=== PATIENT | male | born 1935 | race Hispanic/Latino ===

== ENCOUNTER 2017-04-24 08:55 | Inpatient (IN) | payer MEDICARE, BC ==
[2017-04-24 09:19] VITALS: BMI 19.8
[2017-04-24] MEDS ORDERED: Sodium Chloride 0.9% 500 ML IV ONE (10:11)
--- NOTE | 2017-04-24 10:39 | RAD ---
PROCEDURE: CHEST RADIOGRAPH, 1 VIEW HISTORY: cough COMPARISON: None available. FINDINGS: LUNGS: The interstitial marking appear diffusely and mildly increased chronic interstitial lung disease is a consideration. At least 2 nodular opacities project over the lateral inferior left merrick thorax - their etiology is uncertain. The chronicity is unknown conceivably the more inferior nodule could represent a prominent nipple shadow although this is not certain. Left pulmonary nodules are the diagnosis of exclusion. PLEURA: No pneumothorax or pleural fluid seen. CARDIOVASCULAR: Cardiomegaly. The central pulmonary vasculature appears top-normal OSSEOUS STRUCTURES: Bilateral shoulder arthrosis VISUALIZED UPPER ABDOMEN: Normal. OTHER FINDINGS: None. IMPRESSION: Indeterminate nodular opacities project over inferolateral left merrick thorax. Left pulmonary nodules for the diagnosis of exclusion. No comparison chest x-rays available for chronicity assessment If indicated consider noncontrast elective CT chest imaging to further evaluate
[2017-04-24 10:43] LABS: BASO % 0.3 % (0.0-2.0); EOS # 0.2 K/uL (0.0-0.7); EOS % 1.5 % (0.0-4.0); HEMATOCRIT 33.8 % (35.0-51.0); LYMPH # 0.6 K/uL (1.0-4.3); LYMPH % 4.3 % (20.0-40.0); MEAN CELL VOLUME 92.2 fL (80.0-94.0); MEAN CORPUSCULAR HEMOGLOBIN 30.9 pg (27.0-31.0); MEAN CORPUSCULAR HGB CONC 33.6 g/dL (33.0-37.0); MONO # 1.9 K/uL (0.0-0.8); MONO % 14.3 % (0.0-10.0); NRBC % 0.1 % (0.0-2.0); PLATELET COUNT 123 K/uL (130-400); RED CELL DISTRIBUTION WIDTH 14.3 % (11.5-14.5); WHITE BLOOD COUNT 13.1 K/uL (4.8-10.8)
--- NOTE | 2017-04-24 10:46 | C.PDOC ---
History Of Present Illness 81 year old male presents to ED for evaluation of productive cough, runny nose, body aches, generalized weakness, and an episode of diarrhea 2 days ago. Pt was seen by PMD, Dr. Alida Glover, had outpatient chest x-ray done but is unsure of results. Patient was given Rx for doxycycline (presumably for pnuemonia), which he has been compliant with. Patient denies chest pain, abdominal pain, vomiting, dysuria/hematuria, or fever. Time Seen by Provider: 04/24/17 09:44 Chief Complaint (Nursing): Cough, Cold, Congestion History Per: Patient History/Exam Limitations: no limitations Onset/Duration Of Symptoms: Days Current Symptoms Are (Timing): Still Present Location Of Pain: Diffuse Myalgias Sick Contacts (Context): None Associated Symptoms: Cough, Diarrhea Ear Symptoms: Bilateral: None Severity: Moderate Past Medical History Reviewed: Historical Data, Nursing Documentation, Vital Signs Vital Signs: Last Vital Signs Temp 97.9 F 04/24/17 15:42 Pulse 70 04/24/17 15:42 Resp 18 04/24/17 15:42 BP 127/66 04/24/17 15:42 Pulse Ox 95 04/24/17 15:42 - Medical History PMH: Hypercholesterolemia (Pt denies), Osteoporosis - [facility] Procedures ENDOSC POLYPECTOMY OF LG INTEST (04/05/14) Family History: States: No Known Family Hx - Social History Hx Alcohol Use: No Hx Substance Use: No - Immunization History Hx Tetanus Toxoid Vaccination: (unk) Hx Influenza Vaccination: Yes (2016) Hx Pneumococcal Vaccination: No Review Of Systems Except As Marked, All Systems Reviewed And Found Negative. Constitutional: Positive for: Weakness, Other (body aches). Negative for: Fever , Chills ENT: Positive for: Nose Congestion. Negative for: Ear Pain, Throat Pain Cardiovascular: Negative for: Chest Pain, Palpitations Respiratory: Positive for: Cough. Negative for: Shortness of Breath Gastrointestinal: Positive for: Diarrhea. Negative for: Nausea, Vomiting, Abdominal Pain Genitourinary: Negative for: Dysuria, Hematuria Skin: Negative for: Rash Neurological: Negative for: Headache, Dizziness Physical Exam - Physical Exam Appears: Well, Non-toxic, No Acute Distress Skin: Normal Color, Warm, Dry, No Rash Head: Normacephalic Eye(s): bilateral: Normal Inspection Oral Mucosa: Moist Chest: Symmetrical Cardiovascular: Rhythm Regular, No Murmur Respiratory: Normal Breath Sounds, No Rales, No Rhonchi, No Wheezing, Other ( speaking in full sentences, couing interittently ) Gastrointestinal/Abdominal: Normal Exam, Bowel Sounds, Soft, No Tenderness Extremity: Normal ROM, No Pedal Edema, No Calf Tenderness, No Deformity Pulses: Left Dorsalis Pedis: Normal, Right Dorsalis Pedis: Normal Neurological/Psych: Oriented x3, Normal Speech, Normal Cognition ED Course And Treatment - Laboratory Results Result Diagrams: 04/24/17 10:34 04/24/17 10:34 ECG: Interpreted By Me, Viewed By Me ECG Rhythm: Sinus Bradycardia ECG Interpretation: No Acute Changes Interpretation Of ECG: Left axis deviation. No acute ST/T wave changes. Rate From EC (bpm) O2 Sat by Pulse Oximetry: 96 (RA) Pulse Ox Interpretation: Normal - CT Scan/US Chest CT Other Rad Studies (CT/US): Read By Radiologist, Radiology Report Reviewed CT/US Interpretation: Accession No. : [id number]. Patient Name / ID : SHRUTI RODRIGEZ / [id number]. Exam Date : 04/24/2017 12:04:28 ( Approved ). Study Comment : Sex / Age : M / 81Y. Creator : Charisse Garrido MD. Dictator : Charisse Garrido MD. Automation Software Engineer : Fountain Pen Turner : Charisse Garrido MD. Approver2 : Report Date : 04/24/2017 13:07:46. My Comment : . CT chest without IV contrast. Indication: Left-sided infiltrate versus masses. Technique: Contiguous axial images were obtained through the chest without intravenous contrast enhancement. Sagittal and coronal reconstructions were generated and reviewed. This CT exam was performed using 1 or more of the falling dose reduction techniques: Automated exposure control, adjustment of the MAA and/or kV according to patient size, and/or use of iterative reconstruction technique. . Radiation dose (DLP): 208.36 MGy-cm. Comparison : Chest x-ray performed 04/24/17. Findings: Visualized portions of the inferior thyroid gland appear unremarkable. The unenhanced mediastinal and hilar vascular structures appear grossly unremarkable. Cardiomegaly. Dense atherosclerotic calcifications of the aorta. Esophageal wall thickening. Innumerable nodular densities bilaterally predominantly at the lung bases. Additional irregular pleural based densities noted within the upper lobes for example: 11 mm left upper lobe (series 3, image 17); 18 mm right middle lobe ( image 59); 16 mm right lower lobe (image 60). Additional areas of consolidation/ confluent pulmonary densities noted within the lingula as well as within the superior segment of the left lower lobe. Pleural based mass or consolidation evident within the right middle lobe (image 80) and right lower lobe (image 93) . Subpleural fibrosis. Small bilateral pleural effusions. No pneumothorax. Limited visualization of the noncontrast upper abdomen demonstrates partially imaged 6.4 x 5.6 cm right hepatic lobe hypodense mass. . T8 sclerosis, indeterminate. Tiny additional scattered sclerotic foci noted throughout the spine. Impression: Innumerable nodular densities predominantly noted at the lung bases. Additional irregular pleural based densities as well as consolidation/confluent pulmonary densities as described above. Pleural based mass or consolidation noted within the right middle and right lower lobes. Etiology is uncertain. Malignant neoplasm must be excluded. Infectious or inflammatory conditions may also be considered. Correlate clinically and close interval follow-up/workup as indicated. Subpleural fibrosis. Small bilateral pleural effusions. Partially imaged hypodense 6.4 x 5.6 cm right hepatic lobe mass worrisome for malignant neoplasm. Correlate clinically. T8 sclerosis, indeterminate. Tiny additional scattered sclerotic foci noted throughout the spine. Osseous metastatic disease is not excluded. Recommend correlation with nuclear medicine bone scan. Additional incidental findings as above. Findings discussed with Dr. Gilman on 04/24/17 at 1:29 p.m. Progress Note: Blood work, UA, EKG, CXR, chest CT ordered and reviewed. Patient was given IV NS bolus. IV rocephin and IV azithromycin given for pneumonia coverage. CT chest concerning for metastatic CA with elevated PSA - possible metastatic prostate CA? - Physician Consult Information Physician Contacted: Sachin Olson Outcome Of Conversation: Discussed patient with Dr. Olson, agrees with admission for pneumonia vs metastatic CA, leukocytosis, cough, elevated PSA. Medical Decision Making Medical Decision Making: differential diagnoses considered: pneumonia, metastatic cancer (likely prostate ), influenza, CHF, COPD/asthma Disposition - Disposition Disposition: HOSPITALIZED Disposition Time: 15:22 Condition: STABLE - Clinical Impression Clinical Impression: Pneumonia, Leukocytosis, Elevated PSA, Metastatic cancer, Failure of outpatient treatment - Scribe Statement The provider has reviewed the documentation as recorded by the Scribe Kalen Solorio All medical record entries made by the Scribe were at my direction and personally dictated by me. I have reviewed the chart and agree that the record accurately reflects my personal performance of the history, physical exam, medical decision making, and the department course for this patient. I have also personally directed, reviewed, and agree with the discharge instructions and disposition. Decision To Admit - Pt Status Changed To: Hospital Disposition Of: Inpatient - Admit Certification Admit to Inpatient:: After my assessment, the patient will require hospitalization for at least two midnights. This is because of the severity of symptoms shown, intensity of services needed, and/or the medical risk in this patient being treated as an outpatient. - InPatient: Physician Admission Certification: I certify that this patient requires 2 or more midnights of care for the following reason:: see notes - . Bed Request Type: Regular Admitting Physician: Sachin Olson Patient Diagnosis: Pneumonia, Elevated PSA, Metastatic cancer, Leukocytosis
[2017-04-24 10:51] LABS: ALKALINE PHOSPHATASE 174 U/L (38-126); ALT/SGPT 24 U/L (21-72); AST/SGOT 35 U/L (17-59); BILIRUBIN,TOTAL 0.9 mg/dL (0.2-1.3); BLOOD UREA NITROGEN 18 mg/dL (9-20); CARBON DIOXIDE 25 mmol/L (22-30); CHLORIDE 102 mmol/L (98-107); GFR AFRICAN-AMERICAN > 60; GLUCOSE,RANDOM 92 mg/dL (75-110); POTASSIUM 4.7 mmol/L (3.6-5.2); SODIUM 132 mmol/L (132-148); TOTAL PROTEIN 5.8 g/dL (6.3-8.3)
[2017-04-24 10:55] LABS: RBC URINE 4 /hpf (0-3); URINE BACTERIA RARE (<OCC); URINE BILIRUBIN NEGATIVE (NEGATIVE); URINE BLOOD 1+ (NEGATIVE); URINE COLOR Yellow (YELLOW); URINE GLUCOSE (UA) 1+ mg/dL (Normal); URINE KETONE NEGATIVE (NEGATIVE); URINE LEUKOCYTE ESTERASE 1+ Leu/uL (Negative); URINE PROTEIN NEGATIVE (NEGATIVE); URINE UROBILINOGEN NORMAL mg/dL (0.2-1.0); WBC URINE 9 /hpf (0-5)
[2017-04-24 10:57] LABS: ALB/GLOB RATIO 1.3 (1.0-2.1)
[2017-04-24 11:06] LABS: EOSINOPHIL 3 % (0-4); NEUTROPHIL 82 % (50-75); TOTAL CELLS COUNTED 100
[2017-04-24] MEDS ORDERED: Sodium Chloride 0.9% 1,000 ML ONE (11:07)
--- NOTE | 2017-04-24 13:31 | CT ---
CT chest without IV contrast Indication: Left-sided infiltrate versus masses Technique: Contiguous axial images were obtained through the chest without intravenous contrast enhancement. Sagittal and coronal reconstructions were generated and reviewed. This CT exam was performed using 1 or more of the falling dose reduction techniques: Automated exposure control, adjustment of the MAA and/or kV according to patient size, and/or use of iterative reconstruction technique. Radiation dose (DLP): 208.36 MGy-cm. Comparison: Chest x-ray performed 04/24/17 Findings: Visualized portions of the inferior thyroid gland appear unremarkable. The unenhanced mediastinal and hilar vascular structures appear grossly unremarkable. Cardiomegaly. Dense atherosclerotic calcifications of the aorta. Esophageal wall thickening. Innumerable nodular densities bilaterally predominantly at the lung bases. Additional irregular pleural based densities noted within the upper lobes for example: 11 mm left upper lobe (series 3, image 17); 18 mm right middle lobe (image 59); 16 mm right lower lobe (image 60). Additional areas of consolidation/confluent pulmonary densities noted within the lingula as well as within the superior segment of the left lower lobe. Pleural based mass or consolidation evident within the right middle lobe (image 80) and right lower lobe (image 93). Subpleural fibrosis. Small bilateral pleural effusions. No pneumothorax. Limited visualization of the noncontrast upper abdomen demonstrates partially imaged 6.4 x 5.6 cm right hepatic lobe hypodense mass. T8 sclerosis, indeterminate. Tiny additional scattered sclerotic foci noted throughout the spine. Impression: Innumerable nodular densities predominantly noted at the lung bases. Additional irregular pleural based densities as well as consolidation/confluent pulmonary densities as described above. Pleural based mass or consolidation noted within the right middle and right lower lobes. Etiology is uncertain. Malignant neoplasm must be excluded. Infectious or inflammatory conditions may also be considered. Correlate clinically and close interval follow-up/workup as indicated. Subpleural fibrosis. Small bilateral pleural effusions. Partially imaged hypodense 6.4 x 5.6 cm right hepatic lobe mass worrisome for malignant neoplasm. Correlate clinically. T8 sclerosis, indeterminate. Tiny additional scattered sclerotic foci noted throughout the spine. Osseous metastatic disease is not excluded. Recommend correlation with nuclear medicine bone scan. Additional incidental findings as above. Findings discussed with Dr. Gilman on 04/24/17 at 1:29 p.m.
[2017-04-24] MEDS ORDERED: cefTRIAXone 1 gm in Water For Injection 2.1 ML IVPB STA (13:55)
[2017-04-24] MEDS ORDERED: Azithromycin 500 MG in Sodium Chloride 0.9% 250 ML IVPB STA (13:57)
[2017-04-24] MEDS ORDERED: cefTRIAXone IV 1 gm in Dextros 50 ML IV STA (14:14)
[2017-04-24] MEDS: Albuterol-Ipratrop 3 mg / 0.5 (3 ml) UD INH PRN (20:40)
--- NOTE | 2017-04-24 21:00 | CP.PCM.CON ---
History of Present Illness - History of Present Illness History of Present Illness: INFECTIOUS DISEASE CONSULTATION; HPI. 81 year old male presents to ED for evaluation of productive cough, runny nose, body aches, generalized weakness, and an episode of diarrhea 2 days ago. Pt was seen by PMD, Dr. Alida Glover, had outpatient chest x-ray done but is unsure of results. Patient was given Rx for doxycycline (presumably for pnuemonia), which he has been compliant with. Patient denies chest pain, abdominal pain, vomiting, dysuria/hematuria, or fever. CT CHEST DONE IN ER SHOWED MULTIPLE NODULES IN LUNG WITH SOME PLEURAL-BASED DENSITIES AND CONSOLIDATIONS. A 6 BY 5 CM MASS IN LIVER SUGGESTING NEOPLASM. PT HAS NO RISK FACTORS HAS COPD AND ENLARGED PROSTATE AND HAS SEEN PREVIOUSLY NUMEROUS UROLOGISTS . PATIENT DENIES ANY FEVER OR CHILLS BUT STATES HE HAS PERSISTENT COUGH AND IN SPITE OF TAKING ANTIBIOTICS IT HAS NOT HELPED HIM. PATIENT DENIES LOSS OF WEIGHT OR POOR APPETITE. PATIENT DID TAKE HIS INFLUENZA VACCINATION IN 2017. PATIENT IS AN EX-SMOKER AND QUIT SEVERAL YEARS AGO. PRESENTLY RETIRED AND USED TO WORK IN [employer]. PATIENT ALSO DENIES ANY RECENT TRAVEL OR SICK CONTACTS. PATIENT RECEIVED A DOSE OF rOCEPHIN AND iv zITHROMAX POST CULTURES. INFECTIOUS DISEASE CONSULTATION REQUESTED BY PMD FOR FURTHER EVALUATION AND ANTIBIOTICS. PMH: Hypercholesterolemia (Pt denies), Osteoporosis, COPD, ENLARGED PROSTATE. - [facility] Procedures ENDOSC POLYPECTOMY OF LG INTEST (04/05/14) Family History: States: No Known Family Hx - Social History Hx Alcohol Use: No Hx Substance Use: No - Immunization History Hx Tetanus Toxoid Vaccination: (unk) Hx Influenza Vaccination: Yes (2016) Hx Pneumococcal Vaccination: No ALLERGY; NKA Review of Systems - Constitutional Constitutional: absent: Chills, Fever, Night Sweats, Weight Loss - EENT Eyes: absent: Change in Vision, Floaters Ears: Decreased Hearing. absent: Dizziness Nose/Mouth/Throat: absent: Post Nasal Drip, Hoarsness, Mouth Lesions, Sore Throat - Cardiovascular Cardiovascular: Dyspnea on Exertion. absent: Chest Pain, Pedal Edema - Respiratory Respiratory: Cough, Change in Mucous Color. absent: Hemoptysis - Gastrointestinal Gastrointestinal: Diarrhea. absent: Abdominal Pain, Nausea, Vomiting - Genitourinary Genitourinary: Other (HISTORY OF ENLARGED PROSTATE.). absent: Difficulty Urinating, Flank Pain, Urinary Hesitance - Musculoskeletal Musculoskeletal: Arthralgias, Back Pain - Neurological Neurological: absent: Headaches - Hematologic/Lymphatic Hematologic: As Per HPI. absent: Easy Bruising, Lymphadenopathy Past Patient History - Past Medical History & Family History Past Medical History?: Yes - Past Social History Smoking Status: Former Smoker - CARDIAC Hx Hypercholesterolemia: Yes (Pt denies) - PULMONARY Hx Respiratory Disorders: No - NEUROLOGICAL Hx Neurological Disorder: No - HEENT Hx HEENT Problems: Yes (WEARS GLASSES FOR READING) - RENAL Hx Chronic Kidney Disease: No - ENDOCRINE/METABOLIC Hx Endocrine Disorders: No - HEMATOLOGICAL/ONCOLOGICAL Hx Blood Disorders: No - INTEGUMENTARY Hx Dermatological Problems: No - MUSCULOSKELETAL/RHEUMATOLOGICAL Hx Falls: No - GASTROINTESTINAL Hx Gastrointestinal Disorders: No - GENITOURINARY/GYNECOLOGICAL Hx Prostate Problems: Yes (BPH) - PSYCHIATRIC Hx Substance Use: No - SURGICAL HISTORY Hx Surgeries: Yes (PROSTATE SURGERY) - ANESTHESIA Hx Anesthesia: Yes Hx Anesthesia Reactions: No Hx Malignant Hyperthermia: No Meds Allergies/Adverse Reactions: Allergies Allergy/AdvReac Type Severity Reaction Status Date / Time No Known Allergies Allergy Verified 04/24/17 09:16 - Medications Medications: Current Medications Albuterol/Ipratropium (Duoneb 3 Mg/0.5 Mg (3 Ml) Ud) 3 ml INH RQ4 PRN PRN Reason: Shortness of Breath Last Admin: 04/24/17 20:40 Dose: 3 ml Aspirin (Aspirin Chewable) 81 mg PO DAILY [facility] Enoxaparin Sodium (Lovenox) 30 mg SC Q12 [facility] Methylprednisolone (Solu-Medrol) 60 mg IVP Q6H [facility] Pantoprazole Sodium (Protonix Ec Tab) 40 mg PO DAILY [facility] Physical Exam - Constitutional Appears: No Acute Distress, Cachectic - Head Exam Head Exam: NORMAL INSPECTION - Eye Exam Eye Exam: EOMI, PERRL - ENT Exam ENT Exam: Normal Oropharynx - Neck Exam Neck exam: Positive for: Normal Inspection. Negative for: Lymphadenopathy, Thyromegaly - Respiratory Exam Respiratory Exam: Rales (BILATERALLY.), Rhonchi - Cardiovascular Exam Cardiovascular Exam: REGULAR RHYTHM, +S1, +S2, Systolic Murmur (AORTIC AREA.) - GI/Abdominal Exam GI & Abdominal Exam: Normal Bowel Sounds, Soft. absent: Organomegaly - Extremities Exam Extremities exam: Positive for: pedal pulses present. Negative for: calf tenderness, pedal edema - Neurological Exam Neurological exam: Alert, CN II-XII Intact, Oriented x3, Reflexes Normal - Skin Skin Exam: Normal Color, Warm Results - Vital Signs Recent Vital Signs: Last Vital Signs Temp 98.4 F 04/24/17 17:26 Pulse 69 04/24/17 20:43 Resp 20 04/24/17 17:26 BP 134/64 04/24/17 17:26 Pulse Ox 96 04/24/17 17:32 - Labs Result Diagrams: 04/24/17 10:34 04/24/17 10:34 Labs: Laboratory Results - last 24 hr 04/24/17 04/24/17 04/24/17 10:34 10:34 10:34 WBC 13.1 H RBC 3.67 L Hgb 11.3 L Hct 33.8 L MCV 92.2 MCH 30.9 MCHC 33.6 RDW 14.3 Plt Count 123 L MPV 9.0 Neut % (Auto) 79.6 H Lymph % (Auto) 4.3 L [place] % (Auto) 14.3 H Eos % (Auto) 1.5 Baso % (Auto) 0.3 Neut # 10.4 H Lymph # 0.6 L [place] # 1.9 H Eos # 0.2 Baso # 0.0 Neutrophils % (Manual) 82 H Lymphocytes % (Manual) 4 L Monocytes % (Manual) 11 H Eosinophils % (Manual) 3 Platelet Estimate Slightly decreased L Polychromasia Slight Hypochromasia (manual) Slight Ovalocytes Slight Sodium 132 Potassium 4.7 Chloride 102 Carbon Dioxide 25 Anion Gap 10 BUN 18 Creatinine 0.8 Est GFR ( Amer) > 60 Est GFR (Non-Af Amer) > 60 POC Glucose (mg/dL) 92 Random Glucose 92 Calcium 8.0 L Total Bilirubin 0.9 AST 35 ALT 24 Alkaline Phosphatase 174 H Troponin I < 0.0120 NT-Pro-B Natriuret Pep 611 Total Protein 5.8 L Albumin 3.3 L Globulin 2.5 Albumin/Globulin Ratio 1.3 Prostate Specific Ag Urine Color Urine Clarity Urine pH Ur Specific [place] Urine Protein Urine Glucose (UA) Urine Ketones Urine Blood Urine Nitrate Urine Bilirubin Urine Urobilinogen Ur Leukocyte Esterase Urine WBC (Auto) Urine RBC (Auto) Urine Bacteria 04/24/17 04/24/17 10:43 13:43 WBC RBC Hgb Hct MCV MCH MCHC RDW Plt Count MPV Neut % (Auto) Lymph % (Auto) [place] % (Auto) Eos % (Auto) Baso % (Auto) Neut # Lymph # [place] # Eos # Baso # Neutrophils % (Manual) Lymphocytes % (Manual) Monocytes % (Manual) Eosinophils % (Manual) Platelet Estimate Polychromasia Hypochromasia (manual) Ovalocytes Sodium Potassium Chloride Carbon Dioxide Anion Gap BUN Creatinine Est GFR ( Amer) Est GFR (Non-Af Amer) POC Glucose (mg/dL) Random Glucose Calcium Total Bilirubin AST ALT Alkaline Phosphatase Troponin I NT-Pro-B Natriuret Pep Total Protein Albumin Globulin Albumin/Globulin Ratio Prostate Specific Ag 9.35 H Urine Color Yellow Urine Clarity Clear Urine pH 5.0 Ur Specific [place] 1.011 Urine Protein Negative Urine Glucose (UA) 1+ H Urine Ketones Negative Urine Blood 1+ H Urine Nitrate Negative Urine Bilirubin Negative Urine Urobilinogen Normal Ur Leukocyte Esterase 1+ H Urine WBC (Auto) 9 H Urine RBC (Auto) 4 H Urine Bacteria Rare - Imaging and Cardiology CT scan - chestwithout contrast Status: Report reviewed by me Assessment & Plan (1) Pneumonia Assessment and Plan: panculture ESR,CRP. ATYPICAL TITERS SPUTUM gRAM STAIN AND CULTURE. MRSA SCREEN CONTINUE iv ROCEPHIN 1 G ONCE A DAY DAILY. 04/24/17. CONTINUE iv zITHROMAX 500 MG ONCE A DAY DAILY IV.04/24/17. FOLLOW-UP CULTURES TO ADJUST ANTIBIOTICS. PULMONARY TOILET IV STEROIDS PER ATTENDING. ANTITUSSIVES. Status: Acute (2) COPD exacerbation Assessment and Plan: PER ABOVE Status: Acute (3) Elevated PSA Assessment and Plan: FOLLOW-UP UA AND URINE CULTURES. UROLOGY EVALUATION. Status: Acute (4) Metastatic cancer Assessment and Plan: PATIENT MAY NEED PULMONARY EVALUATION AND FIBEROPTIC BRONCHOSCOPY FOR DIAGNOSTIC PURPOSES. Status: Acute (5) Osteoporosis Assessment and Plan: VITAMIN D LEVEL. Status: Acute
[2017-04-24] MEDS: Enoxaparin 30 mg Syringe SC SCH (22:43)
--- NOTE | 2017-04-24 23:02 | CP.PCM.HP ---
<Sachin Olson N - Last Filed: 04/24/17 22:59> History of Present Illness - History of Present Illness History of Present Illness: 81 year old male presents to ED for evaluation of productive cough, runny nose, body aches, generalized weakness, and an episode of diarrhea 2 days ago. Pt was seen by PMD, Dr. Alida Glover, had outpatient chest x-ray done but is unsure of results. Patient was given Rx for doxycycline (presumably for pnuemonia), which he has been compliant with. Patient denies chest pain, abdominal pain, vomiting, dysuria/hematuria, or fever. CT CHEST DONE IN ER SHOWED MULTIPLE NODULES IN LUNG WITH EFFUSION AND 6 BY 5 CM MASS IN LIVER SUGGESTING NEOPLASM PT HAS NO RISK FSCTORS HAS COPD AND ENLARGED PROSTATE AND HAS SEEN PREVIOUSLY NUMEROUS UROLOGISTS Present on Admission - Present on Admission Any Indicators Present on Admission: No Review of Systems - Constitutional Constitutional: absent: As Per HPI, Anorexia, Chills, Daytime Sleepiness, Excessive Sweating, Fatigue, Fever, Frequent Falls, Headache, Increased Appetite , Lethargy, Malaise, Night Sweats, Snoring, Sleep Apnea, Weight Gain, Weight Loss, Weakness, Other - EENT Eyes: absent: As Per HPI, Blind Spots, Blurred Vision, Change in Vision, Decreased Night Vision, Diplopia, Discharge, Dry Eye, Exophthalmos, Floaters, Irritation, Itchy Eyes, Loss of Peripheral Vision, Pain, Photophobia, Requires Corrective Lenses, Sees Flashes, Spots in Vision, Tunnel Vision, Other Visual Disturbances, Loss of Vision, Other Ears: absent: As Per HPI, Decreased Hearing, Ear Discharge, Ear Pain, Tinnitus, Abnormal Hearing, Disequilibrium, Dizziness, Other Nose/Mouth/Throat: Nasal Congestion. absent: As Per HPI, Epistaxis, Nasal Discharge, Nasal Obstruction, Nasal Trauma, Nose Pain, Post Nasal Drip, Sinus Pain, Sinus Pressure, Bleeding Gums, Change in Voice, Dental Pain, Dry Mouth, Dysphagia, Halitosis, Hoarsness, Lip Swelling, Mouth Lesions, Mouth Pain, Odynophagia, Sore Throat, Throat Swelling, Tongue Swelling, Facial Pain, Neck Pain, Neck Mass, Other - Cardiovascular Cardiovascular: absent: As Per HPI, Acrocyanosis, Chest Pain, Chest Pain at Rest , Chest Pain with Activity, Claudication, Diaphoresis, Dyspnea, Dyspnea on Exertion, Edema, Irregular Heart Rhythm, Pain Radiating to Arm/Neck/Jaw, Leg Edema, Leg Ulcers, Lightheadedness, Orthopnea, Palpitations, Paroxysmal Nocturnal Dyspnea, Pedal Edema, Radiating Pain, Rapid Heart Rate, Slow Heart Rate, Syncope, Other - Respiratory Respiratory: Cough, Dyspnea, Dyspnea on Exertion, Wheezing. absent: Hemoptysis , Snoring, Pain on Inspiration - Gastrointestinal Gastrointestinal: absent: As Per HPI, Abdominal Pain, Belching, Bloating, Change in Bowel Habits, Change in Stool Character, Coffee Ground Emesis, Constipation, Cramping, Diarrhea, Dyspepsia, Dysphagia, Early Satiety, Excessive Flatus, Fecal Incontinence, Heartburn, Hematemesis, Hematochezia, Loose Stools, Melena, Nausea, Odynophagia, Temesmus, Vomiting, Other - Genitourinary Genitourinary: absent: As Per HPI, Change in Urinary Stream, Difficulty Urinating, Dysuria, Flank Pain, Hematuria, Pyuria, Nocturia, Urinary Incontinence, Urinary Frequency, Urinary Hesitance, Urinary Urgency, Voiding Freq/Small Amts, Freq UTI, Hx Renal/Bladder Calculi, Hx /Renal Surgery, Bladder Distension, Other - Musculoskeletal Musculoskeletal: absent: As Per HPI, Abnormal Gait, Arthralgias, Atrophy, Back Pain, Deformity, Joint Swelling, Limited Range of Motion, Loss of Height, Muscle Cramps, Muscle Weakness, Myalgias, Neck Pain, Numbness, Radiating Pain into Limb, Stiffness, Tingling, Other - Neurological Neurological: absent: As Per HPI, Abnormal Gait, Abnormal Hearing, Abnormal Movements, Abnormal Speech, Behavioral Changes, Burning Sensations, Confusion, Convulsions, Disequilibrium, Dizziness, Numbness, Focal Weakness, Frequent Falls , Headaches, Lack of Coordination, Loss of Vision, Memory Loss, Paresthesias, Radicular Pain, Restless Legs, Sensory Deficit, Syncope, Tingling, Tremor, Vertigo, Weakness, Other Visual Disturbances, Other - Endocrine Endocrine: absent: As Per HPI, Change in Body Appearance, Change in Libido, Cold Intolorance, Deepening of Voice, Excessive Sweating, Fatigue, Flushing, Heat Intolorance, Increase in Ring/Shoe/Hat Size, Palpitations, Polydipsia, Polyphagia, Polyuria, Other Past Patient History - Past Medical History & Family History Past Medical History?: Yes - Past Social History Smoking Status: Former Smoker - CARDIAC Hx Hypercholesterolemia: Yes (Pt denies) - PULMONARY Hx Respiratory Disorders: No - NEUROLOGICAL Hx Neurological Disorder: No - HEENT Hx HEENT Problems: Yes (WEARS GLASSES FOR READING) - RENAL Hx Chronic Kidney Disease: No - ENDOCRINE/METABOLIC Hx Endocrine Disorders: No - HEMATOLOGICAL/ONCOLOGICAL Hx Blood Disorders: No - INTEGUMENTARY Hx Dermatological Problems: No - MUSCULOSKELETAL/RHEUMATOLOGICAL Hx Falls: No - GASTROINTESTINAL Hx Gastrointestinal Disorders: No - GENITOURINARY/GYNECOLOGICAL Hx Prostate Problems: Yes (BPH) - PSYCHIATRIC Hx Substance Use: No - SURGICAL HISTORY Hx Surgeries: Yes (PROSTATE SURGERY) - ANESTHESIA Hx Anesthesia: Yes Hx Anesthesia Reactions: No Hx Malignant Hyperthermia: No Meds Allergies/Adverse Reactions: Allergies Allergy/AdvReac Type Severity Reaction Status Date / Time No Known Allergies Allergy Verified 04/24/17 09:16 Physical Exam - Head Exam Head Exam: ATRAUMATIC - Eye Exam Eye Exam: EOMI, Normal appearance, PERRL Pupil Exam: NORMAL ACCOMODATION, PERRL - ENT Exam ENT Exam: Mucous Membranes Moist, Normal Exam - Neck Exam Neck exam: Positive for: Normal Inspection - Respiratory Exam Respiratory Exam: Prolonged Expiratory Phase, Rhonchi, Wheezes - Cardiovascular Exam Cardiovascular Exam: REGULAR RHYTHM, +S1, +S2, Systolic Murmur - GI/Abdominal Exam GI & Abdominal Exam: Normal Bowel Sounds, Soft. absent: Tenderness - Extremities Exam Extremities exam: Positive for: pedal pulses present. Negative for: calf tenderness, pedal edema - Back Exam Back exam: NORMAL INSPECTION. absent: CVA tenderness (L), CVA tenderness (R) Results - Vital Signs Recent Vital Signs: Last Vital Signs Temp 98.4 F 04/24/17 17:26 Pulse 69 04/24/17 20:43 Resp 20 04/24/17 17:26 BP 134/64 04/24/17 17:26 Pulse Ox 96 04/24/17 17:32 - Labs Result Diagrams: 04/24/17 10:34 04/24/17 10:34 Labs: Laboratory Results - last 24 hr 04/24/17 04/24/17 04/24/17 10:34 10:34 10:34 WBC 13.1 H RBC 3.67 L Hgb 11.3 L Hct 33.8 L MCV 92.2 MCH 30.9 MCHC 33.6 RDW 14.3 Plt Count 123 L MPV 9.0 Neut % (Auto) 79.6 H Lymph % (Auto) 4.3 L [place] % (Auto) 14.3 H Eos % (Auto) 1.5 Baso % (Auto) 0.3 Neut # 10.4 H Lymph # 0.6 L [place] # 1.9 H Eos # 0.2 Baso # 0.0 Neutrophils % (Manual) 82 H Lymphocytes % (Manual) 4 L Monocytes % (Manual) 11 H Eosinophils % (Manual) 3 Platelet Estimate Slightly decreased L Polychromasia Slight Hypochromasia (manual) Slight Ovalocytes Slight Sodium 132 Potassium 4.7 Chloride 102 Carbon Dioxide 25 Anion Gap 10 BUN 18 Creatinine 0.8 Est GFR ( Amer) > 60 Est GFR (Non-Af Amer) > 60 POC Glucose (mg/dL) 92 Random Glucose 92 Calcium 8.0 L Total Bilirubin 0.9 AST 35 ALT 24 Alkaline Phosphatase 174 H Troponin I < 0.0120 NT-Pro-B Natriuret Pep 611 Total Protein 5.8 L Albumin 3.3 L Globulin 2.5 Albumin/Globulin Ratio 1.3 Prostate Specific Ag Urine Color Urine Clarity Urine pH Ur Specific [place] Urine Protein Urine Glucose (UA) Urine Ketones Urine Blood Urine Nitrate Urine Bilirubin Urine Urobilinogen Ur Leukocyte Esterase Urine WBC (Auto) Urine RBC (Auto) Urine Bacteria 04/24/17 04/24/17 10:43 13:43 WBC RBC Hgb Hct MCV MCH MCHC RDW Plt Count MPV Neut % (Auto) Lymph % (Auto) [place] % (Auto) Eos % (Auto) Baso % (Auto) Neut # Lymph # [place] # Eos # Baso # Neutrophils % (Manual) Lymphocytes % (Manual) Monocytes % (Manual) Eosinophils % (Manual) Platelet Estimate Polychromasia Hypochromasia (manual) Ovalocytes Sodium Potassium Chloride Carbon Dioxide Anion Gap BUN Creatinine Est GFR ( Amer) Est GFR (Non-Af Amer) POC Glucose (mg/dL) Random Glucose Calcium Total Bilirubin AST ALT Alkaline Phosphatase Troponin I NT-Pro-B Natriuret Pep Total Protein Albumin Globulin Albumin/Globulin Ratio Prostate Specific Ag 9.35 H Urine Color Yellow Urine Clarity Clear Urine pH 5.0 Ur Specific [place] 1.011 Urine Protein Negative Urine Glucose (UA) 1+ H Urine Ketones Negative Urine Blood 1+ H Urine Nitrate Negative Urine Bilirubin Negative Urine Urobilinogen Normal Ur Leukocyte Esterase 1+ H Urine WBC (Auto) 9 H Urine RBC (Auto) 4 H Urine Bacteria Rare Assessment & Plan (1) Lung cancer Status: Acute Comment: FURTHER LUNG CANCER W/U (2) COPD exacerbation Status: Acute (3) Metastatic cancer Status: Acute <WeirDee Zavala - Last Filed: 04/24/17 23:42> Results - Vital Signs Recent Vital Signs: Last Vital Signs Temp 98.4 F 04/24/17 17:26 Pulse 69 04/24/17 20:43 Resp 20 04/24/17 17:26 BP 134/64 04/24/17 17:26 Pulse Ox 96 04/24/17 17:32 - Labs Result Diagrams: 04/24/17 10:34 04/24/17 10:34 Labs: Laboratory Results - last 24 hr 04/24/17 04/24/17 04/24/17 10:34 10:34 10:34 WBC 13.1 H RBC 3.67 L Hgb 11.3 L Hct 33.8 L MCV 92.2 MCH 30.9 MCHC 33.6 RDW 14.3 Plt Count 123 L MPV 9.0 Neut % (Auto) 79.6 H Lymph % (Auto) 4.3 L [place] % (Auto) 14.3 H Eos % (Auto) 1.5 Baso % (Auto) 0.3 Neut # 10.4 H Lymph # 0.6 L [place] # 1.9 H Eos # 0.2 Baso # 0.0 Neutrophils % (Manual) 82 H Lymphocytes % (Manual) 4 L Monocytes % (Manual) 11 H Eosinophils % (Manual) 3 Platelet Estimate Slightly decreased L Polychromasia Slight Hypochromasia (manual) Slight Ovalocytes Slight Sodium 132 Potassium 4.7 Chloride 102 Carbon Dioxide 25 Anion Gap 10 BUN 18 Creatinine 0.8 Est GFR ( Amer) > 60 Est GFR (Non-Af Amer) > 60 POC Glucose (mg/dL) 92 Random Glucose 92 Calcium 8.0 L Total Bilirubin 0.9 AST 35 ALT 24 Alkaline Phosphatase 174 H Troponin I < 0.0120 NT-Pro-B Natriuret Pep 611 Total Protein 5.8 L Albumin 3.3 L Globulin 2.5 Albumin/Globulin Ratio 1.3 Prostate Specific Ag Urine Color Urine Clarity Urine pH Ur Specific [place] Urine Protein Urine Glucose (UA) Urine Ketones Urine Blood Urine Nitrate Urine Bilirubin Urine Urobilinogen Ur Leukocyte Esterase Urine WBC (Auto) Urine RBC (Auto) Urine Bacteria 04/24/17 04/24/17 10:43 13:43 WBC RBC Hgb Hct MCV MCH MCHC RDW Plt Count MPV Neut % (Auto) Lymph % (Auto) [place] % (Auto) Eos % (Auto) Baso % (Auto) Neut # Lymph # [place] # Eos # Baso # Neutrophils % (Manual) Lymphocytes % (Manual) Monocytes % (Manual) Eosinophils % (Manual) Platelet Estimate Polychromasia Hypochromasia (manual) Ovalocytes Sodium Potassium Chloride Carbon Dioxide Anion Gap BUN Creatinine Est GFR ( Amer) Est GFR (Non-Af Amer) POC Glucose (mg/dL) Random Glucose Calcium Total Bilirubin AST ALT Alkaline Phosphatase Troponin I NT-Pro-B Natriuret Pep Total Protein Albumin Globulin Albumin/Globulin Ratio Prostate Specific Ag 9.35 H Urine Color Yellow Urine Clarity Clear Urine pH 5.0 Ur Specific [place] 1.011 Urine Protein Negative Urine Glucose (UA) 1+ H Urine Ketones Negative Urine Blood 1+ H Urine Nitrate Negative Urine Bilirubin Negative Urine Urobilinogen Normal Ur Leukocyte Esterase 1+ H Urine WBC (Auto) 9 H Urine RBC (Auto) 4 H Urine Bacteria Rare Assessment & Plan (1) Pneumonia Status: Acute (2) COPD exacerbation Status: Acute (3) Elevated PSA Status: Acute (4) Metastatic cancer Status: Acute (5) Osteoporosis Status: Acute
[2017-04-25] MEDS ORDERED: Vancomycin 1 gm/NS 200 ml 1 GM/200 ML BAG IVPB SCH
[2017-04-25 07:25] LABS: BASO % 0.1 % (0.0-2.0); HEMATOCRIT 34.3 % (35.0-51.0); LYMPH # 0.3 K/uL (1.0-4.3); LYMPH % 4.7 % (20.0-40.0); MEAN CELL VOLUME 92.1 fL (80.0-94.0); MEAN CORPUSCULAR HEMOGLOBIN 31.4 pg (27.0-31.0); MEAN CORPUSCULAR HGB CONC 34.1 g/dL (33.0-37.0); MEAN PLATELET VOLUME 9.8 fL (7.2-11.7); MONO # 0.1 K/uL (0.0-0.8); MONO % 1.7 % (0.0-10.0); PLATELET COUNT 128 K/uL (130-400); RED CELL DISTRIBUTION WIDTH 14.8 % (11.5-14.5)
[2017-04-25 07:33] LABS: WHITE BLOOD COUNT 6.5 K/uL (4.8-10.8)
[2017-04-25 08:42] LABS: ALKALINE PHOSPHATASE 184 U/L (38-126); ALT/SGPT 20 U/L (21-72); AST/SGOT 41 U/L (17-59); BILIRUBIN,TOTAL 0.7 mg/dL (0.2-1.3); BLOOD UREA NITROGEN 18 mg/dL (9-20); CALCIUM 8.2 mg/dl (8.6-10.4); CARBON DIOXIDE 25 mmol/L (22-30); CHLORIDE 103 mmol/L (98-107); GFR AFRICAN-AMERICAN > 60; GLUCOSE,RANDOM 165 mg/dL (75-110); POTASSIUM 5.1 mmol/L (3.6-5.2); SODIUM 135 mmol/L (132-148); TOTAL PROTEIN 5.7 g/dL (6.3-8.3)
[2017-04-25 08:50] LABS: ERYTHROCYTE SEDIMENTATION RATE 15 mm/hr (0-15)
[2017-04-25 08:55] LABS: ALB/GLOB RATIO 1.2 (1.0-2.1); BILIRUBIN,DIRECT 0.3 mg/dL (0.0-0.4)
[2017-04-25 09:11] LABS: NEUTROPHIL 96 % (50-75); TOTAL CELLS COUNTED 100
[2017-04-25 09:13] LABS: GIANT PLATELETS PRESENT; LARGE PLATELETS PRESENT
[2017-04-25] MEDS: Azithromycin 500 MG in Sodium Chloride 0.9% 250 ML IVPB SCH (09:46)
[2017-04-25] MEDS: Pantoprazole 40 mg EC Tab PO SCH (09:46)
[2017-04-25] MEDS: Enoxaparin 30 mg Syringe SC SCH ×2 (09:46→21:30)
[2017-04-25] MEDS ORDERED: Enoxaparin 30 mg Syringe SC SCH ×2 (10:00→22:00)
[2017-04-25] MEDS ORDERED: cefTRIAXone IV 1 gm in Dextros 50 ML IVPB SCH (10:00)
--- NOTE | 2017-04-25 11:15 | NM ---
COMPARISON: April 23, 2017. CT thorax TECHNIQUE: 8.3 mCi technetium 99-m Xe-133 Gas. 4.0 mCI technetium 99-m MAA administered intravenously. FINDINGS: VENTILATION COMPONENT: Heterogeneous ventilation. PERFUSION COMPONENT: Multiple peripheral subsegmental perfusion defects the preponderance of which correspond to abnormalities in the periphery of the lungs on CT scan. IMPRESSION: Intermediateprobability ventilation perfusion scan for pulmonary embolism. Based on multiple perfusion abnormalities corresponding to findings on CT scan. If pulmonary embolism is suspected, based on these findings, pulmonary angiogram a strongly recommended.
--- NOTE | 2017-04-25 13:54 | CP.PCM.PN ---
Subjective - Date & Time of Evaluation Date of Evaluation: 04/25/17 Time of Evaluation: 13:52 - Subjective Subjective: CHIEF COMPLAINTS TODAY : DRY COUGH , WHEEZING ROS. HEENT : N. Resp : No hemoptysis Cardio : No anginal CP, PND, orthopnea, palpitation GI : No abd.pain, n/v ,diarrhea or GI bleeding . CONTRACT ACCOUNTANT : No headache, vertigo, focal deficit. Musculoskel : No joint swelling , Derm : No rash Psych : Normal affect. Ext : No swelling ,calf pain PE. Pt. is alert awake in no distress. V.S As noted in the chart Head ,ear nose,throat and eyes : Normal. Neck : Supple with normal carotids. Lungs: RONCHI AND RALES Heart : S1 & S2 normal with S4. No murmur. Abd : Soft non tender with normal bowel sounds. Neuro : Moves all ext. with no localized deficit. Ext : No edema with intact pulses.Non tender calves Derm : No rashes or decubitus ulcer. LABS/RADIOLOGY: ASSESSMENT/PLAN : IVAB /STEROIDS W/U CANCER Objective - Vital Signs/Intake and Output Vital Signs (last 24 hours): Temp Pulse Resp BP Pulse Ox 97.4 F L 60 20 125/70 96 04/25/17 08:19 04/25/17 08:19 04/25/17 08:19 04/25/17 08:19 04/25/17 08:19 Intake and Output: 04/25/17 04/25/17 11:59 23:59 Intake Total 720 Balance 720 - Medications Medications: Current Medications Albuterol/Ipratropium (Duoneb 3 Mg/0.5 Mg (3 Ml) Ud) 3 ml INH RQ4 PRN PRN Reason: Shortness of Breath Last Admin: 04/24/17 20:40 Dose: 3 ml Aspirin (Aspirin Chewable) 81 mg PO DAILY [facility] Last Admin: 04/25/17 09:45 Dose: 81 mg Enoxaparin Sodium (Lovenox) 30 mg SC Q12 [facility] Last Admin: 04/25/17 09:46 Dose: 30 mg Ceftriaxone Sodium (Rocephin Iv 1 Gm Duplex) 50 mls @ 100 mls/hr IVPB DAILY [facility] Last Admin: 04/25/17 09:47 Dose: 100 mls/hr Azithromycin 500 mg/ Sodium (Chloride) 250 mls @ 250 mls/hr IVPB DAILY [facility] Last Admin: 04/25/17 09:46 Dose: 250 mls/hr Vancomycin/Sodium Chloride (Vancomycin 1 Gm/Ns 200 Ml) 1 gm in 200 mls @ 133 mls/hr IVPB Q24H [facility] Stop: 04/30/17 00:01 Last Admin: 04/25/17 00:59 Dose: 133 mls/hr Methylprednisolone (Solu-Medrol) 60 mg IVP Q6H [facility] Last Admin: 04/25/17 13:13 Dose: 60 mg Pantoprazole Sodium (Protonix Ec Tab) 40 mg PO DAILY [facility] Last Admin: 04/25/17 09:46 Dose: 40 mg Promethazine HCl/Codeine (Phenergan/Codeine Oral Syrup) 5 ml PO TID PRN PRN Reason: Cough and congestion - Labs Labs: 04/25/17 07:05 04/25/17 07:05 Assessment and Plan (1) Lung cancer Status: Acute (2) COPD exacerbation Status: Acute (3) Metastatic cancer Status: Acute
--- NOTE | 2017-04-25 16:43 | CP.PCM.PN ---
Subjective - Date & Time of Evaluation Date of Evaluation: 04/25/17 Time of Evaluation: 16:43 - Subjective Subjective: CHIEF COMPLAINTS TODAY : afebrile,vss c/o dry cough. c/o back pain ROS. HEENT : N. Resp : No hemoptysis Cardio : No anginal CP, PND, orthopnea, palpitation GI : No abd.pain, n/v ,diarrhea or GI bleeding . NURSE PRACTITIONER PER DIEM : No headache, vertigo, focal deficit. Musculoskel : No joint swelling , Derm : No rash Psych : Normal affect. Ext : No swelling ,calf pain PE. Pt. is alert awake in no distress. V.S As noted in the chart Head ,ear nose,throat and eyes : Normal. Neck : Supple with normal carotids. Lungs: RONCHI AND RALES Heart : S1 & S2 normal with S4. No murmur. Abd : Soft non tender with normal bowel sounds. Neuro : Moves all ext. with no localized deficit. Ext : No edema with intact pulses.Non tender calves Derm : No rashes or decubitus ulcer. LABS/RADIOLOGY: reviewed. CRP> 15.0 PSA 9.35 elevated . WBC 6.5Better lft normal transaminases, alkaline phosphatase 184 elevated. ASSESSMENT Bilateral pneumonia/pulmonary nodules/exacerbation of COPD r/o metastatic disease. Hepatic mass r/o primary versus metastatic. benign prostatic hypertrophy. Elevated PSA r/o prostatic CA. BACK PAIN/ OSTEOPOROSIS. ./PLAN : continue IV Rocephin 1 g once a day daily 04/24/17 .Continue IV Zithromax 500 mg once a day daily.04/24/17 .SPUTUM GRAM STAIN AND CULTURE Pulmonary consult Dr. Begum GI consult for evaluation of hepatic mass. IV steroids W/U CANCER IN PROGRESS Objective - Vital Signs/Intake and Output Vital Signs (last 24 hours): Temp Pulse Resp BP Pulse Ox 97.7 F 60 20 123/63 96 04/25/17 15:00 04/25/17 15:00 04/25/17 15:00 04/25/17 15:00 04/25/17 15:00 Intake and Output: 04/25/17 04/25/17 06:59 18:59 Intake Total 1420 Balance 1420 - Medications Medications: Current Medications Albuterol/Ipratropium (Duoneb 3 Mg/0.5 Mg (3 Ml) Ud) 3 ml INH RQ4 PRN PRN Reason: Shortness of Breath Last Admin: 04/24/17 20:40 Dose: 3 ml Aspirin (Aspirin Chewable) 81 mg PO DAILY [facility] Last Admin: 04/25/17 09:45 Dose: 81 mg Enoxaparin Sodium (Lovenox) 30 mg SC Q12 [facility] Last Admin: 04/25/17 09:46 Dose: 30 mg Ceftriaxone Sodium (Rocephin Iv 1 Gm Duplex) 50 mls @ 100 mls/hr IVPB DAILY [facility] Last Admin: 04/25/17 09:47 Dose: 100 mls/hr Azithromycin 500 mg/ Sodium (Chloride) 250 mls @ 250 mls/hr IVPB DAILY [facility] Last Admin: 04/25/17 09:46 Dose: 250 mls/hr Vancomycin HCl 1 gm/ Sodium (Chloride) 250 mls @ 166.667 mls/hr IVPB Q24H [place] Methylprednisolone (Solu-Medrol) 60 mg IVP Q6H [facility] Last Admin: 04/25/17 13:13 Dose: 60 mg Pantoprazole Sodium (Protonix Ec Tab) 40 mg PO DAILY [facility] Last Admin: 04/25/17 09:46 Dose: 40 mg Promethazine HCl/Codeine (Phenergan/Codeine Oral Syrup) 5 ml PO TID PRN PRN Reason: Cough and congestion - Labs Labs: 04/25/17 07:05 04/25/17 07:05 Assessment and Plan (1) Pneumonia Status: Acute (2) COPD exacerbation Status: Acute (3) Elevated PSA Status: Acute (4) Metastatic cancer Status: Acute (5) Osteoporosis Status: Acute
[2017-04-25] MEDS: Albuterol-Ipratrop 3 mg / 0.5 (3 ml) UD INH PRN (18:38)
--- NOTE | 2017-04-25 18:40 | CARD ---
APPROVED REPORT EKG Measurement Heart [id number] <Conclusion> Sinus bradycardia Left axis deviation Abnormal ECG
[2017-04-26] MEDS: Pantoprazole 40 mg EC Tab PO SCH (10:15)
[2017-04-26] MEDS: Azithromycin 500 MG in Sodium Chloride 0.9% 250 ML IVPB SCH (10:15)
[2017-04-26] MEDS: Enoxaparin 30 mg Syringe SC SCH (10:17)
--- NOTE | 2017-04-26 12:25 | CP.PCM.CON ---
History of Present Illness - History of Present Illness History of Present Illness: GI Fellow PGY4 Consult Note This is a 81yM with pmhx of GERD, BPH presenting with complaints of productive cough for many weeks. Pt says that he has been treated as an outpt many times for a cold an failed treatmnet and was sent to ER by PCP. Pt had a CT Chest done which showed PNA/Consolidation/Pulmonary Nodules and also a liver mass 6.4cm by 5.6 cm in right hepatic lobe. Pt denies any prior hx of liver disease, denies any heavy alcohol use, only social drinker, no prior hx of hepatitis or drug use. Pt also denies any famly hx of liver disease. Pt reports he is upto date on colonoscopy but no prior EGD. Past Patient History - Past Medical History & Family History Past Medical History?: Yes - Past Social History Smoking Status: Former Smoker - CARDIAC Hx Hypercholesterolemia: Yes (Pt denies) - PULMONARY Hx Respiratory Disorders: No - NEUROLOGICAL Hx Neurological Disorder: No - HEENT Hx HEENT Problems: Yes (WEARS GLASSES FOR READING) - RENAL Hx Chronic Kidney Disease: No - ENDOCRINE/METABOLIC Hx Endocrine Disorders: No - HEMATOLOGICAL/ONCOLOGICAL Hx Blood Disorders: No - INTEGUMENTARY Hx Dermatological Problems: No - MUSCULOSKELETAL/RHEUMATOLOGICAL Hx Falls: No - GASTROINTESTINAL Hx Gastrointestinal Disorders: No - GENITOURINARY/GYNECOLOGICAL Hx Prostate Problems: Yes (BPH) - PSYCHIATRIC Hx Substance Use: No - SURGICAL HISTORY Hx Surgeries: Yes (PROSTATE SURGERY) - ANESTHESIA Hx Anesthesia: Yes Hx Anesthesia Reactions: No Hx Malignant Hyperthermia: No Meds Allergies/Adverse Reactions: Allergies Allergy/AdvReac Type Severity Reaction Status Date / Time No Known Allergies Allergy Verified 04/24/17 09:16 - Medications Medications: Current Medications Albuterol/Ipratropium (Duoneb 3 Mg/0.5 Mg (3 Ml) Ud) 3 ml INH RQ4 PRN PRN Reason: Shortness of Breath Last Admin: 04/25/17 18:38 Dose: 3 ml Aspirin (Aspirin Chewable) 81 mg PO DAILY [facility] Last Admin: 04/26/17 10:15 Dose: 81 mg Enoxaparin Sodium (Lovenox) 30 mg SC Q12 [facility] Last Admin: 04/26/17 10:17 Dose: 30 mg Azithromycin 500 mg/ Sodium (Chloride) 250 mls @ 250 mls/hr IVPB DAILY [facility] Last Admin: 04/26/17 10:15 Dose: 250 mls/hr Vancomycin HCl 1 gm/ Sodium (Chloride) 250 mls @ 166.667 mls/hr IVPB Q24H [facility] Last Admin: 04/26/17 00:09 Dose: 166.667 mls/hr Ceftriaxone Sodium 1 gm/ (Sodium Chloride) 100 mls @ 100 mls/hr IVPB DAILY [facility] Last Admin: 04/26/17 10:13 Dose: 100 mls/hr Methylprednisolone (Solu-Medrol) 60 mg IVP Q6H [facility] Last Admin: 04/26/17 08:02 Dose: Not Given Pantoprazole Sodium (Protonix Ec Tab) 40 mg PO DAILY [facility] Last Admin: 04/26/17 10:15 Dose: 40 mg Promethazine HCl/Codeine (Phenergan/Codeine Oral Syrup) 5 ml PO TID PRN PRN Reason: Cough and congestion Results - Vital Signs Recent Vital Signs: Last Vital Signs Temp 98.1 F 04/26/17 07:50 Pulse 51 L 04/26/17 07:50 Resp 20 04/26/17 07:50 BP 111/51 L 04/26/17 07:50 Pulse Ox 95 04/26/17 07:50 - Labs Result Diagrams: 04/25/17 07:05 04/25/17 07:05
--- NOTE | 2017-04-26 14:32 | CP.PCM.PN ---
Subjective - Date & Time of Evaluation Date of Evaluation: 04/26/17 Time of Evaluation: 14:31 - Subjective Subjective: CHIEF COMPLAINTS TODAY : DRY COUGH , WHEEZING ROS. HEENT : N. Resp : No hemoptysis Cardio : No anginal CP, PND, orthopnea, palpitation GI : No abd.pain, n/v ,diarrhea or GI bleeding . DESIGN ASSISTANT : No headache, vertigo, focal deficit. Musculoskel : No joint swelling , Derm : No rash Psych : Normal affect. Ext : No swelling ,calf pain PE. Pt. is alert awake in no distress. V.S As noted in the chart Head ,ear nose,throat and eyes : Normal. Neck : Supple with normal carotids. Lungs: RONCHI AND RALES Heart : S1 & S2 normal with S4. No murmur. Abd : Soft non tender with normal bowel sounds. Neuro : Moves all ext. with no localized deficit. Ext : No edema with intact pulses.Non tender calves Derm : No rashes or decubitus ulcer. LABS/RADIOLOGY: ASSESSMENT/PLAN : IVAB /STEROIDS W/U CANCER IN PROGRESS D/W DAUGHTER Objective - Vital Signs/Intake and Output Vital Signs (last 24 hours): Temp Pulse Resp BP Pulse Ox 98.1 F 51 L 20 111/51 L 95 04/26/17 07:50 04/26/17 07:50 04/26/17 07:50 04/26/17 07:50 04/26/17 07:50 Intake and Output: 04/26/17 04/26/17 11:59 23:59 Intake Total 200 Balance 200 - Medications Medications: Current Medications Albuterol/Ipratropium (Duoneb 3 Mg/0.5 Mg (3 Ml) Ud) 3 ml INH RQ4 PRN PRN Reason: Shortness of Breath Last Admin: 04/25/17 18:38 Dose: 3 ml Aspirin (Aspirin Chewable) 81 mg PO DAILY [facility] Last Admin: 04/26/17 10:15 Dose: 81 mg Enoxaparin Sodium (Lovenox) 30 mg SC Q12 [facility] Last Admin: 04/26/17 10:17 Dose: 30 mg Azithromycin 500 mg/ Sodium (Chloride) 250 mls @ 250 mls/hr IVPB DAILY [facility] Last Admin: 04/26/17 10:15 Dose: 250 mls/hr Vancomycin HCl 1 gm/ Sodium (Chloride) 250 mls @ 166.667 mls/hr IVPB Q24H [facility] Last Admin: 04/26/17 00:09 Dose: 166.667 mls/hr Ceftriaxone Sodium 1 gm/ (Sodium Chloride) 100 mls @ 100 mls/hr IVPB DAILY [facility] Last Admin: 04/26/17 10:13 Dose: 100 mls/hr Methylprednisolone (Solu-Medrol) 60 mg IVP Q6H [facility] Last Admin: 04/26/17 14:11 Dose: 60 mg Pantoprazole Sodium (Protonix Ec Tab) 40 mg PO DAILY [facility] Last Admin: 04/26/17 10:15 Dose: 40 mg Promethazine HCl/Codeine (Phenergan/Codeine Oral Syrup) 5 ml PO TID PRN PRN Reason: Cough and congestion - Labs Labs: 04/25/17 07:05 04/25/17 07:05 Assessment and Plan (1) Lung cancer Status: Acute (2) COPD exacerbation Status: Acute (3) Metastatic cancer Status: Acute
--- NOTE | 2017-04-26 14:53 | CP.PCM.PN ---
Subjective - Date & Time of Evaluation Date of Evaluation: 04/26/17 Time of Evaluation: 14:53 - Subjective Subjective: CHIEF COMPLAINTS TODAY : afebrile,vss c/o dry cough. ROS. HEENT : N. Resp : No hemoptysis +veDRY COUGH Cardio : No anginal CP, PND, orthopnea, palpitation GI : No abd.pain, n/v ,diarrhea or GI bleeding . 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 Musculoskel : No joint swelling , Derm : No rash Psych : Normal affect. Ext : No swelling ,calf pain PE. Pt. is alert awake in no distress. V.S As noted in the chart Head ,ear nose,throat and eyes : Normal. Neck : Supple with normal carotids. Lungs: RONCHI AND RALES Heart : S1 & S2 normal with S4. No murmur. Abd : Soft non tender with normal bowel sounds. Neuro : Moves all ext. with no localized deficit. Ext : No edema with intact pulses.Non tender calves Derm : No rashes or decubitus ulcer. LABS/RADIOLOGY: BLOOD CULTURES -VE X3DAYS MRSA SCREEN -VE URINE CULTURES -VE lung perfusion ventilation scan-intermediate probability seen for PE. reviewed. CRP> 15.0 PSA 9.35 elevated . WBC 6.5Better lft normal transaminases, alkaline phosphatase 184 elevated. ASSESSMENT Bilateral pneumonia/pulmonary nodules/exacerbation of COPD r/o metastatic disease. Hepatic mass r/o primary versus metastatic. benign prostatic hypertrophy. Elevated PSA r/o prostatic CA. BACK PAIN/ OSTEOPOROSIS. ./PLAN : continue IV Rocephin 1 g once a day daily 04/24/17 .Continue IV Zithromax 500 mg once a day daily.04/24/17 continue IV vancomycin 1 g once a day daily. 04/25/17. .SPUTUM GRAM STAIN AND CULTURE Pulmonary consult Dr. Begum -IN PROGRESS anticoagulation as per pulmonary. GI consult for evaluation of hepatic mass. IV steroids W/U CANCER IN PROGRESS -patient for three-phase bone scan. Objective - Vital Signs/Intake and Output Vital Signs (last 24 hours): Temp Pulse Resp BP Pulse Ox 98.1 F 51 L 20 111/51 L 95 04/26/17 07:50 04/26/17 07:50 04/26/17 07:50 04/26/17 07:50 04/26/17 07:50 Intake and Output: 04/26/17 04/26/17 06:59 18:59 Intake Total 350 Balance 350 - Medications Medications: Current Medications Albuterol/Ipratropium (Duoneb 3 Mg/0.5 Mg (3 Ml) Ud) 3 ml INH RQ4 PRN PRN Reason: Shortness of Breath Last Admin: 04/25/17 18:38 Dose: 3 ml Aspirin (Aspirin Chewable) 81 mg PO DAILY [facility] Last Admin: 04/26/17 10:15 Dose: 81 mg Enoxaparin Sodium (Lovenox) 30 mg SC Q12 [facility] Last Admin: 04/26/17 10:17 Dose: 30 mg Azithromycin 500 mg/ Sodium (Chloride) 250 mls @ 250 mls/hr IVPB DAILY [facility] Last Admin: 04/26/17 10:15 Dose: 250 mls/hr Vancomycin HCl 1 gm/ Sodium (Chloride) 250 mls @ 166.667 mls/hr IVPB Q24H [facility] Last Admin: 04/26/17 00:09 Dose: 166.667 mls/hr Ceftriaxone Sodium 1 gm/ (Sodium Chloride) 100 mls @ 100 mls/hr IVPB DAILY [facility] Last Admin: 04/26/17 10:13 Dose: 100 mls/hr Methylprednisolone (Solu-Medrol) 60 mg IVP Q6H [facility] Last Admin: 04/26/17 14:11 Dose: 60 mg Pantoprazole Sodium (Protonix Ec Tab) 40 mg PO DAILY [facility] Last Admin: 04/26/17 10:15 Dose: 40 mg Promethazine HCl/Codeine (Phenergan/Codeine Oral Syrup) 5 ml PO TID PRN PRN Reason: Cough and congestion - Labs Labs: 04/25/17 07:05 04/25/17 07:05 Assessment and Plan (1) Pneumonia Status: Acute (2) COPD exacerbation Status: Acute (3) Elevated PSA Status: Acute (4) Metastatic cancer Status: Acute (5) Osteoporosis Status: Acute
[2017-04-26 15:02] LABS: CARCINOEMBRYONIC ANTIGEN 6.4 ng/mL (0-3.0); PROSTATE SPECIFIC ANTIGEN 11.9 ng/mL (0.00-4.0)
--- NOTE | 2017-04-26 15:25 | CP.PCM.CON ---
History of Present Illness - History of Present Illness History of Present Illness: Pulmonary evaluation for abnormal CAT scan History: 81-year-old male admitted to the hospital with the with the cough. The patient was in his usual state of health. In the past and patient was seen by oncologist for possible thrombocytopenia. Patient was being seen by PMD, currently he is on chronic medication for hypertension. He has no history of asthma in the past. No history of exposure to any fumes or gases. Patient was hospitalized with a productive cough, running nose and body pain and flulike symptoms. Patient was placed on antibiotic, and evaluation for cough is done with the CAT scan. CT scan of the chest showing no abnormalities. According to the patient he was only sick for recently. He has no night sweats, he does not have any weight loss, upper gait is good. He denies any headache. Occasional nausea noted, one episode of vomiting. No abdominal pain. Denies any leg swelling. He is doing his functional activities normal. He did not have any major medical issues in the past. Past medical history: Hypertension High cholesterol. Osteoporosis Allergies: No known drug allergies Surgical history: None Family history: Noncontributory, no history of cancer in the family Patient has some prostate problems prior. Past medical history: Patient is a nonsmoker. He has no history of any exposure. 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 No animal exposure Review of systems: Currently having no headache. He is feeling better. Occasional cough mostly, clear mucus noted, denies any chest pain, no shortness of breath. No leg swelling Vital signs reviewed No neck vein distention noted Bilateral wheezing and rales noted CVS regular heart sound, no murmur noted Abdomen soft, nontender. 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 Predominantly in the lower lung marsh. Confluent, also fibrotic changes, with bullous changes noted Mediastinal minimal impress noted. CAT scan also showing liver mass like lesion, cancer cannot be ruled out Evaluation is currently pending Tumor markers are pending Nuclear scan is pending VQ scan showing intermediate probability. Assessment and recommendation: 81-year-old male with a history of high cholesterol, suspected prostate problem in the past admitted with a cough. Lung findings suggestive of interstitial lung changes, pleural-based, multilobar pneumonia cannot be ruled out. Lung fibrosis is possible. Given the large liver mass underlying liver disease with the metastatic lesion cannot be ruled out. The VQ scan intermediate probability, will continue the anticoagulation. We will do the repeat CT angiogram, and abdomen and pelvis. Tumor markers pending. Bronchial biopsy may be useful for ruling out of infectious pathology, but definite biopsy will need a the transbronchial, or open lung biopsy. We will follow the patient Past Patient History - Past Medical History & Family History Past Medical History?: Yes - Past Social History Smoking Status: Former Smoker - CARDIAC Hx Hypercholesterolemia: Yes (Pt denies) - PULMONARY Hx Respiratory Disorders: No - NEUROLOGICAL Hx Neurological Disorder: No - HEENT Hx HEENT Problems: Yes (WEARS GLASSES FOR READING) - RENAL Hx Chronic Kidney Disease: No - ENDOCRINE/METABOLIC Hx Endocrine Disorders: No - HEMATOLOGICAL/ONCOLOGICAL Hx Blood Disorders: No - INTEGUMENTARY Hx Dermatological Problems: No - MUSCULOSKELETAL/RHEUMATOLOGICAL Hx Falls: No - GASTROINTESTINAL Hx Gastrointestinal Disorders: No - GENITOURINARY/GYNECOLOGICAL Hx Prostate Problems: Yes (BPH) - PSYCHIATRIC Hx Substance Use: No - SURGICAL HISTORY Hx Surgeries: Yes (PROSTATE SURGERY) - ANESTHESIA Hx Anesthesia: Yes Hx Anesthesia Reactions: No Hx Malignant Hyperthermia: No Meds Allergies/Adverse Reactions: Allergies Allergy/AdvReac Type Severity Reaction Status Date / Time No Known Allergies Allergy Verified 04/24/17 09:16 - Medications Medications: Current Medications Albuterol/Ipratropium (Duoneb 3 Mg/0.5 Mg (3 Ml) Ud) 3 ml INH RQ4 PRN PRN Reason: Shortness of Breath Last Admin: 04/25/17 18:38 Dose: 3 ml Aspirin (Aspirin Chewable) 81 mg PO DAILY [facility] Last Admin: 04/26/17 10:15 Dose: 81 mg Enoxaparin Sodium (Lovenox) 30 mg SC Q12 [facility] Last Admin: 04/26/17 10:17 Dose: 30 mg Azithromycin 500 mg/ Sodium (Chloride) 250 mls @ 250 mls/hr IVPB DAILY [facility] Last Admin: 04/26/17 10:15 Dose: 250 mls/hr Vancomycin HCl 1 gm/ Sodium (Chloride) 250 mls @ 166.667 mls/hr IVPB Q24H [facility] Last Admin: 04/26/17 00:09 Dose: 166.667 mls/hr Ceftriaxone Sodium 1 gm/ (Sodium Chloride) 100 mls @ 100 mls/hr IVPB DAILY [facility] Last Admin: 04/26/17 10:13 Dose: 100 mls/hr Methylprednisolone (Solu-Medrol) 60 mg IVP Q6H [facility] Last Admin: 04/26/17 14:11 Dose: 60 mg Pantoprazole Sodium (Protonix Ec Tab) 40 mg PO DAILY [facility] Last Admin: 04/26/17 10:15 Dose: 40 mg Promethazine HCl/Codeine (Phenergan/Codeine Oral Syrup) 5 ml PO TID PRN PRN Reason: Cough and congestion Results - Vital Signs Recent Vital Signs: Last Vital Signs Temp 98.1 F 04/26/17 07:50 Pulse 51 L 04/26/17 07:50 Resp 20 04/26/17 07:50 BP 111/51 L 04/26/17 07:50 Pulse Ox 95 04/26/17 07:50 - Labs Result Diagrams: 04/25/17 07:05 04/25/17 07:05 Labs: Laboratory Results - last 24 hr 04/26/17 04/26/17 04/26/17 14:10 14:10 14:10 ESR Alpha Fetoprotein 6.8 Carcinoembryonic Ag 6.4 H Prostate Specific Ag 11.9 H IgG 900.3 04/26/17 14:10 ESR 8 Alpha Fetoprotein Carcinoembryonic Ag Prostate Specific Ag IgG
[2017-04-26] MEDS ORDERED: Iodixanol 320 MG/ML 100 ML BOTTLE IV ONE (15:28)
[2017-04-26 16:28] LABS: CA 19-9 > 5000 U/mL (0-37)
--- NOTE | 2017-04-26 17:05 | CT ---
EXAM: CT Abdomen Without Intravenous Contrast EXAM DATE/TIME: Exam ordered 04/26/2017 12:14 PM CLINICAL HISTORY: 81 years old, male; Signs and symptoms; Mass, lump, or swelling; Other: Liver; Additional info: Liver mass TECHNIQUE: Axial computed tomography images of the abdomen without intravenous contrast. All CT scans at this facility use one or more dose reduction techniques, viz.: automated exposure control; ma/kV adjustment per patient size (including targeted exams where dose is matched to indication; i.e. head); or iterative reconstruction technique. Coronal and sagittal reformatted images were created and reviewed. COMPARISON: No relevant prior studies available. FINDINGS: Lower thorax: The pulmonary vessels are enlarged the lung bases. Patchy subpleural parenchymal opacities are noted in the dependent portion of both lung bases. Multiple small pulmonary nodules are noted as well. Scattered Subpleural nodules are noted at both lung bases. Liver: There is a low density liver lesion in the right lobe of the liver measuring 6.2 x 4.2 x 5.9 cm Gallbladder and bile ducts: There is pneumobilia. Air is noted within the gallbladder. No calcified stones. No ductal dilation. Pancreas: Unremarkable. No ductal dilation. Spleen: Unremarkable. No splenomegaly. Adrenals: Unremarkable. No mass. Kidneys and ureters: Unremarkable. No obstructing stones. No hydronephrosis. Stomach and bowel: Facet arthropathy is noted in the lower lumbar spine. Degenerative disc disease is noted in the lumbar spine.There is a large amount of stool seen in the colon No mucosal thickening. Appendix: No findings to suggest acute appendicitis. Intraperitoneal space: Unremarkable. No free air. No significant fluid collection. Bones/joints: A vague area of sclerosis is noted within the left ilium adjacent to the sacroiliac joint. A ring shaped area of sclerosis with central lucency is noted in the left iliac wing.rounded areas of sclerosis are noted within the sacrum , lumbar and thoracic vertebral bodies. there is small bilateral pleural effusions. Abnormal sclerosis is noted of the left pedicle and transverse process of T9 Soft tissues: Unremarkable. Vasculature: Unremarkable. No abdominal aortic aneurysm. Lymph nodes: Enlarged lymph nodes are noted in the retroperitoneum surrounding the aorta and within the pelvis in the external iliac chain. Other findings: The prostate measures 4.7 x 6 in AP and transverse dimension. The prostate is not fully imaged in the sagittal plane. . IMPRESSION: 1. Liver mass suspicious for metastatic disease or primary hepatocellular carcinoma. 2. Pneumobilia. 3. Multiple pulmonary nodules at the lung bases. No significant change. 4. Multiple sclerotic lesions within the axial and appendicular skeleton not significantly changed and suggestive of diffuse osteoblastic metastatic disease. 5. The prostate is enlarged. Correlate with serum PSA is suggested. 6. Very large amount of stool seen within the colon. 7. Periaortic adenopathy within the retroperitoneum.
[2017-04-26] MEDS: Enoxaparin 60 mg Syringe SC SCH (21:41)
[2017-04-26] MEDS: Promethazine/Cod 6.25mg-10mg/5ml Syr UD PO PRN (21:50)
[2017-04-27 08:22] LABS: HEMATOCRIT 35.3 % (35.0-51.0); LYMPH # 0.6 K/uL (1.0-4.3); LYMPH % 3.6 % (20.0-40.0); MEAN CELL VOLUME 92.1 fL (80.0-94.0); MEAN CORPUSCULAR HEMOGLOBIN 30.9 pg (27.0-31.0); MEAN CORPUSCULAR HGB CONC 33.6 g/dL (33.0-37.0); MEAN PLATELET VOLUME 9.7 fL (7.2-11.7); MONO # 0.6 K/uL (0.0-0.8); PLATELET COUNT 201 K/uL (130-400); RED CELL DISTRIBUTION WIDTH 14.7 % (11.5-14.5)
[2017-04-27 08:38] LABS: ALKALINE PHOSPHATASE 172 U/L (38-126); ALT/SGPT 26 U/L (21-72); AST/SGOT 32 U/L (17-59); BILIRUBIN,TOTAL 0.4 mg/dL (0.2-1.3); BLOOD UREA NITROGEN 26 mg/dL (9-20); CARBON DIOXIDE 27 mmol/L (22-30); CHLORIDE 103 mmol/L (98-107); GFR AFRICAN-AMERICAN > 60; GLUCOSE,RANDOM 129 mg/dL (75-110); POTASSIUM 4.7 mmol/L (3.6-5.2); SODIUM 135 mmol/L (132-148); TOTAL PROTEIN 6.1 g/dL (6.3-8.3)
[2017-04-27 09:22] LABS: NEUTROPHIL 93 % (50-75); TOTAL CELLS COUNTED 100
[2017-04-27 09:23] LABS: LARGE PLATELETS PRESENT
[2017-04-27] MEDS: Enoxaparin 60 mg Syringe SC SCH ×2 (09:40→21:26)
[2017-04-27] MEDS: Pantoprazole 40 mg EC Tab PO SCH (09:40)
[2017-04-27] MEDS: Azithromycin 500 MG in Sodium Chloride 0.9% 250 ML IVPB SCH (10:30)
[2017-04-27 11:11] LABS: INR 1.3
[2017-04-27 12:19] LABS: FOLATE > 20.0 ng/mL
--- NOTE | 2017-04-27 15:26 | CP.PCM.PN ---
Subjective - Date & Time of Evaluation Date of Evaluation: 04/27/17 Time of Evaluation: 15:26 - Subjective Subjective: CHIEF COMPLAINTS TODAY : DRY COUGH , WHEEZING ROS. HEENT : N. Resp : No hemoptysis Cardio : No anginal CP, PND, orthopnea, palpitation GI : No abd.pain, n/v ,diarrhea or GI bleeding . 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 Musculoskel : No joint swelling , Derm : No rash Psych : Normal affect. Ext : No swelling ,calf pain PE. Pt. is alert awake in no distress. V.S As noted in the chart Head ,ear nose,throat and eyes : Normal. Neck : Supple with normal carotids. Lungs: RONCHI AND RALES Heart : S1 & S2 normal with S4. No murmur. Abd : Soft non tender with normal bowel sounds. Neuro : Moves all ext. with no localized deficit. Ext : No edema with intact pulses.Non tender calves Derm : No rashes or decubitus ulcer. LABS/RADIOLOGY: ASSESSMENT/PLAN : IVAB /STEROIDS W/U CANCER IN PROGRESS D/W DAUGHTER Objective - Vital Signs/Intake and Output Vital Signs (last 24 hours): Temp Pulse Resp BP Pulse Ox 97.7 F 56 L 20 116/64 98 04/27/17 08:00 04/27/17 08:00 04/27/17 08:00 04/27/17 08:00 04/27/17 08:00 Intake and Output: 04/27/17 04/27/17 11:59 23:59 Intake Total 670 Balance 670 - Medications Medications: Current Medications Albuterol/Ipratropium (Duoneb 3 Mg/0.5 Mg (3 Ml) Ud) 3 ml INH RQ4 PRN PRN Reason: Shortness of Breath Last Admin: 04/25/17 18:38 Dose: 3 ml Aspirin (Aspirin Chewable) 81 mg PO DAILY [facility] Last Admin: 04/27/17 09:40 Dose: 81 mg Bisacodyl (Dulcolax) 10 mg PO ONCE ONE Stop: 04/28/17 17:01 Enoxaparin Sodium (Lovenox) 60 mg SC Q12 [facility] Last Admin: 04/27/17 09:40 Dose: 60 mg Azithromycin 500 mg/ Sodium (Chloride) 250 mls @ 250 mls/hr IVPB DAILY [facility] Last Admin: 04/27/17 10:30 Dose: 250 mls/hr Vancomycin HCl 1 gm/ Sodium (Chloride) 250 mls @ 166.667 mls/hr IVPB Q24H [facility] Last Admin: 04/27/17 00:09 Dose: 166.667 mls/hr Ceftriaxone Sodium 1 gm/ (Sodium Chloride) 100 mls @ 100 mls/hr IVPB DAILY [facility] Last Admin: 04/27/17 10:35 Dose: 100 mls/hr Methylprednisolone (Solu-Medrol) 60 mg IVP Q6H [facility] Last Admin: 04/27/17 13:12 Dose: 60 mg Metoclopramide HCl (Reglan) 5 mg IVP Q8 [facility] Last Admin: 04/27/17 13:10 Dose: Not Given Pantoprazole Sodium (Protonix Ec Tab) 40 mg PO DAILY [facility] Last Admin: 04/27/17 09:40 Dose: 40 mg Polyethylene Glycol/Electrolytes (Golytely) 4,000 ml PO ONCE ONE Stop: 04/28/17 10:01 Promethazine HCl/Codeine (Phenergan/Codeine Oral Syrup) 5 ml PO TID PRN PRN Reason: Cough and congestion Last Admin: 04/26/17 21:50 Dose: 5 ml - Labs Labs: 04/27/17 07:54 04/27/17 07:54 PT 14.5 SECONDS (9.7-12.2) H 04/27/17 10:56 INR 1.3 04/27/17 10:56 APTT 35 SECONDS (21-34) H 04/27/17 10:56 Assessment and Plan (1) Lung cancer Status: Acute (2) COPD exacerbation Status: Acute (3) Metastatic cancer Status: Acute
--- NOTE | 2017-04-27 15:48 | NM ---
PROCEDURE: Whole Body Bone Scan HISTORY: Elevated PSA, bony metastasis suspected COMPARISON: 04/24/2017 CT thorax. Summary of findings on the comparison examination: T8 sclerosis, indeterminate. Tiny additional sclerotic foci noted throughout the spine TECHNIQUE: Following administration of 23.6 miCu of Tc MDP multiplanar whole body images were obtained. FINDINGS: Evidence for bony metastatic disease: Multiple abnormal foci of increased uptake scattered throughout axial spine including ribs, thoracolumbar vertebral bodies, left hemipelvis and ribs. Sternal abnormality also identified. Sparing of the calvarium and cervical spine. Faint focus of increased uptake proximal right femur and left lesser trochanter. Degenerative uptake: Bilateral knees Physiologic uptake: Normal physiologic activity in the kidneys. Other findings: None. IMPRESSION: Osseous metastatic disease primarily affecting thoracolumbar vertebral bodies, ribs, pelvis. Additional suspicious findings in both proximal femurs.
[2017-04-28] MEDS ORDERED: Phytonadione 10 mg/ml Inj (Adult) SC ONE (08:00)
[2017-04-28] MEDS: Pantoprazole 40 mg EC Tab PO SCH (09:00)
[2017-04-28] MEDS: Azithromycin 500 MG in Sodium Chloride 0.9% 250 ML IVPB SCH (09:14)
--- NOTE | 2017-04-28 09:39 | CON ---
DATE: 04/26/[address] Bliss to Dr. Olson. HISTORY OF PRESENT ILLNESS: I was called for GI consultation by the admitting medical team. The patient is seen and fully examined for GI consultation on 04/26/2017. Case discussed with staff at length. The entire chart is reviewed including but not limited to the most recent lab and radiology study results, current and the previous medication list, current and the previous medical events, allergies to medication list as well as all the available current and previous medical records. This is a 81-year-old male, very well known case for me from previous office visit, and previous colonoscopy with polypectomy in 2013 as reported, who was admitted to the hospital with generalized weakness and malaise, body ache, especially his joints and his bone with runny nose, productive cough, body weight loss with intermittent periods of diarrhea with dyspepsia on and off. No reported chest pain or significant shortness of breath or palpitation, but poor appetite with poor oral intake. PAST MEDICAL HISTORY: Including, but not limited to: 1. Peptic ulcer disease. 2. Hyperlipidemia. 3. Osteoporosis with osteoarthritis. 4. Colon polyps removed around 3 years ago or so. FAMILY HISTORY: Unknown. SOCIAL HISTORY: Denies any recent history of cigarette smoking or alcohol intake. CURRENT MEDICATIONS: Medication list were reviewed. ALLERGIES TO MEDICATIONS: UNCLEAR. LABORATORY DATA: After being admitted to the hospital, initial blood workup showed low hemoglobin of 11.3 with hematocrit 33.6 with thrombocytopenia of 123 and leukocyte of 13.1 with subsequent drop of hemoglobin and hematocrit. Initial SMA-7 was reported to be within normal limit. CAT scan of the abdomen and pelvis showed evidence of right hepatic lobe mass with possible metastatic disease or primary hepatic CA with possible involvement of the lung. Please see official CAT scan report. PHYSICAL EXAMINATION: GENERAL: A 81-year-old male, appears to be awake, alert,and oriented. VITAL SIGNS: Afebrile with pulse of 74, respiratory rate 20 to 22, blood pressure 120/64. HEENT: Showed pale and dry oral mucous membrane. Nonicteric sclerae. LYMPH NODE: No lymphadenitis. LUNGS: Few scattered crepitation with decreased air entry at bases. HEART: Positive S1 and S2. ABDOMEN: Soft with slight generalized tenderness and slight distention. No mass or organomegaly. No rebound tenderness or guarding. RECTAL: Positive tone. Vault was empty. EXTREMITIES: With evidence of muscle wasting syndrome and mild edematous changes. No clubbing or cyanosis. NEUROLOGIC: No reported new neurological deficits, sensory or motor. IMPRESSION: 1. Anemia. 2. Abnormal CAT scan of the abdomen and pelvis. 3. Hepatic mass lesion, to rule out primary gastric versus colon cancer versus prostatic cancer with metastases to the bone. 4. Known history of colon polyp with peptic ulcer disease. 5. Known history of osteoporosis with hyperlipidemia. SUGGESTIONS: 1. Agree with your plan. 2. Cancer markers. 3. Bone scan. 4. Endoscopic evaluation of the gastrointestinal tract, upper and lower endoscopy after adequate preparation. 5. The patient may need CAT scan guided needle biopsy of the hepatic mass. 6. Proton pump inhibitors IV. Thank you for letting me participate in your patient's case management. Further recommendation to follow and Oncology/Hematology consult to be considered. Michelle Bliss MD
[2017-04-28] MEDS: Enoxaparin 60 mg Syringe SC SCH (09:52)
[2017-04-28] MEDS ORDERED: Peg-Electrolyte Oral Soln 4L (Golytely) PO ONE (10:00)
--- NOTE | 2017-04-28 11:54 | PN ---
DATE: LOCATION: [address] [place] [address] B. SUBJECTIVE: This 81-year-old male seen and examined in rounds without significant clinical changes. No reported active bleeding, but with less appetite and less oral intake as per his statement, appears to be mildly restless and slightly agitated this morning. It has been mentioned that his case was discussed with his daughter at length and she agreed for upper and lower endoscopy and signed the consent. The studies based on the bone scan showed evidence of osseous metastatic disease. Please see official report. PHYSICAL EXAMINATION: GENERAL: A 81-year-old male appears to be awake and alert. VITAL SIGNS: Afebrile with pulse of 70, respiratory rate 20 to 22, blood pressure of 124/62. HEENT: Showed pale, dry oral mucous membrane; nonicteric sclerae. LUNGS: Few scattered crepitation. Decreased air entry at bases. HEART: Positive S1 and S2. ABDOMEN: Soft. Bowel sounds are present with slight generalized tenderness. No mass or organomegaly. No rebound tenderness or guarding. EXTREMITIES: Without significant clubbing, cyanosis, or edema. NEUROLOGIC: No reported new neurological deficits, sensory or motor. It has to be mentioned that the most recent lab results showed leukocytosis of 16.0 with low hemoglobin of 11.8 with normal platelet count, but mildly increased PT to 14.5 with PTT of 35, elevated with increased BUN of 26, blood glucose level reported to be elevated with low calcium with increased alkaline phosphatase with low albumin. B12 was over 1000 and folate over 20. IMPRESSION: 1. Anemia. 2. Abnormal radiology study results. 3. To rule out primary upper versus lower gastrointestinal carcinoma. 4. Known history of colon polyp. 5. Known history of osteoporosis and also hyperlipidemia. 6. Coagulopathy, mild. SUGGESTIONS: 1. Continue current management. 2. The patient for upper and lower endoscopy in the a.m. to rule out possible primary GI tract cancer lesion. Michelle Bliss MD
--- NOTE | 2017-04-28 14:01 | CP.PCM.PN ---
Subjective - Date & Time of Evaluation Date of Evaluation: 04/28/17 Time of Evaluation: 14:00 - Subjective Subjective: CHIEF COMPLAINTS TODAY : DRY COUGH , WHEEZING ROS. HEENT : N. Resp : No hemoptysis Cardio : No anginal CP, PND, orthopnea, palpitation GI : No abd.pain, n/v ,diarrhea or GI bleeding . 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 Musculoskel : No joint swelling , Derm : No rash Psych : Normal affect. Ext : No swelling ,calf pain PE. Pt. is alert awake in no distress. V.S As noted in the chart Head ,ear nose,throat and eyes : Normal. Neck : Supple with normal carotids. Lungs: RONCHI AND RALES Heart : S1 & S2 normal with S4. No murmur. Abd : Soft non tender with normal bowel sounds. Neuro : Moves all ext. with no localized deficit. Ext : No edema with intact pulses.Non tender calves Derm : No rashes or decubitus ulcer. LABS/RADIOLOGY: BONE SCAN ; METASTATIC CANCER , CT LIVER , CANCER ASSESSMENT/PLAN : IVAB /STEROIDS W/U CANCER IN PROGRESS AWAITING INPUT FROM ONCOLOGY Objective - Vital Signs/Intake and Output Vital Signs (last 24 hours): Temp Pulse Resp BP Pulse Ox 97.4 F L 74 20 131/65 95 04/28/17 07:40 04/28/17 07:40 04/28/17 07:40 04/28/17 07:40 04/28/17 07:40 Intake and Output: 04/28/17 04/28/17 11:59 23:59 Intake Total 490 Balance 490 - Medications Medications: Current Medications Albuterol/Ipratropium (Duoneb 3 Mg/0.5 Mg (3 Ml) Ud) 3 ml INH RQ4 PRN PRN Reason: Shortness of Breath Last Admin: 04/25/17 18:38 Dose: 3 ml Aspirin (Aspirin Chewable) 81 mg PO DAILY [facility] Last Admin: 04/28/17 09:44 Dose: Not Given Bisacodyl (Dulcolax) 10 mg PO ONCE ONE Stop: 04/28/17 17:01 Enoxaparin Sodium (Lovenox) 60 mg SC Q12 [facility] Last Admin: 04/28/17 09:52 Dose: Not Given Azithromycin 500 mg/ Sodium (Chloride) 250 mls @ 250 mls/hr IVPB DAILY [facility] Last Admin: 04/28/17 09:14 Dose: 250 mls/hr Vancomycin HCl 1 gm/ Sodium (Chloride) 250 mls @ 166.667 mls/hr IVPB Q24H [facility] Last Admin: 04/27/17 23:54 Dose: 166.667 mls/hr Ceftriaxone Sodium 1 gm/ (Sodium Chloride) 100 mls @ 100 mls/hr IVPB DAILY [facility] Last Admin: 04/28/17 09:21 Dose: 100 mls/hr Methylprednisolone (Solu-Medrol) 60 mg IVP Q6H [facility] Last Admin: 04/28/17 07:44 Dose: 60 mg Metoclopramide HCl (Reglan) 5 mg IVP Q8 [facility] Last Admin: 04/28/17 13:59 Dose: Not Given Pantoprazole Sodium (Protonix Ec Tab) 40 mg PO DAILY [facility] Last Admin: 04/28/17 09:00 Dose: 40 mg Promethazine HCl/Codeine (Phenergan/Codeine Oral Syrup) 5 ml PO TID PRN PRN Reason: Cough and congestion Last Admin: 04/26/17 21:50 Dose: 5 ml - Labs Labs: 04/27/17 07:54 04/27/17 07:54 PT 14.5 SECONDS (9.7-12.2) H 04/27/17 10:56 INR 1.3 04/27/17 10:56 APTT 35 SECONDS (21-34) H 04/27/17 10:56 Assessment and Plan (1) Lung cancer Status: Acute (2) COPD exacerbation Status: Acute (3) Metastatic cancer Status: Acute
[2017-04-28] MEDS ORDERED: Bisacodyl 5mg EC Tab PO ONE (17:00)
--- NOTE | 2017-04-28 17:28 | CP.PCM.PN ---
Subjective - Date & Time of Evaluation Date of Evaluation: 04/28/17 Time of Evaluation: 17:28 - Subjective Subjective: CHIEF COMPLAINTS TODAY : afebrile,vss c/o dry cough. STATES HE IS GOING FOR A PROCEDURE IN AM ON [facility] ? COLONOSCOPY IN AM ROS. HEENT : N. Resp : No hemoptysis +veDRY COUGH Cardio : No anginal CP, PND, orthopnea, palpitation GI : No abd.pain, n/v ,diarrhea or GI bleeding . 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 Musculoskel : No joint swelling , Derm : No rash Psych : Normal affect. Ext : No swelling ,calf pain PE. Pt. is alert awake in no distress. V.S As noted in the chart Head ,ear nose,throat and eyes : Normal. Neck : Supple with normal carotids. Lungs: RONCHI AND RALES Heart : S1 & S2 normal with S4. No murmur. Abd : Soft non tender with normal bowel sounds. Neuro : Moves all ext. with no localized deficit. Ext : No edema with intact pulses.Non tender calves Derm : No rashes or decubitus ulcer. LABS/RADIOLOGY: CT ABD W LIVER PROTOCOL -NOTED -ABNORMAL -LIVER MASS/ ? METASTASIS TUMOR MARKERS HIGH BLOOD CULTURES -VE X3DAYS MRSA SCREEN -VE URINE CULTURES -VE lung perfusion ventilation scan-intermediate probability seen for PE. reviewed. CRP> 15.0 PSA 9.35 elevated . WBC 6.5Better lft normal transaminases, alkaline phosphatase 184 elevated. ASSESSMENT Bilateral pneumonia/pulmonary nodules/exacerbation of COPD r/o metastatic disease. Hepatic mass r/o primary versus metastatic. benign prostatic hypertrophy. Elevated PSA r/o prostatic CA. BACK PAIN/ OSTEOPOROSIS. ./PLAN : GI W/U IN PROGRESS LOOKING FOR PRIMARY. continue IV Rocephin 1 g once a day daily 04/24/17 .Continue IV Zithromax 500 mg once a day daily.04/24/17 continue IV vancomycin 1 g once a day daily. 04/25/17. .SPUTUM GRAM STAIN AND CULTURE W/U CANCER IN PROGRESS Objective - Vital Signs/Intake and Output Vital Signs (last 24 hours): Temp Pulse Resp BP Pulse Ox 98.1 F 55 L 20 141/72 95 04/28/17 15:00 04/28/17 15:00 04/28/17 15:00 04/28/17 15:00 04/28/17 15:00 Intake and Output: 04/28/17 04/28/17 06:59 18:59 Intake Total 640 650 Balance 640 650 - Medications Medications: Current Medications Albuterol/Ipratropium (Duoneb 3 Mg/0.5 Mg (3 Ml) Ud) 3 ml INH RQ4 PRN PRN Reason: Shortness of Breath Last Admin: 04/25/17 18:38 Dose: 3 ml Aspirin (Aspirin Chewable) 81 mg PO DAILY [facility] Last Admin: 04/28/17 09:44 Dose: Not Given Enoxaparin Sodium (Lovenox) 60 mg SC Q12 [facility] Last Admin: 04/28/17 09:52 Dose: Not Given Azithromycin 500 mg/ Sodium (Chloride) 250 mls @ 250 mls/hr IVPB DAILY [facility] Last Admin: 04/28/17 09:14 Dose: 250 mls/hr Vancomycin HCl 1 gm/ Sodium (Chloride) 250 mls @ 166.667 mls/hr IVPB Q24H [facility] Last Admin: 04/27/17 23:54 Dose: 166.667 mls/hr Ceftriaxone Sodium 1 gm/ (Sodium Chloride) 100 mls @ 100 mls/hr IVPB DAILY [facility] Last Admin: 04/28/17 09:21 Dose: 100 mls/hr Methylprednisolone (Solu-Medrol) 60 mg IVP Q6H [facility] Last Admin: 04/28/17 14:16 Dose: 60 mg Metoclopramide HCl (Reglan) 5 mg IVP Q8 [facility] Last Admin: 04/28/17 13:59 Dose: Not Given Pantoprazole Sodium (Protonix Ec Tab) 40 mg PO DAILY [facility] Last Admin: 04/28/17 09:00 Dose: 40 mg Promethazine HCl/Codeine (Phenergan/Codeine Oral Syrup) 5 ml PO TID PRN PRN Reason: Cough and congestion Last Admin: 04/26/17 21:50 Dose: 5 ml - Labs Labs: 04/27/17 07:54 04/27/17 07:54 PT 14.5 SECONDS (9.7-12.2) H 04/27/17 10:56 INR 1.3 04/27/17 10:56 APTT 35 SECONDS (21-34) H 04/27/17 10:56 Assessment and Plan (1) Pneumonia Status: Acute (2) COPD exacerbation Status: Acute (3) Elevated PSA Status: Acute (4) Metastatic cancer Status: Acute (5) Liver mass Status: Acute (6) Osteoporosis Status: Acute
--- NOTE | 2017-04-28 17:47 | CP.PCM.PN ---
Subjective - Date & Time of Evaluation Date of Evaluation: 04/27/17 Objective - Vital Signs/Intake and Output Vital Signs (last 24 hours): Temp Pulse Resp BP Pulse Ox 98.1 F 55 L 20 141/72 95 04/28/17 15:00 04/28/17 15:00 04/28/17 15:00 04/28/17 15:00 04/28/17 15:00 Intake and Output: 04/28/17 04/28/17 06:59 18:59 Intake Total 640 650 Balance 640 650 - Medications Medications: Current Medications Albuterol/Ipratropium (Duoneb 3 Mg/0.5 Mg (3 Ml) Ud) 3 ml INH RQ4 PRN PRN Reason: Shortness of Breath Last Admin: 04/25/17 18:38 Dose: 3 ml Aspirin (Aspirin Chewable) 81 mg PO DAILY [facility] Last Admin: 04/28/17 09:44 Dose: Not Given Enoxaparin Sodium (Lovenox) 60 mg SC Q12 [facility] Last Admin: 04/28/17 09:52 Dose: Not Given Azithromycin 500 mg/ Sodium (Chloride) 250 mls @ 250 mls/hr IVPB DAILY [facility] Last Admin: 04/28/17 09:14 Dose: 250 mls/hr Vancomycin HCl 1 gm/ Sodium (Chloride) 250 mls @ 166.667 mls/hr IVPB Q24H [facility] Last Admin: 04/27/17 23:54 Dose: 166.667 mls/hr Ceftriaxone Sodium 1 gm/ (Sodium Chloride) 100 mls @ 100 mls/hr IVPB DAILY [facility] Last Admin: 04/28/17 09:21 Dose: 100 mls/hr Methylprednisolone (Solu-Medrol) 60 mg IVP Q6H [facility] Last Admin: 04/28/17 14:16 Dose: 60 mg Metoclopramide HCl (Reglan) 5 mg IVP Q8 [facility] Last Admin: 04/28/17 13:59 Dose: Not Given Pantoprazole Sodium (Protonix Ec Tab) 40 mg PO DAILY [facility] Last Admin: 04/28/17 09:00 Dose: 40 mg Promethazine HCl/Codeine (Phenergan/Codeine Oral Syrup) 5 ml PO TID PRN PRN Reason: Cough and congestion Last Admin: 04/26/17 21:50 Dose: 5 ml - Labs Labs: 04/27/17 07:54 04/27/17 07:54 PT 14.5 SECONDS (9.7-12.2) H 04/27/17 10:56 INR 1.3 04/27/17 10:56 APTT 35 SECONDS (21-34) H 04/27/17 10:56
--- NOTE | 2017-04-28 17:49 | CP.PCM.PN ---
Subjective - Date & Time of Evaluation Date of Evaluation: 04/28/17 Time of Evaluation: 17:47 - Subjective Subjective: pt is comfortable cough noted no fever no mucus drinking glytly now for possible colonoscopy labs noted elevated turmor markers abnormal CT now for looking for primary will f/u and awaiting for GI workup Objective - Vital Signs/Intake and Output Vital Signs (last 24 hours): Temp Pulse Resp BP Pulse Ox 98.1 F 55 L 20 141/72 95 04/28/17 15:00 04/28/17 15:00 04/28/17 15:00 04/28/17 15:00 04/28/17 15:00 Intake and Output: 04/28/17 04/28/17 06:59 18:59 Intake Total 640 650 Balance 640 650 - Medications Medications: Current Medications Albuterol/Ipratropium (Duoneb 3 Mg/0.5 Mg (3 Ml) Ud) 3 ml INH RQ4 PRN PRN Reason: Shortness of Breath Last Admin: 04/25/17 18:38 Dose: 3 ml Aspirin (Aspirin Chewable) 81 mg PO DAILY [facility] Last Admin: 04/28/17 09:44 Dose: Not Given Enoxaparin Sodium (Lovenox) 60 mg SC Q12 [facility] Last Admin: 04/28/17 09:52 Dose: Not Given Azithromycin 500 mg/ Sodium (Chloride) 250 mls @ 250 mls/hr IVPB DAILY [facility] Last Admin: 04/28/17 09:14 Dose: 250 mls/hr Vancomycin HCl 1 gm/ Sodium (Chloride) 250 mls @ 166.667 mls/hr IVPB Q24H [facility] Last Admin: 04/27/17 23:54 Dose: 166.667 mls/hr Ceftriaxone Sodium 1 gm/ (Sodium Chloride) 100 mls @ 100 mls/hr IVPB DAILY [facility] Last Admin: 04/28/17 09:21 Dose: 100 mls/hr Methylprednisolone (Solu-Medrol) 60 mg IVP Q6H [facility] Last Admin: 04/28/17 14:16 Dose: 60 mg Metoclopramide HCl (Reglan) 5 mg IVP Q8 [facility] Last Admin: 04/28/17 13:59 Dose: Not Given Pantoprazole Sodium (Protonix Ec Tab) 40 mg PO DAILY [facility] Last Admin: 04/28/17 09:00 Dose: 40 mg Promethazine HCl/Codeine (Phenergan/Codeine Oral Syrup) 5 ml PO TID PRN PRN Reason: Cough and congestion Last Admin: 04/26/17 21:50 Dose: 5 ml - Labs Labs: 04/27/17 07:54 04/27/17 07:54 PT 14.5 SECONDS (9.7-12.2) H 04/27/17 10:56 INR 1.3 04/27/17 10:56 APTT 35 SECONDS (21-34) H 04/27/17 10:56
--- NOTE | 2017-04-29 07:22 | PN ---
LOCATION: 359, bed B. SUBJECTIVE: This is a 81-year-old male, seen and examined for GI consultation initially on 04/26/2017, as requested by the admitting MD and GI fellow. The patient is re-examined again today. The entire chart is reviewed including but not limited to the most recent lab and radiology study results, current and previous medication list, current and previous medical events with reported short period of semi-mild confusion. Today's lab showed low hemoglobin of 11.7, hematocrit 34.3 with thrombocytopenia of 128. Calcium reported to be 8.2; low with increased blood glucose level 165 and alkaline phosphatase 184, elevated, with low albumin 3.1, low total protein 5.7, with increased PSA to 9.3, increased CEA to 6.4, with excessive increase of CA19-9 to over 5000, but normal alpha fetoprotein. Repeat PSA showed elevation of 11.9. Hepatic CAT scan showed liver mass with possible metastatic disease and hemobilia with multiple pulmonary nodules at the lung base, with possible diffuse osteoblastic metastatic disease. Prostate is enlarged with very large amount of retained fecal material. PHYSICAL EXAMINATION: GENERAL: A 81-year-old male. VITAL SIGNS: Afebrile with pulse of 64, respiratory rate of 20-22, blood pressure 120/66. HEENT: Show pale, dry oral mucous membrane. Nonicteric sclerae. LUNGS: Few scattered crepitation. Decreased air entry at bases. HEART: Positive S1 and S2. ABDOMEN: Soft. Bowel sounds are present. No mass or organomegaly. No rebound tenderness or guarding. RECTAL: The patient refused. EXTREMITIES: Without significant clubbing, cyanosis or edema. NEUROLOGIC: No reported new neurological deficits, sensory or motor. IMPRESSION: 1. Hepatic mass lesion of unclear etiology, that could be secondary to metastatic disease with possible pancreatic cancer due to the excessive increase of the CA19-9, to rule out primary gastric versus colon cancer. 2. To rule out primary prostatic cancer. 3. Known history of osteoporosis with hyperlipidemia. 4. Known history of colon polyp, last colonoscopy done 04/05/2014, the patient never followed up post colonoscopy. 5. Anemia, most likely secondary to above. 6. Period of diarrhea of unclear etiology that could be infectious versus partial obstruction of the colon. SUGGESTIONS: 1. Agree with your plan. 2. Correct any underlying electrolyte imbalance. 3. Endoscopic evaluation of the upper and lower endoscopy when the patient is more stable clinically and after adequate preparation. 4. Hematology/Oncology consult. 5. The patient may need CAT scan-guided needle biopsy of the hepatic mass. Further recommendation to follow. Michelle Bliss MD
[2017-04-29] MEDS: Azithromycin 500 MG in Sodium Chloride 0.9% 250 ML IVPB SCH ×3 (10:14→11:15)
[2017-04-29] MEDS: Magnesium Citrate Oral SOL (300 ml) PO ONE ×2 (10:17→10:24)
[2017-04-29] MEDS: Pantoprazole 40 mg EC Tab PO SCH ×2 (10:18→10:24)
--- NOTE | 2017-04-29 13:44 | CP.PCM.PN ---
Subjective - Date & Time of Evaluation Date of Evaluation: 04/29/17 Time of Evaluation: 13:44 - Subjective Subjective: CHIEF COMPLAINTS TODAY : DRY COUGH , WHEEZING ROS. HEENT : N. Resp : No hemoptysis Cardio : No anginal CP, PND, orthopnea, palpitation GI : No abd.pain, n/v ,diarrhea or GI bleeding . 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 Musculoskel : No joint swelling , Derm : No rash Psych : Normal affect. Ext : No swelling ,calf pain PE. Pt. is alert awake in no distress. V.S As noted in the chart Head ,ear nose,throat and eyes : Normal. Neck : Supple with normal carotids. Lungs: RONCHI AND RALES Heart : S1 & S2 normal with S4. No murmur. Abd : Soft non tender with normal bowel sounds. Neuro : Moves all ext. with no localized deficit. Ext : No edema with intact pulses.Non tender calves Derm : No rashes or decubitus ulcer. LABS/RADIOLOGY: BONE SCAN ; METASTATIC CANCER , CT LIVER , CANCER ASSESSMENT/PLAN : IVAB /STEROIDS W/U CANCER IN PROGRESS AWAITING INPUT FROM ONCOLOGY PT FOR EGD/COLONOSCOPY Objective - Vital Signs/Intake and Output Vital Signs (last 24 hours): Temp Pulse Resp BP Pulse Ox 97.2 F L 66 16 128/70 97 04/29/17 08:57 04/29/17 09:27 04/29/17 09:27 04/29/17 09:27 04/29/17 09:27 Intake and Output: 04/29/17 04/29/17 11:59 23:59 Intake Total 750 Balance 750 - Medications Medications: Current Medications Albuterol/Ipratropium (Duoneb 3 Mg/0.5 Mg (3 Ml) Ud) 3 ml INH RQ4 PRN PRN Reason: Shortness of Breath Last Admin: 04/25/17 18:38 Dose: 3 ml Aspirin (Aspirin Chewable) 81 mg PO DAILY [facility] Last Admin: 04/28/17 09:44 Dose: Not Given Bisacodyl (Dulcolax) 10 mg PO ONCE ONE Stop: 04/29/17 14:01 Last Admin: 04/29/17 13:14 Dose: 10 mg Enoxaparin Sodium (Lovenox) 60 mg SC Q12 [facility] Last Admin: 04/28/17 09:52 Dose: Not Given Azithromycin 500 mg/ Sodium (Chloride) 250 mls @ 250 mls/hr IVPB DAILY [facility] Last Admin: 04/29/17 11:15 Dose: 250 mls/hr Ceftriaxone Sodium 1 gm/ (Sodium Chloride) 100 mls @ 100 mls/hr IVPB DAILY [facility] Last Admin: 04/29/17 11:08 Dose: 100 mls/hr Vancomycin HCl 1 gm/ Sodium (Chloride) 200 mls @ 166.667 mls/hr IVPB Q24H [facility] Methylprednisolone (Solu-Medrol) 60 mg IVP Q6H [facility] Last Admin: 04/29/17 13:14 Dose: 60 mg Metoclopramide HCl (Reglan) 5 mg IVP Q8 [facility] Last Admin: 04/29/17 13:14 Dose: 5 mg Pantoprazole Sodium (Protonix Ec Tab) 40 mg PO DAILY [facility] Last Admin: 04/29/17 10:24 Dose: Not Given Promethazine HCl/Codeine (Phenergan/Codeine Oral Syrup) 5 ml PO TID PRN PRN Reason: Cough and congestion Last Admin: 04/26/17 21:50 Dose: 5 ml - Labs Labs: 04/27/17 07:54 04/27/17 07:54 PT 14.5 SECONDS (9.7-12.2) H 04/27/17 10:56 INR 1.3 04/27/17 10:56 APTT 35 SECONDS (21-34) H 04/27/17 10:56 Assessment and Plan (1) Lung cancer Status: Acute (2) COPD exacerbation Status: Acute (3) Metastatic cancer Status: Acute
[2017-04-29] MEDS ORDERED: Bisacodyl 5mg EC Tab PO ONE (14:00)
[2017-04-29] MEDS: MethylPREDNISolone 40 mg Vial IVP SCH ×2 (14:44→22:17)
[2017-04-29] MEDS ORDERED: Iodixanol 320 MG/ML 100 ML BOTTLE IV ONE (15:15)
--- NOTE | 2017-04-29 17:17 | CT ---
PROCEDURE: CT Abdomen and Pelvis with contrast HISTORY: suspected liver mass COMPARISON: Triple phase abdomen CT 04/26/2017. TECHNIQUE: Contrast dose: Visipaque 320, 100 cc Radiation dose: Total exam DLP = 305.84 mGy-cm. This CT exam was performed using one or more of the following dose reduction techniques: Automated exposure control, adjustment of the mA and/or kV according to patient size, and/or use of iterative reconstruction technique. FINDINGS: LOWER THORAX: Mild bilateral pleural effusions are encountered. No pericardial effusion noted. Diminishing bilateral ground-glass opacity is noted at the bilateral lung bases with limited compression atelectasis again evident. Scattered small patchy infiltrates persist with underlying nodules again seen status scattered bilaterally as well. A small bulla is again seen at the left lower lobe base anteriorly. LIVER: A right lobe hepatic mass is again seen in the lateral periphery measuring 6.7 x 3.9 x 6.0 cm (transverse by anteroposterior by superoinferior dimensions). It has peripheral margins are partially well defined once again. It is stable in size and remain suspicious for primary or secondary hepatic neoplasm as previously mentioned. This examination is less defining of the lesions and the three-phase CT exam performed previously as this is standard protocol alone. No definitive interval hepatic masses appreciated throughout the remainder of the liver. GALLBLADDER AND BILE DUCTS: Gallbladder appears contracted. PANCREAS: Unremarkable. No gross lesion or ductal dilatation. SPLEEN: Unremarkable. ADRENALS: Right adrenal gland appears unremarkable. 1.2 cm nodule difficult to exclude at the left adrenal gland. Consider follow-up MRI for additional characterization. KIDNEYS AND URETERS: Unremarkable. No hydronephrosis. No solid mass. VASCULATURE: Unremarkable. No aortic aneurysm. BOWEL: No definite bowel obstruction is appreciated there is relatively prominent fecal loading throughout the majority colon with gas also seen in the lumen. No small or large bowel obstruction is evident. Lack of oral contrast limits the evaluation. APPENDIX: Not identified. PERITONEUM: Mild pelvic ascites appreciate with limited right lower quadrant fluid identified in the interval. LYMPH NODES: Unremarkable. No enlarged lymph nodes. BLADDER: Urinary bladder is distended but stable in appearance. REPRODUCTIVE: Grossly enlarged prostate gland is again evident. BONES: Sclerotic foci at T8, T9, T10 and L1 are identified within the vertebral bodies suspicious for potential metastases. OTHER FINDINGS: None. IMPRESSION: 1. No interval changes identified in a E right lobe hepatic mass 6.7 cm greatest dimension as compared to prior abdomen CT exam 04/26/2017. Differential diagnosis unchanged primary to the secondary hepatic neoplasm. 2. 1.2 cm nodule is difficult exclude the left adrenal gland. Follow-up MRI is advised for further characterization. 3. Sclerotic foci are infrequently scattered at the inferior thoracolumbar spine potentially reflecting metastatic disease. Consider follow-up nuclear bone scan. 4. Mild ascites is developing in the inferior abdomen pelvis. 5. Grossly enlarged prostate gland again evident. 6. Diminishing ground-glass opacity at the bilateral lung bases with persistent multifocal patchy densities at the lower lobes and occasional small nodules.
[2017-04-29 19:18] LABS: Interpretation Negative (Negative)
--- NOTE | 2017-04-29 21:35 | CP.PCM.PN ---
Subjective - Date & Time of Evaluation Date of Evaluation: 04/29/17 Time of Evaluation: 21:34 - Subjective Subjective: pt is getting enema had colonoscopy but incomplete will do in am no chest pain cough noted eating ok chest clear vitals stable awaiting colonoscopy and possible liver bx Objective - Vital Signs/Intake and Output Vital Signs (last 24 hours): Temp Pulse Resp BP Pulse Ox 97.7 F 53 L 20 131/71 91 L 04/29/17 16:22 04/29/17 16:22 04/29/17 16:22 04/29/17 16:22 04/29/17 16:22 Intake and Output: 04/29/17 04/30/17 18:59 06:59 Intake Total 1250 Balance 1250 - Medications Medications: Current Medications Albuterol/Ipratropium (Duoneb 3 Mg/0.5 Mg (3 Ml) Ud) 3 ml INH RQ4 PRN PRN Reason: Shortness of Breath Last Admin: 04/25/17 18:38 Dose: 3 ml Aspirin (Aspirin Chewable) 81 mg PO DAILY [facility] Last Admin: 04/28/17 09:44 Dose: Not Given Enoxaparin Sodium (Lovenox) 60 mg SC Q12 [facility] Last Admin: 04/28/17 09:52 Dose: Not Given Fluconazole (Diflucan) 100 mg PO DAILY [facility] Last Admin: 04/29/17 17:32 Dose: 100 mg Azithromycin 500 mg/ Sodium (Chloride) 250 mls @ 250 mls/hr IVPB DAILY [facility] Last Admin: 04/29/17 11:15 Dose: 250 mls/hr Ceftriaxone Sodium 1 gm/ (Sodium Chloride) 100 mls @ 100 mls/hr IVPB DAILY [facility] Last Admin: 04/29/17 11:08 Dose: 100 mls/hr Vancomycin HCl 1 gm/ Sodium (Chloride) 200 mls @ 166.667 mls/hr IVPB Q24H [facility] Methylprednisolone (Solu-Medrol) 40 mg IVP Q6H [facility] Last Admin: 04/29/17 14:44 Dose: Not Given Metoclopramide HCl (Reglan) 5 mg IVP Q8 [facility] Last Admin: 04/29/17 13:14 Dose: 5 mg Pantoprazole Sodium (Protonix Ec Tab) 40 mg PO DAILY [facility] Last Admin: 04/29/17 10:24 Dose: Not Given Promethazine HCl/Codeine (Phenergan/Codeine Oral Syrup) 5 ml PO TID PRN PRN Reason: Cough and congestion Last Admin: 04/26/17 21:50 Dose: 5 ml - Labs Labs: 04/27/17 07:54 04/27/17 07:54 PT 14.5 SECONDS (9.7-12.2) H 04/27/17 10:56 INR 1.3 04/27/17 10:56 APTT 35 SECONDS (21-34) H 04/27/17 10:56
--- NOTE | 2017-04-29 22:50 | CP.PCM.PN ---
Subjective - Date & Time of Evaluation Date of Evaluation: 04/29/17 Time of Evaluation: 22:49 - Subjective Subjective: CHIEF COMPLAINTS TODAY : afebrile,vss + VE dry cough. S/P COLONOSCOPY AND EGD TODAY. EGD -FINDINGS NOTED -MUCOSAL KARINA-ESOPHAGITIS. COLONOSCOPY INCOMPLETE- NOT PREPPED PROPERLY FOR COLONOSCOPY IN AM. ROS. HEENT : N. Resp : No hemoptysis +veDRY COUGH Cardio : No anginal CP, PND, orthopnea, palpitation GI : No abd.pain, n/v ,diarrhea or GI bleeding . 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 Musculoskel : No joint swelling , Derm : No rash Psych : Normal affect. Ext : No swelling ,calf pain PE. Pt. is alert awake in no distress. V.S As noted in the chart Head ,ear nose,throat and eyes : Normal. Neck : Supple with normal carotids. Lungs: RONCHI AND RALES Heart : S1 & S2 normal with S4. No murmur. Abd : Soft non tender with normal bowel sounds. Neuro : Moves all ext. with no localized deficit. Ext : No edema with intact pulses.Non tender calves Derm : No rashes or decubitus ulcer. LABS/RADIOLOGY: CT ABD W LIVER PROTOCOL -NOTED -ABNORMAL -LIVER MASS/ ? METASTASIS TUMOR MARKERS HIGH BLOOD CULTURES -VE X3DAYS MRSA SCREEN -VE URINE CULTURES -VE lung perfusion ventilation scan-intermediate probability seen for PE. reviewed. CRP> 15.0 PSA 9.35 elevated lft normal transaminases, alkaline phosphatase 184 elevated. ASSESSMENT Bilateral pneumonia/pulmonary nodules/exacerbation of COPD r/o metastatic disease. Hepatic mass r/o primary versus metastatic. KARINA-ESOPHAGITIS S/P EGD 04/29/17 (BX PENDING ) benign prostatic hypertrophy. Elevated PSA r/o prostatic CA. BACK PAIN/ OSTEOPOROSIS. ./PLAN : PT STARTED ON PO DIFLUCAN 100MG OD X 14DAYS PER GI.04/29/17 GI W/U IN PROGRESS LOOKING FOR PRIMARY.FOR REPEAT COLONOSCOPY IN AM. continue IV Rocephin 1 g once a day daily 04/24/17 .Continue IV Zithromax 500 mg once a day daily.04/24/17 continue IV vancomycin 1 g once a day daily. 04/25/17. .SPUTUM GRAM STAIN AND CULTURE W/U OF CANCER PRIMARY IN PROGRESS . F/U LFTS. PER CONSULTANTS Objective - Vital Signs/Intake and Output Vital Signs (last 24 hours): Temp Pulse Resp BP Pulse Ox 97.7 F 53 L 20 131/71 91 L 04/29/17 16:22 04/29/17 16:22 04/29/17 16:22 04/29/17 16:22 04/29/17 16:22 Intake and Output: 04/29/17 04/30/17 18:59 06:59 Intake Total 1250 Balance 1250 - Medications Medications: Current Medications Albuterol/Ipratropium (Duoneb 3 Mg/0.5 Mg (3 Ml) Ud) 3 ml INH RQ4 PRN PRN Reason: Shortness of Breath Last Admin: 04/25/17 18:38 Dose: 3 ml Aspirin (Aspirin Chewable) 81 mg PO DAILY [facility] Last Admin: 04/28/17 09:44 Dose: Not Given Enoxaparin Sodium (Lovenox) 60 mg SC Q12 [facility] Last Admin: 04/28/17 09:52 Dose: Not Given Fluconazole (Diflucan) 100 mg PO DAILY [facility] Last Admin: 04/29/17 17:32 Dose: 100 mg Azithromycin 500 mg/ Sodium (Chloride) 250 mls @ 250 mls/hr IVPB DAILY [facility] Last Admin: 04/29/17 11:15 Dose: 250 mls/hr Ceftriaxone Sodium 1 gm/ (Sodium Chloride) 100 mls @ 100 mls/hr IVPB DAILY [facility] Last Admin: 04/29/17 11:08 Dose: 100 mls/hr Vancomycin HCl 1 gm/ Sodium (Chloride) 200 mls @ 166.667 mls/hr IVPB Q24H [facility] Methylprednisolone (Solu-Medrol) 40 mg IVP Q6H [facility] Last Admin: 04/29/17 22:17 Dose: 40 mg Metoclopramide HCl (Reglan) 5 mg IVP Q8 [facility] Last Admin: 04/29/17 22:13 Dose: 5 mg Pantoprazole Sodium (Protonix Ec Tab) 40 mg PO DAILY [facility] Last Admin: 04/29/17 10:24 Dose: Not Given Promethazine HCl/Codeine (Phenergan/Codeine Oral Syrup) 5 ml PO TID PRN PRN Reason: Cough and congestion Last Admin: 04/26/17 21:50 Dose: 5 ml - Labs Labs: 04/27/17 07:54 04/27/17 07:54 PT 14.5 SECONDS (9.7-12.2) H 04/27/17 10:56 INR 1.3 04/27/17 10:56 APTT 35 SECONDS (21-34) H 04/27/17 10:56 Assessment and Plan (1) Pneumonia Status: Acute (2) COPD exacerbation Status: Acute (3) Elevated PSA Status: Acute (4) Metastatic cancer Status: Acute (5) Liver mass Status: Acute (6) Osteoporosis Status: Acute
[2017-04-30] MEDS: Vancomycin 1 GM in Sodium Chloride 0.9% 200 ML IVPB SCH (00:35)
[2017-04-30] MEDS: MethylPREDNISolone 40 mg Vial IVP SCH ×4 (01:34→20:11)
[2017-04-30 07:16] LABS: BASO % 0.1 % (0.0-2.0); HEMATOCRIT 33.5 % (35.0-51.0); LYMPH # 0.4 K/uL (1.0-4.3); LYMPH % 2.6 % (20.0-40.0); MEAN CELL VOLUME 91.9 fL (80.0-94.0); MEAN CORPUSCULAR HEMOGLOBIN 30.8 pg (27.0-31.0); MEAN CORPUSCULAR HGB CONC 33.6 g/dL (33.0-37.0); MEAN PLATELET VOLUME 9.3 fL (7.2-11.7); MONO # 0.5 K/uL (0.0-0.8); MONO % 3.6 % (0.0-10.0); PLATELET COUNT 158 K/uL (130-400); RED CELL DISTRIBUTION WIDTH 14.7 % (11.5-14.5); WHITE BLOOD COUNT 13.9 K/uL (4.8-10.8)
[2017-04-30 08:28] LABS: BLOOD UREA NITROGEN 24 mg/dL (9-20); CARBON DIOXIDE 27 mmol/L (22-30); CHLORIDE 102 mmol/L (98-107); GFR AFRICAN-AMERICAN > 60; GLUCOSE,RANDOM 127 mg/dL (75-110); POTASSIUM 4.7 mmol/L (3.6-5.2); SODIUM 132 mmol/L (132-148)
[2017-04-30 08:36] LABS: NEUTROPHIL 94 % (50-75); REACTIVE LYMPHOCYTES 1 % (0-0); TOTAL CELLS COUNTED 100
[2017-04-30 08:38] LABS: GIANT PLATELETS PRESENT; LARGE PLATELETS PRESENT
[2017-04-30] MEDS: Pantoprazole 40 mg EC Tab PO SCH (10:00)
[2017-04-30] MEDS: Azithromycin 500 MG in Sodium Chloride 0.9% 250 ML IVPB SCH (10:48)
[2017-04-30] MEDS ORDERED: Etomidate 20 mg/10ml Inj IV ONE (11:51)
--- NOTE | 2017-04-30 13:58 | CP.PCM.PN ---
Subjective - Date & Time of Evaluation Date of Evaluation: 04/30/17 Time of Evaluation: 13:58 - Subjective Subjective: CHIEF COMPLAINTS TODAY : DRY COUGH , WHEEZING ROS. HEENT : N. Resp : No hemoptysis Cardio : No anginal CP, PND, orthopnea, palpitation GI : No abd.pain, n/v ,diarrhea or GI bleeding . 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 Musculoskel : No joint swelling , Derm : No rash Psych : Normal affect. Ext : No swelling ,calf pain PE. Pt. is alert awake in no distress. V.S As noted in the chart Head ,ear nose,throat and eyes : Normal. Neck : Supple with normal carotids. Lungs: RONCHI AND RALES Heart : S1 & S2 normal with S4. No murmur. Abd : Soft non tender with normal bowel sounds. Neuro : Moves all ext. with no localized deficit. Ext : No edema with intact pulses.Non tender calves Derm : No rashes or decubitus ulcer. LABS/RADIOLOGY: BONE SCAN ; METASTATIC CANCER , CT LIVER , CANCER ASSESSMENT/PLAN : IVAB /STEROIDS W/U CANCER IN PROGRESS AWAITING INPUT FROM ONCOLOGY Objective - Vital Signs/Intake and Output Vital Signs (last 24 hours): Temp Pulse Resp BP Pulse Ox 98.1 F 73 19 121/67 97 04/30/17 12:10 04/30/17 12:40 04/30/17 12:40 04/30/17 12:40 04/30/17 12:40 Intake and Output: 04/30/17 04/30/17 11:59 23:59 Intake Total 250 150 Balance 250 150 - Medications Medications: Current Medications Albuterol/Ipratropium (Duoneb 3 Mg/0.5 Mg (3 Ml) Ud) 3 ml INH RQ4 PRN PRN Reason: Shortness of Breath Last Admin: 04/25/17 18:38 Dose: 3 ml Aspirin (Aspirin Chewable) 81 mg PO DAILY [facility] Last Admin: 04/28/17 09:44 Dose: Not Given Enoxaparin Sodium (Lovenox) 60 mg SC Q12 [facility] Last Admin: 04/28/17 09:52 Dose: Not Given Fluconazole (Diflucan) 100 mg PO DAILY [facility] Last Admin: 04/30/17 10:02 Dose: Not Given Azithromycin 500 mg/ Sodium (Chloride) 250 mls @ 250 mls/hr IVPB DAILY [facility] Last Admin: 04/30/17 10:48 Dose: 250 mls/hr Ceftriaxone Sodium 1 gm/ (Sodium Chloride) 100 mls @ 100 mls/hr IVPB DAILY [facility] Last Admin: 04/30/17 09:59 Dose: 100 mls/hr Vancomycin HCl 1 gm/ Sodium (Chloride) 200 mls @ 166.667 mls/hr IVPB Q24H [facility] Last Admin: 04/30/17 00:35 Dose: 166.667 mls/hr Methylprednisolone (Solu-Medrol) 40 mg IVP Q6H [facility] Last Admin: 04/30/17 10:04 Dose: 40 mg Metoclopramide HCl (Reglan) 5 mg IVP Q8 [facility] Last Admin: 04/30/17 06:24 Dose: 5 mg Pantoprazole Sodium (Protonix Ec Tab) 40 mg PO DAILY [facility] Last Admin: 04/30/17 10:00 Dose: Not Given Promethazine HCl/Codeine (Phenergan/Codeine Oral Syrup) 5 ml PO TID PRN PRN Reason: Cough and congestion Last Admin: 04/26/17 21:50 Dose: 5 ml - Labs Labs: 04/30/17 07:09 04/30/17 07:09 PT 14.5 SECONDS (9.7-12.2) H 04/27/17 10:56 INR 1.3 04/27/17 10:56 APTT 35 SECONDS (21-34) H 04/27/17 10:56 Assessment and Plan (1) Lung cancer Status: Acute (2) COPD exacerbation Status: Acute (3) Metastatic cancer Status: Acute
[2017-04-30 16:16] VITALS: RESP 20
--- NOTE | 2017-04-30 18:05 | CP.PCM.PN ---
Subjective - Date & Time of Evaluation Date of Evaluation: 04/30/17 Time of Evaluation: 18:05 - Subjective Subjective: CHIEF COMPLAINTS TODAY : afebrile,vss + VE dry cough. S/P REPEAT COLONOSCOPY 04/30/17 EGD -FINDINGS 04/29/17 -NOTED - MUCOSAL KARINA-ESOPHAGITIS. patient for liver biopsy in AM PER RN-REPORT ROS. HEENT : N. Resp : No hemoptysis +veDRY COUGH Cardio : No anginal CP, PND, orthopnea, palpitation GI : No abd.pain, n/v ,diarrhea or GI bleeding . 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 Musculoskel : No joint swelling , Derm : No rash Psych : Normal affect. Ext : No swelling ,calf pain PE. Pt. is alert awake in no distress. V.S As noted in the chart Head ,ear nose,throat and eyes : Normal. Neck : Supple with normal carotids. Lungs: RONCHI AND RALES Heart : S1 & S2 normal with S4. No murmur. Abd : Soft non tender with normal bowel sounds. Neuro : Moves all ext. with no localized deficit. Ext : No edema with intact pulses.Non tender calves Derm : No rashes or decubitus ulcer. LABS/RADIOLOGY: CT ABD W LIVER PROTOCOL -NOTED -ABNORMAL -LIVER MASS/ ? METASTASIS TUMOR MARKERS HIGH [id number].CEA HIGH. PSA 11.4 ELEVATED BLOOD CULTURES -VE X3DAYS MRSA SCREEN -VE URINE CULTURES -VE lung perfusion ventilation scan-intermediate probability seen for PE. reviewed. CRP> 15.0 PSA 9.35 elevated lft normal transaminases, alkaline phosphatase 184 elevated. ASSESSMENT Bilateral pneumonia/pulmonary nodules/exacerbation of COPD r/o metastatic disease. Hepatic mass r/o primary versus metastatic. KARINA-ESOPHAGITIS S/P EGD 04/29/17 (BX PENDING ) benign prostatic hypertrophy. Elevated PSA r/o prostatic CA. BACK PAIN/ OSTEOPOROSIS. ./PLAN : PT STARTED ON PO DIFLUCAN 100MG OD X 14DAYS PER GI.04/29/17 GI W/U IN PROGRESS . LIVER BIOPSY IN A.M. continue IV Rocephin 1 g once a day daily 04/24/17 .Continue IV Zithromax 500 mg once a day daily.04/24/17 continue IV vancomycin 1 g once a day daily. 04/25/17. .SPUTUM GRAM STAIN AND CULTURE W/U OF CANCER PRIMARY IN PROGRESS . CASE DISCUSSED WITH THE STAFF/PMD. Objective - Vital Signs/Intake and Output Vital Signs (last 24 hours): Temp Pulse Resp BP Pulse Ox 97.7 F 81 20 119/68 92 L 04/30/17 15:00 04/30/17 15:00 04/30/17 15:00 04/30/17 15:00 04/30/17 15:00 Intake and Output: 04/30/17 04/30/17 06:59 18:59 Intake Total 650 850 Output Total 350 Balance 650 500 - Medications Medications: Current Medications Albuterol/Ipratropium (Duoneb 3 Mg/0.5 Mg (3 Ml) Ud) 3 ml INH RQ4 PRN PRN Reason: Shortness of Breath Last Admin: 04/25/17 18:38 Dose: 3 ml Aspirin (Aspirin Chewable) 81 mg PO DAILY [facility] Last Admin: 04/28/17 09:44 Dose: Not Given Enoxaparin Sodium (Lovenox) 60 mg SC Q12 [facility] Last Admin: 04/28/17 09:52 Dose: Not Given Fluconazole (Diflucan) 100 mg PO DAILY [facility] Last Admin: 04/30/17 10:02 Dose: Not Given Azithromycin 500 mg/ Sodium (Chloride) 250 mls @ 250 mls/hr IVPB DAILY [facility] Last Admin: 04/30/17 10:48 Dose: 250 mls/hr Ceftriaxone Sodium 1 gm/ (Sodium Chloride) 100 mls @ 100 mls/hr IVPB DAILY [facility] Last Admin: 04/30/17 09:59 Dose: 100 mls/hr Vancomycin HCl 1 gm/ Sodium (Chloride) 200 mls @ 166.667 mls/hr IVPB Q24H [facility] Last Admin: 04/30/17 00:35 Dose: 166.667 mls/hr Methylprednisolone (Solu-Medrol) 40 mg IVP Q6H [facility] Last Admin: 04/30/17 14:01 Dose: 40 mg Metoclopramide HCl (Reglan) 5 mg IVP Q8 [facility] Last Admin: 04/30/17 14:01 Dose: 5 mg Pantoprazole Sodium (Protonix Ec Tab) 40 mg PO DAILY [facility] Last Admin: 04/30/17 10:00 Dose: Not Given Promethazine HCl/Codeine (Phenergan/Codeine Oral Syrup) 5 ml PO TID PRN PRN Reason: Cough and congestion Last Admin: 04/26/17 21:50 Dose: 5 ml - Labs Labs: 04/30/17 07:09 04/30/17 07:09 PT 14.5 SECONDS (9.7-12.2) H 04/27/17 10:56 INR 1.3 04/27/17 10:56 APTT 35 SECONDS (21-34) H 04/27/17 10:56 Assessment and Plan (1) Pneumonia Status: Acute (2) COPD exacerbation Status: Acute (3) Elevated PSA Status: Acute (4) Metastatic cancer Status: Acute (5) Liver mass Status: Acute (6) Osteoporosis Status: Acute
[2017-04-30 20:08] LABS: HEMATOCRIT 38.1 % (35.0-51.0); MEAN CELL VOLUME 92.2 fL (80.0-94.0); MEAN CORPUSCULAR HEMOGLOBIN 29.7 pg (27.0-31.0); MEAN CORPUSCULAR HGB CONC 32.3 g/dL (33.0-37.0); RED CELL DISTRIBUTION WIDTH 14.9 % (11.5-14.5); WHITE BLOOD COUNT 19.4 K/uL (4.8-10.8)
[2017-04-30 20:27] LABS: INR 1.4
[2017-04-30] MEDS: metroNIDAZOLE IV 500 mg/100 ml 500 MG/100 ML BAG IVPB SCH (22:22)
[2017-05-01] MEDS: Vancomycin 1 GM in Sodium Chloride 0.9% 200 ML IVPB SCH (00:15)
[2017-05-01] MEDS: MethylPREDNISolone 40 mg Vial IVP SCH ×4 (02:15→19:40)
[2017-05-01] MEDS: metroNIDAZOLE IV 500 mg/100 ml 500 MG/100 ML BAG IVPB SCH ×3 (05:02→21:15)
--- NOTE | 2017-05-01 06:01 | CP.PCM.PN ---
Subjective - Date & Time of Evaluation Date of Evaluation: 05/01/17 Time of Evaluation: 06:01 - Subjective Subjective: patient seen . will dictate Objective - Vital Signs/Intake and Output Vital Signs (last 24 hours): Temp Pulse Resp BP Pulse Ox 97.7 F 81 20 119/68 92 L 04/30/17 15:00 04/30/17 15:00 04/30/17 15:00 04/30/17 15:00 04/30/17 15:00 Intake and Output: 04/30/17 05/01/17 18:59 06:59 Intake Total 850 500 Output Total 350 Balance 500 500 - Medications Medications: Current Medications Albuterol/Ipratropium (Duoneb 3 Mg/0.5 Mg (3 Ml) Ud) 3 ml INH RQ4 PRN PRN Reason: Shortness of Breath Last Admin: 04/25/17 18:38 Dose: 3 ml Aspirin (Aspirin Chewable) 81 mg PO DAILY [facility] Last Admin: 04/28/17 09:44 Dose: Not Given Enoxaparin Sodium (Lovenox) 60 mg SC Q12 [facility] Last Admin: 04/28/17 09:52 Dose: Not Given Fluconazole (Diflucan) 100 mg PO DAILY [facility] Last Admin: 04/30/17 10:02 Dose: Not Given Azithromycin 500 mg/ Sodium (Chloride) 250 mls @ 250 mls/hr IVPB DAILY [facility] Last Admin: 04/30/17 10:48 Dose: 250 mls/hr Ceftriaxone Sodium 1 gm/ (Sodium Chloride) 100 mls @ 100 mls/hr IVPB DAILY [facility] Last Admin: 04/30/17 09:59 Dose: 100 mls/hr Vancomycin HCl 1 gm/ Sodium (Chloride) 200 mls @ 166.667 mls/hr IVPB Q24H [facility] Last Admin: 05/01/17 00:15 Dose: 166.667 mls/hr Metronidazole (Flagyl) 500 mg in 100 mls @ 100 mls/hr IVPB Q8 [facility] Last Admin: 05/01/17 05:02 Dose: 100 mls/hr Methylprednisolone (Solu-Medrol) 40 mg IVP Q6H [facility] Last Admin: 05/01/17 02:15 Dose: 40 mg Metoclopramide HCl (Reglan) 5 mg IVP Q8 [facility] Last Admin: 05/01/17 05:03 Dose: 5 mg Pantoprazole Sodium (Protonix Ec Tab) 40 mg PO DAILY [facility] Last Admin: 04/30/17 10:00 Dose: Not Given Promethazine HCl/Codeine (Phenergan/Codeine Oral Syrup) 5 ml PO TID PRN PRN Reason: Cough and congestion Last Admin: 04/26/17 21:50 Dose: 5 ml - Labs Labs: 04/30/17 20:01 04/30/17 07:09 PT 15.5 SECONDS (9.7-12.2) H 04/30/17 20:01 INR 1.4 04/30/17 20:01 APTT 25 SECONDS (21-34) 04/30/17 20:01
[2017-05-01] MEDS ORDERED: Phytonadione 10 mg/ml Inj (Adult) SC STA (08:04)
--- NOTE | 2017-05-01 08:15 | PN ---
DATE: 04/26/2017 SUBJECTIVE: Mr. Love is a 81-year-old gentleman who was seen on 04/26/2017. Subsequently, several recommendations were made on the day when the patient was seen and was fully discussed with the doctor including CEA, CA19-9, PSA and other tumor marker. The patient was seen today. Imaging, lab work and other events noted and discussed with the patient. Mr. Love is a 81-year-old gentleman who was admitted with upper respiratory tract infections and evaluation for the same. The patient underwent chest CT and found to have some abnormalities on chest CT; however, they also found that the patient has a liver mass and that is why the patient was seen at that time. Various tumor makers, CA19-9, CEA, PSA, alpha-fetoprotein and CT scan of the abdomen with contrast was recommended to further evaluate the abnormalities in the liver. It was also found that the patient had a high PSA of 9.5 and also had a sclerotic thoracic lesion that was consistent with the bone metastasis. The patient also complained of pain in that area. The CT scan of the abdomen and pelvis that was done with the contrast showed that the patient has large 6.7 cm liver mass and the differential diagnosis included primary or secondary liver neoplasm. The patient also found to have 1.2 cm left adrenal gland nodule. The patient was also found to have sclerotic osteoblastic metastasis in thoracolumbar spine as well as the rib and the pelvic area. There is also suspicious finding in the bilateral proximal tumors. These findings are all consistent with bone metastasis. The patient is slowly getting better, but still has complaint of some bone pain. The patient denies any headache or neurological symptoms. The patient denies any shortness of breath, chest pain or palpitation. The patient denies any abdominal pain, fever, diarrhea, nausea or vomiting. The patient denies any tingling or numbness of the feet. REVIEW OF SYSTEMS: As above. PHYSICAL EXAMINATION: GENERAL: The patient is alert, awake, oriented, afebrile. VITAL SIGNS: Pulse is 92, respirations 16. HEENT: Unremarkable. Anicteric. NECK: Supple neck. No adenopathy. No JVD. CHEST: Bilateral air. No rales or rhonchi. ABDOMEN: Soft, nontender. Bowel sounds present. Liver is just palpable. No splenomegaly. EXTREMITIES: No pedal edema. No clubbing. No cyanosis. NEUROLOGICAL: Alert, awake, oriented. Nonfocal. BACK: Examination of the back did not reveal any deformity or tenderness. ASSESSMENT AND PLAN: Mr. Love is a 81-year-old man with sclerotic osteoblastic extensive bone metastasis and 6.7 cm liver lesion, primary hepatocellular carcinoma or secondary metastasis has to be ruled out. This was discussed with all involved. The patient will need a tissue diagnosis, particularly liver biopsy. The patient has a very high tumor marker, CA19-9, CEA. The patient also needed to be evaluated by Urology for prostatic gland and high PSA, so either prostatic biopsy or a bone biopsy will be done to rule out neoplasm and to ascertain the primary site of the tumor. This was discussed in great detail with the primary care doctors, Dr. Nate Glover as well as Dr. Olson. This was also discussed with the patient. We will follow up on this patient. Didi Beyer MD
[2017-05-01] MEDS ORDERED: Midazolam 2 MG/2 ML VIAL ONE (09:09)
[2017-05-01] MEDS ORDERED: Absorbable Gelatin Sponge Size 12-7 ONE (09:21)
--- NOTE | 2017-05-01 09:56 | PCM.SURG1 ---
Surgeon's Initial Post Op Note - Surgeon's Notes Surgeon: Raoul Loera MD Security Controls Assessor: NONE Type of Anesthesia: IV Sedation Pre-Operative Diagnosis: Liver mass Operative Findings: Large mass right liver Post-Operative Diagnosis: Liver mass Operation Performed: CT guided core biopsy of right liver mass Specimen/Specimens Removed: 18 g core x 3 Estimated Blood Loss: EBL {In ML}: 2 Blood Products Given: N/A Drains Used: No Drains Post-Op Condition: Fair Date of Surgery/Procedure: 05/01/17 Time of Surgery/Procedure: 09:50
--- NOTE | 2017-05-01 10:06 | CT ---
PROCEDURE: Date of procedure: 05/01/2017 Procedure: 1. CT-guided percutaneous core biopsy of liver mass, CPT [address] guidance for biopsy, CPT 15621 Medications: The patient was sedated by the anesthesiologist with IV sedation and monitoring, 5 cc 1% lidocaine. HISTORY: liver mass TECHNIQUE: Following informed consent, the Pt's Abdomen was marked. The Pt was placed supine on the CT table and procedure time out was performed. A noncontrast CT scan confirmed the presence of the 6.5 cm x 5 cm x 11 cm hypodense lesion within the right hepatic lobe. A skin localizer was placed on the patient's abdomen and a repeat CT scan performed. The skin was prepped and draped in the usual sterile fashion. After the patient was sedated by anesthesiologist and the skin anesthetized with 1% lidocaine, an 18 gauge core needle was advanced percutaneously under direct CT guidance into the mass. Upon confirmation of needle position, three core specimens were obtained and sent for routine pathology. The biopsy track was then embolized with Gelfoam. A post biopsy CT scan performed showed no hematoma. A dressing was applied. IMPRESSION: CT-guided core biopsy of right liver mass.
[2017-05-01] MEDS: Promethazine/Cod 6.25mg-10mg/5ml Syr UD PO PRN (10:48)
[2017-05-01] MEDS: Azithromycin 500 MG in Sodium Chloride 0.9% 250 ML IVPB SCH (10:50)
[2017-05-01] MEDS: Pantoprazole 40 mg EC Tab PO SCH (10:50)
[2017-05-01 11:50] LABS: BASO % 0.2 % (0.0-2.0); LYMPH # 0.4 K/uL (1.0-4.3); LYMPH % 1.7 % (20.0-40.0); MEAN CORPUSCULAR HEMOGLOBIN 30.8 pg (27.0-31.0); MEAN CORPUSCULAR HGB CONC 33.1 g/dL (33.0-37.0); MEAN PLATELET VOLUME 9.1 fL (7.2-11.7); MONO % 4.5 % (0.0-10.0); PLATELET COUNT 155 K/uL (130-400); RED CELL DISTRIBUTION WIDTH 14.9 % (11.5-14.5); WHITE BLOOD COUNT 21.9 K/uL (4.8-10.8)
[2017-05-01 12:32] LABS: ALB/GLOB RATIO 1.1 (1.0-2.1); ALKALINE PHOSPHATASE 162 U/L (38-126); ALT/SGPT 52 U/L (21-72); AST/SGOT 49 U/L (17-59); BILIRUBIN,TOTAL 0.6 mg/dL (0.2-1.3); BLOOD UREA NITROGEN 35 mg/dL (9-20); CALCIUM 7.2 mg/dl (8.6-10.4); CARBON DIOXIDE 27 mmol/L (22-30); CHLORIDE 100 mmol/L (98-107); GFR AFRICAN-AMERICAN > 60; GLUCOSE,RANDOM 163 mg/dL (75-110); POTASSIUM 4.5 mmol/L (3.6-5.2); SODIUM 133 mmol/L (132-148); TOTAL PROTEIN 5.4 g/dL (6.3-8.3)
[2017-05-01 12:35] LABS: BASOPHIL 1 % (0-2); NEUTROPHIL 93 % (50-75); TOTAL CELLS COUNTED 100
--- NOTE | 2017-05-01 12:45 | PN ---
DATE: LOCATION: [address] [place] [address] B. SUBJECTIVE: This is a 81-year-old male post upper and lower endoscopy with report of some traces of blood, tarry stool, and rectal bleeding, mild, yesterday, none today, with leukocytosis. Started on IV Flagyl by myself. The entire chart is reviewed including but not limited to the most recent lab and radiology study results, current and the previous medication list, current and the previous medical events. Today's lab results are still pending. Yesterday, lab showed hemoglobin of 12.3 with hematocrit of 38.1, normal with leukocytosis of 19.4 with mildly elevated PT to 15.5 with low albumin and low total protein. His hepatitis profile was reported to be negative, but with excessive increase of CA19-9, increased prostatic specific AG with increased CEA level. The official report of recently done CAT scan of the abdomen and pelvis was reviewed again. PHYSICAL EXAMINATION: GENERAL: A 81-year-old male. Awake, alert, oriented. VITAL SIGNS: Afebrile with pulse of 66, respiratory rate 18 to 20, blood pressure 130/76. HEENT: Showed pale dry oral mucous membrane. Nonicteric sclerae. LUNGS: Few scattered crepitation. Decreased air entry at bases. HEART: Positive S1 and S2. ABDOMEN: Soft with slight tenderness. No mass or organomegaly. No rebound tenderness or guarding. RECTAL: Positive tone, vault was empty. EXTREMITIES: Slight edematous changes. No clubbing or cyanosis. NEUROLOGIC: No reported new neurological deficits, sensory or motor. IMPRESSION: 1. Recent anemia. 2. Abnormal radiology study results. 3. Colon polyp. Pathology report is still pending. Peptic ulcer disease. Elevated PSA and CA19-9, indicative of possible prostatic cancer and/or pancreatic cancer with metastasis. 4. Coagulopathy. 5. Known history of hyperlipidemia with osteoporosis. SUGGESTION: 1. Agree with your plan. 2. Vitamin K IM. 3. Close observation. Michelle Bliss MD
--- NOTE | 2017-05-01 13:50 | CP.PCM.PN ---
Subjective - Date & Time of Evaluation Date of Evaluation: 05/01/17 Time of Evaluation: 13:49 - Subjective Subjective: S/P LIVER BIOPSY GI WANTS PROSTATE BIOPSY INPUT FROM HEM/ONCOLOGY NOT AVAILABLE , VERBALLY HAS STATED PT ONLY NEEDS ONE BIOPSY D/W DAUGHTER SHE WANTS PT IN [place] NEAR HER HOME Objective - Vital Signs/Intake and Output Vital Signs (last 24 hours): Temp Pulse Resp BP Pulse Ox 97.7 F 64 20 133/73 95 05/01/17 07:00 05/01/17 07:00 05/01/17 07:00 05/01/17 07:00 05/01/17 07:00 Intake and Output: 05/01/17 05/01/17 11:59 23:59 Intake Total 350 Balance 350 - Medications Medications: Current Medications Albuterol/Ipratropium (Duoneb 3 Mg/0.5 Mg (3 Ml) Ud) 3 ml INH RQ4 PRN PRN Reason: Shortness of Breath Last Admin: 04/25/17 18:38 Dose: 3 ml Aspirin (Aspirin Chewable) 81 mg PO DAILY [facility] Last Admin: 04/28/17 09:44 Dose: Not Given Enoxaparin Sodium (Lovenox) 60 mg SC Q12 [facility] Last Admin: 04/28/17 09:52 Dose: Not Given Fluconazole (Diflucan) 100 mg PO DAILY [facility] Last Admin: 05/01/17 10:50 Dose: 100 mg Azithromycin 500 mg/ Sodium (Chloride) 250 mls @ 250 mls/hr IVPB DAILY [facility] Last Admin: 05/01/17 10:50 Dose: 250 mls/hr Ceftriaxone Sodium 1 gm/ (Sodium Chloride) 100 mls @ 100 mls/hr IVPB DAILY [facility] Last Admin: 05/01/17 10:47 Dose: 100 mls/hr Vancomycin HCl 1 gm/ Sodium (Chloride) 200 mls @ 166.667 mls/hr IVPB Q24H [facility] Last Admin: 05/01/17 00:15 Dose: 166.667 mls/hr Metronidazole (Flagyl) 500 mg in 100 mls @ 100 mls/hr IVPB Q8 [facility] Last Admin: 05/01/17 05:02 Dose: 100 mls/hr Methylprednisolone (Solu-Medrol) 40 mg IVP Q6H [facility] Last Admin: 05/01/17 08:28 Dose: 40 mg Metoclopramide HCl (Reglan) 5 mg IVP Q8 [facility] Last Admin: 05/01/17 05:03 Dose: 5 mg Pantoprazole Sodium (Protonix Ec Tab) 40 mg PO DAILY [facility] Last Admin: 05/01/17 10:50 Dose: 40 mg Promethazine HCl/Codeine (Phenergan/Codeine Oral Syrup) 5 ml PO TID PRN PRN Reason: Cough and congestion Last Admin: 05/01/17 10:48 Dose: 5 ml - Labs Labs: 05/01/17 11:36 05/01/17 11:36 PT 15.5 SECONDS (9.7-12.2) H 04/30/17 20:01 INR 1.4 04/30/17 20:01 APTT 25 SECONDS (21-34) 04/30/17 20:01 Assessment and Plan (1) Lung cancer Status: Acute (2) COPD exacerbation Status: Acute (3) Metastatic cancer Status: Acute
[2017-05-01 18:58] LABS: LKM-1 Ab (IgG) <=20.0 U (<=20.0)
--- NOTE | 2017-05-01 22:06 | CP.PCM.PN ---
Subjective - Date & Time of Evaluation Date of Evaluation: 05/01/17 Time of Evaluation: 22:04 - Subjective Subjective: pt with lung nodules cough noted s/p liver biopsy likley malignant awating biposy report Objective - Vital Signs/Intake and Output Vital Signs (last 24 hours): Temp Pulse Resp BP Pulse Ox 98.0 F 52 L 20 123/72 98 05/01/17 15:19 05/01/17 15:19 05/01/17 15:19 05/01/17 15:19 05/01/17 15:19 Intake and Output: 05/01/17 05/02/17 18:59 06:59 Intake Total 300 Balance 300 - Medications Medications: Current Medications Albuterol/Ipratropium (Duoneb 3 Mg/0.5 Mg (3 Ml) Ud) 3 ml INH RQ4 PRN PRN Reason: Shortness of Breath Last Admin: 04/25/17 18:38 Dose: 3 ml Aspirin (Aspirin Chewable) 81 mg PO DAILY [facility] Last Admin: 04/28/17 09:44 Dose: Not Given Enoxaparin Sodium (Lovenox) 60 mg SC Q12 [facility] Last Admin: 04/28/17 09:52 Dose: Not Given Fluconazole (Diflucan) 100 mg PO DAILY [facility] Last Admin: 05/01/17 10:50 Dose: 100 mg Azithromycin 500 mg/ Sodium (Chloride) 250 mls @ 250 mls/hr IVPB DAILY [facility] Last Admin: 05/01/17 10:50 Dose: 250 mls/hr Ceftriaxone Sodium 1 gm/ (Sodium Chloride) 100 mls @ 100 mls/hr IVPB DAILY [facility] Last Admin: 05/01/17 10:47 Dose: 100 mls/hr Vancomycin HCl 1 gm/ Sodium (Chloride) 200 mls @ 166.667 mls/hr IVPB Q24H [facility] Last Admin: 05/01/17 00:15 Dose: 166.667 mls/hr Metronidazole (Flagyl) 500 mg in 100 mls @ 100 mls/hr IVPB Q8 [facility] Last Admin: 05/01/17 21:15 Dose: 100 mls/hr Methylprednisolone (Solu-Medrol) 40 mg IVP Q6H [facility] Last Admin: 05/01/17 19:40 Dose: 40 mg Metoclopramide HCl (Reglan) 5 mg IVP Q8 [facility] Last Admin: 05/01/17 21:14 Dose: 5 mg Pantoprazole Sodium (Protonix Ec Tab) 40 mg PO DAILY [facility] Last Admin: 05/01/17 10:50 Dose: 40 mg Promethazine HCl/Codeine (Phenergan/Codeine Oral Syrup) 5 ml PO TID PRN PRN Reason: Cough and congestion Last Admin: 05/01/17 10:48 Dose: 5 ml - Labs Labs: 05/01/17 11:36 05/01/17 11:36 PT 15.5 SECONDS (9.7-12.2) H 04/30/17 20:01 INR 1.4 04/30/17 20:01 APTT 25 SECONDS (21-34) 04/30/17 20:01
--- NOTE | 2017-05-01 22:25 | CP.PCM.PN ---
Subjective - Date & Time of Evaluation Date of Evaluation: 05/01/17 Time of Evaluation: 22:25 - Subjective Subjective: CHIEF COMPLAINTS TODAY : afebrile,vss + VE dry cough. S/P REPEAT COLONOSCOPY 04/30/17 EGD -FINDINGS 04/29/17 -NOTED - MUCOSAL KARINA-ESOPHAGITIS. S/P LIVER BX TODAY BY IR. 05/01/17 ROS. HEENT : N. Resp : No hemoptysis +veDRY COUGH Cardio : No anginal CP, PND, orthopnea, palpitation GI : No abd.pain, n/v ,diarrhea or GI bleeding . TWISTING FRAME CHANGER : No headache, vertigo, focal deficit. Musculoskel : No joint swelling , Derm : No rash Psych : Normal affect. Ext : No swelling ,calf pain PE. Pt. is alert awake in no distress. V.S As noted in the chart Head ,ear nose,throat and eyes : Normal. Neck : Supple with normal carotids. Lungs: RONCHI AND RALES Heart : S1 & S2 normal with S4. No murmur. Abd : Soft non tender with normal bowel sounds. Neuro : Moves all ext. with no localized deficit. Ext : No edema with intact pulses.Non tender calves Derm : No rashes or decubitus ulcer. LABS/RADIOLOGY: WBC 21.9 ? STERO[address] CT ABD W LIVER PROTOCOL -NOTED -ABNORMAL -LIVER MASS/ ? METASTASIS TUMOR MARKERS HIGH [id number].CEA HIGH. PSA 11.4 ELEVATED BLOOD CULTURES -VE X3DAYS MRSA SCREEN -VE URINE CULTURES -VE lung perfusion ventilation scan-intermediate probability seen for PE. reviewed. CRP> 15.0 PSA 9.35 elevated lft normal transaminases, alkaline phosphatase 184 elevated. ASSESSMENT Bilateral pneumonia/pulmonary nodules/exacerbation of COPD r/o metastatic disease. Hepatic mass r/o primary versus metastatic. KARINA-ESOPHAGITIS S/P EGD 04/29/17 (BX PENDING ) benign prostatic hypertrophy. Elevated PSA r/o prostatic CA. BACK PAIN/ OSTEOPOROSIS. ./PLAN : PT STARTED ON PO DIFLUCAN 100MG OD X 14DAYS PER GI.04/29/17 GI W/U IN PROGRESS . LIVER BIOPSY IN A.M. continue IV Rocephin 1 g once a day daily 04/24/17 .Continue IV Zithromax 500 mg once a day daily.04/24/17 continue IV vancomycin 1 g once a day daily. 04/25/17. .SPUTUM GRAM STAIN AND CULTURE DECREASE STEROIDS IF FEASIBLE. W/U IN PROGRESS W/U OF CANCER PRIMARY IN PROGRESS . Objective - Vital Signs/Intake and Output Vital Signs (last 24 hours): Temp Pulse Resp BP Pulse Ox 98.0 F 52 L 20 123/72 98 05/01/17 15:19 05/01/17 15:19 05/01/17 15:19 05/01/17 15:19 05/01/17 15:19 Intake and Output: 05/01/17 05/02/17 18:59 06:59 Intake Total 300 400 Output Total 400 Balance 300 0 - Medications Medications: Current Medications Albuterol/Ipratropium (Duoneb 3 Mg/0.5 Mg (3 Ml) Ud) 3 ml INH RQ4 PRN PRN Reason: Shortness of Breath Last Admin: 04/25/17 18:38 Dose: 3 ml Aspirin (Aspirin Chewable) 81 mg PO DAILY [facility] Last Admin: 04/28/17 09:44 Dose: Not Given Enoxaparin Sodium (Lovenox) 60 mg SC Q12 [facility] Last Admin: 04/28/17 09:52 Dose: Not Given Fluconazole (Diflucan) 100 mg PO DAILY [facility] Last Admin: 05/01/17 10:50 Dose: 100 mg Azithromycin 500 mg/ Sodium (Chloride) 250 mls @ 250 mls/hr IVPB DAILY [facility] Last Admin: 05/01/17 10:50 Dose: 250 mls/hr Ceftriaxone Sodium 1 gm/ (Sodium Chloride) 100 mls @ 100 mls/hr IVPB DAILY [facility] Last Admin: 05/01/17 10:47 Dose: 100 mls/hr Vancomycin HCl 1 gm/ Sodium (Chloride) 200 mls @ 166.667 mls/hr IVPB Q24H [facility] Last Admin: 05/01/17 00:15 Dose: 166.667 mls/hr Metronidazole (Flagyl) 500 mg in 100 mls @ 100 mls/hr IVPB Q8 [facility] Last Admin: 05/01/17 21:15 Dose: 100 mls/hr Methylprednisolone (Solu-Medrol) 40 mg IVP Q6H [facility] Last Admin: 05/01/17 19:40 Dose: 40 mg Metoclopramide HCl (Reglan) 5 mg IVP Q8 [facility] Last Admin: 05/01/17 21:14 Dose: 5 mg Pantoprazole Sodium (Protonix Ec Tab) 40 mg PO DAILY [facility] Last Admin: 05/01/17 10:50 Dose: 40 mg Promethazine HCl/Codeine (Phenergan/Codeine Oral Syrup) 5 ml PO TID PRN PRN Reason: Cough and congestion Last Admin: 05/01/17 10:48 Dose: 5 ml - Labs Labs: 05/01/17 11:36 05/01/17 11:36 PT 15.5 SECONDS (9.7-12.2) H 04/30/17 20:01 INR 1.4 04/30/17 20:01 APTT 25 SECONDS (21-34) 04/30/17 20:01 Assessment and Plan (1) Pneumonia Status: Acute (2) COPD exacerbation Status: Acute (3) Elevated PSA Status: Acute (4) Metastatic cancer Status: Acute (5) Liver mass Status: Acute (6) Osteoporosis Status: Acute
[2017-05-02] MEDS: Vancomycin 1 GM in Sodium Chloride 0.9% 200 ML IVPB SCH (00:30)
[2017-05-02] MEDS: MethylPREDNISolone 40 mg Vial IVP SCH ×3 (01:10→13:59)
[2017-05-02] MEDS: metroNIDAZOLE IV 500 mg/100 ml 500 MG/100 ML BAG IVPB SCH ×2 (05:49→13:59)
[2017-05-02] MEDS: Pantoprazole 40 mg EC Tab PO SCH (09:18)
[2017-05-02] MEDS: Azithromycin 500 MG in Sodium Chloride 0.9% 250 ML IVPB SCH (09:20)
--- NOTE | 2017-05-02 09:31 | PCM.URO ---
Urology Progress Note - Objective Lab Studies: Reviewed (elevated psa / plans to be discussed) Lab Results Last 24 Hours: Laboratory Results - last 24 hr 04/26/17 04/26/17 05/01/17 14:10 14:10 11:36 WBC RBC Hgb Hct MCV MCH MCHC RDW Plt Count MPV Neut % (Auto) Lymph % (Auto) [place] % (Auto) Eos % (Auto) Baso % (Auto) Neut # Lymph # [place] # Eos # Baso # Neutrophils % (Manual) Band Neutrophils % Lymphocytes % (Manual) Monocytes % (Manual) Basophils % (Manual) Platelet Estimate Hypochromasia (manual) Poikilocytosis (manual Anisocytosis (manual) Sodium 133 Potassium 4.5 Chloride 100 Carbon Dioxide 27 Anion Gap 10 BUN 35 H Creatinine 0.8 Est GFR ( Amer) > 60 Est GFR (Non-Af Amer) > 60 Random Glucose 163 H Calcium 7.2 L Total Bilirubin 0.6 AST 49 ALT 52 Alkaline Phosphatase 162 H Total Protein 5.4 L Albumin 2.9 L Globulin 2.5 Albumin/Globulin Ratio 1.1 Rheumatoid Factor IgG <5 Rheumatoid Factor IgA 25 H Rheumatoid Factor IgM 85 H Liver/Kid Microsomes Ab <=20.0 05/01/17 11:36 WBC 21.9 H RBC 3.87 L Hgb 11.9 L Hct 36.0 MCV 93.0 MCH 30.8 MCHC 33.1 RDW 14.9 H Plt Count 155 MPV 9.1 Neut % (Auto) 93.6 H Lymph % (Auto) 1.7 L [place] % (Auto) 4.5 Eos % (Auto) 0.0 Baso % (Auto) 0.2 Neut # 20.5 H Lymph # 0.4 L [place] # 1.0 H Eos # 0.0 Baso # 0.0 Neutrophils % (Manual) 93 H Band Neutrophils % 1 Lymphocytes % (Manual) 2 L Monocytes % (Manual) 3 Basophils % (Manual) 1 Platelet Estimate Normal Hypochromasia (manual) Slight Poikilocytosis (manual Slight Anisocytosis (manual) Slight Sodium Potassium Chloride Carbon Dioxide Anion Gap BUN Creatinine Est GFR ( Amer) Est GFR (Non-Af Amer) Random Glucose Calcium Total Bilirubin AST ALT Alkaline Phosphatase Total Protein Albumin Globulin Albumin/Globulin Ratio Rheumatoid Factor IgG Rheumatoid Factor IgA Rheumatoid Factor IgM Liver/Kid Microsomes Ab Intake & Output: Intake & Output 05/01/17 05/02/17 05/02/17 18:59 06:59 18:59 Intake Total 300 990 Output Total 400 Balance 300 590 Intake: Intake, IV Amount 500 Left Antecubital 500 Oral 300 490 Output: Urine 400 Urine, Voided 400 Other: # Voids Urine, Voided 3 2 # Bowel Movements 0 Vital Signs: Vital Signs - 24 hr 05/01/17 05/02/17 05/02/17 15:19 00:00 08:23 Temperature 98.0 F 98.1 F 97.5 F L Pulse Rate 52 L 63 86 Respiratory 20 20 20 Rate Blood Pressure 123/72 121/74 126/72 O2 Sat by Pulse 98 98 100 Oximetry
--- NOTE | 2017-05-02 13:46 | CP.PCM.PN ---
Subjective - Date & Time of Evaluation Date of Evaluation: 05/02/17 Time of Evaluation: 13:46 - Subjective Subjective: CHIEF COMPLAINTS TODAY : DRY COUGH , WHEEZING ROS. HEENT : N. Resp : No hemoptysis Cardio : No anginal CP, PND, orthopnea, palpitation GI : No abd.pain, n/v ,diarrhea or GI bleeding . DECK OFFICER : No headache, vertigo, focal deficit. Musculoskel : No joint swelling , Derm : No rash Psych : Normal affect. Ext : No swelling ,calf pain PE. Pt. is alert awake in no distress. V.S As noted in the chart Head ,ear nose,throat and eyes : Normal. Neck : Supple with normal carotids. Lungs: RONCHI AND RALES Heart : S1 & S2 normal with S4. No murmur. Abd : Soft non tender with normal bowel sounds. Neuro : Moves all ext. with no localized deficit. Ext : No edema with intact pulses.Non tender calves Derm : No rashes or decubitus ulcer. LABS/RADIOLOGY: BONE SCAN ; METASTATIC CANCER , CT LIVER , CANCER ASSESSMENT/PLAN : AWAITING LIVER BIOPSY RESULTS PT WANTS [facility] Objective - Vital Signs/Intake and Output Vital Signs (last 24 hours): Temp Pulse Resp BP Pulse Ox 97.5 F L 86 20 126/72 100 05/02/17 08:23 05/02/17 08:23 05/02/17 08:23 05/02/17 08:23 05/02/17 08:23 Intake and Output: 05/02/17 05/02/17 11:59 23:59 Intake Total 590 Balance 590 - Medications Medications: Current Medications Albuterol/Ipratropium (Duoneb 3 Mg/0.5 Mg (3 Ml) Ud) 3 ml INH RQ4 PRN PRN Reason: Shortness of Breath Last Admin: 04/25/17 18:38 Dose: 3 ml Aspirin (Aspirin Chewable) 81 mg PO DAILY [facility] Last Admin: 04/28/17 09:44 Dose: Not Given Enoxaparin Sodium (Lovenox) 60 mg SC Q12 [facility] Last Admin: 04/28/17 09:52 Dose: Not Given Fluconazole (Diflucan) 100 mg PO DAILY [facility] Last Admin: 05/02/17 09:20 Dose: 100 mg Azithromycin 500 mg/ Sodium (Chloride) 250 mls @ 250 mls/hr IVPB DAILY [facility] Last Admin: 05/02/17 09:20 Dose: 250 mls/hr Ceftriaxone Sodium 1 gm/ (Sodium Chloride) 100 mls @ 100 mls/hr IVPB DAILY [facility] Last Admin: 05/02/17 09:18 Dose: 100 mls/hr Vancomycin HCl 1 gm/ Sodium (Chloride) 200 mls @ 166.667 mls/hr IVPB Q24H [facility] Last Admin: 05/02/17 00:30 Dose: 166.667 mls/hr Metronidazole (Flagyl) 500 mg in 100 mls @ 100 mls/hr IVPB Q8 [facility] Last Admin: 05/02/17 05:49 Dose: 100 mls/hr Methylprednisolone (Solu-Medrol) 40 mg IVP Q6H [facility] Last Admin: 05/02/17 09:18 Dose: 40 mg Metoclopramide HCl (Reglan) 5 mg IVP Q8 [facility] Last Admin: 05/02/17 05:50 Dose: 5 mg Pantoprazole Sodium (Protonix Ec Tab) 40 mg PO DAILY [facility] Last Admin: 05/02/17 09:18 Dose: 40 mg Promethazine HCl/Codeine (Phenergan/Codeine Oral Syrup) 5 ml PO TID PRN PRN Reason: Cough and congestion Last Admin: 05/01/17 10:48 Dose: 5 ml - Labs Labs: 05/01/17 11:36 05/01/17 11:36 PT 15.5 SECONDS (9.7-12.2) H 04/30/17 20:01 INR 1.4 04/30/17 20:01 APTT 25 SECONDS (21-34) 04/30/17 20:01 Assessment and Plan (1) Lung cancer Status: Acute (2) COPD exacerbation Status: Acute (3) Metastatic cancer Status: Acute
[2017-05-02 15:29] VITALS: BP 119/73; PULSE 63; TEMP 98.4; O2SAT 95
--- NOTE | 2017-05-02 15:38 | CP.PCM.PN ---
Subjective - Date & Time of Evaluation Date of Evaluation: 05/02/17 Time of Evaluation: 15:35 - Subjective Subjective: OK TO D/C PT TODAY A TO [facility] PER DR. COOK. PT HAD LIVER BIOPSY YESTERDAY AND TOLERATED WELL. NAD. SEEN BY UROLOGY TODAY; NO RECOMMENDATIONS OR ORDERS LEFT. DISCUSSED WITH DR. GONZALEZ AND PER HER D/C ALL IV ABX AND CONTINUE DIFLUCAN 100 MG PO DAILY X12 MORE DAYS (05/03/17-05/14/17). CM AWARE OF D/C. SW TO ARRANGED TRANSPORTATION. PT TO BE UNDER SERVICE OF DR. COOK AT [facility]. BIOPSY RESULTS PENDING AT THIS TIME; ATTENDING TO F/U WITH RESULTS. OP F/U WITH CONSULTS NOTED ON D/C PAPERWORK WELL. NO FURTHER ORDERS. Objective - Vital Signs/Intake and Output Vital Signs (last 24 hours): Temp Pulse Resp BP Pulse Ox 98.4 F 63 20 119/73 95 05/02/17 15:28 05/02/17 15:28 05/02/17 15:28 05/02/17 15:28 05/02/17 15:28 Intake and Output: 05/02/17 05/02/17 06:59 18:59 Intake Total 990 950 Output Total 400 Balance 590 950 - Medications Medications: Current Medications Albuterol/Ipratropium (Duoneb 3 Mg/0.5 Mg (3 Ml) Ud) 3 ml INH RQ4 PRN PRN Reason: Shortness of Breath Last Admin: 04/25/17 18:38 Dose: 3 ml Aspirin (Aspirin Chewable) 81 mg PO DAILY [facility] Last Admin: 04/28/17 09:44 Dose: Not Given Enoxaparin Sodium (Lovenox) 60 mg SC Q12 [facility] Last Admin: 04/28/17 09:52 Dose: Not Given Fluconazole (Diflucan) 100 mg PO DAILY [facility] Last Admin: 05/02/17 09:20 Dose: 100 mg Azithromycin 500 mg/ Sodium (Chloride) 250 mls @ 250 mls/hr IVPB DAILY [facility] Last Admin: 05/02/17 09:20 Dose: 250 mls/hr Ceftriaxone Sodium 1 gm/ (Sodium Chloride) 100 mls @ 100 mls/hr IVPB DAILY [facility] Last Admin: 05/02/17 09:18 Dose: 100 mls/hr Vancomycin HCl 1 gm/ Sodium (Chloride) 200 mls @ 166.667 mls/hr IVPB Q24H [facility] Last Admin: 05/02/17 00:30 Dose: 166.667 mls/hr Metronidazole (Flagyl) 500 mg in 100 mls @ 100 mls/hr IVPB Q8 [facility] Last Admin: 05/02/17 13:59 Dose: 100 mls/hr Methylprednisolone (Solu-Medrol) 40 mg IVP Q6H [facility] Last Admin: 05/02/17 13:59 Dose: 40 mg Metoclopramide HCl (Reglan) 5 mg IVP Q8 [facility] Last Admin: 05/02/17 14:42 Dose: 5 mg Pantoprazole Sodium (Protonix Ec Tab) 40 mg PO DAILY [facility] Last Admin: 05/02/17 09:18 Dose: 40 mg Promethazine HCl/Codeine (Phenergan/Codeine Oral Syrup) 5 ml PO TID PRN PRN Reason: Cough and congestion Last Admin: 05/01/17 10:48 Dose: 5 ml - Labs Labs: 05/01/17 11:36 05/01/17 11:36 PT 15.5 SECONDS (9.7-12.2) H 04/30/17 20:01 INR 1.4 04/30/17 20:01 APTT 25 SECONDS (21-34) 04/30/17 20:01
--- NOTE | 2017-05-02 16:16 | PN ---
DATE: LOCATION: [address] [place] [address] B. SUBJECTIVE: This 81-year-old male seen and examined in rounds today without significant clinical changes or reported active bleeding. The entire chart is reviewed including but not limited to the most recent lab and radiology study results, current and the previous medication list, current and the previous medical events. Case discussed with staff. Patient had yesterday CAT scan-guided biopsy for the liver mass. Pathology report is still pending. Today's lab is still pending; however, the patient had leukocytosis with low hemoglobin as well as normal platelet count with increased BUN to 35 and blood glucose level 163 with low albumin and low total protein. PHYSICAL EXAMINATION: GENERAL: A 81-year-old male without evidence of active bleeding at the time of the procedure. VITAL SIGNS: Afebrile with heart rate of 80, respiratory rate 20 to 22, blood pressure 120/70. HEENT: Shows pale, dry oral mucous membrane. Nonicteric sclerae. LUNGS: Few scattered crepitations. Decreased air entry at bases. HEART: Positive S1 and S2. ABDOMEN: Soft. Bowel sounds are present. No mass or organomegaly. No rebound tenderness or guarding. EXTREMITIES: Lower extremities with mild edematous changes and evidence of muscle wasting syndrome. No clubbing or cyanosis. NEUROLOGIC: No reported new neurological deficits, sensory or motor. Patient denied any episodes of rectal bleeding today. IMPRESSION: 1. Recent anemia. 2. Abnormal CAT scan of the abdomen and pelvis with mass lesion in the liver, awaiting pathology report. 3. Colon polyp. 4. Known history of peptic ulcer disease. 5. Known history of osteoporosis with hyperlipidemia. 6. Coagulopathy. 7. Possibility of prostatic cancer with metastasis was raised. SUGGESTION: 1. Agree with your plan. 2. Follow up in pathology report. 3. No need for aggressive further GI workup in the meantime. Michelle Bliss MD
--- NOTE | 2017-05-02 20:34 | CP.PCM.PN ---
Subjective - Date & Time of Evaluation Date of Evaluation: 05/02/17 Time of Evaluation: 20:22 - Subjective Subjective: CHIEF COMPLAINTS TODAY : afebrile,vss + VE dry cough. PT FOR [facility] TODAY 05/02/17 S/P REPEAT COLONOSCOPY 04/30/17 EGD -FINDINGS 04/29/17 -NOTED - MUCOSAL KARINA-ESOPHAGITIS. S/P LIVER BX BY IR. 05/01/17 ROS. HEENT : N. Resp : No hemoptysis +veDRY COUGH Cardio : No anginal CP, PND, orthopnea, palpitation GI : No abd.pain, n/v ,diarrhea or GI bleeding . SENIOR GRADUATE ADVISOR : No headache, vertigo, focal deficit. Musculoskel : No joint swelling , Derm : No rash Psych : Normal affect. Ext : No swelling ,calf pain PE. Pt. is alert awake in no distress. V.S As noted in the chart Head ,ear nose,throat and eyes : Normal. Neck : Supple with normal carotids. Lungs: RONCHI AND RALES Heart : S1 & S2 normal with S4. No murmur. Abd : Soft non tender with normal bowel sounds. Neuro : Moves all ext. with no localized deficit. Ext : No edema with intact pulses.Non tender calves Derm : No rashes or decubitus ulcer. LABS/RADIOLOGY: WBC 21.9 ? STERO[address] CT ABD W LIVER PROTOCOL -NOTED -ABNORMAL -LIVER MASS/ ? METASTASIS TUMOR MARKERS HIGH es-[id number].CEA HIGH. PSA 11.4 ELEVATED BLOOD CULTURES -VE X3DAYS MRSA SCREEN -VE URINE CULTURES -VE lung perfusion ventilation scan-intermediate probability seen for PE. reviewed. CRP> 15.0 PSA 9.35 elevated lft normal transaminases, alkaline phosphatase 184 elevated. ASSESSMENT Pulmonary nodules/exacerbation of COPD r/o metastatic disease. Hepatic mass r/o primary versus metastatic. KARINA-ESOPHAGITIS S/P EGD 04/29/17 (BX PENDING ) benign prostatic hypertrophy. Elevated PSA r/o prostatic CA. BACK PAIN/ OSTEOPOROSIS. ./PLAN : CONTINUE PO DIFLUCAN 100MG OD X 14DAYS PER GI.04/29/17 . LIVER BIOPSY RESULT -P DC IV Rocephin 1 g once a day daily 04/24/17 DC IV Zithromax 500 mg once a day daily.04/24/17 DC IV vancomycin 1 g once a day daily. 04/25/17. . DECREASE STEROIDS IF FEASIBLE. DENIS W/U IN PROGRESS.PT SEEN BY DR ROBERT W/U OF CANCER PRIMARY IN PROGRESS CASE DISCUSSED WITH BALANCE WHEEL MOTION INSPECTOR MS AGUILAR/DR COOK.-PMD. Objective - Vital Signs/Intake and Output Vital Signs (last 24 hours): Temp Pulse Resp BP Pulse Ox 98.4 F 63 20 119/73 95 05/02/17 15:28 05/02/17 15:28 05/02/17 15:28 05/02/17 15:28 05/02/17 15:28 Intake and Output: 05/02/17 05/03/17 18:59 06:59 Intake Total 950 Balance 950 - Medications Medications: Current Medications Albuterol/Ipratropium (Duoneb 3 Mg/0.5 Mg (3 Ml) Ud) 3 ml INH RQ4 PRN PRN Reason: Shortness of Breath Last Admin: 04/25/17 18:38 Dose: 3 ml Aspirin (Aspirin Chewable) 81 mg PO DAILY [facility] Last Admin: 04/28/17 09:44 Dose: Not Given Enoxaparin Sodium (Lovenox) 60 mg SC Q12 [facility] Last Admin: 04/28/17 09:52 Dose: Not Given Fluconazole (Diflucan) 100 mg PO DAILY [facility] Last Admin: 05/02/17 09:20 Dose: 100 mg Azithromycin 500 mg/ Sodium (Chloride) 250 mls @ 250 mls/hr IVPB DAILY [facility] Last Admin: 05/02/17 09:20 Dose: 250 mls/hr Ceftriaxone Sodium 1 gm/ (Sodium Chloride) 100 mls @ 100 mls/hr IVPB DAILY [facility] Last Admin: 05/02/17 09:18 Dose: 100 mls/hr Vancomycin HCl 1 gm/ Sodium (Chloride) 200 mls @ 166.667 mls/hr IVPB Q24H [facility] Last Admin: 05/02/17 00:30 Dose: 166.667 mls/hr Metronidazole (Flagyl) 500 mg in 100 mls @ 100 mls/hr IVPB Q8 [facility] Last Admin: 05/02/17 13:59 Dose: 100 mls/hr Methylprednisolone (Solu-Medrol) 40 mg IVP Q6H [facility] Last Admin: 05/02/17 13:59 Dose: 40 mg Metoclopramide HCl (Reglan) 5 mg IVP Q8 [facility] Last Admin: 05/02/17 14:42 Dose: 5 mg Pantoprazole Sodium (Protonix Ec Tab) 40 mg PO DAILY [facility] Last Admin: 05/02/17 09:18 Dose: 40 mg Promethazine HCl/Codeine (Phenergan/Codeine Oral Syrup) 5 ml PO TID PRN PRN Reason: Cough and congestion Last Admin: 05/01/17 10:48 Dose: 5 ml - Labs Labs: 05/01/17 11:36 05/01/17 11:36 PT 15.5 SECONDS (9.7-12.2) H 04/30/17 20:01 INR 1.4 04/30/17 20:01 APTT 25 SECONDS (21-34) 04/30/17 20:01 Assessment and Plan (1) Pneumonia Status: Acute (2) COPD exacerbation Status: Acute (3) Elevated PSA Status: Acute (4) Metastatic cancer Status: Acute (5) Liver mass Status: Acute (6) Osteoporosis Status: Acute
--- NOTE | 2017-05-03 14:20 | CP.PCM.DIS ---
Provider - Provider Date of Admission: 04/24/17 15:22 Attending physician: Sachin Olson MD Time Spent in preparation of Discharge (in minutes): 35 Diagnosis - Discharge Diagnosis (1) Lung cancer Status: Acute (2) COPD exacerbation Status: Acute (3) Metastatic cancer Status: Acute Hospital Course - Lab Results Lab Results: Micro Results 04/30/17 21:48 Blood-Venous Blood Culture - Preliminary NO GROWTH AFTER 48 HOURS 04/30/17 21:15 Blood-Venous Blood Culture - Preliminary NO GROWTH AFTER 48 HOURS 04/28/17 05:47 Sputum Gram Stain - Final 04/28/17 05:47 Sputum Sputum Culture - Final NORMAL ORAL PRAVEEN 04/24/17 10:50 Blood Blood Culture - Final NO GROWTH AFTER 5 DAYS 04/24/17 10:50 Blood Gram Stain - Final TEST NOT PERFORMED 04/24/17 10:20 Blood Blood Culture - Final NO GROWTH AFTER 5 DAYS 04/24/17 10:20 Blood Gram Stain - Final TEST NOT PERFORMED 04/25/17 01:14 Naris MRSA Culture (Admit) - Final MRSA NOT DETECTED 04/24/17 10:11 Urine Urine Culture - Final No Growth (<1,000 CFU/ML) Most Recent Lab Values WBC 21.9 K/uL (4.8-10.8) H 05/01/17 11:36 RBC 3.87 Mil/uL (4.40-5.90) L 05/01/17 11:36 Hgb 11.9 g/dL (12.0-18.0) L 05/01/17 11:36 Hct 36.0 % (35.0-51.0) 05/01/17 11:36 MCV 93.0 fL (80.0-94.0) 05/01/17 11:36 MCH 30.8 pg (27.0-31.0) 05/01/17 11:36 MCHC 33.1 g/dL (33.0-37.0) 05/01/17 11:36 RDW 14.9 % (11.5-14.5) H 05/01/17 11:36 Plt Count 155 K/uL (130-400) 05/01/17 11:36 MPV 9.1 fL (7.2-11.7) 05/01/17 11:36 Neut % (Auto) 93.6 % (50.0-75.0) H 05/01/17 11:36 Lymph % (Auto) 1.7 % (20.0-40.0) L 05/01/17 11:36 [place] % (Auto) 4.5 % (0.0-10.0) 05/01/17 11:36 Eos % (Auto) 0.0 % (0.0-4.0) 05/01/17 11:36 Baso % (Auto) 0.2 % (0.0-2.0) 05/01/17 11:36 Neut # 20.5 K/uL (1.8-7.0) H 05/01/17 11:36 Lymph # 0.4 K/uL (1.0-4.3) L 05/01/17 11:36 [place] # 1.0 K/uL (0.0-0.8) H 05/01/17 11:36 Eos # 0.0 K/uL (0.0-0.7) 05/01/17 11:36 Baso # 0.0 K/uL (0.0-0.2) 05/01/17 11:36 Neutrophils % (Manual) 93 % (50-75) H 05/01/17 11:36 Band Neutrophils % 1 % (0-2) 05/01/17 11:36 Lymphocytes % (Manual) 2 % (20-40) L 05/01/17 11:36 Reactive Lymphs % 1 % (0-0) H 04/30/17 07:09 Monocytes % (Manual) 3 % (0-10) 05/01/17 11:36 Eosinophils % (Manual) 3 % (0-4) 04/24/17 10:34 Basophils % (Manual) 1 % (0-2) 05/01/17 11:36 Platelet Estimate Normal (NORMAL) 05/01/17 11:36 Large Platelets Present 04/30/17 07:09 Giant Platelets Present 04/30/17 07:09 Polychromasia Slight 04/25/17 07:05 Hypochromasia (manual) Slight 05/01/17 11:36 Poikilocytosis (manual Slight 05/01/17 11:36 Anisocytosis (manual) Slight 05/01/17 11:36 Target Cells Slight 04/30/17 07:09 Tear Drop Cells Slight 04/25/17 07:05 Ovalocytes Slight 04/30/17 07:09 Schistocytes Slight 04/30/17 07:09 ESR 8 mm/hr (0-15) 04/26/17 14:10 Retic Count 0.9 % (0.5-1.5) 04/27/17 10:56 PT 15.5 SECONDS (9.7-12.2) H 04/30/17 20:01 INR 1.4 04/30/17 20:01 APTT 25 SECONDS (21-34) 04/30/17 20:01 Sodium 133 mmol/L (132-148) 05/01/17 11:36 Potassium 4.5 mmol/L (3.6-5.2) 05/01/17 11:36 Chloride 100 mmol/L (98-107) 05/01/17 11:36 Carbon Dioxide 27 mmol/L (22-30) 05/01/17 11:36 Anion Gap 10 (10-20) 05/01/17 11:36 BUN 35 mg/dL (9-20) H 05/01/17 11:36 Creatinine 0.8 mg/dL (0.8-1.5) 05/01/17 11:36 Est GFR ( Amer) > 60 05/01/17 11:36 Est GFR (Non-Af Amer) > 60 05/01/17 11:36 POC Glucose (mg/dL) 92 mg/dL (65-110) 04/24/17 10:34 Random Glucose 163 mg/dL (75-110) H 05/01/17 11:36 Calcium 7.2 mg/dl (8.6-10.4) L 05/01/17 11:36 Total Bilirubin 0.6 mg/dL (0.2-1.3) 05/01/17 11:36 Direct Bilirubin 0.3 mg/dL (0.0-0.4) 04/25/17 07:05 AST 49 U/L (17-59) 05/01/17 11:36 ALT 52 U/L (21-72) 05/01/17 11:36 Alkaline Phosphatase 162 U/L (38-126) H 05/01/17 11:36 Troponin I < 0.0120 ng/mL (0.00-0.120) 04/24/17 10:34 C-React Prot High Sens > 15.00 mg/L (1.00-3.00) H 04/25/17 07:05 NT-Pro-B Natriuret Pep 611 pg/mL (0-900) 04/24/17 10:34 Total Protein 5.4 g/dL (6.3-8.3) L 05/01/17 11:36 Albumin 2.9 g/dL (3.5-5.0) L 05/01/17 11:36 Globulin 2.5 gm/dL (2.2-3.9) 05/01/17 11:36 Albumin/Globulin Ratio 1.1 (1.0-2.1) 05/01/17 11:36 Alpha Fetoprotein 6.8 ng/mL (0.0-7.5) 04/26/17 14:10 Carcinoembryonic Ag 6.4 ng/mL (0-3.0) H 04/26/17 14:10 CA 19-9 Antigen > 5000 U/mL (0-37) H 04/26/17 14:10 Prostate Specific Ag 11.9 ng/mL (0.00-4.0) H 04/26/17 14:10 Vitamin B12 > 1000 pg/mL (239-931) H 04/27/17 10:56 Folate > 20.0 ng/mL 04/27/17 10:56 Urine Color Yellow (YELLOW) 04/24/17 10:43 Urine Clarity Clear (Clear) 04/24/17 10:43 Urine pH 5.0 (5.0-8.0) 04/24/17 10:43 Ur Specific [place] 1.011 (1.003-1.030) 04/24/17 10:43 Urine Protein Negative mg/dL (NEGATIVE) 04/24/17 10:43 Urine Glucose (UA) 1+ mg/dL (Normal) H 04/24/17 10:43 Urine Ketones Negative mg/dL (NEGATIVE) 04/24/17 10:43 Urine Blood 1+ (NEGATIVE) H 04/24/17 10:43 Urine Nitrate Negative (NEGATIVE) 04/24/17 10:43 Urine Bilirubin Negative (NEGATIVE) 04/24/17 10:43 Urine Urobilinogen Normal mg/dL (0.2-1.0) 04/24/17 10:43 Ur Leukocyte Esterase 1+ [place]ien/uL (Negative) H 04/24/17 10:43 Urine WBC (Auto) 9 /hpf (0-5) H 04/24/17 10:43 Urine RBC (Auto) 4 /hpf (0-3) H 04/24/17 10:43 Urine Bacteria Rare (<OCC) 04/24/17 10:43 IgG 900.3 mg/dL (700.0-1600.0) 04/26/17 14:10 Rheumatoid Factor IgG <5 U (<=6) 04/26/17 14:10 Rheumatoid Factor IgA 25 U (<=6) H 04/26/17 14:10 Rheumatoid Factor IgM 85 U (<=6) H 04/26/17 14:10 JOEY 6 Profile Negative (NEGATIVE) 04/26/17 14:10 SS-A Antibody <1.0 AI (<1.0) 04/26/17 14:10 SS-B Ab Interp Negative (Negative) 04/26/17 14:10 SS-B Antibody <1.0 AI (<1.0) 04/26/17 14:10 SS-B Ab Interp Negative (Negative) 04/26/17 14:10 Anti-Mitochondrial Ab Negative (Negative) 04/26/17 14:10 Anti-Smooth Muscle Ab Negative (Negative) 04/26/17 14:10 Liver/Kid Microsomes Ab <=20.0 U (<=20.0) 04/26/17 14:10 Hepatitis A IgM Ab Negative (NEGATIVE) 04/26/17 14:10 Hep Bs Antigen Negative (NEGATIVE) 04/26/17 14:10 Hep B Core IgM Ab Negative (NEGATIVE) 04/26/17 14:10 Hepatitis C Antibody Negative (NEGATIVE) 04/26/17 14:10 Ur L.pneumophila Ag Negative (NEGATIVE) 04/24/17 23:45 Mycoplasma pneumon IgM Negative (NEGATIVE) 04/25/17 07:05 - Hospital Course Hospital Course: 81 year old male presents to ED for evaluation of productive cough, runny nose, body aches, generalized weakness, and an episode of diarrhea 2 days ago. Pt was seen by PMD, Dr. Alida Glover, had outpatient chest x-ray done but is unsure of results. Patient was given Rx for doxycycline (presumably for pnuemonia), which he has been compliant with. Patient denies chest pain, abdominal pain, vomiting, dysuria/hematuria, or fever. CT CHEST DONE IN ER SHOWED MULTIPLE NODULES IN LUNG WITH EFFUSION AND 6 BY 5 CM MASS IN LIVER SUGGESTING NEOPLASM PT HAS NO RISK FSCTORS HAS COPD AND ENLARGED PROSTATE AND HAS SEEN PREVIOUSLY NUMEROUS UROLOGISTS ID/HEM/UROLOGY WAS CONSULTED GI W/U WAS NEG LIVER WAS BIOPSY , PATH PENDING PT RESPONDED TO IV AB PT WAS TRANS. TO [facility] AND WILL F/U L. BIOPSY AND OUT PT HEM /ONC FOR FURTHER TREATMENT FOR METASTATIC CANCER WITH UNKNOWN PRIMARY Discharge Exam - Head Exam Head Exam: NORMAL INSPECTION Discharge Plan - Discharge Medications Prescriptions: predniSONE [predniSONE Tab] 20 mg PO DAILY 9 Days tab - Follow Up Plan Condition: STABLE Disposition: REHAB FACILITY/REHAB UNIT Instructions: Prednisone (By mouth), Leukocytosis (DC), Pneumonia (DC) Additional Instructions: PLACE UNDER THE SERVICE OF DR. OLSON WHILE AT [facility]---CALL DR. OLSON UPON ARRIVAL TO FACILITY WITH BED ASSIGNMENT AND FOR ADMITTING ORDERS. CONTINUE MEDICATIONS PER THE MED REC FORM---CHANGES CAN BE MADE BY DR. OLSON. PER DR. WEIR (ID) RECOMMENDATIONS, PLEASE CONTINUE: DIFLUCAN 100 MG (1 TAB) PO Q DAILY X12 MORE DAYS (START 05/03/17 AND LAST DOSE TO BE GIVEN ON 05/14/17). PREDNISONE TAPER FOLLOWS: PREDNISONE 40 MG (2 TABS) PO DAILY X3 DAYS THEN 20 MG (1 TAB) PO DAILY X3 DAYS THEN 10 MG (1/2 TAB) PO DAILY X3 DAYS. FURTHER TREATMENT AND MANAGEMENT RECOMMENDATIONS ARE PENDING LIVER BIOPSY RESULTS---DR. OLSON TO FOLLOW UP OUTPATIENT. ONCE DISCHARGED FORM REHAB, PLEASE FOLLOW UP WITH LAKESHIA GRANDA, AND JAKOB WELL DR. OLSON. Referrals: Michelle Modi [Staff Provider] - Dee Weir MD [Staff Provider] - Sandra Begum MD [Staff Provider] - Sachin Olson MD [Staff Provider] - Sg Mays MD [Staff Provider] - Didi Beyer MD [Staff Provider] -
== END 2017-05-02 22:05 | DRG 190 ==
LOC: C.ER 08:55 → C.9E 15:22 → C.3T 17:10
PROVIDERS: ADMIT Internal Medicine Cardiovascular Disease; ATTEND Internal Medicine Cardiovascular Disease
PROC: 0DJD8ZZ Inspection of Lower Intestinal Tract, Via Natural or Artificial Opening Endoscopic (ICD-10-PCS; 2017-04-29)
PROC: 0DB68ZX Excision of Stomach, Via Natural or Artificial Opening Endoscopic, Diagnostic (ICD-10-PCS; principal; 2017-04-29 08:51)
PROC: 0DBK8ZX Excision of Ascending Colon, Via Natural or Artificial Opening Endoscopic, Diagnostic (ICD-10-PCS; 2017-04-30)
PROC: 0DBK8ZX Excision of Ascending Colon, Via Natural or Artificial Opening Endoscopic, Diagnostic (ICD-10-PCS; 2017-04-30)
PROC: 0FB13ZX Excision of Right Lobe Liver, Percutaneous Approach, Diagnostic (ICD-10-PCS; 2017-05-01)
DX: J44.1 Chronic obstructive pulmonary disease with (acute) exacerbation (principal); J18.9 Pneumonia, unspecified organism; C79.51 Secondary malignant neoplasm of bone; D69.6 Thrombocytopenia, unspecified; B37.81 Candidal esophagitis; D68.9 Coagulation defect, unspecified; C34.90 Malignant neoplasm of unspecified part of unspecified bronchus or lung; E27.8 Other specified disorders of adrenal gland; J44.0 Chronic obstructive pulmonary disease with (acute) lower respiratory infection; E78.00 Pure hypercholesterolemia, unspecified; I10 Essential (primary) hypertension; K63.5 Polyp of colon; M81.0 Age-related osteoporosis without current pathological fracture; Z86.010 Personal history of colon polyps; Z87.891 Personal history of nicotine dependence; K64.8 Other hemorrhoids; K64.4 Residual hemorrhoidal skin tags; K57.30 Diverticulosis of large intestine without perforation or abscess without bleeding; K44.9 Diaphragmatic hernia without obstruction or gangrene; N40.0 Benign prostatic hyperplasia without lower urinary tract symptoms; D64.9 Anemia, unspecified

== ENCOUNTER 2017-05-12 12:54 | Inpatient (IN) | payer MEDICARE, BC ==
[2017-05-12 13:25] VITALS: BMI 25.1
[2017-05-12] MEDS ORDERED: Albuterol-Ipratrop 3 mg / 0.5 (3 ml) UD INH STA (13:26)
[2017-05-12] MEDS ORDERED: Albuterol 0.083% Inhal Sol (2.5 mg/3 mL) UD ONE (13:33)
[2017-05-12 14:09] LABS: BASO # 0.1 K/uL (0.0-0.2); BASO % 0.5 % (0.0-2.0); EOS # 0.1 K/uL (0.0-0.7); EOS % 0.4 % (0.0-4.0); HEMOGLOBIN 12.4 g/dL (12.0-18.0); LYMPH # 0.9 K/uL (1.0-4.3); MEAN CORPUSCULAR HEMOGLOBIN 30.2 pg (27.0-31.0); MEAN CORPUSCULAR HGB CONC 32.5 g/dL (33.0-37.0); MEAN PLATELET VOLUME 10.1 fL (7.2-11.7); MONO # 1.9 K/uL (0.0-0.8); MONO % 8.4 % (0.0-10.0); NEUT # 19.5 K/uL (1.8-7.0); NEUT % 86.7 % (50.0-75.0); RBC 4.11 Mil/uL (4.40-5.90); RED CELL DISTRIBUTION WIDTH 16.3 % (11.5-14.5); WHITE BLOOD COUNT 22.5 K/uL (4.8-10.8)
[2017-05-12 14:17] LABS: ALBUMIN 2.9 g/dL (3.5-5.0); ALT/SGPT 40 U/L (21-72); AST/SGOT 57 U/L (17-59); BLOOD UREA NITROGEN 18 mg/dL (9-20); CALCIUM 7.4 mg/dl (8.6-10.4); GFR AFRICAN-AMERICAN > 60; GFR NON-AFRICAN AMERICAN > 60
--- NOTE | 2017-05-12 14:20 | C.PDOC ---
History Of Present Illness 81 year old male presents to the ED from home via EMS for evaluation of severe respiratory distress which began earlier today. He was inpatient for 1 week and attended subacute rehab for 1 week. Patient has been home for 3 days after discharge. Patient's VQ scan showed multiple defects from his previous admission in April. Patient denies chest pain, cough. Time Seen by Provider: 05/12/17 13:24 Chief Complaint (Nursing): Shortness Of Breath History Per: Patient, EMS History/Exam Limitations: no limitations Onset/Duration Of Symptoms: Hrs Current Symptoms Are (Timing): Still Present Additional History Per: Patient, EMS Past Medical History Reviewed: Historical Data, Nursing Documentation, Vital Signs Vital Signs: Last Vital Signs Temp 97 F L 05/12/17 13:30 Pulse 78 05/12/17 19:20 Resp 22 05/12/17 19:20 BP 116/69 05/12/17 19:20 Pulse Ox 80 L 05/12/17 21:15 - Medical History PMH: Arthritis (arthritis), Hypercholesterolemia, Osteoporosis Denies: Chronic Kidney Disease Surgical History: No Surg Hx - [facility] Procedures ENDOSC POLYPECTOMY OF LG INTEST (04/05/14) EXCISION OF ASCENDING COLON, ENDO, DIAGN (04/24/17) EXCISION OF RIGHT LOBE LIVER, PERCUTANEOUS APPROACH, DIAGN (04/24/17) EXCISION OF STOMACH, ENDO, DIAGN (04/24/17) INSPECTION OF LOWER INTESTINAL TRACT, ENDO (04/24/17) Family History: States: Unknown Family Hx - Social History Hx Alcohol Use: Yes Hx Substance Use: No - Immunization History Hx Tetanus Toxoid Vaccination: No Hx Influenza Vaccination: Yes (2016) Hx Pneumococcal Vaccination: No Review Of Systems Cardiovascular: Negative for: Chest Pain Respiratory: Positive for: Other (severe respiratory distress ) Physical Exam - Physical Exam Appears: Other (in severe respiratory distress ) Skin: Normal Color, Warm, Dry Head: Atraumatic, Normacephalic Eye(s): bilateral: Normal Inspection Oral Mucosa: Moist Neck: Supple Chest: Symmetrical, No Deformity, No Tenderness Cardiovascular: Rhythm Regular, No Murmur Respiratory: Rales (b/l bases ), No Rhonchi, No Wheezing Gastrointestinal/Abdominal: Soft, No Tenderness, No Guarding, No Rebound Extremity: Capillary Refill (less than 2 seconds ), Other (pitting edema to b/l knees ) Neurological/Psych: Oriented x3, Normal Speech, Normal Cognition Gait: Steady ED Course And Treatment - Laboratory Results Result Diagrams: 05/12/17 14:04 05/12/17 13:55 Lab Interpretation: Abnormal ECG: Interpreted By Me ECG Rhythm: Sinus Tachycardia ECG Interpretation: Abnormal Rate From EC O2 Sat by Pulse Oximetry: 80 Pulse Ox Interpretation: Abnormal - Radiology CXR: Interpreted by Me CXR Interpretation: Yes: Infiltrates, Other (+CHF) - Other Rad CXR X-Ray: Interpreted by Me, Viewed By Me, Read By Radiologist Interpretation: Impression: Mild to moderate diffuse increased interstitial lung markings which may represent underlying edema versus infiltrate. Clinical correlation. Patchy increased markings at both lung bases with some mild nodularity at the left lung base. Clinical correlation. Tortuous ectatic aorta. Mild cardiomegaly. - CT Scan/US CTA chest Other Rad Studies (CT/US): Interpreted By Me, Read By Radiologist, Radiology Report Reviewed CT/US Interpretation: IMPRESSION: Examination is positive for pulmonary embolus involving multiple proximal segmental branches. No. signs of ventricle strain. Metastatic disease to the lungs and the skeleton. Bilateral effusions and bibasal atelectasis. Study is limited secondary to motion. CTA Abd/Pel Other Rad Studies (CT/US): Interpreted By Me, Read By Radiologist, Radiology Report Reviewed CT/US Interpretation: IMPRESSION: Study heavily compromised by motion, metastatic disease to the skeleton, retroperitoneum, and to. the liver. The magnitude of metastatic disease is increased compared to prior examination. Other. incidental findings as above. Possible primary, also prostate cancer given enlarged heterogeneous. prostate with likelihood of a large prostate mass. Please correlate with PSA levels. Other incidental. findings also noted, which are detailed above. Progress Note: Bloodwork, urinalysis, Influenza A/B swab, CT Angio Chest ordered and reviewed. Abluterol INH, Lasix IVP, Lovenox SC, Solu-Medrol IVP, Vancomycin IV administered. CAse disccused with Dr. Olson at 18:40, who advised ICU consult. Case discussed with Side Laster Staple, Dr. Begum, at 18:[address] Akins will evaluate the patient at bedside. Reevaluation Time: 20:25 Reassessment Condition: Improved - Physician Consult Information Outcome Of Conversation: 1845: d/w Dr. Olson- admitted previously, familiar with pt, asks for ICU consult. 1999: d/w Dr. Akins- defers ICU asia white to tele Adm, will d/w Dr. Olson. 2029: confirmed with Dr. Olson- ok to Tele Adm. Will discuss DNR w pt and family Critical Care Time - Critical Care Note Total Time (in mins): 90 Documented critical care: time excludes all time spent performing seperately billable procedures. Medical Decision Making Medical Decision Making: metastatic CA, prob prostate primary widespread to liver and lungs now with PE b /l. Initially severe resp distress, without hypoxia nor CO2 retention improved on BiPap, new multiple PE's now given Lovenox CHF improved with lasix IV- Zosyn/Vanco for presumed hospital acquired PNA/pleural effusions Stable for Tele Floor per ICU consult DNR should be discussed Disposition Doctor Will See Patient In The: Hospital Counseled Patient/Family Regarding: Studies Performed, Diagnosis - Disposition Disposition: HOSPITALIZED Disposition Time: 20:30 Condition: FAIR - Clinical Impression Clinical Impression: Chronic congestive heart failure, Chr obstructive pulmonary disease w/ acute lower respiratory infxn, Pleural effusion, Respiratory distress, Metastatic cancer - Scribe Statement The provider has reviewed the documentation as recorded by the Scribe (Andria Solorio) Provider Attestation: All medical record entries made by the Scribe were at my direction and personally dictated by me. I have reviewed the chart and agree that the record accurately reflects my personal performance of the history, physical exam, medical decision making, and the department course for this patient. I have also personally directed, reviewed, and agree with the discharge instructions and disposition.
[2017-05-12 14:22] LABS: PLATELET COUNT 87 K/uL (130-400)
[2017-05-12 14:24] LABS: B-TYPE NATRIURETIC PEPTIDE 2320 pg/mL (0-900)
[2017-05-12 14:24] LABS: ABG ALLEN TEST YES; ARTERIAL BLOOD GAS HCO3 21.5 mmol/L (21-28); ARTERIAL BLOOD GAS O2 SAT 98.3 % (95-98); ARTERIAL BLOOD GAS PCO2 22 mm/Hg (35-45); ARTERIAL BLOOD GAS PH 7.49 (7.35-7.45); ARTERIAL BLOOD GAS PO2 225 mm/Hg (80-100); ARTERIAL BLOOD GAS TCO2 17.5 mmol/L (22-28)
--- NOTE | 2017-05-12 14:35 | RAD ---
Chest x-ray single frontal view History: Shortness of breath. Comparison: 04/24/2017 Findings: Mild to moderate diffuse increased interstitial lung markings which may represent underlying edema versus infiltrate. Clinical correlation. Patchy increased markings at both lung bases with some mild nodularity at the left lung base. Clinical correlation. Tortuous ectatic aorta. Mild cardiomegaly. Impression: Mild to moderate diffuse increased interstitial lung markings which may represent underlying edema versus infiltrate. Clinical correlation. Patchy increased markings at both lung bases with some mild nodularity at the left lung base. Clinical correlation. Tortuous ectatic aorta. Mild cardiomegaly.
[2017-05-12 14:42] LABS: INR 1.8; PROTHROMBIN TIME 21.1 SECONDS (9.7-12.2)
[2017-05-12 14:43] LABS: D DIMER > 5250 ng/mlDDU (0-243); PARTIAL THROMBOPLASTIN TIME 67 SECONDS (21-34)
[2017-05-12 15:00] LABS: EOSINOPHIL 1 % (0-4); LYMPHOCYTE 5 % (20-40); MONOCYTE 2 % (0-10); NEUTROPHIL 92 % (50-75); TOTAL CELLS COUNTED 100
[2017-05-12 15:01] LABS: ANISOCYTOSIS SLIGHT; BURR CELLS SLIGHT; PLATELET ESTIMATE DECREASED (NORMAL); TEARDROP CELLS SLIGHT
[2017-05-12] MEDS ORDERED: Piperacillin/Tazobact 3.375 gm 100 ML IVPB STA (15:01)
[2017-05-12] MEDS ORDERED: Vancomycin 1 GM 1 GM/250 ML BAG IV STA (15:01)
[2017-05-12 15:02] LABS: SCHISTOCYTES SLIGHT
[2017-05-12 15:03] LABS: TARGET CELLS SLIGHT
[2017-05-12] MEDS ORDERED: Iodixanol 320 MG/ML 100 ML BOTTLE IV ONE (15:39)
[2017-05-12 17:20] LABS: SQUAMOUS EPITHIAL < 1 /hpf (0-5); URINE BACTERIA FEW (<OCC); URINE BILIRUBIN NEGATIVE (NEGATIVE); URINE BLOOD 1+ (NEGATIVE); URINE CLARITY Clear (Clear); URINE COLOR Yellow (YELLOW); URINE GLUCOSE (UA) NORMAL (Normal); URINE LEUKOCYTE ESTERASE 1+ Leu/uL (Negative); URINE NITRATE NEGATIVE (NEGATIVE); URINE PROTEIN NEGATIVE (NEGATIVE); URINE UROBILINOGEN NORMAL mg/dL (0.2-1.0)
[2017-05-12] MEDS ORDERED: Enoxaparin 40 mg Syringe SC STA (18:06)
[2017-05-12] MEDS ORDERED: Enoxaparin 80 mg Syringe ONE (19:26)
--- NOTE | 2017-05-12 20:21 | CP.PCM.CON ---
History of Present Illness - History of Present Illness History of Present Illness: 81 y/o male with h/o chronic thrombocytopenia, metastatic malignancy admitted with difficulty breathing and leg swelling.Found to have pulmonary embolism, received lovenox in ER.Placed on BIPAP with improvement in breathing. CTA chest /abdomen pelvis is positive for pulmonary embolus involving multiple proximal segmental branches. No. signs of ventricle strain. Metastatic disease to the lungs and the skeleton. Bilateral effusions and bibasal atelectasis. Metastatic disease to the skeleton, retroperitoneum, and to the liver. The magnitude of metastatic disease is increased compared to prior examination. Other. incidental findings as abov. Possible primary, also prostate cancer given enlarged heterogeneous. prostate with likelihood of a large prostate mass. 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 patient was recently in hospital ,transferred to rehab,discharged home 3 days ago. history from patient,his daughter, Gary ,ER notes and from review of chart.Patient and daughter are poor historians Review of Systems - Review of Systems Systems not reviewed;Unavailable: Respiratory Distress - Constitutional Constitutional: Fatigue, Weight Loss, Weakness. absent: Fever - EENT Eyes: absent: Change in Vision Ears: Decreased Hearing Nose/Mouth/Throat: absent: Epistaxis, Bleeding Gums - Cardiovascular Cardiovascular: absent: Chest Pain - Respiratory Respiratory: Dyspnea. absent: Cough, Hemoptysis - Gastrointestinal Gastrointestinal: absent: Change in Bowel Habits, Nausea, Vomiting - Genitourinary Genitourinary: absent: Hematuria - Integumentary Integumentary: Bleeding Lesions - Neurological Neurological: Weakness. absent: Focal Weakness Past Patient History - Past Medical History & Family History Past Medical History?: Yes - Past Social History Smoking Status: Former Smoker Home Situation {Lives}: Alone - CARDIAC Hx Hypercholesterolemia: Yes - PULMONARY Hx Respiratory Disorders: No - NEUROLOGICAL Hx Neurological Disorder: No - HEENT Hx HEENT Problems: Yes (WEARS GLASSES FOR READING) - RENAL Hx Chronic Kidney Disease: No - ENDOCRINE/METABOLIC Hx Endocrine Disorders: No - HEMATOLOGICAL/ONCOLOGICAL Hx Blood Disorders: Yes (low platelets) - INTEGUMENTARY Hx Dermatological Problems: No - MUSCULOSKELETAL/RHEUMATOLOGICAL Hx Arthritis: Yes (arthritis) Hx Osteoporosis: Yes - GASTROINTESTINAL Hx Gastrointestinal Disorders: No - GENITOURINARY/GYNECOLOGICAL Hx Genitourinary Disorders: Yes Hx Prostate Problems: Yes (BPH) - PSYCHIATRIC Hx Substance Use: No - SURGICAL HISTORY Hx Surgeries: Yes (PROSTATE SURGERY) Other/Comment: recent liver biopy - ANESTHESIA Hx Anesthesia: Yes Hx Anesthesia Reactions: No Hx Malignant Hyperthermia: No Meds Allergies/Adverse Reactions: Allergies Allergy/AdvReac Type Severity Reaction Status Date / Time No Known Allergies Allergy Verified 05/12/17 13:30 Physical Exam - Constitutional Appears: Cachectic, Chronically Ill Additional comments: comfortable on BIPAP - Head Exam Head Exam: ATRAUMATIC, NORMAL INSPECTION, NORMOCEPHALIC - Eye Exam Eye Exam: EOMI, Normal appearance Pupil Exam: NORMAL ACCOMODATION - ENT Exam ENT Exam: Mucous Membranes Dry Additional comments: decreased hearing - Neck Exam Neck exam: Positive for: Full Rom, Normal Inspection - Respiratory Exam Respiratory Exam: Rales Additional comments: bibasal rales + comfortable with BIPAP - Cardiovascular Exam Cardiovascular Exam: REGULAR RHYTHM. absent: Systolic Murmur - GI/Abdominal Exam GI & Abdominal Exam: Normal Bowel Sounds, Soft. absent: Tenderness - Extremities Exam Extremities exam: Positive for: pedal edema. Negative for: calf tenderness Additional comments: bilateral leg edema - Back Exam Back exam: NORMAL INSPECTION - Neurological Exam Neurological exam: Alert, Oriented x3 - Skin Skin Exam: Normal Color, Warm Additional comments: superficial abrasions legs Results - Vital Signs Recent Vital Signs: Last Vital Signs Temp 97 F L 05/12/17 13:30 Pulse 78 05/12/17 19:20 Resp 22 05/12/17 19:20 BP 116/69 05/12/17 19:20 Pulse Ox 100 05/12/17 19:20 - Labs Result Diagrams: 05/12/17 14:04 05/12/17 13:55 Labs: Laboratory Results - last 24 hr 05/12/17 05/12/17 05/12/17 13:24 13:50 13:55 WBC RBC Hgb Hct MCV MCH MCHC RDW Plt Count MPV Neut % (Auto) Lymph % (Auto) [place] % (Auto) Eos % (Auto) Baso % (Auto) Neut # Lymph # [place] # Eos # Baso # Neutrophils % (Manual) Lymphocytes % (Manual) Monocytes % (Manual) Eosinophils % (Manual) Platelet Estimate Anisocytosis (manual) Target Cells Tear Drop Cells [place]ie Cells Schistocytes PT INR APTT D-Dimer, Quantitative Puncture Site Rra pCO2 22 L pO2 225 H HCO3 21.5 ABG pH 7.49 H ABG Total CO2 17.5 L ABG O2 Saturation 98.3 H ABG Base Excess -4.5 L Arthur Test Yes ABG Potassium 4.1 A-a O2 Difference 104.0 Respiratory Index 0.5 Sodium 141.0 133 Chloride 113.0 H 102 Glucose 96 Lactate 3.8 H Vent Mode Bipap FiO2 50.0 Inspiratory BiPAP 14 Expiratory BiPAP 5 Potassium 4.5 Carbon Dioxide 22 Anion Gap 14 BUN 18 Creatinine 1.0 Est GFR ( Amer) > 60 Est GFR (Non-Af Amer) > 60 Random Glucose 102 Calcium 7.4 L Total Bilirubin 1.3 AST 57 ALT 40 Alkaline Phosphatase 297 H D Troponin I 0.0200 NT-Pro-B Natriuret Pep 2320 H Total Protein 5.8 L Albumin 2.9 L Globulin 2.9 Albumin/Globulin Ratio 1.0 Arterial Blood Potassium 4.1 Urine Color Urine Clarity Urine pH Ur Specific [place] Urine Protein Urine Glucose (UA) Urine Ketones Urine Blood Urine Nitrate Urine Bilirubin Urine Urobilinogen Ur Leukocyte Esterase Urine WBC (Auto) Urine RBC (Auto) Ur Squamous Epith Cells Urine Bacteria Influenza Typ A,B (EIA) Negative for flu a/b 05/12/17 05/12/17 05/12/17 14:04 14:04 17:12 WBC 22.5 H RBC 4.11 L Hgb 12.4 Hct 38.2 MCV 93.0 MCH 30.2 MCHC 32.5 L RDW 16.3 H Plt Count 87 L D MPV 10.1 Neut % (Auto) 86.7 H Lymph % (Auto) 4.0 L [place] % (Auto) 8.4 Eos % (Auto) 0.4 Baso % (Auto) 0.5 Neut # 19.5 H Lymph # 0.9 L [place] # 1.9 H Eos # 0.1 Baso # 0.1 Neutrophils % (Manual) 92 H Lymphocytes % (Manual) 5 L Monocytes % (Manual) 2 Eosinophils % (Manual) 1 Platelet Estimate Decreased L Anisocytosis (manual) Slight Target Cells Slight Tear Drop Cells Slight [place] Cells Slight Schistocytes Slight PT 21.1 H INR 1.8 APTT 67 H D-Dimer, Quantitative > 5250 H Puncture Site pCO2 pO2 HCO3 ABG pH ABG Total CO2 ABG O2 Saturation ABG Base Excess Arthur Test ABG Potassium A-a O2 Difference Respiratory Index Sodium Chloride Glucose Lactate Vent Mode FiO2 Inspiratory BiPAP Expiratory BiPAP Potassium Carbon Dioxide Anion Gap BUN Creatinine Est GFR ( Amer) Est GFR (Non-Af Amer) Random Glucose Calcium Total Bilirubin AST ALT Alkaline Phosphatase Troponin I NT-Pro-B Natriuret Pep Total Protein Albumin Globulin Albumin/Globulin Ratio Arterial Blood Potassium Urine Color Yellow Urine Clarity Clear Urine pH 5.0 Ur Specific [place] 1.009 Urine Protein Negative Urine Glucose (UA) Normal Urine Ketones Negative Urine Blood 1+ H Urine Nitrate Negative Urine Bilirubin Negative Urine Urobilinogen Normal Ur Leukocyte Esterase 1+ H Urine WBC (Auto) 8 H Urine RBC (Auto) 9 H Ur Squamous Epith Cells < 1 Urine Bacteria Few H Influenza Typ A,B (EIA) - EKG Data EKG Interpreted by: Myself - Imaging and Cardiology CT scan - chest Status: Image reviewed by me Chest x-ray Status: Image reviewed by me, Report reviewed by me Assessment & Plan - Assessment and Plan (Free Text) Assessment: 81 y/o male with Chronic Thrombocytopenia, Metastatic malignancy admitted with Pulmonary emboli 1.Respiratory failure/ Pulmonary Embolism Continue BIPAP. Surgical evaluation for IVC filter 2.Metastatic malignancy /Chronic Thrombocytopenia pathology of liver mass favors Pancreatico biliry origin Oncology evaluation 3.Leucocytosis r/o pneumonia/infection.On prednisone at home Blood and urine cultures,antibiotics discussed with PMD
[2017-05-12] MEDS: Piperacill/Tazo 3.375gm in Dex 3.375 GM/50 ML BAG IVPB SCH (21:16)
--- NOTE | 2017-05-12 22:50 | CP.PCM.HP ---
History of Present Illness - History of Present Illness History of Present Illness: COMPREHENSIVE HISTORY & PHYSICAL EXAM HPI ADMITTED WITH ABELINO PULM EMBOLI PRESENTED TO ER WITH SOB FOR 1 DAY PAST HIST. 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 Y Alcohol. N Allergy N Travel_- . FAMILY HIST : ROS : Constitutional: SOB Eyes: Negative for redness, swelling, itching, discharge, vision changes, blurry vision, double vision, glaucoma, cataracts, Ears: Negative for hearing loss, ringing, , tinnitus, vertigo Nose: Negative for rhinorrhea, stuffiness, sniffing, itching, postnasal drip, discoloration, nasal congestion and epistaxis. Throat: Negative for throat clearing, sore throat, hoarseness, difficulty swallowing and difficulty speaking. Respiratory: Negative for cough, , sputum production, hemoptysis, snoring at night, Cardiovascular: POS FOR Edema of legs, leg cramps, NO angina, claudication , , irregular heartbeat, Neurology: Negative for irritability, muscle weakness, numbness and tingling, seizures, tremors, migraines, slurred speech, syncope, memory loss, mood changes , recurrent headaches Gastrointestinal: Negative for difficulty swallowing, diarrhea, constipation, black stools, rectal bleeding, nausea, flatulence, reflux, poor appetite, changes in bowel habits, abdominal pain Genitourinary: Negative for frequent urination, hematuria, discharge, incontinence, urinary retention, frequent UTI, Psychiatric: Negative for depression, anxiety/panic, suicidal tendencies, Musculoskeletal: Negative for swollen joints, back pain, , neck pain, morning stiffness of joints, . Skin: Negative for rash, ulcers, itching, dry skin and pigmented lesions. P/E: Constitutional: Appears stated age and in no apparent distress. Head: Normocephalic. Ears: External ear canals patent without inflammation. Tympanic membranes intact with normal light reflex and landmark. Eyes: Pupils are central, bilaterally equal, symmetrical and reacts to light with normal movements and no icterus or pallor. Nose: External nares are patent. Mucosa is pink Mouth-Throat: Good general appearance and condition. No post-pharyngeal/oropharyngeal erythema and tonsillar hypertrophy. Good dental hygiene. Neck-Lymphatic: Neck is supple with normal ROM, no thyromegaly, lymph nodes or masses. JVD is normal with no carotid bruit. Lungs: Clear to percussion and auscultation with bilateral normal air entry. Cardiovascular: S1 and S2 are normal with no murmurs, gallops and rub. GI Exam: No hepatomegaly. Abdomen is soft and non-tender. No Organomegaly , masses or hernias are evident and bowel sounds are normal and active. Neurology: Higher function and all cranial nerves intact, with no gross motor or sensory deficit. Superficial and deep reflexes are normal with downwards planters. No cerebellar deficit with normal gait. Musculoskeletal: No tender spots with normal curvature of the spine with no swelling or restricted ROM of the small and large joints. Extremities: Homans sign absent. Intact pulses with pitting edema, calf tenderness or skin color changes. Skin: No rash, eruptions or abnormal skin pigmentation LAB/RADIOLOGY: ASSESMENT : ABELINO PULM EMBOLI SEC TO DVT METASTATIC PANCREATIC CANCER ITP PLAN: DUE TO LOW PLT AND RELATIVE CONTRA TO ANTICOAGULATION WILL GET IVC FILTER SUPPORTIVE THERAPY Present on Admission - Present on Admission Any Indicators Present on Admission: No Past Patient History - Past Medical History & Family History Past Medical History?: Yes - Past Social History Smoking Status: Former Smoker Home Situation {Lives}: Alone - CARDIAC Hx Hypercholesterolemia: Yes - PULMONARY Hx Respiratory Disorders: No - NEUROLOGICAL Hx Neurological Disorder: No - HEENT Hx HEENT Problems: Yes (WEARS GLASSES FOR READING) - RENAL Hx Chronic Kidney Disease: No - ENDOCRINE/METABOLIC Hx Endocrine Disorders: No - HEMATOLOGICAL/ONCOLOGICAL Hx Blood Disorders: Yes (low platelets) - INTEGUMENTARY Hx Dermatological Problems: No - MUSCULOSKELETAL/RHEUMATOLOGICAL Hx Arthritis: Yes (arthritis) Hx Osteoporosis: Yes - GASTROINTESTINAL Hx Gastrointestinal Disorders: No - GENITOURINARY/GYNECOLOGICAL Hx Genitourinary Disorders: Yes Hx Prostate Problems: Yes (BPH) - PSYCHIATRIC Hx Substance Use: No - SURGICAL HISTORY Hx Surgeries: Yes (PROSTATE SURGERY) Other/Comment: recent liver biopy - ANESTHESIA Hx Anesthesia: Yes Hx Anesthesia Reactions: No Hx Malignant Hyperthermia: No Meds Allergies/Adverse Reactions: Allergies Allergy/AdvReac Type Severity Reaction Status Date / Time No Known Allergies Allergy Verified 05/12/17 13:30 Results - Vital Signs Recent Vital Signs: Last Vital Signs Temp 97 F L 05/12/17 13:30 Pulse 84 05/12/17 22:29 Resp 27 H 05/12/17 22:29 BP 119/69 05/12/17 22:29 Pulse Ox 100 05/12/17 22:29 - Labs Result Diagrams: 05/13/17 04:43 05/13/17 04:43 Labs: Laboratory Results - last 24 hr 05/12/17 05/12/17 05/12/17 13:24 13:50 13:55 WBC RBC Hgb Hct MCV MCH MCHC RDW Plt Count MPV Neut % (Auto) Lymph % (Auto) [place] % (Auto) Eos % (Auto) Baso % (Auto) Neut # Lymph # [place] # Eos # Baso # Neutrophils % (Manual) Lymphocytes % (Manual) Monocytes % (Manual) Eosinophils % (Manual) Platelet Estimate Anisocytosis (manual) Target Cells Tear Drop Cells [place] Cells Schistocytes PT INR APTT D-Dimer, Quantitative Puncture Site Rra pCO2 22 L pO2 225 H HCO3 21.5 ABG pH 7.49 H ABG Total CO2 17.5 L ABG O2 Saturation 98.3 H ABG Base Excess -4.5 L Arthur Test Yes ABG Potassium 4.1 A-a O2 Difference 104.0 Respiratory Index 0.5 Sodium 141.0 133 Chloride 113.0 H 102 Glucose 96 Lactate 3.8 H Vent Mode Bipap FiO2 50.0 Inspiratory BiPAP 14 Expiratory BiPAP 5 Potassium 4.5 Carbon Dioxide 22 Anion Gap 14 BUN 18 Creatinine 1.0 Est GFR ( Amer) > 60 Est GFR (Non-Af Amer) > 60 Random Glucose 102 Calcium 7.4 L Total Bilirubin 1.3 AST 57 ALT 40 Alkaline Phosphatase 297 H D Troponin I 0.0200 NT-Pro-B Natriuret Pep 2320 H Total Protein 5.8 L Albumin 2.9 L Globulin 2.9 Albumin/Globulin Ratio 1.0 Arterial Blood Potassium 4.1 Urine Color Urine Clarity Urine pH Ur Specific [place] Urine Protein Urine Glucose (UA) Urine Ketones Urine Blood Urine Nitrate Urine Bilirubin Urine Urobilinogen Ur Leukocyte Esterase Urine WBC (Auto) Urine RBC (Auto) Ur Squamous Epith Cells Urine Bacteria Influenza Typ A,B (EIA) Negative for flu a/b 05/12/17 05/12/17 05/12/17 14:04 14:04 17:12 WBC 22.5 H RBC 4.11 L Hgb 12.4 Hct 38.2 MCV 93.0 MCH 30.2 MCHC 32.5 L RDW 16.3 H Plt Count 87 L D MPV 10.1 Neut % (Auto) 86.7 H Lymph % (Auto) 4.0 L [place] % (Auto) 8.4 Eos % (Auto) 0.4 Baso % (Auto) 0.5 Neut # 19.5 H Lymph # 0.9 L [place] # 1.9 H Eos # 0.1 Baso # 0.1 Neutrophils % (Manual) 92 H Lymphocytes % (Manual) 5 L Monocytes % (Manual) 2 Eosinophils % (Manual) 1 Platelet Estimate Decreased L Anisocytosis (manual) Slight Target Cells Slight Tear Drop Cells Slight [place] Cells Slight Schistocytes Slight PT 21.1 H INR 1.8 APTT 67 H D-Dimer, Quantitative > 5250 H Puncture Site pCO2 pO2 HCO3 ABG pH ABG Total CO2 ABG O2 Saturation ABG Base Excess Arthur Test ABG Potassium A-a O2 Difference Respiratory Index Sodium Chloride Glucose Lactate Vent Mode FiO2 Inspiratory BiPAP Expiratory BiPAP Potassium Carbon Dioxide Anion Gap BUN Creatinine Est GFR ( Amer) Est GFR (Non-Af Amer) Random Glucose Calcium Total Bilirubin AST ALT Alkaline Phosphatase Troponin I NT-Pro-B Natriuret Pep Total Protein Albumin Globulin Albumin/Globulin Ratio Arterial Blood Potassium Urine Color Yellow Urine Clarity Clear Urine pH 5.0 Ur Specific [place] 1.009 Urine Protein Negative Urine Glucose (UA) Normal Urine Ketones Negative Urine Blood 1+ H Urine Nitrate Negative Urine Bilirubin Negative Urine Urobilinogen Normal Ur Leukocyte Esterase 1+ H Urine WBC (Auto) 8 H Urine RBC (Auto) 9 H Ur Squamous Epith Cells < 1 Urine Bacteria Few H Influenza Typ A,B (EIA)
[2017-05-13] MEDS: Albuterol-Ipratrop 3 mg / 0.5 (3 ml) UD INH SCH ×3 (02:15→19:31)
[2017-05-13] MEDS ORDERED: Albuterol-Ipratrop 3 mg / 0.5 (3 ml) UD ONE ×3 (02:18→13:18)
[2017-05-13] MEDS: Piperacill/Tazo 3.375gm in Dex 3.375 GM/50 ML BAG IVPB SCH ×4 (03:35→21:47)
[2017-05-13 04:51] LABS: BASO # 0.1 K/uL (0.0-0.2); BASO % 0.6 % (0.0-2.0); LYMPH # 0.1 K/uL (1.0-4.3); LYMPH % 0.9 % (20.0-40.0); MEAN CELL VOLUME 91.3 fL (80.0-94.0); MEAN CORPUSCULAR HEMOGLOBIN 30.3 pg (27.0-31.0); MEAN CORPUSCULAR HGB CONC 33.2 g/dL (33.0-37.0); MEAN PLATELET VOLUME 10.1 fL (7.2-11.7); MONO # 0.4 K/uL (0.0-0.8); MONO % 2.9 % (0.0-10.0); NEUT # 14.4 K/uL (1.8-7.0); NEUT % 95.6 % (50.0-75.0); PLATELET COUNT 57 K/uL (130-400); RBC 3.35 Mil/uL (4.40-5.90); RED CELL DISTRIBUTION WIDTH 16.7 % (11.5-14.5)
[2017-05-13 04:55] LABS: HEMOGLOBIN 10.2 g/dL (12.0-18.0)
[2017-05-13 05:12] LABS: ALBUMIN 2.3 g/dL (3.5-5.0); ALT/SGPT 37 U/L (21-72); AST/SGOT 45 U/L (17-59); BLOOD UREA NITROGEN 22 mg/dL (9-20); CALCIUM 6.7 mg/dl (8.6-10.4); GFR AFRICAN-AMERICAN > 60; GFR NON-AFRICAN AMERICAN > 60; MAGNESIUM 1.8 mg/dL (1.6-2.3)
[2017-05-13 05:19] LABS: BANDS 1 % (0-2); LYMPHOCYTE 1 % (20-40); MONOCYTE 3 % (0-10); NEUTROPHIL 95 % (50-75); TOTAL CELLS COUNTED 100
[2017-05-13 05:20] LABS: ANISOCYTOSIS SLIGHT; PLATELET ESTIMATE DECREASED (NORMAL); POIKILOCYTOSIS SLIGHT
--- NOTE | 2017-05-13 08:51 | CP.PCM.CON ---
History of Present Illness - History of Present Illness History of Present Illness: Vascular surgery 81 y/o male with h/o chronic thrombocytopenia, metastatic malignancy admitted with difficulty breathing and leg swelling. Found to have pulmonary embolism, received lovenox in ER. Placed on BIPAP with improvement in breathing. SOB started about a week ago and gotten worse. Denies F/C/N/V/D/CP. CTA chest /abdomen pelvis is positive for pulmonary embolus involving multiple proximal segmental branches. No signs of ventricle strain. Metastatic disease to the lungs and the skeleton. Bilateral effusions and bibasal atelectasis. Metastatic disease to the skeleton, retroperitoneum, and to the liver. 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 patient was recently in hospital ,transferred to rehab,discharged home 3 days ago. Review of Systems - Review of Systems Review of Systems: see HPI Past Patient History - Past Medical History & Family History Past Medical History?: Yes - Past Social History Smoking Status: Former Smoker Home Situation {Lives}: Alone - CARDIAC Hx Hypercholesterolemia: Yes - PULMONARY Hx Respiratory Disorders: No - NEUROLOGICAL Hx Neurological Disorder: No - HEENT Hx HEENT Problems: Yes (WEARS GLASSES FOR READING) - RENAL Hx Chronic Kidney Disease: No - ENDOCRINE/METABOLIC Hx Endocrine Disorders: No - HEMATOLOGICAL/ONCOLOGICAL Hx Blood Disorders: Yes (low platelets) - INTEGUMENTARY Hx Dermatological Problems: No - MUSCULOSKELETAL/RHEUMATOLOGICAL Hx Arthritis: Yes (arthritis) Hx Osteoporosis: Yes - GASTROINTESTINAL Hx Gastrointestinal Disorders: No - GENITOURINARY/GYNECOLOGICAL Hx Genitourinary Disorders: Yes Hx Prostate Problems: Yes (BPH) - PSYCHIATRIC Hx Substance Use: No - SURGICAL HISTORY Hx Surgeries: Yes (PROSTATE SURGERY) Other/Comment: recent liver biopy - ANESTHESIA Hx Anesthesia: Yes Hx Anesthesia Reactions: No Hx Malignant Hyperthermia: No Meds Allergies/Adverse Reactions: Allergies Allergy/AdvReac Type Severity Reaction Status Date / Time No Known Allergies Allergy Verified 05/12/17 13:30 - Medications Medications: Current Medications Albuterol/Ipratropium (Duoneb 3 Mg/0.5 Mg (3 Ml) Ud) 3 ml INH RQ6 [place] Last Admin: 05/13/17 07:43 Dose: 3 ml Piperacillin Sod/Tazobactam Sod (Zosyn 3.375 Gm Iv Premix) 3.375 gm in 50 mls @ 100 mls/hr IVPB Q6H [facility] Last Admin: 05/13/17 03:35 Dose: 100 mls/hr Pantoprazole Sodium (Protonix Ec Tab) 20 mg PO DAILY [facility] Physical Exam - Constitutional Appears: In Acute Distress - Head Exam Head Exam: ATRAUMATIC, NORMAL INSPECTION, NORMOCEPHALIC - Eye Exam Eye Exam: EOMI, Normal appearance, PERRL Pupil Exam: NORMAL ACCOMODATION, PERRL - ENT Exam ENT Exam: Mucous Membranes Moist, Normal Exam - Neck Exam Neck exam: Positive for: Normal Inspection - Respiratory Exam Respiratory Exam: Respiratory Distress. absent: NORMAL BREATHING PATTERN Additional comments: On BIPAP - Cardiovascular Exam Cardiovascular Exam: REGULAR RHYTHM - GI/Abdominal Exam GI & Abdominal Exam: Normal Bowel Sounds, Soft. absent: Tenderness - Rectal Exam Rectal Exam: NORMAL INSPECTION - Exam Exam: NORMAL INSPECTION - Extremities Exam Extremities exam: Positive for: pedal edema - Back Exam Back exam: NORMAL INSPECTION - Neurological Exam Neurological exam: Alert, CN II-XII Intact, Normal Gait, Oriented x3, Reflexes Normal - Psychiatric Exam Psychiatric exam: Normal Affect, Normal Mood - Skin Skin Exam: Dry, Intact, Normal Color, Warm Results - Vital Signs Recent Vital Signs: Last Vital Signs Temp 97.7 F 05/13/17 06:05 Pulse 64 05/13/17 07:43 Resp 20 05/13/17 06:05 BP 107/57 L 05/13/17 06:05 Pulse Ox 100 05/13/17 06:05 - Labs Result Diagrams: 05/13/17 04:43 05/13/17 04:43 Labs: Laboratory Results - last 24 hr 05/12/17 05/12/17 05/12/17 13:24 13:50 13:55 WBC RBC Hgb Hct MCV MCH MCHC RDW Plt Count MPV Neut % (Auto) Lymph % (Auto) [place] % (Auto) Eos % (Auto) Baso % (Auto) Neut # Lymph # [place] # Eos # Baso # Neutrophils % (Manual) Band Neutrophils % Lymphocytes % (Manual) Monocytes % (Manual) Eosinophils % (Manual) Platelet Estimate Poikilocytosis (manual Anisocytosis (manual) Target Cells Tear Drop Cells [place] Cells Schistocytes PT INR APTT D-Dimer, Quantitative Puncture Site Rra pCO2 22 L pO2 225 H HCO3 21.5 ABG pH 7.49 H ABG Total CO2 17.5 L ABG O2 Saturation 98.3 H ABG Base Excess -4.5 L Arthur Test Yes ABG Potassium 4.1 A-a O2 Difference 104.0 Respiratory Index 0.5 Sodium 141.0 133 Chloride 113.0 H 102 Glucose 96 Lactate 3.8 H Vent Mode Bipap FiO2 50.0 Inspiratory BiPAP 14 Expiratory BiPAP 5 Potassium 4.5 Carbon Dioxide 22 Anion Gap 14 BUN 18 Creatinine 1.0 Est GFR ( Amer) > 60 Est GFR (Non-Af Amer) > 60 Random Glucose 102 Lactic Acid Calcium 7.4 L Phosphorus Magnesium Total Bilirubin 1.3 AST 57 ALT 40 Alkaline Phosphatase 297 H D Troponin I 0.0200 NT-Pro-B Natriuret Pep 2320 H Total Protein 5.8 L Albumin 2.9 L Globulin 2.9 Albumin/Globulin Ratio 1.0 Arterial Blood Potassium 4.1 Urine Color Urine Clarity Urine pH Ur Specific [place] Urine Protein Urine Glucose (UA) Urine Ketones Urine Blood Urine Nitrate Urine Bilirubin Urine Urobilinogen Ur Leukocyte Esterase Urine WBC (Auto) Urine RBC (Auto) Ur Squamous Epith Cells Urine Bacteria Influenza Typ A,B (EIA) Negative for flu a/b 05/12/17 05/12/17 05/12/17 14:04 14:04 17:12 WBC 22.5 H RBC 4.11 L Hgb 12.4 Hct 38.2 MCV 93.0 MCH 30.2 MCHC 32.5 L RDW 16.3 H Plt Count 87 L D MPV 10.1 Neut % (Auto) 86.7 H Lymph % (Auto) 4.0 L [place] % (Auto) 8.4 Eos % (Auto) 0.4 Baso % (Auto) 0.5 Neut # 19.5 H Lymph # 0.9 L [place] # 1.9 H Eos # 0.1 Baso # 0.1 Neutrophils % (Manual) 92 H Band Neutrophils % Lymphocytes % (Manual) 5 L Monocytes % (Manual) 2 Eosinophils % (Manual) 1 Platelet Estimate Decreased L Poikilocytosis (manual Anisocytosis (manual) Slight Target Cells Slight Tear Drop Cells Slight [place] Cells Slight Schistocytes Slight PT 21.1 H INR 1.8 APTT 67 H D-Dimer, Quantitative > 5250 H Puncture Site pCO2 pO2 HCO3 ABG pH ABG Total CO2 ABG O2 Saturation ABG Base Excess Arthur Test ABG Potassium A-a O2 Difference Respiratory Index Sodium Chloride Glucose Lactate Vent Mode FiO2 Inspiratory BiPAP Expiratory BiPAP Potassium Carbon Dioxide Anion Gap BUN Creatinine Est GFR ( Amer) Est GFR (Non-Af Amer) Random Glucose Lactic Acid Calcium Phosphorus Magnesium Total Bilirubin AST ALT Alkaline Phosphatase Troponin I NT-Pro-B Natriuret Pep Total Protein Albumin Globulin Albumin/Globulin Ratio Arterial Blood Potassium Urine Color Yellow Urine Clarity Clear Urine pH 5.0 Ur Specific [place] 1.009 Urine Protein Negative Urine Glucose (UA) Normal Urine Ketones Negative Urine Blood 1+ H Urine Nitrate Negative Urine Bilirubin Negative Urine Urobilinogen Normal Ur Leukocyte Esterase 1+ H Urine WBC (Auto) 8 H Urine RBC (Auto) 9 H Ur Squamous Epith Cells < 1 Urine Bacteria Few H Influenza Typ A,B (EIA) 05/13/17 05/13/17 05/13/17 04:43 04:43 05:16 WBC 15.0 H RBC 3.35 L Hgb 10.2 L D Hct 30.6 L MCV 91.3 MCH 30.3 MCHC 33.2 RDW 16.7 H Plt Count 57 L D MPV 10.1 Neut % (Auto) 95.6 H Lymph % (Auto) 0.9 L [place] % (Auto) 2.9 Eos % (Auto) 0.0 Baso % (Auto) 0.6 Neut # 14.4 H Lymph # 0.1 L [place] # 0.4 Eos # 0.0 Baso # 0.1 Neutrophils % (Manual) 95 H Band Neutrophils % 1 Lymphocytes % (Manual) 1 L Monocytes % (Manual) 3 Eosinophils % (Manual) Platelet Estimate Decreased L Poikilocytosis (manual Slight Anisocytosis (manual) Slight Target Cells Tear Drop Cells [place] Cells Schistocytes PT INR APTT D-Dimer, Quantitative Puncture Site pCO2 pO2 HCO3 ABG pH ABG Total CO2 ABG O2 Saturation ABG Base Excess [place] Test ABG Potassium A-a O2 Difference Respiratory Index Sodium 130 L Chloride 101 Glucose Lactate Vent Mode FiO2 Inspiratory BiPAP Expiratory BiPAP Potassium 4.1 Carbon Dioxide 25 Anion Gap 8 L BUN 22 H Creatinine 1.1 Est GFR ( Amer) > 60 Est GFR (Non-Af Amer) > 60 Random Glucose 162 H Lactic Acid 3.5 H Calcium 6.7 L Phosphorus 3.8 Magnesium 1.8 Total Bilirubin 0.9 AST 45 ALT 37 Alkaline Phosphatase 239 H Troponin I NT-Pro-B Natriuret Pep Total Protein 4.7 L Albumin 2.3 L D Globulin 2.4 Albumin/Globulin Ratio 1.0 Arterial Blood Potassium Urine Color Urine Clarity Urine pH Ur Specific [place] Urine Protein Urine Glucose (UA) Urine Ketones Urine Blood Urine Nitrate Urine Bilirubin Urine Urobilinogen Ur Leukocyte Esterase Urine WBC (Auto) Urine RBC (Auto) Ur Squamous Epith Cells Urine Bacteria Influenza Typ A,B (EIA) Assessment & Plan - Assessment and Plan (Free Text) Assessment: Pulmonary embolism -IVC filter today -COnsent obtained. -NPO -Medical management SMITHA Tate
[2017-05-13] MEDS ORDERED: Pantoprazole 40 mg EC Tab PO ONE (11:04)
[2017-05-13] MEDS: Pantoprazole 20 mg EC Tab PO SCH (11:36)
--- NOTE | 2017-05-13 11:39 | CT ---
CTA chest, abdomen, and pelvis with IV contrast Indication: SOB, h/o lung CA, d-dimer, liver mets Technique: Contiguous axial images of the chest, abdomen, and pelvis. Coronal and Sagittal reformats generated and reviewed. This CT exam was performed using 1 or more of the following dose reduction techniques: Automated exposure control, adjustment of the MAA and/or kV according to patient size, and/or use of iterative reconstruction technique. Oral contrast was not administered. 100 cc Visipaque 320 Radiation dose: Total exam DLP = 380.55 MGy-cm. Comparison: Chest x-ray performed 05/12/17, CT of the abdomen pelvis with IV contrast performed 04/29/17 Findings: Examination markedly limited due to motion artifact as well as paucity of intra-abdominal and intrapelvic fat. Atherosclerotic calcifications of the thoracic aorta. Dense coronary artery calcifications. Cardiomegaly. Multiple filling defects evident within the proximal segmental branches of bilateral pulmonary arteries. Small filling defect within the proximal lingular branch. No central filling defect the main pulmonary artery identified. Numerous pulmonary nodules worrisome for metastases. Bilateral lower lobe consolidations likely atelectasis ; pneumonia cannot be excluded. Moderate bilateral pleural effusions. No visible pneumothorax. Multiple heterogeneous hypodense hepatic masses worrisome for metastatic disease, largest measures approximately 7 cm. Heterogeneous left adrenal gland mass measures approximately 1.7 cm, worrisome for metastases. Mild bilateral renal cortical thinning. Numerous too small to characterize renal hypodensities possibly cysts. Evaluation of the kidneys limited by motion. No hydronephrosis. No obstructing calculus identified. The spleen, pancreas, right adrenal gland, and gallbladder appear unremarkable. There is normal course and contour of the abdominal aorta and common iliac arteries ; moderate atherosclerotic calcifications are noted. The celiac artery, superior mesenteric artery, and inferior mesenteric artery origins appear patent. Bilateral renal arteries both appear patent. The stomach is nondistended. The bowel loops appear within normal limits of caliber without evidence of intestinal obstruction. There is no definite free air. Extensive retained colonic fecal material. Abnormal retroperitoneal periaortic lymph nodes consistent with metastases. Limited delineation of pelvic lymph nodes. Enlarged heterogeneous prostate gland. Partially imaged large hydrocele. The urinary bladder appears unremarkable. Small pelvic free fluid. Moderate subcutaneous edema/anasarca. Numerous sclerotic foci concerning for metastases throughout the skeleton. Degenerative changes. Impression: Examination limited by habitus. Pulmonary emboli identified involving multiple proximal segmental branches as well as proximal lingular branch. Innumerable pulmonary nodules worrisome for metastases. Bibasilar consolidations and effusions. Numerous hepatic lesions consistent with metastases. Left adrenal gland mass worrisome for metastases. Enlarged heterogeneous prostate gland. Correlate with PSA. Extensive sclerotic osseous lesions worrisome for metastases. Abnormal retroperitoneal periaortic lymph nodes consistent with metastases. Limited delineation of pelvic lymph nodes. Additional findings as above. Findings were discussed with Dr. Bennett by Dr. Gonzales on 05/12/17 at 6:06 p.m.. Preliminary impression was provided by virtual radiologic.
--- NOTE | 2017-05-13 11:58 | CP.PCM.CON ---
History of Present Illness - History of Present Illness History of Present Illness: PATIENT SEEN. FULL CONSULT WILL BE DICTATED Past Patient History - Past Medical History & Family History Past Medical History?: Yes - Past Social History Smoking Status: Former Smoker Home Situation {Lives}: Alone - CARDIAC Hx Hypercholesterolemia: Yes - PULMONARY Hx Respiratory Disorders: No - NEUROLOGICAL Hx Neurological Disorder: No - HEENT Hx HEENT Problems: Yes (WEARS GLASSES FOR READING) - RENAL Hx Chronic Kidney Disease: No - ENDOCRINE/METABOLIC Hx Endocrine Disorders: No - HEMATOLOGICAL/ONCOLOGICAL Hx Blood Disorders: Yes (low platelets) - INTEGUMENTARY Hx Dermatological Problems: No - MUSCULOSKELETAL/RHEUMATOLOGICAL Hx Arthritis: Yes (arthritis) Hx Osteoporosis: Yes - GASTROINTESTINAL Hx Gastrointestinal Disorders: No - GENITOURINARY/GYNECOLOGICAL Hx Genitourinary Disorders: Yes Hx Prostate Problems: Yes (BPH) - PSYCHIATRIC Hx Substance Use: No - SURGICAL HISTORY Hx Surgeries: Yes (PROSTATE SURGERY) Other/Comment: recent liver biopy - ANESTHESIA Hx Anesthesia: Yes Hx Anesthesia Reactions: No Hx Malignant Hyperthermia: No Meds Allergies/Adverse Reactions: Allergies Allergy/AdvReac Type Severity Reaction Status Date / Time No Known Allergies Allergy Verified 05/12/17 13:30 - Medications Medications: Current Medications Albuterol/Ipratropium (Duoneb 3 Mg/0.5 Mg (3 Ml) Ud) 3 ml INH RQ6 [facility] Last Admin: 05/13/17 07:43 Dose: 3 ml Piperacillin Sod/Tazobactam Sod (Zosyn 3.375 Gm Iv Premix) 3.375 gm in 50 mls @ 100 mls/hr IVPB Q6H [facility] Last Admin: 05/13/17 10:30 Dose: 100 mls/hr Pantoprazole Sodium (Protonix Ec Tab) 20 mg PO DAILY [facility] Last Admin: 05/13/17 11:36 Dose: 20 mg Results - Vital Signs Recent Vital Signs: Last Vital Signs Temp 98.2 F 05/13/17 08:20 Pulse 54 L 05/13/17 08:20 Resp 16 05/13/17 08:20 BP 111/54 L 05/13/17 08:20 Pulse Ox 100 05/13/17 08:20 - Labs Result Diagrams: 05/13/17 04:43 05/13/17 04:43 Labs: Laboratory Results - last 24 hr 05/12/17 05/12/17 05/12/17 13:24 13:50 13:55 WBC RBC Hgb Hct MCV MCH MCHC RDW Plt Count MPV Neut % (Auto) Lymph % (Auto) [place] % (Auto) Eos % (Auto) Baso % (Auto) Neut # Lymph # [place] # Eos # Baso # Neutrophils % (Manual) Band Neutrophils % Lymphocytes % (Manual) Monocytes % (Manual) Eosinophils % (Manual) Platelet Estimate Poikilocytosis (manual Anisocytosis (manual) Target Cells Tear Drop Cells Scottie Cells Schistocytes PT INR APTT D-Dimer, Quantitative Puncture Site Rra pCO2 22 L pO2 225 H HCO3 21.5 ABG pH 7.49 H ABG Total CO2 17.5 L ABG O2 Saturation 98.3 H ABG Base Excess -4.5 L Arthur Test Yes ABG Potassium 4.1 A-a O2 Difference 104.0 Respiratory Index 0.5 Sodium 141.0 133 Chloride 113.0 H 102 Glucose 96 Lactate 3.8 H Vent Mode Bipap FiO2 50.0 Inspiratory BiPAP 14 Expiratory BiPAP 5 Potassium 4.5 Carbon Dioxide 22 Anion Gap 14 BUN 18 Creatinine 1.0 Est GFR ( Amer) > 60 Est GFR (Non-Af Amer) > 60 Random Glucose 102 Lactic Acid Calcium 7.4 L Phosphorus Magnesium Total Bilirubin 1.3 AST 57 ALT 40 Alkaline Phosphatase 297 H D Troponin I 0.0200 NT-Pro-B Natriuret Pep 2320 H Total Protein 5.8 L Albumin 2.9 L Globulin 2.9 Albumin/Globulin Ratio 1.0 Arterial Blood Potassium 4.1 Urine Color Urine Clarity Urine pH Ur Specific Brewer Urine Protein Urine Glucose (UA) Urine Ketones Urine Blood Urine Nitrate Urine Bilirubin Urine Urobilinogen Ur Leukocyte Esterase Urine WBC (Auto) Urine RBC (Auto) Ur Squamous Epith Cells Urine Bacteria Influenza Typ A,B (EIA) Negative for flu a/b 05/12/17 05/12/17 05/12/17 14:04 14:04 17:12 WBC 22.5 H RBC 4.11 L Hgb 12.4 Hct 38.2 MCV 93.0 MCH 30.2 MCHC 32.5 L RDW 16.3 H Plt Count 87 L D MPV 10.1 Neut % (Auto) 86.7 H Lymph % (Auto) 4.0 L [place] % (Auto) 8.4 Eos % (Auto) 0.4 Baso % (Auto) 0.5 Neut # 19.5 H Lymph # 0.9 L [place] # 1.9 H Eos # 0.1 Baso # 0.1 Neutrophils % (Manual) 92 H Band Neutrophils % Lymphocytes % (Manual) 5 L Monocytes % (Manual) 2 Eosinophils % (Manual) 1 Platelet Estimate Decreased L Poikilocytosis (manual Anisocytosis (manual) Slight Target Cells Slight Tear Drop Cells Slight Sharon Cells Slight Schistocytes Slight PT 21.1 H INR 1.8 APTT 67 H D-Dimer, Quantitative > 5250 H Puncture Site pCO2 pO2 HCO3 ABG pH ABG Total CO2 ABG O2 Saturation ABG Base Excess Arthur Test ABG Potassium A-a O2 Difference Respiratory Index Sodium Chloride Glucose Lactate Vent Mode FiO2 Inspiratory BiPAP Expiratory BiPAP Potassium Carbon Dioxide Anion Gap BUN Creatinine Est GFR ( Amer) Est GFR (Non-Af Amer) Random Glucose Lactic Acid Calcium Phosphorus Magnesium Total Bilirubin AST ALT Alkaline Phosphatase Troponin I NT-Pro-B Natriuret Pep Total Protein Albumin Globulin Albumin/Globulin Ratio Arterial Blood Potassium Urine Color Yellow Urine Clarity Clear Urine pH 5.0 Ur Specific Brewer 1.009 Urine Protein Negative Urine Glucose (UA) Normal Urine Ketones Negative Urine Blood 1+ H Urine Nitrate Negative Urine Bilirubin Negative Urine Urobilinogen Normal Ur Leukocyte Esterase 1+ H Urine WBC (Auto) 8 H Urine RBC (Auto) 9 H Ur Squamous Epith Cells < 1 Urine Bacteria Few H Influenza Typ A,B (EIA) 05/13/17 05/13/17 05/13/17 04:43 04:43 05:16 WBC 15.0 H RBC 3.35 L Hgb 10.2 L D Hct 30.6 L MCV 91.3 MCH 30.3 MCHC 33.2 RDW 16.7 H Plt Count 57 L D MPV 10.1 Neut % (Auto) 95.6 H Lymph % (Auto) 0.9 L [place] % (Auto) 2.9 Eos % (Auto) 0.0 Baso % (Auto) 0.6 Neut # 14.4 H Lymph # 0.1 L [place] # 0.4 Eos # 0.0 Baso # 0.1 Neutrophils % (Manual) 95 H Band Neutrophils % 1 Lymphocytes % (Manual) 1 L Monocytes % (Manual) 3 Eosinophils % (Manual) Platelet Estimate Decreased L Poikilocytosis (manual Slight Anisocytosis (manual) Slight Target Cells Tear Drop Cells Sharon Cells Schistocytes PT INR APTT D-Dimer, Quantitative Puncture Site pCO2 pO2 HCO3 ABG pH ABG Total CO2 ABG O2 Saturation ABG Base Excess Arthur Test ABG Potassium A-a O2 Difference Respiratory Index Sodium 130 L Chloride 101 Glucose Lactate Vent Mode FiO2 Inspiratory BiPAP Expiratory BiPAP Potassium 4.1 Carbon Dioxide 25 Anion Gap 8 L BUN 22 H Creatinine 1.1 Est GFR ( Amer) > 60 Est GFR (Non-Af Amer) > 60 Random Glucose 162 H Lactic Acid 3.5 H Calcium 6.7 L Phosphorus 3.8 Magnesium 1.8 Total Bilirubin 0.9 AST 45 ALT 37 Alkaline Phosphatase 239 H Troponin I NT-Pro-B Natriuret Pep Total Protein 4.7 L Albumin 2.3 L D Globulin 2.4 Albumin/Globulin Ratio 1.0 Arterial Blood Potassium Urine Color Urine Clarity Urine pH Ur Specific Brewer Urine Protein Urine Glucose (UA) Urine Ketones Urine Blood Urine Nitrate Urine Bilirubin Urine Urobilinogen Ur Leukocyte Esterase Urine WBC (Auto) Urine RBC (Auto) Ur Squamous Epith Cells Urine Bacteria Influenza Typ A,B (EIA)
--- NOTE | 2017-05-13 13:51 | CP.PCM.PN ---
Subjective - Date & Time of Evaluation Date of Evaluation: 05/13/17 Time of Evaluation: 13:50 - Subjective Subjective: LESS SOB ANTICOAGULATION PER HEM FOR IVC FILTER TODAY TO D/W DAUGHTER FOR DNR Objective - Vital Signs/Intake and Output Vital Signs (last 24 hours): Temp Pulse Resp BP Pulse Ox 98.5 F 66 18 109/58 L 100 05/13/17 12:00 05/13/17 12:17 05/13/17 12:00 05/13/17 12:00 05/13/17 12:00 - Medications Medications: Current Medications Albuterol/Ipratropium (Duoneb 3 Mg/0.5 Mg (3 Ml) Ud) 3 ml INH RQ6 [facility] Last Admin: 05/13/17 07:43 Dose: 3 ml Piperacillin Sod/Tazobactam Sod (Zosyn 3.375 Gm Iv Premix) 3.375 gm in 50 mls @ 100 mls/hr IVPB Q6H [facility] Last Admin: 05/13/17 10:30 Dose: 100 mls/hr Pantoprazole Sodium (Protonix Ec Tab) 20 mg PO DAILY [facility] Last Admin: 05/13/17 11:36 Dose: 20 mg - Labs Labs: 05/13/17 04:43 05/13/17 04:43 PT 21.1 SECONDS (9.7-12.2) H 05/12/17 14:04 INR 1.8 05/12/17 14:04 APTT 67 SECONDS (21-34) H 05/12/17 14:04
[2017-05-13] MEDS ORDERED: Oxycodone/Acetaminophen 5/325 mg Tab PO PRN (15:35)
--- NOTE | 2017-05-13 15:39 | PCM.SURG1 ---
Surgeon's Initial Post Op Note - Surgeon's Notes Surgeon: Dr. Tate Bean Snipper: Jose PGY1 Type of Anesthesia: Local Anesthesia Administered By: Dr. Flowers Pre-Operative Diagnosis: Metastatic CA, Pulmonary Embolism Operative Findings: see operative report Post-Operative Diagnosis: Metastatic CA, Pulmonary Embolism Operation Performed: IVC filter insertion Specimen/Specimens Removed: N/A Estimated Blood Loss: EBL {In ML}: 10 Blood Products Given: N/A Drains Used: No Drains Post-Op Condition: Good Date of Surgery/Procedure: 05/13/17 Time of Surgery/Procedure: 02:45
--- NOTE | 2017-05-13 19:47 | OP ---
PROCEDURE DATE: 05/12/2017 PREOPERATIVE DIAGNOSES: Pulmonary embolism, thrombocytopenia. PROCEDURE CARRIED OUT: Placement of Bard Sonia removable filter in the right femoral vein with C-arm fluoroscopy, ultrasound-guided puncture and micropuncture technique. SURGEON: Gordy Tate Jr., MD. FINANCIAL EXAMINER: Dr. Peter Cummings, resident. TYPE OF ANESTHESIA: Local with sedation. ANESTHESIA ADMINISTERED BY: Dr. Martinez. INDICATIONS: A 81-year-old man, pancreatic cancer, presents with thrombocytopenia. Pulmonary embolism. OPERATIVE FINDINGS: The filter was deployed above the level of the confluence of the iliac veins below the renal veins. Ultrasound guidance was used for the puncture in the right groin. DESCRIPTION OF PROCEDURE: The patient was given local anesthesia. Using ultrasound guidance and micropuncture technique, the right common femoral vein was punctured. Under fluoroscopic control, guidewire was advanced centrally. This was subsequently exchanged for an Amplatz wire and then a Bard Beaver removable filter was deployed over this and the catheter and sheath were positioned in the appropriate location. After the wire and the catheter dilator were removed, filter was deployed at this level. It was flushed with heparinized saline. There was a good position upright. Blood loss for the procedure was approximately 25 mL. Operation carried out, placement of the Bard Beaver removable filter via the right femoral vein with C-arm fluoroscopy, ultrasound guidance and micropuncture technique. Ultrasound images of the groin showed the vein was approximately 15 mm in diameter with normal compressibility and no evidence of intraluminal thrombosis. Gordy Tate Jr., MD
[2017-05-14] MEDS ORDERED: Vitamins A & D Oint UD Foilpak TOP ONE (01:11)
[2017-05-14] MEDS: Albuterol-Ipratrop 3 mg / 0.5 (3 ml) UD INH SCH ×4 (01:30→20:53)
[2017-05-14] MEDS: Piperacill/Tazo 3.375gm in Dex 3.375 GM/50 ML BAG IVPB SCH ×4 (03:23→21:20)
[2017-05-14 07:10] LABS: BASO % 0.3 % (0.0-2.0); EOS % 0.3 % (0.0-4.0); HEMOGLOBIN 10.7 g/dL (12.0-18.0); LYMPH # 0.5 K/uL (1.0-4.3); LYMPH % 3.5 % (20.0-40.0); MEAN CELL VOLUME 92.3 fL (80.0-94.0); MEAN CORPUSCULAR HEMOGLOBIN 30.6 pg (27.0-31.0); MEAN CORPUSCULAR HGB CONC 33.1 g/dL (33.0-37.0); MEAN PLATELET VOLUME 10.4 fL (7.2-11.7); MONO # 1.1 K/uL (0.0-0.8); MONO % 8.1 % (0.0-10.0); NEUT # 12.3 K/uL (1.8-7.0); NEUT % 87.8 % (50.0-75.0); PLATELET COUNT 60 K/uL (130-400); RBC 3.51 Mil/uL (4.40-5.90); RED CELL DISTRIBUTION WIDTH 16.7 % (11.5-14.5)
[2017-05-14 07:48] LABS: ALBUMIN 2.3 g/dL (3.5-5.0); ALT/SGPT 40 U/L (21-72); AST/SGOT 48 U/L (17-59); BLOOD UREA NITROGEN 27 mg/dL (9-20); CALCIUM 6.7 mg/dl (8.6-10.4); GFR AFRICAN-AMERICAN > 60; GFR NON-AFRICAN AMERICAN 58
[2017-05-14 09:10] LABS: LYMPHOCYTE 4 % (20-40); MONOCYTE 5 % (0-10); NEUTROPHIL 91 % (50-75); TOTAL CELLS COUNTED 100
[2017-05-14 09:11] LABS: ANISOCYTOSIS SLIGHT; PLATELET ESTIMATE DECREASED (NORMAL)
[2017-05-14 09:12] LABS: HYPOCHROMIC SLIGHT; POLYCHROMIC SLIGHT
--- NOTE | 2017-05-14 09:32 | CP.PCM.PN ---
Subjective - Date & Time of Evaluation Date of Evaluation: 05/14/17 Time of Evaluation: 07:00 - Subjective Subjective: Surgical Progress Note: Patient was seen and examined at bedside in the AM. Patient states he has some tenderness in the wound on left groin after the surgical procedure but otherwise is feeling well. He states he would like to eat. He denies fever, nausea, vomiting, diarrhea or constipation. Objective - Vital Signs/Intake and Output Vital Signs (last 24 hours): Temp Pulse Resp BP Pulse Ox 98 F 75 18 100/57 L 93 L 05/14/17 08:46 05/14/17 08:46 05/14/17 08:46 05/14/17 08:46 05/14/17 08:46 Intake and Output: 05/14/17 05/14/17 06:59 18:59 Intake Total 300 50 Balance 300 50 - Medications Medications: Current Medications Albuterol/Ipratropium (Duoneb 3 Mg/0.5 Mg (3 Ml) Ud) 3 ml INH RQ6 [facility] Last Admin: 05/14/17 08:11 Dose: Not Given Piperacillin Sod/Tazobactam Sod (Zosyn 3.375 Gm Iv Premix) 3.375 gm in 50 mls @ 100 mls/hr IVPB Q6H [facility] Last Admin: 05/14/17 03:23 Dose: 100 mls/hr Oxycodone/Acetaminophen (Percocet 5/325 Mg Tab) 1 tab PO Q4H PRN PRN Reason: Pain, moderate (4-7) Stop: 05/16/17 15:36 Pantoprazole Sodium (Protonix Ec Tab) 20 mg PO DAILY [facility] Last Admin: 05/13/17 11:36 Dose: 20 mg - Labs Labs: 05/14/17 07:02 05/14/17 07:02 PT 21.1 SECONDS (9.7-12.2) H 05/12/17 14:04 INR 1.8 05/12/17 14:04 APTT 67 SECONDS (21-34) H 05/12/17 14:04 - Constitutional Appears: No Acute Distress, Cachectic - Head Exam Head Exam: ATRAUMATIC, NORMAL INSPECTION - Eye Exam Eye Exam: Normal appearance - ENT Exam ENT Exam: Mucous Membranes Moist - Respiratory Exam Respiratory Exam: NORMAL BREATHING PATTERN - Cardiovascular Exam Cardiovascular Exam: +S1, +S2 - GI/Abdominal Exam GI & Abdominal Exam: Soft, Normal Bowel Sounds. absent: Tenderness - Extremities Exam Extremities Exam: Normal Inspection - Neurological Exam Neurological Exam: Alert, Awake, Oriented x3 - Psychiatric Exam Psychiatric exam: Normal Affect, Normal Mood - Skin Skin Exam: Dry, Intact, Normal Color, Warm Assessment and Plan - Assessment and Plan (Free Text) Assessment: 81 year old male with past medical history of chronic thrombocytopenia, metastatic cancer and a PE s/p IVC filter insertion post op day 1 - Continue medical management - No other surgical intervention needed at this time Fawn Fuller PGY-1
[2017-05-14] MEDS: Pantoprazole 20 mg EC Tab PO SCH (10:22)
--- NOTE | 2017-05-14 13:37 | CP.PCM.PN ---
Subjective - Date & Time of Evaluation Date of Evaluation: 05/14/17 Time of Evaluation: 13:34 - Subjective Subjective: CHIEF COMPLAINTS TODAY : NO FURTHER DYSPHAGIA GEN WEAKNESS ROS. HEENT : N. Resp : No cough, wheezing ,pleuritic CP ,or hemoptysis Cardio : No anginal CP, PND, orthopnea, palpitation GI : No abd.pain, n/v ,diarrhea or GI bleeding . MANAGER HI : No headache, vertigo, focal deficit. Musculoskel : No joint swelling , Derm : No rash Psych : Normal affect. Ext : No swelling ,calf pain PE. Pt. is alert awake in no distress. V.S As noted in the chart Head ,ear nose,throat and eyes : Normal. Neck : Supple with normal carotids. Lungs: RONCHI Heart : S1 & S2 normal with S4. No murmur. Abd : Soft non tender with normal bowel sounds. Neuro : Moves all ext. with no localized deficit. Ext : No edema with intact pulses.Non tender calves Derm : No rashes or decubitus ulcer. LABS/RADIOLOGY: S/P IVC FILTER ASSESSMENT/PLAN : TO D/W HEM, CONCERNING ANTICOAGULATION AND LOW PLT , CURRENTLY WITH FILTER Objective - Vital Signs/Intake and Output Vital Signs (last 24 hours): Temp Pulse Resp BP Pulse Ox 98 F 75 18 100/57 L 93 L 05/14/17 08:46 05/14/17 08:46 05/14/17 08:46 05/14/17 08:46 05/14/17 08:46 Intake and Output: 05/14/17 05/14/17 11:59 23:59 Intake Total 50 Balance 50 - Medications Medications: Current Medications Albuterol/Ipratropium (Duoneb 3 Mg/0.5 Mg (3 Ml) Ud) 3 ml INH RQ6 [facility] Last Admin: 05/14/17 13:16 Dose: 3 ml Piperacillin Sod/Tazobactam Sod (Zosyn 3.375 Gm Iv Premix) 3.375 gm in 50 mls @ 100 mls/hr IVPB Q6H [facility] Last Admin: 05/14/17 10:22 Dose: 100 mls/hr Oxycodone/Acetaminophen (Percocet 5/325 Mg Tab) 1 tab PO Q4H PRN PRN Reason: Pain, moderate (4-7) Stop: 05/16/17 15:36 Pantoprazole Sodium (Protonix Ec Tab) 20 mg PO DAILY [facility] Last Admin: 05/14/17 10:22 Dose: 20 mg - Labs Labs: 05/14/17 07:02 05/14/17 07:02 PT 21.1 SECONDS (9.7-12.2) H 05/12/17 14:04 INR 1.8 05/12/17 14:04 APTT 67 SECONDS (21-34) H 05/12/17 14:04
[2017-05-14 16:01] VITALS: RESP 20
--- NOTE | 2017-05-14 23:13 | CARD ---
APPROVED REPORT EKG Measurement Heart [id number] <Conclusion> Sinus tachycardia Left anterior fascicular block Abnormal ECG
[2017-05-15] MEDS: Albuterol-Ipratrop 3 mg / 0.5 (3 ml) UD INH SCH ×4 (01:32→20:00)
[2017-05-15] MEDS: Piperacill/Tazo 3.375gm in Dex 3.375 GM/50 ML BAG IVPB SCH ×4 (03:15→22:21)
[2017-05-15] MEDS: Pantoprazole 20 mg EC Tab PO SCH (11:22)
--- NOTE | 2017-05-15 13:15 | CP.PCM.PN ---
Subjective - Date & Time of Evaluation Date of Evaluation: 05/15/17 Time of Evaluation: 13:14 - Subjective Subjective: CHIEF COMPLAINTS TODAY : NO FURTHER DYSPHAGIA GEN WEAKNESS ROS. HEENT : N. Resp : No cough, wheezing ,pleuritic CP ,or hemoptysis Cardio : No anginal CP, PND, orthopnea, palpitation GI : No abd.pain, n/v ,diarrhea or GI bleeding . NUCLEAR MEDICAL TECH : No headache, vertigo, focal deficit. Musculoskel : No joint swelling , Derm : No rash Psych : Normal affect. Ext : No swelling ,calf pain PE. Pt. is alert awake in no distress. V.S As noted in the chart Head ,ear nose,throat and eyes : Normal. Neck : Supple with normal carotids. Lungs: RONCHI Heart : S1 & S2 normal with S4. No murmur. Abd : Soft non tender with normal bowel sounds. Neuro : Moves all ext. with no localized deficit. Ext : No edema with intact pulses.Non tender calves Derm : No rashes or decubitus ulcer. LABS/RADIOLOGY: S/P IVC FILTER ASSESSMENT/PLAN : TO D/W HEM, CONCERNING ANTICOAGULATION AND LOW PLT , CURRENTLY WITH FILTER D/W DAUGHTER 9TORI) REGARDING DNR/HOSPICE CARE /MEHREEN Objective - Vital Signs/Intake and Output Vital Signs (last 24 hours): Temp Pulse Resp BP Pulse Ox 97.4 F L 70 20 134/72 94 L 05/15/17 07:15 05/15/17 07:15 05/15/17 07:15 05/15/17 07:15 05/15/17 07:15 - Medications Medications: Current Medications Albuterol/Ipratropium (Duoneb 3 Mg/0.5 Mg (3 Ml) Ud) 3 ml INH RQ6 [facility] Last Admin: 05/15/17 07:46 Dose: 3 ml Piperacillin Sod/Tazobactam Sod (Zosyn 3.375 Gm Iv Premix) 3.375 gm in 50 mls @ 100 mls/hr IVPB Q6H [facility] Last Admin: 05/15/17 11:22 Dose: 100 mls/hr Oxycodone/Acetaminophen (Percocet 5/325 Mg Tab) 1 tab PO Q4H PRN PRN Reason: Pain, moderate (4-7) Stop: 05/16/17 15:36 Last Admin: 05/14/17 21:20 Dose: 1 tab Pantoprazole Sodium (Protonix Ec Tab) 20 mg PO DAILY [facility] Last Admin: 05/15/17 11:22 Dose: 20 mg - Labs Labs: 05/14/17 07:02 05/14/17 07:02 PT 21.1 SECONDS (9.7-12.2) H 05/12/17 14:04 INR 1.8 05/12/17 14:04 APTT 67 SECONDS (21-34) H 05/12/17 14:04
--- NOTE | 2017-05-15 16:40 | CP.PCM.CON ---
History of Present Illness - History of Present Illness History of Present Illness: Palliative consult requested by Dom Owens NP for goals of care discussion regarding hospice evaluation Patient is a 81 yo male admitted from home with SOB, severe respiratory distress and swelling of LEs what began on the day of admission. Per medical reports, patient was treated here for Pneumonia X 1 week, sent to [facility] for 1 week , than discharged home. 3 days after discharge patient was readmitted with respiratory symptoms. The CT chest/abdomen/ pelvis was significant for liver, renal, bones and lung mets. Liver bx was done. Patient diagnosed with Hepato-Pancreatic adenocarcinoma PMH: SANTO DOMINGO to left ear, osteoporosis,asthma Soc. Hx : , lives alone, one daughter lives in [facility], patient refused to move in with her Fam. Hx: Patient denies known med Hx Review of Systems - Constitutional Constitutional: absent: As Per HPI, Anorexia, Chills, Daytime Sleepiness, Excessive Sweating, Fatigue, Fever, Frequent Falls, Headache, Increased Appetite , Lethargy, Malaise, Night Sweats, Snoring, Sleep Apnea, Weight Gain, Weight Loss, Weakness, Other - EENT Ears: Abnormal Hearing Nose/Mouth/Throat: Sore Throat - Cardiovascular Cardiovascular: Pedal Edema - Gastrointestinal Gastrointestinal: absent: As Per HPI, Abdominal Pain, Belching, Bloating, Change in Bowel Habits, Change in Stool Character, Coffee Ground Emesis, Constipation, Cramping, Diarrhea, Dyspepsia, Dysphagia, Early Satiety, Excessive Flatus, Fecal Incontinence, Heartburn, Hematemesis, Hematochezia, Loose Stools, Melena, Nausea, Odynophagia, Temesmus, Vomiting, Other - Genitourinary Additional comments: swollen scrotum - Reproductive: Male Additional comments: swollen scrotum - Musculoskeletal Musculoskeletal: absent: As Per HPI, Abnormal Gait, Arthralgias, Atrophy, Back Pain, Deformity, Joint Swelling, Limited Range of Motion, Loss of Height, Muscle Cramps, Muscle Weakness, Myalgias, Neck Pain, Numbness, Radiating Pain into Limb, Stiffness, Tingling, Other - Integumentary Integumentary: absent: As Per HPI, Acne, Alopecia, Bleeding Lesions, Change in Hair, Change in Nails, Change in Pigmentation, Changing Lesions, Dry Skin, Erythema, Furuncle, Hirsutism, Lesions, New Lesions, Non-Healing Lesions, Photosensitivity, Pruritus, Rash, Skin Pain, Skin Ulcer, Sores, Striae, Swelling , Unusual Bruising, Wounds, Jaundice, Other - Neurological Neurological: absent: As Per HPI, Abnormal Gait, Abnormal Hearing, Abnormal Movements, Abnormal Speech, Behavioral Changes, Burning Sensations, Confusion, Convulsions, Disequilibrium, Dizziness, Numbness, Focal Weakness, Frequent Falls , Headaches, Lack of Coordination, Loss of Vision, Memory Loss, Paresthesias, Radicular Pain, Restless Legs, Sensory Deficit, Syncope, Tingling, Tremor, Vertigo, Weakness, Other Visual Disturbances, Other - Psychiatric Psychiatric: absent: As Per HPI, Abnormal Sleep Pattern, Anhedonia, Anxiety, Auditory Hallucinations, Behavioral Changes, Change in Appetite, Change in Libido, Confusion, Depression, Difficulty Concentrating, Hallucinations, Homicidal Ideation, Hopelessness, Irritability, Memory Loss, Mood Swings, Panic Attacks, Paranoia, Suicidal Ideation, Visual Hallucinations, Tactile Hallucinations, Other - Endocrine Endocrine: absent: As Per HPI, Change in Body Appearance, Change in Libido, Cold Intolorance, Deepening of Voice, Excessive Sweating, Fatigue, Flushing, Heat Intolorance, Increase in Ring/Shoe/Hat Size, Palpitations, Polydipsia, Polyphagia, Polyuria, Other - Hematologic/Lymphatic Hematologic: absent: As Per HPI, Easy Bleeding, Easy Bruising, Lymphadenopathy, Other Past Patient History - Past Medical History & Family History Past Medical History?: Yes - Past Social History Smoking Status: Former Smoker - CARDIAC Hx Congestive Heart Failure: Yes Hx Hypercholesterolemia: Yes - PULMONARY Hx Chronic Obstructive Pulmonary Disease (COPD): Yes - NEUROLOGICAL Hx Neurological Disorder: No - HEENT Hx HEENT Problems: Yes (WEARS GLASSES FOR READING) - RENAL Hx Chronic Kidney Disease: No - ENDOCRINE/METABOLIC Hx Endocrine Disorders: No - HEMATOLOGICAL/ONCOLOGICAL 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 , bone, and liver) - INTEGUMENTARY Hx Dermatological Problems: No - MUSCULOSKELETAL/RHEUMATOLOGICAL Hx Arthritis: Yes - GASTROINTESTINAL Hx Gastrointestinal Disorders: No - GENITOURINARY/GYNECOLOGICAL Hx Genitourinary Disorders: Yes Hx Prostate Problems: Yes (BPH) - PSYCHIATRIC Hx Psychophysiologic Disorder: No Hx Substance Use: No - SURGICAL HISTORY Hx Surgeries: Yes (PROSTATE SURGERY) Other/Comment: recent liver biopy - ANESTHESIA Hx Anesthesia: Yes Hx Anesthesia Reactions: No Hx Malignant Hyperthermia: No Meds Allergies/Adverse Reactions: Allergies Allergy/AdvReac Type Severity Reaction Status Date / Time No Known Allergies Allergy Verified 05/12/17 13:30 - Medications Medications: Current Medications Albuterol/Ipratropium (Duoneb 3 Mg/0.5 Mg (3 Ml) Ud) 3 ml INH RQ6 [facility] Last Admin: 05/15/17 13:24 Dose: 3 ml Apixaban (Eliquis) 5 mg PO BID [facility] Piperacillin Sod/Tazobactam Sod (Zosyn 3.375 Gm Iv Premix) 3.375 gm in 50 mls @ 100 mls/hr IVPB Q6H [facility] Last Admin: 05/15/17 14:33 Dose: 100 mls/hr Oxycodone/Acetaminophen (Percocet 5/325 Mg Tab) 1 tab PO Q4H PRN PRN Reason: Pain, moderate (4-7) Stop: 05/16/17 15:36 Last Admin: 05/14/17 21:20 Dose: 1 tab Pantoprazole Sodium (Protonix Ec Tab) 20 mg PO DAILY [facility] Last Admin: 05/15/17 11:22 Dose: 20 mg Physical Exam - Constitutional Appears: Chronically Ill - Head Exam Head Exam: ATRAUMATIC, NORMAL INSPECTION, NORMOCEPHALIC - Eye Exam Eye Exam: EOMI, Normal appearance, PERRL Pupil Exam: NORMAL ACCOMODATION, PERRL - ENT Exam ENT Exam: Mucous Membranes Moist, Normal Exam - Neck Exam Neck exam: Positive for: Normal Inspection - Respiratory Exam Respiratory Exam: Decreased Breath Sounds - Cardiovascular Exam Cardiovascular Exam: Tachycardia, REGULAR RHYTHM - GI/Abdominal Exam GI & Abdominal Exam: Normal Bowel Sounds, Soft - Rectal Exam Rectal Exam: Deferred - Exam Exam: Scrotal Swelling - Extremities Exam Extremities exam: Positive for: pedal edema - Back Exam Back exam: NORMAL INSPECTION - Neurological Exam Neurological exam: Alert, Oriented x3 - Psychiatric Exam Psychiatric exam: Normal Affect, Normal Mood - Skin Skin Exam: Mottled, Normal Color Results - Vital Signs Recent Vital Signs: Last Vital Signs Temp 97.8 F 05/15/17 16:23 Pulse 76 05/15/17 16:23 Resp 20 05/15/17 16:23 BP 116/73 05/15/17 16:23 Pulse Ox 96 05/15/17 16:23 - Labs Result Diagrams: 05/14/17 07:02 05/14/17 07:02 Assessment & Plan - Assessment and Plan (Free Text) Assessment: Palliative consult Code status Full Code, there is no Advance Directive on chart , PPS 40% I reviewed medical records, all diagnostic studies, examined and interviewed patient in he bed. Patient is alert, oriented x 3, seen and examined in bed in no acute distress. Breathing is fast, especially while patient talks. Patient often gets SOB while talking. There is moist cough. Patient reports having this cough for about 2 weeks. At the same time, patient denies those symptoms and feels that he does not need O2 supplement. Patient complains of " sharp pain" to his throat while he swallows. The pharynx exam WNL. Abdomen flat and soft, scrotum swollen, patient unable to control urine, keeps towel there to absorb leaked urine. There is a significant edema to LEs. Patient reports edema has been there for some time. Denies pain at present, states pain was there ( lungs) but now is gone. Goals of care discussed with patient. I first elicited patient's knowledge about his condition and asked him if he knew his diagnosis. Patient reported having " pneumonia" and had " piece of his liver" taken for testing. Patient denied having knowledge of Biopsy results. I asked patient if he would want to know his diagnosis. patient answered " yes, I guess, if is bad". Patient asked if he had a cancer. I did not disclose it to a patient as I felt that patient was not ready to hear it from me as I am seeing patient for the fist time and have established a rapport with him. I reassured patient that I would have to talk to his Doctor first and ask his Doctor to talk to him. Patient agreed. Doctor Wesley was called with concern about patient not knowing his diagnosis what further disables the discussion about comfort care. Per policy for admission to Hospice care, patient has to agree with admission to it. Admission to Hospice care involves the Code status discussion and establishing the DNR/ DNI status. Therefore, discussing admission to Hospice care was not possible. Before any further discussion, patient needs to know his diagnosis, than to consider his options of care. 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, kidney, bones and lung * Patient reports NO knowledge about his diagnosis * There is significant shortness of breath upon excertion and pedal edema * Urine incontinence due to scrotal edema * Unable to discuss comfort care due to patient's lack of insight about his diagnosis Suggestion * Primary MD should discuss diagnosis and poor prognosis with the patient * Patient is to make informed decision about his care, once his diagnosis and treatment options reveled to him * Continue respiratory support * Observe for increased pain * Elevate LEs while in bed * Patient may benefit from diuretics in regards of discomfort caused by scrotal swelling and severe edema of LEs This was discussed to Doctor Valenzuela and Doctor Brownlee as well to Steffany CORADO and Dom Flores ARC CUTTER. Palliative care will continue to fallow with patient and offer support, only if instructed by Doctor Olson to do so. Thank you very much for consulting Palliative Care
[2017-05-15 17:24] LABS: BASO % 0.3 % (0.0-2.0); EOS # 0.2 K/uL (0.0-0.7); EOS % 1.6 % (0.0-4.0); HEMOGLOBIN 11.4 g/dL (12.0-18.0); LYMPH # 0.6 K/uL (1.0-4.3); LYMPH % 4.9 % (20.0-40.0); MEAN CELL VOLUME 92.4 fL (80.0-94.0); MEAN CORPUSCULAR HEMOGLOBIN 29.9 pg (27.0-31.0); MEAN CORPUSCULAR HGB CONC 32.4 g/dL (33.0-37.0); MEAN PLATELET VOLUME 9.8 fL (7.2-11.7); MONO # 1.1 K/uL (0.0-0.8); MONO % 9.1 % (0.0-10.0); NEUT # 9.9 K/uL (1.8-7.0); NEUT % 84.1 % (50.0-75.0); PLATELET COUNT 54 K/uL (130-400); RED CELL DISTRIBUTION WIDTH 17.3 % (11.5-14.5); WHITE BLOOD COUNT 11.7 K/uL (4.8-10.8)
[2017-05-15 17:53] LABS: ALB/GLOB RATIO 0.9 (1.0-2.1); ALBUMIN 2.3 g/dL (3.5-5.0); ALT/SGPT 43 U/L (21-72); AST/SGOT 48 U/L (17-59); BLOOD UREA NITROGEN 19 mg/dL (9-20); CALCIUM 7.1 mg/dl (8.6-10.4); GFR AFRICAN-AMERICAN > 60; GFR NON-AFRICAN AMERICAN > 60
[2017-05-15 18:45] LABS: EOSINOPHIL 2 % (0-4); LYMPHOCYTE 4 % (20-40); MONOCYTE 8 % (0-10); NEUTROPHIL 86 % (50-75); PLATELET ESTIMATE DECREASED (NORMAL); TOTAL CELLS COUNTED 100
[2017-05-15 18:46] LABS: ACANTHOCYTES SLIGHT; ANISOCYTOSIS SLIGHT; BURR CELLS SLIGHT; HYPOCHROMIC SLIGHT; OVALOCYTES SLIGHT; POIKILOCYTOSIS SLIGHT; TARGET CELLS SLIGHT; TEARDROP CELLS SLIGHT
[2017-05-15 18:47] LABS: LARGE PLATELETS PRESENT
[2017-05-15 23:08] LABS: ABG ALLEN TEST YES; ARTERIAL BLOOD GAS HCO3 24.9 mmol/L (21-28); ARTERIAL BLOOD GAS HEMOGLOBIN 10.8 g/dL (11.7-17.4); ARTERIAL BLOOD GAS PCO2 33 mm/Hg (35-45); ARTERIAL BLOOD GAS PH 7.46 (7.35-7.45); ARTERIAL BLOOD GAS PO2 61 mm/Hg (80-100); ARTERIAL BLOOD GAS TCO2 24.5 mmol/L (22-28)
[2017-05-16] MEDS: Albuterol-Ipratrop 3 mg / 0.5 (3 ml) UD INH SCH ×4 (01:08→19:36)
[2017-05-16] MEDS: Piperacill/Tazo 3.375gm in Dex 3.375 GM/50 ML BAG IVPB SCH ×4 (02:33→21:28)
--- NOTE | 2017-05-16 08:54 | RAD ---
HISTORY: Hemoptysis COMPARISON: 05/12/2017. FINDINGS: LUNGS: There is airspace disease in both lower lobes and worsening pulmonary venous congestion with interstitial pulmonary edema. PLEURA: Bilateral pleural effusions and fluid in the minor fissure. No pneumothorax apparent. CARDIOVASCULAR: Normal. OSSEOUS STRUCTURES: No significant abnormalities. VISUALIZED UPPER ABDOMEN: Normal. OTHER FINDINGS: None. IMPRESSION: Worsening congestive heart failure. Airspace disease in the lower lobes may represent pulmonary edema or consolidation. Follow-up to resolution is advised.
[2017-05-16] MEDS: Pantoprazole 20 mg EC Tab PO SCH (10:11)
[2017-05-16] MEDS: Nystatin 100,000 Units/ml Oral Susp 5 ml UD PO SCH ×4 (10:11→21:28)
[2017-05-16 11:30] LABS: BASO # 0.1 K/uL (0.0-0.2); BASO % 0.5 % (0.0-2.0); EOS # 0.2 K/uL (0.0-0.7); EOS % 1.7 % (0.0-4.0); HEMOGLOBIN 11.1 g/dL (12.0-18.0); LYMPH # 0.5 K/uL (1.0-4.3); LYMPH % 4.5 % (20.0-40.0); MEAN CELL VOLUME 91.5 fL (80.0-94.0); MEAN CORPUSCULAR HGB CONC 33.9 g/dL (33.0-37.0); MEAN PLATELET VOLUME 10.3 fL (7.2-11.7); MONO # 1.1 K/uL (0.0-0.8); MONO % 8.7 % (0.0-10.0); NEUT # 10.2 K/uL (1.8-7.0); NEUT % 84.6 % (50.0-75.0); NRBC % 0.1 % (0.0-2.0); PLATELET COUNT 59 K/uL (130-400); RBC 3.59 Mil/uL (4.40-5.90); RED CELL DISTRIBUTION WIDTH 16.5 % (11.5-14.5); WHITE BLOOD COUNT 12.1 K/uL (4.8-10.8)
[2017-05-16 11:51] LABS: ALB/GLOB RATIO 0.9 (1.0-2.1); ALBUMIN 2.2 g/dL (3.5-5.0); ALT/SGPT 31 U/L (21-72); AST/SGOT 41 U/L (17-59); BLOOD UREA NITROGEN 16 mg/dL (9-20); CALCIUM 7.2 mg/dl (8.6-10.4); GFR AFRICAN-AMERICAN > 60; GFR NON-AFRICAN AMERICAN > 60; MAGNESIUM 1.9 mg/dL (1.6-2.3)
[2017-05-16 11:59] LABS: BANDS 2 % (0-2); EOSINOPHIL 4 % (0-4); LYMPHOCYTE 5 % (20-40); MONOCYTE 6 % (0-10); NEUTROPHIL 83 % (50-75); PLATELET ESTIMATE DECREASED (NORMAL); TOTAL CELLS COUNTED 100
[2017-05-16 12:00] LABS: ANISOCYTOSIS SLIGHT; POIKILOCYTOSIS SLIGHT
[2017-05-16 12:01] LABS: SCHISTOCYTES SLIGHT
--- NOTE | 2017-05-16 14:20 | CP.PCM.PN ---
Subjective - Date & Time of Evaluation Date of Evaluation: 05/16/17 Time of Evaluation: 14:17 - Subjective Subjective: CHIEF COMPLAINTS TODAY : NO FURTHER DYSPHAGIA GEN WEAKNESS HAD SMALL HEMOPTYSIS ROS. HEENT : N. Resp : No cough, wheezing ,pleuritic CP ,or Cardio : No anginal CP, PND, orthopnea, palpitation GI : No abd.pain, n/v ,diarrhea or GI bleeding . 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 Musculoskel : No joint swelling , Derm : No rash Psych : Normal affect. Ext : No swelling ,calf pain PE. Pt. is alert awake in no distress. V.S As noted in the chart Head ,ear nose,throat and eyes : Normal. Neck : Supple with normal carotids. Lungs: RONCHI Heart : S1 & S2 normal with S4. No murmur. Abd : Soft non tender with normal bowel sounds. Neuro : Moves all ext. with no localized deficit. Ext : POS edema with intact pulses.Non tender calves Derm : No rashes or decubitus ulcer. LABS/RADIOLOGY: S/P IVC FILTER ASSESSMENT/PLAN : ON ELAQUIS ONE DOSE OF LASIX D/W PT AT LENGTH ABOUT HIS CONDITION PT CURRENTLY HAS AGREED ON MEHREEN Objective - Vital Signs/Intake and Output Vital Signs (last 24 hours): Temp Pulse Resp BP Pulse Ox 97.8 F 63 20 144/82 94 L 05/16/17 07:00 05/16/17 07:00 05/16/17 07:00 05/16/17 07:00 05/16/17 07:00 - Medications Medications: Current Medications Albuterol/Ipratropium (Duoneb 3 Mg/0.5 Mg (3 Ml) Ud) 3 ml INH RQ6 [facility] Last Admin: 05/16/17 13:48 Dose: 3 ml Apixaban (Eliquis) 5 mg PO BID [facility] Last Admin: 05/16/17 10:11 Dose: 5 mg Furosemide (Lasix) 20 mg IVP STAT [facility] Stop: 05/16/17 14:08 Piperacillin Sod/Tazobactam Sod (Zosyn 3.375 Gm Iv Premix) 3.375 gm in 50 mls @ 100 mls/hr IVPB Q6H [facility] Last Admin: 05/16/17 10:13 Dose: 100 mls/hr Lactulose (Enulose) 30 gm PO HS [facility] Last Admin: 05/15/17 22:21 Dose: 30 gm Nystatin (Nystatin Oral Susp) 5 ml PO QID [facility] Last Admin: 05/16/17 13:55 Dose: 5 ml Oxycodone/Acetaminophen (Percocet 5/325 Mg Tab) 1 tab PO Q4H PRN PRN Reason: Pain, moderate (4-7) Stop: 05/16/17 15:36 Last Admin: 05/14/17 21:20 Dose: 1 tab Pantoprazole Sodium (Protonix Ec Tab) 20 mg PO DAILY [facility] Last Admin: 05/16/17 10:11 Dose: 20 mg - Labs Labs: 05/16/17 11:19 05/16/17 11:19 PT 21.1 SECONDS (9.7-12.2) H 05/12/17 14:04 INR 1.8 05/12/17 14:04 APTT 67 SECONDS (21-34) H 05/12/17 14:04
[2017-05-17] MEDS: Albuterol-Ipratrop 3 mg / 0.5 (3 ml) UD INH SCH ×4 (01:48→19:45)
[2017-05-17] MEDS: Piperacill/Tazo 3.375gm in Dex 3.375 GM/50 ML BAG IVPB SCH ×4 (02:34→21:51)
[2017-05-17] MEDS: Pantoprazole 20 mg EC Tab PO SCH (09:47)
[2017-05-17] MEDS: Nystatin 100,000 Units/ml Oral Susp 5 ml UD PO SCH ×4 (09:47→21:50)
--- NOTE | 2017-05-17 14:06 | CP.PCM.PN ---
Subjective - Date & Time of Evaluation Date of Evaluation: 05/17/17 Time of Evaluation: 14:06 - Subjective Subjective: CHIEF COMPLAINTS TODAY : NO FURTHER DYSPHAGIA GEN WEAKNESS NO HEMOPTYSIS ROS. HEENT : N. Resp : No cough, wheezing ,pleuritic CP ,or Cardio : No anginal CP, PND, orthopnea, palpitation GI : No abd.pain, n/v ,diarrhea or GI bleeding . 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 Musculoskel : No joint swelling , Derm : No rash Psych : Normal affect. Ext : No swelling ,calf pain PE. Pt. is alert awake in no distress. V.S As noted in the chart Head ,ear nose,throat and eyes : Normal. Neck : Supple with normal carotids. Lungs: RONCHI Heart : S1 & S2 normal with S4. No murmur. Abd : Soft non tender with normal bowel sounds. Neuro : Moves all ext. with no localized deficit. Ext : POS edema with intact pulses.Non tender calves Derm : No rashes or decubitus ulcer. LABS/RADIOLOGY: S/P IVC FILTER ASSESSMENT/PLAN : ON ELAQUIS ONE DOSE OF LASIX D/W PT AT LENGTH ABOUT HIS CONDITION PT CURRENTLY HAS AGREED ON MEHREEN Objective - Vital Signs/Intake and Output Vital Signs (last 24 hours): Temp Pulse Resp BP Pulse Ox 97.5 F L 71 20 120/76 96 05/17/17 07:30 05/17/17 07:30 05/17/17 07:30 05/17/17 07:30 05/17/17 07:30 - Medications Medications: Current Medications Albuterol/Ipratropium (Duoneb 3 Mg/0.5 Mg (3 Ml) Ud) 3 ml INH RQ6 [facility] Last Admin: 05/17/17 08:15 Dose: 3 ml Apixaban (Eliquis) 5 mg PO BID [facility] Last Admin: 05/17/17 09:47 Dose: 5 mg Piperacillin Sod/Tazobactam Sod (Zosyn 3.375 Gm Iv Premix) 3.375 gm in 50 mls @ 100 mls/hr IVPB Q6H [facility] Last Admin: 05/17/17 09:51 Dose: 100 mls/hr Lactulose (Enulose) 30 gm PO HS [facility] Last Admin: 05/16/17 21:28 Dose: 30 gm Nystatin (Nystatin Oral Susp) 5 ml PO QID [facility] Last Admin: 05/17/17 09:50 Dose: Not Given Pantoprazole Sodium (Protonix Ec Tab) 20 mg PO DAILY [facility] Last Admin: 05/17/17 09:47 Dose: 20 mg - Labs Labs: 05/16/17 11:19 05/16/17 11:19 PT 21.1 SECONDS (9.7-12.2) H 05/12/17 14:04 INR 1.8 05/12/17 14:04 APTT 67 SECONDS (21-34) H 05/12/17 14:04
[2017-05-18] MEDS: Piperacill/Tazo 3.375gm in Dex 3.375 GM/50 ML BAG IVPB SCH ×4 (03:20→21:02)
[2017-05-18 08:31] LABS: HEMOGLOBIN 10.6 g/dL (12.0-18.0); MEAN CELL VOLUME 91.9 fL (80.0-94.0); MEAN CORPUSCULAR HEMOGLOBIN 31.4 pg (27.0-31.0); MEAN CORPUSCULAR HGB CONC 34.2 g/dL (33.0-37.0); RBC 3.36 Mil/uL (4.40-5.90); RED CELL DISTRIBUTION WIDTH 16.2 % (11.5-14.5)
[2017-05-18 09:02] LABS: BLOOD UREA NITROGEN 11 mg/dL (9-20); GFR AFRICAN-AMERICAN > 60; GFR NON-AFRICAN AMERICAN > 60
[2017-05-18] MEDS: Nystatin 100,000 Units/ml Oral Susp 5 ml UD PO SCH ×4 (09:23→21:51)
[2017-05-18] MEDS: Pantoprazole 20 mg EC Tab PO SCH (09:24)
--- NOTE | 2017-05-18 15:21 | CP.PCM.PN ---
Subjective - Date & Time of Evaluation Date of Evaluation: 05/18/17 Time of Evaluation: 15:21 - Subjective Subjective: CHIEF COMPLAINTS TODAY : NO FURTHER DYSPHAGIA GEN WEAKNESS NO HEMOPTYSIS ROS. HEENT : N. Resp : No cough, wheezing ,pleuritic CP ,or Cardio : No anginal CP, PND, orthopnea, palpitation GI : No abd.pain, n/v ,diarrhea or GI bleeding . 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 Musculoskel : No joint swelling , Derm : No rash Psych : Normal affect. Ext : No swelling ,calf pain PE. Pt. is alert awake in no distress. V.S As noted in the chart Head ,ear nose,throat and eyes : Normal. Neck : Supple with normal carotids. Lungs: RONCHI Heart : S1 & S2 normal with S4. No murmur. Abd : Soft non tender with normal bowel sounds. Neuro : Moves all ext. with no localized deficit. Ext : POS edema with intact pulses.Non tender calves Derm : No rashes or decubitus ulcer. LABS/RADIOLOGY: S/P IVC FILTER ASSESSMENT/PLAN : ON ELAQUIS ONE DOSE OF LASIX D/W PT AT LENGTH ABOUT HIS CONDITION PT CURRENTLY HAS AGREED ON MEHREEN Objective - Vital Signs/Intake and Output Vital Signs (last 24 hours): Temp Pulse Resp BP Pulse Ox 98.2 F 91 H 20 132/52 L 97 05/18/17 07:45 05/18/17 12:52 05/18/17 07:45 05/18/17 09:23 05/18/17 07:45 Intake and Output: 05/18/17 05/18/17 11:59 23:59 Intake Total 500 Balance 500 - Medications Medications: Current Medications Apixaban (Eliquis) 5 mg PO BID [facility] Last Admin: 05/18/17 09:23 Dose: 5 mg Furosemide (Lasix) 20 mg IVP DAILY [facility] Last Admin: 05/18/17 09:23 Dose: 20 mg Piperacillin Sod/Tazobactam Sod (Zosyn 3.375 Gm Iv Premix) 3.375 gm in 50 mls @ 100 mls/hr IVPB Q6H [facility] Last Admin: 05/18/17 14:31 Dose: 100 mls/hr Lactulose (Enulose) 30 gm PO HS [facility] Last Admin: 05/17/17 21:50 Dose: 30 gm Nystatin (Nystatin Oral Susp) 5 ml PO QID [facility] Last Admin: 05/18/17 14:31 Dose: 5 ml Pantoprazole Sodium (Protonix Ec Tab) 20 mg PO DAILY [facility] Last Admin: 05/18/17 09:24 Dose: 20 mg - Labs Labs: 05/18/17 08:22 05/18/17 08:22 PT 21.1 SECONDS (9.7-12.2) H 05/12/17 14:04 INR 1.8 05/12/17 14:04 APTT 67 SECONDS (21-34) H 05/12/17 14:04
[2017-05-18] MEDS ORDERED: Benzocaine/Menthol (Cepacol) Lozenge MT ONE (22:00)
[2017-05-18] MEDS ORDERED: Tramadol 25 mg PO ONE (22:17)
[2017-05-19] MEDS: Nystatin 100,000 Units/ml Oral Susp 5 ml UD PO SCH ×4 (09:51→22:04)
[2017-05-19] MEDS: Pantoprazole 20 mg EC Tab PO SCH (09:52)
--- NOTE | 2017-05-19 13:11 | CP.PCM.PN ---
Subjective - Date & Time of Evaluation Date of Evaluation: 05/19/17 Time of Evaluation: 13:10 - Subjective Subjective: CHIEF COMPLAINTS TODAY : NO FURTHER DYSPHAGIA GEN WEAKNESS NO HEMOPTYSIS ROS. HEENT : N. Resp : No cough, wheezing ,pleuritic CP ,or Cardio : No anginal CP, PND, orthopnea, palpitation GI : No abd.pain, n/v ,diarrhea or GI bleeding . 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 Musculoskel : No joint swelling , Derm : No rash Psych : Normal affect. Ext : No swelling ,calf pain PE. Pt. is alert awake in no distress. V.S As noted in the chart Head ,ear nose,throat and eyes : Normal. Neck : Supple with normal carotids. Lungs: RONCHI Heart : S1 & S2 normal with S4. No murmur. Abd : Soft non tender with normal bowel sounds. Neuro : Moves all ext. with no localized deficit. Ext : POS edema with intact pulses.Non tender calves Derm : No rashes or decubitus ulcer. LABS/RADIOLOGY: S/P IVC FILTER ASSESSMENT/PLAN : ON ELAQUIS ONE DOSE OF LASIX D/W PT AT LENGTH ABOUT HIS CONDITION PT CURRENTLY HAS AGREED ON MEHREEN EDEMA LEGS AND SCROTUM SUBSIDING Objective - Vital Signs/Intake and Output Vital Signs (last 24 hours): Temp Pulse Resp BP Pulse Ox 97.6 F 83 20 124/82 98 05/19/17 08:30 05/19/17 08:30 05/19/17 08:30 05/19/17 09:52 05/19/17 08:30 - Medications Medications: Current Medications Apixaban (Eliquis) 5 mg PO BID [facility] Last Admin: 05/19/17 09:52 Dose: 5 mg Furosemide (Lasix) 20 mg IVP DAILY [facility] Last Admin: 05/19/17 09:52 Dose: 20 mg Lactulose (Enulose) 30 gm PO HS [facility] Last Admin: 05/18/17 21:51 Dose: Not Given Nystatin (Nystatin Oral Susp) 5 ml PO QID [facility] Last Admin: 05/19/17 09:51 Dose: 5 ml Pantoprazole Sodium (Protonix Ec Tab) 20 mg PO DAILY [facility] Last Admin: 05/19/17 09:52 Dose: 20 mg - Labs Labs: 05/18/17 08:22 05/18/17 08:22 PT 21.1 SECONDS (9.7-12.2) H 05/12/17 14:04 INR 1.8 05/12/17 14:04 APTT 67 SECONDS (21-34) H 05/12/17 14:04
--- NOTE | 2017-05-20 06:39 | CP.PCM.PN ---
Subjective - Date & Time of Evaluation Date of Evaluation: 05/20/17 Time of Evaluation: 06:38 - Subjective Subjective: PATIENT SEEN. 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 Objective - Vital Signs/Intake and Output Vital Signs (last 24 hours): Temp Pulse Resp BP Pulse Ox 97.8 F 79 20 110/72 95 05/19/17 23:48 05/20/17 04:00 05/19/17 23:48 05/19/17 23:48 05/19/17 23:48 Intake and Output: 05/19/17 05/20/17 18:59 06:59 Intake Total 400 Balance 400 - Medications Medications: Current Medications Apixaban (Eliquis) 5 mg PO BID [facility] Last Admin: 05/19/17 18:55 Dose: 5 mg Furosemide (Lasix) 20 mg IVP DAILY [facility] Last Admin: 05/19/17 09:52 Dose: 20 mg Lactulose (Enulose) 30 gm PO HS [facility] Last Admin: 05/19/17 22:04 Dose: Not Given Nystatin (Nystatin Oral Susp) 5 ml PO QID [facility] Last Admin: 05/19/17 22:04 Dose: 5 ml Pantoprazole Sodium (Protonix Ec Tab) 20 mg PO DAILY [facility] Last Admin: 05/19/17 09:52 Dose: 20 mg - Labs Labs: 05/18/17 08:22 05/18/17 08:22 PT 21.1 SECONDS (9.7-12.2) H 05/12/17 14:04 INR 1.8 05/12/17 14:04 APTT 67 SECONDS (21-34) H 05/12/17 14:04
[2017-05-20 09:31] LABS: BASO # 0.1 K/uL (0.0-0.2); BASO % 0.8 % (0.0-2.0); EOS # 0.1 K/uL (0.0-0.7); EOS % 1.1 % (0.0-4.0); LYMPH # 0.5 K/uL (1.0-4.3); LYMPH % 5.7 % (20.0-40.0); MEAN CELL VOLUME 91.5 fL (80.0-94.0); MEAN CORPUSCULAR HEMOGLOBIN 31.3 pg (27.0-31.0); MEAN CORPUSCULAR HGB CONC 34.2 g/dL (33.0-37.0); MEAN PLATELET VOLUME 9.9 fL (7.2-11.7); MONO # 1.5 K/uL (0.0-0.8); MONO % 16.2 % (0.0-10.0); NEUT # 7.2 K/uL (1.8-7.0); NEUT % 76.2 % (50.0-75.0); NRBC % 0.1 % (0.0-2.0); PLATELET COUNT 150 K/uL (130-400); RBC 3.83 Mil/uL (4.40-5.90); RED CELL DISTRIBUTION WIDTH 16.7 % (11.5-14.5); WHITE BLOOD COUNT 9.4 K/uL (4.8-10.8)
[2017-05-20 09:40] LABS: ALB/GLOB RATIO 0.9 (1.0-2.1); ALBUMIN 2.3 g/dL (3.5-5.0); ALT/SGPT 34 U/L (21-72); AST/SGOT 39 U/L (17-59); BLOOD UREA NITROGEN 17 mg/dL (9-20); CALCIUM 6.9 mg/dl (8.6-10.4); GFR AFRICAN-AMERICAN > 60; GFR NON-AFRICAN AMERICAN > 60
[2017-05-20] MEDS: Pantoprazole 20 mg EC Tab PO SCH (09:58)
[2017-05-20] MEDS: Nystatin 100,000 Units/ml Oral Susp 5 ml UD PO SCH ×3 (09:58→17:13)
[2017-05-20 11:10] LABS: ANISOCYTOSIS SLIGHT; BANDS 2 % (0-2); EOSINOPHIL 1 % (0-4); LARGE PLATELETS PRESENT; LYMPHOCYTE 7 % (20-40); MONOCYTE 14 % (0-10); NEUTROPHIL 76 % (50-75); PLATELET ESTIMATE NORMAL (NORMAL); TARGET CELLS SLIGHT; TOTAL CELLS COUNTED 100
--- NOTE | 2017-05-20 12:01 | CP.PCM.PN ---
Subjective - Date & Time of Evaluation Date of Evaluation: 05/20/17 Time of Evaluation: 12:00 - Subjective Subjective: CHIEF COMPLAINTS TODAY : NO FURTHER DYSPHAGIA GEN WEAKNESS NO HEMOPTYSIS ROS. HEENT : N. Resp : No cough, wheezing ,pleuritic CP ,or Cardio : No anginal CP, PND, orthopnea, palpitation GI : No abd.pain, n/v ,diarrhea or GI bleeding . 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 Musculoskel : No joint swelling , Derm : No rash Psych : Normal affect. Ext : No swelling ,calf pain PE. Pt. is alert awake in no distress. V.S As noted in the chart Head ,ear nose,throat and eyes : Normal. Neck : Supple with normal carotids. Lungs: RONCHI Heart : S1 & S2 normal with S4. No murmur. Abd : Soft non tender with normal bowel sounds. Neuro : Moves all ext. with no localized deficit. Ext : POS edema with intact pulses.Non tender calves Derm : No rashes or decubitus ulcer. LABS/RADIOLOGY: S/P IVC FILTER ASSESSMENT/PLAN : ON ELAQUIS ONE DOSE OF LASIX D/W PT AT LENGTH ABOUT HIS CONDITION PT CURRENTLY HAS AGREED ON MEHREEN EDEMA LEGS AND SCROTUM SUBSIDING Objective - Vital Signs/Intake and Output Vital Signs (last 24 hours): Temp Pulse Resp BP Pulse Ox 97.2 F L 90 20 125/76 95 05/20/17 07:05 05/20/17 07:05 05/20/17 07:05 05/20/17 09:58 05/20/17 07:05 Intake and Output: 05/20/17 05/20/17 11:59 23:59 Intake Total 50 Output Total 300 Balance -250 - Medications Medications: Current Medications Apixaban (Eliquis) 5 mg PO BID [facility] Last Admin: 05/20/17 09:58 Dose: 5 mg Furosemide (Lasix) 20 mg IVP DAILY [facility] Last Admin: 05/20/17 09:58 Dose: 20 mg Lactulose (Enulose) 30 gm PO HS [facility] Last Admin: 05/19/17 22:04 Dose: Not Given Nystatin (Nystatin Oral Susp) 5 ml PO QID [facility] Last Admin: 05/20/17 09:58 Dose: 5 ml Pantoprazole Sodium (Protonix Ec Tab) 20 mg PO DAILY [facility] Last Admin: 05/20/17 09:58 Dose: 20 mg - Labs Labs: 05/20/17 09:05 05/20/17 09:05 PT 21.1 SECONDS (9.7-12.2) H 05/12/17 14:04 INR 1.8 05/12/17 14:04 APTT 67 SECONDS (21-34) H 05/12/17 14:04
[2017-05-20] MEDS ORDERED: Potassium Chloride 20 mEq ER Tab PO ONE (14:30)
[2017-05-20 16:00] VITALS: BP 113/77; TEMP 98.1; O2SAT 96
--- NOTE | 2017-05-20 16:08 | CP.PCM.PN ---
Subjective - Date & Time of Evaluation Date of Evaluation: 05/20/17 Time of Evaluation: 16:08 - Subjective Subjective: PATIENT IS ADMITTED FOR PNEUMONIA, PULMONARY EMBOLISM, CHF AND PLEURAL EFFUSION AAOX3 ON ROOM AIR, DENIES CHEST PAIN, SOB OR PALPITATION COMPLAINING NOT PASSING HIS BM FOR 3 DAYS NO SIGN OF DISTRESS NOTED Objective - Vital Signs/Intake and Output Vital Signs (last 24 hours): Temp Pulse Resp BP Pulse Ox 98.1 F 87 20 113/77 96 05/20/17 15:59 05/20/17 15:59 05/20/17 15:59 05/20/17 15:59 05/20/17 15:59 Intake and Output: 05/20/17 05/20/17 06:59 18:59 Intake Total 50 Output Total 300 Balance -250 - Medications Medications: Current Medications Apixaban (Eliquis) 5 mg PO BID [facility] Last Admin: 05/20/17 09:58 Dose: 5 mg Furosemide (Lasix) 20 mg IVP DAILY [facility] Last Admin: 05/20/17 09:58 Dose: 20 mg Lactulose (Enulose) 30 gm PO HS [facility] Last Admin: 05/19/17 22:04 Dose: Not Given Nystatin (Nystatin Oral Susp) 5 ml PO QID [facility] Last Admin: 05/20/17 14:50 Dose: 5 ml Pantoprazole Sodium (Protonix Ec Tab) 20 mg PO DAILY [facility] Last Admin: 05/20/17 09:58 Dose: 20 mg - Labs Labs: 05/20/17 09:05 05/20/17 09:05 PT 21.1 SECONDS (9.7-12.2) H 05/12/17 14:04 INR 1.8 05/12/17 14:04 APTT 67 SECONDS (21-34) H 05/12/17 14:04 Assessment and Plan - Assessment and Plan (Free Text) Assessment: PATIENT IS SEEN AND EXAMINED AT THE BEDSIDE POSITIVE FOR PE ELIQUIS DOSAGE WAS STARTED PER [facility] WAS DONE AND PATIENT REFUSE TO GO AT THIS TIME DISCUSS WITH DR COOK WHO CLEAR FOR MEHREEN PER PATIENT REQUEST PLACE UNDER THE SERVICE OF DR COOK WHILE IN [facility] --CALL UPON ARRIVAL FOR ADMITTING ORDERS AND BED ASSIGNMENT FOLLOW UP WITH DR LAGUERRE FOR OUT PATIENT F/U ONCOLOGIST CONTINUE ALL YOUR HOME MEDICATION DIRECTED NEW PRESCRIPTION GIVEN : COLACE 100 MG BY MOUTH TWICE A DAY FOR CNSTIPATION ELIQUIS 5 MG BY MOUTH TWICE A DAY ACTIVITY TOLERATED CALL DR COOK OR GO TO THE EMERGENCY ROOM IF SYMPTOMS RETURN OR WORSENING DISCUSS WITH PATIENT WHO AGREE AND VERBALIZED UNDERSTANDING
[2017-05-21 00:40] VITALS: PULSE 99
== END 2017-05-20 22:27 | DRG 166 ==
LOC: C.ER 12:54 → C.9E 20:23 → C.5S 05-13 13:26
PROVIDERS: ADMIT Internal Medicine Cardiovascular Disease; ATTEND Internal Medicine Cardiovascular Disease
PROC: 06H03DZ Insertion of Intraluminal Device into Inferior Vena Cava, Percutaneous Approach (ICD-10-PCS; principal; 2017-05-12)
PROC: 5A09457 Assistance with Respiratory Ventilation, 24-96 Consecutive Hours, Continuous Positive Airway Pressure (ICD-10-PCS; 2017-05-12)
DX: I26.99 Other pulmonary embolism without acute cor pulmonale (principal); J18.9 Pneumonia, unspecified organism; D69.3 Immune thrombocytopenic purpura; C25.7 Malignant neoplasm of other parts of pancreas; C78.7 Secondary malignant neoplasm of liver and intrahepatic bile duct; C78.00 Secondary malignant neoplasm of unspecified lung; I82.409 Acute embolism and thrombosis of unspecified deep veins of unspecified lower extremity; C79.51 Secondary malignant neoplasm of bone; J44.0 Chronic obstructive pulmonary disease with (acute) lower respiratory infection; J98.11 Atelectasis; I50.9 Heart failure, unspecified; E78.00 Pure hypercholesterolemia, unspecified; M81.0 Age-related osteoporosis without current pathological fracture; Z87.891 Personal history of nicotine dependence; D69.6 Thrombocytopenia, unspecified; R32 Unspecified urinary incontinence; Z51.5 Encounter for palliative care

== ENCOUNTER 2017-05-26 17:17 | Inpatient (IN) | payer MEDICARE, BC ==
[2017-05-26 17:28] VITALS: BMI 53.8
[2017-05-26] MEDS ORDERED: Albuterol-Ipratrop 3 mg / 0.5 (3 ml) UD INH STA (17:33)
[2017-05-26 17:42] LABS: BASO % 0.1 % (0.0-2.0); EOS % 0.1 % (0.0-4.0); MEAN CORPUSCULAR HGB CONC 32.9 g/dL (33.0-37.0)
--- NOTE | 2017-05-26 17:44 | C.PDOC ---
History Of Present Illness 81 y/o male, referred by [facility], presents to the ER complaining of shortness of breath. Patient states that has a recent change in his medical status. He was diagnosed with pneumonia and PE . He was also diagnosed with metastatic prostate cancer on May. Patient states that he has been [facility] since his cancer diagnosis. Time Seen by Provider: 05/26/17 17:22 Chief Complaint (Nursing): Respiratory Distress History Per: Patient History/Exam Limitations: no limitations Onset/Duration Of Symptoms: Days Current Symptoms Are (Timing): Still Present Past Medical History Reviewed: Historical Data, Nursing Documentation, Vital Signs Vital Signs: Last Vital Signs Temp 97.7 F 05/26/17 17:25 Pulse 101 H 05/26/17 19:03 Resp 26 H 05/26/17 19:03 BP 108/66 05/26/17 19:03 Pulse Ox 97 05/26/17 19:16 - Medical History PMH: Arthritis, Benign Prostatic Hyperplasia, CHF, COPD, Hypercholesterolemia, Osteoporosis Denies: Chronic Kidney Disease Surgical History: No Surg Hx - [facility] Procedures ASSISTANCE WITH RESPIRATORY VENTILATION, 24-96 HRS, CPAP (05/12/17) ENDOSC POLYPECTOMY OF LG INTEST (04/05/14) EXCISION OF ASCENDING COLON, ENDO, DIAGN (04/24/17) EXCISION OF RIGHT LOBE LIVER, PERCUTANEOUS APPROACH, DIAGN (04/24/17) EXCISION OF STOMACH, ENDO, DIAGN (04/24/17) INSERTION OF INTRALUM DEV INTO INF VENA CAVA, PERC APPROACH (05/12/17) INSPECTION OF LOWER INTESTINAL TRACT, ENDO (04/24/17) Family History: States: No Known Family Hx - Social History Hx Alcohol Use: No Hx Substance Use: No - Immunization History Hx Tetanus Toxoid Vaccination: No Hx Influenza Vaccination: Yes (2017) Hx Pneumococcal Vaccination: No Review Of Systems Except As Marked, All Systems Reviewed And Found Negative. Constitutional: Negative for: Fever, Chills Respiratory: Positive for: Shortness of Breath. Negative for: Cough Neurological: Negative for: Weakness, Numbness Physical Exam - Physical Exam Appears: Non-toxic, No Acute Distress, Other (thin, easily arousable) Skin: Normal Color, Warm Head: Atraumatic, Normacephalic Eye(s): bilateral: Normal Inspection, PERRL Nose: Normal Oral Mucosa: Moist Neck: Supple Chest: Symmetrical Cardiovascular: Rhythm Regular Respiratory: Normal Breath Sounds, No Accessory Muscle Use, No Rales, No Rhonchi , Wheezing (mild expiratory wheezing) Extremity: Normal ROM Neurological/Psych: Oriented x3, Normal Speech, Normal Cognition, Normal Motor, Normal Sensation ED Course And Treatment - Laboratory Results Result Diagrams: 05/26/17 17:39 05/26/17 17:37 ECG: Interpreted By Me ECG Rhythm: Sinus Tachycardia ECG Interpretation: Abnormal Rate From EC O2 Sat by Pulse Oximetry: 97 (RA) Pulse Ox Interpretation: Normal - Radiology CXR: Interpreted by Me CXR Interpretation: Yes: Infiltrates (+RLL) Progress Note: NS, solumedrol, duonebs Reevaluation Time: 19:29 Reassessment Condition: Improved - Physician Consult Information Outcome Of Conversation: 1899: d/w Dr. Olson- PMD- ok to Tele Adm, no ICU, pt is DNR. 1929: d/w family, Daugher @ bedside, dx's and prognosis reviewed- agree with DNR Medical Decision Making Medical Decision Making: widely metastatic prostate CA, DNR per pt and PMD PNA/COPD leukocytosis 22K RLL area very congested Vanco/Zosyn for hospital acquired continue nebs PE: Already on Eliquis 5 mg BID Defer repeat CT scan today for known dx Continue anticoagulation hyponatremia/SIADH continue treatment after initial fluid recussitation- appears dry on exam. Dr. Us- Renal Consult per Dr. Olson to consult scrotal hernia "new" per hernia non-tender consider surgical consult, though no s/s of incarceration/strangulation and pt is a poor surgical candidate Disposition Doctor Will See Patient In The: Hospital Counseled Patient/Family Regarding: Studies Performed, Diagnosis - Disposition Disposition: HOSPITALIZED Disposition Time: 19:15 Condition: FAIR - Clinical Impression Clinical Impression: COPD exacerbation, Pneumonia, Metastatic cancer, Pulmonary emboli, Scrotal hernia - Scribe Statement The provider has reviewed the documentation as recorded by the Jodie Burgos Provider Attestation: All medical record entries made by the Jodie were at my direction and personally dictated by me. I have reviewed the chart and agree that the record accurately reflects my personal performance of the history, physical exam, medical decision making, and the department course for this patient. I have also personally directed, reviewed, and agree with the discharge instructions and disposition.
[2017-05-26 17:48] LABS: HEMOGLOBIN 12.1 g/dL (12.0-18.0); LYMPH # 0.7 K/uL (1.0-4.3); MEAN CELL VOLUME 91.3 fL (80.0-94.0); MONO # 3.1 K/uL (0.0-0.8); MONO % 13.9 % (0.0-10.0); NEUT # 18.3 K/uL (1.8-7.0); NEUT % 82.9 % (50.0-75.0); NRBC % 0.1 % (0.0-2.0); PLATELET COUNT 216 K/uL (130-400); RBC 4.04 Mil/uL (4.40-5.90); RED CELL DISTRIBUTION WIDTH 17.3 % (11.5-14.5)
[2017-05-26] MEDS ORDERED: Albuterol-Ipratrop 3 mg / 0.5 (3 ml) UD ONE (17:54)
[2017-05-26 18:01] LABS: ABG ALLEN TEST YES; ARTERIAL BLOOD GAS HCO3 24.8 mmol/L (21-28); ARTERIAL BLOOD GAS O2 SAT 98.5 % (95-98); ARTERIAL BLOOD GAS PCO2 29 mm/Hg (35-45); ARTERIAL BLOOD GAS PH 7.49 (7.35-7.45); ARTERIAL BLOOD GAS PO2 106 mm/Hg (80-100)
[2017-05-26 18:04] LABS: ALB/GLOB RATIO 0.8 (1.0-2.1); ALBUMIN 2.8 g/dL (3.5-5.0); ALT/SGPT 9 U/L (21-72); AST/SGOT 138 U/L (17-59); BLOOD UREA NITROGEN 46 mg/dL (9-20); CALCIUM 7.3 mg/dl (8.6-10.4); GFR AFRICAN-AMERICAN > 60; GFR NON-AFRICAN AMERICAN > 60
[2017-05-26 18:09] LABS: NEUTROPHIL 88 % (50-75); TOTAL CELLS COUNTED 100
[2017-05-26 18:10] LABS: B-TYPE NATRIURETIC PEPTIDE 2270 pg/mL (0-900)
[2017-05-26 18:10] LABS: LYMPHOCYTE 2 % (20-40); MONOCYTE 10 % (0-10); PLATELET ESTIMATE NORMAL (NORMAL)
[2017-05-26] MEDS ORDERED: Sodium Chloride 0.9% 1,000 ML IV ONE (18:50)
[2017-05-26] MEDS ORDERED: Piperacillin/Tazobact 3.375 gm 100 ML IV STA ×2 (18:51→18:58)
[2017-05-26] MEDS ORDERED: Vancomycin 1 GM 1 GM/250 ML BAG IV STA (18:51)
[2017-05-26] MEDS ORDERED: Vancomycin 1 GM 1 GM/250 ML BAG IV SCH (19:00)
[2017-05-26] MEDS ORDERED: TAZOBACT IV STA (19:15)
[2017-05-26] MEDS ORDERED: Vancomycin 1 gm/NS 200 ml 1 GM/200 ML BAG IVPB STA (19:15)
[2017-05-26] MEDS ORDERED: PIPERACILLIN IV STA (19:15)
[2017-05-26 19:23] LABS: URINE BACTERIA OCC (<OCC); URINE BILIRUBIN NEGATIVE (NEGATIVE); URINE BLOOD NEGATIVE (NEGATIVE); URINE CLARITY Clear (Clear); URINE COLOR Yellow (YELLOW); URINE GLUCOSE (UA) 1+ mg/dL (Normal); URINE LEUKOCYTE ESTERASE NEG Leu/uL (Negative); URINE NITRATE NEGATIVE (NEGATIVE); URINE PROTEIN NEGATIVE (NEGATIVE); URINE UROBILINOGEN NORMAL mg/dL (0.2-1.0)
[2017-05-26 22:03] LABS: VENOUS BLOOD GAS BASE EXCESS -7.2 mmol/L (0.0-2.0); VENOUS BLOOD GAS PCO2 44 mmHg (40-60); VENOUS BLOOD GAS PO2 22 mm/Hg (30-55); VENOUS BLOOD PH 7.26 (7.32-7.43)
[2017-05-26] MEDS ORDERED: Sodium Chloride 3% 500 ML IV SCH (23:15)
[2017-05-27 00:09] LABS: BLOOD UREA NITROGEN 45 mg/dL (9-20); CALCIUM 7.1 mg/dl (8.6-10.4); GFR AFRICAN-AMERICAN > 60; GFR NON-AFRICAN AMERICAN 53
[2017-05-27 00:24] LABS: OSMOLALITY,URINE 628 mosm/kg (300-1000)
[2017-05-27 01:19] LABS: VENOUS BLOOD GAS BASE EXCESS -4.3 mmol/L (0.0-2.0); VENOUS BLOOD GAS PCO2 42 mmHg (40-60); VENOUS BLOOD GAS PO2 32 mm/Hg (30-55); VENOUS BLOOD PH 7.32 (7.32-7.43)
[2017-05-27] MEDS: MethylPREDNISolone 40 mg Vial IVP SCH ×2 (02:53→10:00)
[2017-05-27] MEDS ORDERED: MethylPREDNISolone 40 mg Vial ONE (02:53)
[2017-05-27 03:05] LABS: BLOOD UREA NITROGEN 47 mg/dL (9-20); GFR AFRICAN-AMERICAN > 60; GFR NON-AFRICAN AMERICAN 58
--- NOTE | 2017-05-27 03:15 | CP.PCM.CON ---
History of Present Illness - History of Present Illness History of Present Illness: 81 y/o male with h/o metastatic Carcinoma , referred by [facility] care for shortness of breath. 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 has liver,lung and bone metastases Past Patient History - Infectious Disease Hx of Infectious Diseases: None - Past Medical History & Family History Past Medical History?: Yes - Past Social History Smoking Status: Former Smoker Home Situation {Lives}: [facility] - CARDIAC Hx Congestive Heart Failure: Yes Hx Hypercholesterolemia: Yes - PULMONARY Hx Chronic Obstructive Pulmonary Disease (COPD): Yes - NEUROLOGICAL Hx Neurological Disorder: No - HEENT Hx HEENT Problems: Yes (WEARS GLASSES FOR READING) - RENAL Hx Chronic Kidney Disease: No - ENDOCRINE/METABOLIC Hx Endocrine Disorders: No - HEMATOLOGICAL/ONCOLOGICAL 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 , bone, and liver) - INTEGUMENTARY Hx Dermatological Problems: No - MUSCULOSKELETAL/RHEUMATOLOGICAL Hx Arthritis: Yes Hx Osteoporosis: Yes - GASTROINTESTINAL Hx Gastrointestinal Disorders: No - GENITOURINARY/GYNECOLOGICAL Hx Genitourinary Disorders: Yes Hx Prostate Problems: Yes (BPH) - PSYCHIATRIC Hx Substance Use: No - SURGICAL HISTORY Hx Surgeries: Yes (PROSTATE SURGERY) Other/Comment: recent liver biopy - ANESTHESIA Hx Anesthesia: Yes Hx Anesthesia Reactions: No Hx Malignant Hyperthermia: No Meds Allergies/Adverse Reactions: Allergies Allergy/AdvReac Type Severity Reaction Status Date / Time No Known Allergies Allergy Verified 05/26/17 17:29 - Medications Medications: Current Medications Sodium Chloride (Hypertonic Saline 3%) 500 mls @ 10 mls/hr IV .Q24H [facility] Last Admin: 05/27/17 00:21 Dose: 10 mls/hr Lorazepam (Ativan) 1 mg IVP Q4H PRN PRN Reason: Anxiety Last Admin: 05/27/17 01:00 Dose: 1 mg Methylprednisolone (Solu-Medrol) 40 mg IVP Q8H [facility] Last Admin: 05/27/17 02:53 Dose: 40 mg Physical Exam - Constitutional Appears: In Acute Distress, Cachectic, Chronically Ill - Head Exam Head Exam: ATRAUMATIC, NORMAL INSPECTION, NORMOCEPHALIC - Eye Exam Eye Exam: Normal appearance, PERRL - ENT Exam ENT Exam: Mucous Membranes Dry - Neck Exam Neck exam: Positive for: Normal Inspection - Respiratory Exam Respiratory Exam: Decreased Breath Sounds, Respiratory Distress - Cardiovascular Exam Cardiovascular Exam: Tachycardia - GI/Abdominal Exam GI & Abdominal Exam: Mass, Normal Bowel Sounds, Soft - Extremities Exam Extremities exam: Positive for: pedal edema - Neurological Exam Neurological exam: Altered - Skin Skin Exam: Dry, Warm Results - Vital Signs Recent Vital Signs: Last Vital Signs Temp 98 F 05/26/17 22:28 Pulse 60 05/27/17 02:23 Resp 18 05/27/17 02:23 BP 117/49 L 05/27/17 02:23 Pulse Ox 93 L 05/27/17 02:23 - Labs Result Diagrams: 05/26/17 17:39 05/27/17 02:51 Labs: Laboratory Results - last 24 hr 05/26/17 05/26/17 05/26/17 17:23 17:37 17:37 WBC RBC Hgb Hct MCV MCH MCHC RDW Plt Count MPV Neut % (Auto) Lymph % (Auto) Hendry % (Auto) Eos % (Auto) Baso % (Auto) Neut # Lymph # Hendry # Eos # Baso # Neutrophils % (Manual) Lymphocytes % (Manual) Monocytes % (Manual) Platelet Estimate D-Dimer, Quantitative 4888 H Puncture Site pCO2 pO2 HCO3 ABG pH ABG Total CO2 ABG O2 Saturation ABG Base Excess Arthur Test ABG Potassium VBG pH VBG pCO2 VBG HCO3 VBG Total CO2 VBG O2 Sat (Calc) VBG Base Excess VBG Potassium A-a O2 Difference Respiratory Index Glucose Lactate FiO2 Crit Value Called To Crit Value Called By Crit Value Read Back Blood Gas Notified Time Sodium 118 L* Potassium 6.4 H* D Chloride 90 L Carbon Dioxide 20 L Anion Gap 15 BUN 46 H Creatinine 1.0 Est GFR ( Amer) > 60 Est GFR (Non-Af Amer) > 60 Random Glucose 123 H Serum Osmolality Calcium 7.3 L Total Bilirubin 2.1 H AST 138 H D ALT 9 L D Alkaline Phosphatase 555 H D Troponin I 0.0310 NT-Pro-B Natriuret Pep 2270 H Total Protein 6.1 L Albumin 2.8 L D Globulin 3.3 Albumin/Globulin Ratio 0.8 L Arterial Blood Potassium Venous Blood Potassium Urine Color Urine Clarity Urine pH Ur Specific Abernathy Urine Protein Urine Glucose (UA) Urine Ketones Urine Blood Urine Nitrate Urine Bilirubin Urine Urobilinogen Ur Leukocyte Esterase Urine WBC (Auto) Urine RBC (Auto) Urine Bacteria Urine Osmolality Ur Random Sodium Influenza Typ A,B (EIA) Negative for flu a/b 05/26/17 05/26/17 05/26/17 17:39 17:50 19:14 WBC 22.0 H D RBC 4.04 L Hgb 12.1 Hct 36.9 MCV 91.3 MCH 30.0 MCHC 32.9 L RDW 17.3 H Plt Count 216 MPV 10.0 Neut % (Auto) 82.9 H Lymph % (Auto) 3.0 L Hendry % (Auto) 13.9 H Eos % (Auto) 0.1 Baso % (Auto) 0.1 Neut # 18.3 H Lymph # 0.7 L Hendry # 3.1 H Eos # 0.0 Baso # 0.0 Neutrophils % (Manual) 88 H Lymphocytes % (Manual) 2 L Monocytes % (Manual) 10 Platelet Estimate Normal D-Dimer, Quantitative Puncture Site Lba pCO2 29 L pO2 106 H HCO3 24.8 ABG pH 7.49 H ABG Total CO2 23.0 ABG O2 Saturation 98.5 H ABG Base Excess -0.2 Arthur Test Yes ABG Potassium 5.0 VBG pH VBG pCO2 VBG HCO3 VBG Total CO2 VBG O2 Sat (Calc) VBG Base Excess VBG Potassium A-a O2 Difference 571.0 Respiratory Index 5.4 Glucose 129 H Lactate 3.6 H FiO2 100.0 Crit Value Called To Crit Value Called By Crit Value Read Back Blood Gas Notified Time Sodium 127.0 L Potassium Chloride 96.0 L Carbon Dioxide Anion Gap BUN Creatinine Est GFR ( Amer) Est GFR (Non-Af Amer) Random Glucose Serum Osmolality Calcium Total Bilirubin AST ALT Alkaline Phosphatase Troponin I NT-Pro-B Natriuret Pep Total Protein Albumin Globulin Albumin/Globulin Ratio Arterial Blood Potassium 5.0 Venous Blood Potassium Urine Color Yellow Urine Clarity Clear Urine pH 5.0 Ur Specific Aber[place]athy 1.019 Urine Protein Negative Urine Glucose (UA) 1+ H Urine Ketones Negative Urine Blood Negative Urine Nitrate Negative Urine Bilirubin Negative Urine Urobilinogen Normal Ur Leukocyte Esterase Neg Urine WBC (Auto) 1 Urine RBC (Auto) < 1 Urine Bacteria Occ H Urine Osmolality Ur Random Sodium Influenza Typ A,B (EIA) 05/26/17 05/26/17 05/26/17 21:58 23:54 23:54 WBC RBC Hgb Hct MCV MCH MCHC RDW Plt Count MPV Neut % (Auto) Lymph % (Auto) Hendry % (Auto) Eos % (Auto) Baso % (Auto) Neut # Lymph # Hendry # Eos # Baso # Neutrophils % (Manual) Lymphocytes % (Manual) Monocytes % (Manual) Platelet Estimate D-Dimer, Quantitative Puncture Site pCO2 pO2 22 L HCO3 ABG pH ABG Total CO2 ABG O2 Saturation ABG Base Excess Arthur Test ABG Potassium VBG pH 7.26 L VBG pCO2 44 VBG HCO3 17.4 VBG Total CO2 21.1 L VBG O2 Sat (Calc) 34.6 L VBG Base Excess -7.2 L VBG Potassium 4.9 A-a O2 Difference Respiratory Index Glucose 166 H Lactate 8.1 H* FiO2 Crit Value Called To Crit Value Called By sridevi García Crit Value Read Back Y Blood Gas Notified Time 2201 Sodium 133.0 122 L Potassium 5.2 Chloride 100.0 92 L Carbon Dioxide 20 L Anion Gap 16 BUN 45 H Creatinine 1.3 Est GFR ( Amer) > 60 Est GFR (Non-Af Amer) 53 Random Glucose 171 H Serum Osmolality 296 Calcium 7.1 L Total Bilirubin AST ALT Alkaline Phosphatase Troponin I NT-Pro-B Natriuret Pep Total Protein Albumin Globulin Albumin/Globulin Ratio Arterial Blood Potassium Venous Blood Potassium 4.9 Urine Color Urine Clarity Urine pH Ur Specific [place] Urine Protein Urine Glucose (UA) Urine Ketones Urine Blood Urine Nitrate Urine Bilirubin Urine Urobilinogen Ur Leukocyte Esterase Urine WBC (Auto) Urine RBC (Auto) Urine Bacteria Urine Osmolality Ur Random Sodium Influenza Typ A,B (EIA) 05/27/17 05/27/17 05/27/17 00:12 01:16 02:51 WBC RBC Hgb Hct MCV MCH MCHC RDW Plt Count MPV Neut % (Auto) Lymph % (Auto) Hendry % (Auto) Eos % (Auto) Baso % (Auto) Neut # Lymph # Hendry # Eos # Baso # Neutrophils % (Manual) Lymphocytes % (Manual) Monocytes % (Manual) Platelet Estimate D-Dimer, Quantitative Puncture Site pCO2 pO2 32 HCO3 ABG pH ABG Total CO2 ABG O2 Saturation ABG Base Excess Arthur Test ABG Potassium VBG pH 7.32 VBG pCO2 42 VBG HCO3 20.4 VBG Total CO2 22.9 VBG O2 Sat (Calc) 62.8 VBG Base Excess -4.3 L VBG Potassium 5.3 H A-a O2 Difference Respiratory Index Glucose 187 H Lactate 6.9 H* FiO2 Crit Value Called To Crit Value Called By sridevi García Crit Value Read Back Y Blood Gas Notified Time 119 Sodium 131.0 L 124 L Potassium 6.1 H Chloride 98.0 95 L Carbon Dioxide 19 L Anion Gap 17 BUN 47 H Creatinine 1.2 Est GFR ( Amer) > 60 Est GFR (Non-Af Amer) 58 Random Glucose 181 H Serum Osmolality Calcium 7.0 L Total Bilirubin AST ALT Alkaline Phosphatase Troponin I NT-Pro-B Natriuret Pep Total Protein Albumin Globulin Albumin/Globulin Ratio Arterial Blood Potassium Venous Blood Potassium 5.3 H Urine Color Urine Clarity Urine pH Ur Specific [place] Urine Protein Urine Glucose (UA) Urine Ketones Urine Blood Urine Nitrate Urine Bilirubin Urine Urobilinogen Ur Leukocyte Esterase Urine WBC (Auto) Urine RBC (Auto) Urine Bacteria Urine Osmolality 628 Ur Random Sodium 21 Influenza Typ A,B (EIA) - EKG Data EKG Interpreted by: Myself - Imaging and Cardiology Chest x-ray Status: Image reviewed by me Assessment & Plan - Assessment and Plan (Free Text) Assessment: 81 y/o male with metastatic malignancy admitted with shortness of breath and hyponatremia.Being admitted to ICU for #5 sodium chloride infusion 1.Pneumonia/COPD with leucocytosis-on IV antibiotics,O2 2.Metastatic malignancy DNR status 3.Recent PE s/p IVC filter 4.Hyponatremia on 3% sodium chloride 5.Hyperkalemia-kayexalate rpt potassium Overall prognosis poor
[2017-05-27] MEDS ORDERED: Sod Polystyrene Sulf 15 gm/60 ml Susp NG ONE (03:32)
[2017-05-27] MEDS ORDERED: Sod Polystyrene Sulf 15 gm/60 ml Susp PR ONE (04:09)
[2017-05-27] MEDS ORDERED: Sod Polystyrene Sulf 15 gm/60 ml Susp ONE (05:33)
[2017-05-27 05:52] LABS: VENOUS BLOOD GAS BASE EXCESS 0.5 mmol/L (0.0-2.0); VENOUS BLOOD GAS PCO2 50 mmHg (40-60); VENOUS BLOOD GAS PO2 14 mm/Hg (30-55); VENOUS BLOOD PH 7.34 (7.32-7.43)
[2017-05-27 06:19] LABS: BLOOD UREA NITROGEN 48 mg/dL (9-20); GFR AFRICAN-AMERICAN > 60; GFR NON-AFRICAN AMERICAN 53
[2017-05-27 07:24] LABS: VENOUS BLOOD GAS PCO2 42 mmHg (40-60); VENOUS BLOOD GAS PO2 32 mm/Hg (30-55); VENOUS BLOOD PH 7.34 (7.32-7.43)
--- NOTE | 2017-05-27 08:26 | RAD ---
PROCEDURE: CHEST RADIOGRAPH, 1 VIEW HISTORY: Shortness of breath COMPARISON: 05/12/2017. FINDINGS: LUNGS: There is bilateral lower lobe airspace disease. PLEURA: No pneumothorax. Moderate right and small left pleural effusions. CARDIOVASCULAR: Normal. OSSEOUS STRUCTURES: No significant abnormalities. VISUALIZED UPPER ABDOMEN: Normal. OTHER FINDINGS: None. IMPRESSION: Moderate right and small left pleural effusions and bilateral lower lobe airspace disease which may represent atelectasis or pneumonia. Follow-up is advised.
--- NOTE | 2017-05-27 10:49 | CP.PCM.CON ---
History of Present Illness - History of Present Illness History of Present Illness: 81 y/o male with h/o metastatic Carcinoma , referred by halfway for shortness of breath. He was diagnosed with pneumonia and PE and had an IVC filter inserted in May 2017.pt had received ativan in ER and is sedated and is DNR. 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 Daughter at bedside. Pt was doing well until few days ago, started experiencing sobv and leg swelling. I ER found to have Na 118, started on 3% saline and transferred to ICU. Last Na 128. PMHx: ca liver, metastatic as above htn osteoporosis HLD hx of PE s/p IVC filter Allergies: No known drug allergies ROS couldnt be obtained as pt is on bipap unable to answer family hx: non contributary soc hx: no toxic habits Past Patient History - Infectious Disease Hx of Infectious Diseases: None - Past Medical History & Family History Past Medical History?: Yes - Past Social History Smoking Status: Unknown - CARDIAC Hx Congestive Heart Failure: Yes Hx Hypercholesterolemia: Yes - PULMONARY Hx Chronic Obstructive Pulmonary Disease (COPD): Yes - NEUROLOGICAL Hx Neurological Disorder: No - HEENT Hx HEENT Problems: Yes (WEARS GLASSES FOR READING) - RENAL Hx Chronic Kidney Disease: No - ENDOCRINE/METABOLIC Hx Endocrine Disorders: No - HEMATOLOGICAL/ONCOLOGICAL 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 , bone, and liver) - INTEGUMENTARY Hx Dermatological Problems: No - MUSCULOSKELETAL/RHEUMATOLOGICAL Hx Falls: Yes - GASTROINTESTINAL Hx Gastrointestinal Disorders: No - GENITOURINARY/GYNECOLOGICAL Hx Genitourinary Disorders: Yes Hx Prostate Problems: Yes (BPH) - PSYCHIATRIC Hx Substance Use: No - SURGICAL HISTORY Hx Surgeries: Yes (PROSTATE SURGERY) Other/Comment: recent liver biopy - ANESTHESIA Hx Anesthesia: Yes Hx Anesthesia Reactions: No Hx Malignant Hyperthermia: No Meds Allergies/Adverse Reactions: Allergies Allergy/AdvReac Type Severity Reaction Status Date / Time No Known Allergies Allergy Verified 05/26/17 17:29 - Medications Medications: Current Medications Hydrocortisone Sodium Succinate (Solu-Cortef) 100 mg IV Q8H SANJ[place] Lorazepam (Ativan) 1 mg IVP Q4H PRN PRN Reason: Anxiety Last Admin: 05/27/17 05:30 Dose: 1 mg Physical Exam - Constitutional Appears: No Acute Distress, Older Than Stated Age, Cachectic, Chronically Ill - Head Exam Head Exam: NORMAL INSPECTION (bipap mask) - Eye Exam Eye Exam: Normal appearance Pupil Exam: PERRL - ENT Exam Additional comments: bipap - Neck Exam Neck exam: Positive for: Normal Inspection - Respiratory Exam Respiratory Exam: Clear to Auscultation Bilateral, NORMAL BREATHING PATTERN - Cardiovascular Exam Cardiovascular Exam: REGULAR RHYTHM, RRR - GI/Abdominal Exam GI & Abdominal Exam: Diminished Bowel Sounds, Soft - Neurological Exam Neurological exam: Altered (unable to assess neuro status, pt not following commands) - Skin Skin Exam: Normal Color Results - Vital Signs Recent Vital Signs: Last Vital Signs Temp 98 F 05/27/17 07:00 Pulse 99 H 05/27/17 08:01 Resp 22 05/27/17 08:09 BP 96/59 L 05/27/17 07:00 Pulse Ox 100 05/27/17 08:09 - Labs Result Diagrams: 05/26/17 17:39 05/27/17 05:40 Labs: Laboratory Results - last 24 hr 05/26/17 05/26/17 05/26/17 17:23 17:37 17:37 WBC RBC Hgb Hct MCV MCH MCHC RDW Plt Count MPV Neut % (Auto) Lymph % (Auto) [place] % (Auto) Eos % (Auto) Baso % (Auto) Neut # Lymph # [place] # Eos # Baso # Neutrophils % (Manual) Lymphocytes % (Manual) Monocytes % (Manual) Platelet Estimate D-Dimer, Quantitative 4888 H Puncture Site pCO2 pO2 HCO3 ABG pH ABG Total CO2 ABG O2 Saturation ABG Base Excess Arthur Test ABG Potassium VBG pH VBG pCO2 VBG HCO3 VBG Total CO2 VBG O2 Sat (Calc) VBG Base Excess VBG Potassium A-a O2 Difference Respiratory Index Glucose Lactate FiO2 Crit Value Called To Crit Value Called By Crit Value Read Back Blood Gas Notified Time Sodium 118 L* Potassium 6.4 H* D Chloride 90 L Carbon Dioxide 20 L Anion Gap 15 BUN 46 H Creatinine 1.0 Est GFR ( Amer) > 60 Est GFR (Non-Af Amer) > 60 Random Glucose 123 H Serum Osmolality Calcium 7.3 L Total Bilirubin 2.1 H AST 138 H D ALT 9 L D Alkaline Phosphatase 555 H D Troponin I 0.0310 NT-Pro-B Natriuret Pep 2270 H Total Protein 6.1 L Albumin 2.8 L D Globulin 3.3 Albumin/Globulin Ratio 0.8 L Arterial Blood Potassium Venous Blood Potassium Urine Color Urine Clarity Urine pH Ur Specific [place] Urine Protein Urine Glucose (UA) Urine Ketones Urine Blood Urine Nitrate Urine Bilirubin Urine Urobilinogen Ur Leukocyte Esterase Urine WBC (Auto) Urine RBC (Auto) Urine Bacteria Urine Osmolality Ur Random Sodium Influenza Typ A,B (EIA) Negative for flu a/b 05/26/17 05/26/17 05/26/17 17:39 17:50 19:14 WBC 22.0 H D RBC 4.04 L Hgb 12.1 Hct 36.9 MCV 91.3 MCH 30.0 MCHC 32.9 L RDW 17.3 H Plt Count 216 MPV 10.0 Neut % (Auto) 82.9 H Lymph % (Auto) 3.0 L [place] % (Auto) 13.9 H Eos % (Auto) 0.1 Baso % (Auto) 0.1 Neut # 18.3 H Lymph # 0.7 L [place] # 3.1 H Eos # 0.0 Baso # 0.0 Neutrophils % (Manual) 88 H Lymphocytes % (Manual) 2 L Monocytes % (Manual) 10 Platelet Estimate Normal D-Dimer, Quantitative Puncture Site Lba pCO2 29 L pO2 106 H HCO3 24.8 ABG pH 7.49 H ABG Total CO2 23.0 ABG O2 Saturation 98.5 H ABG Base Excess -0.2 Arthur Test Yes ABG Potassium 5.0 VBG pH VBG pCO2 VBG HCO3 VBG Total CO2 VBG O2 Sat (Calc) VBG Base Excess VBG Potassium A-a O2 Difference 571.0 Respiratory Index 5.4 Glucose 129 H Lactate 3.6 H FiO2 100.0 Crit Value Called To Crit Value Called By Crit Value Read Back Blood Gas Notified Time Sodium 127.0 L Potassium Chloride 96.0 L Carbon Dioxide Anion Gap BUN Creatinine Est GFR ( Amer) Est GFR (Non-Af Amer) Random Glucose Serum Osmolality Calcium Total Bilirubin AST ALT Alkaline Phosphatase Troponin I NT-Pro-B Natriuret Pep Total Protein Albumin Globulin Albumin/Globulin Ratio Arterial Blood Potassium 5.0 Venous Blood Potassium Urine Color Yellow Urine Clarity Clear Urine pH 5.0 Ur Specific [place] 1.019 Urine Protein Negative Urine Glucose (UA) 1+ H Urine Ketones Negative Urine Blood Negative Urine Nitrate Negative Urine Bilirubin Negative Urine Urobilinogen Normal Ur Leukocyte Esterase Neg Urine WBC (Auto) 1 Urine RBC (Auto) < 1 Urine Bacteria Occ H Urine Osmolality Ur Random Sodium Influenza Typ A,B (EIA) 05/26/17 05/26/17 05/26/17 21:58 23:54 23:54 WBC RBC Hgb Hct MCV MCH MCHC RDW Plt Count MPV Neut % (Auto) Lymph % (Auto) [place] % (Auto) Eos % (Auto) Baso % (Auto) Neut # Lymph # [place] # Eos # Baso # Neutrophils % (Manual) Lymphocytes % (Manual) Monocytes % (Manual) Platelet Estimate D-Dimer, Quantitative Puncture Site pCO2 pO2 22 L HCO3 ABG pH ABG Total CO2 ABG O2 Saturation ABG Base Excess Arthur Test ABG Potassium VBG pH 7.26 L VBG pCO2 44 VBG HCO3 17.4 VBG Total CO2 21.1 L VBG O2 Sat (Calc) 34.6 L VBG Base Excess -7.2 L VBG Potassium 4.9 A-a O2 Difference Respiratory Index Glucose 166 H Lactate 8.1 H* FiO2 Crit Value Called To Crit Value Called By sridevi García Crit Value Read Back Y Blood Gas Notified Time 2202 Sodium 133.0 122 L Potassium 5.2 Chloride 100.0 92 L Carbon Dioxide 20 L Anion Gap 16 BUN 45 H Creatinine 1.3 Est GFR ( Amer) > 60 Est GFR (Non-Af Amer) 53 Random Glucose 171 H Serum Osmolality 296 Calcium 7.1 L Total Bilirubin AST ALT Alkaline Phosphatase Troponin I NT-Pro-B Natriuret Pep Total Protein Albumin Globulin Albumin/Globulin Ratio Arterial Blood Potassium Venous Blood Potassium 4.9 Urine Color Urine Clarity Urine pH Ur Specific [place] Urine Protein Urine Glucose (UA) Urine Ketones Urine Blood Urine Nitrate Urine Bilirubin Urine Urobilinogen Ur Leukocyte Esterase Urine WBC (Auto) Urine RBC (Auto) Urine Bacteria Urine Osmolality Ur Random Sodium Influenza Typ A,B (EIA) 05/27/17 05/27/17 05/27/17 00:12 01:16 02:51 WBC RBC Hgb Hct MCV MCH MCHC RDW Plt Count MPV Neut % (Auto) Lymph % (Auto) [place] % (Auto) Eos % (Auto) Baso % (Auto) Neut # Lymph # [place] # Eos # Baso # Neutrophils % (Manual) Lymphocytes % (Manual) Monocytes % (Manual) Platelet Estimate D-Dimer, Quantitative Puncture Site pCO2 pO2 32 HCO3 ABG pH ABG Total CO2 ABG O2 Saturation ABG Base Excess Arthur Test ABG Potassium VBG pH 7.32 VBG pCO2 42 VBG HCO3 20.4 VBG Total CO2 22.9 VBG O2 Sat (Calc) 62.8 VBG Base Excess -4.3 L VBG Potassium 5.3 H A-a O2 Difference Respiratory Index Glucose 187 H Lactate 6.9 H* FiO2 Crit Value Called To Crit Value Called By sridevi García Crit Value Read Back Y Blood Gas Notified Time 119 Sodium 131.0 L 124 L Potassium 6.1 H Chloride 98.0 95 L Carbon Dioxide 19 L Anion Gap 17 BUN 47 H Creatinine 1.2 Est GFR ( Amer) > 60 Est GFR (Non-Af Amer) 58 Random Glucose 181 H Serum Osmolality Calcium 7.0 L Total Bilirubin AST ALT Alkaline Phosphatase Troponin I NT-Pro-B Natriuret Pep Total Protein Albumin Globulin Albumin/Globulin Ratio Arterial Blood Potassium Venous Blood Potassium 5.3 H Urine Color Urine Clarity Urine pH Ur Specific [place] Urine Protein Urine Glucose (UA) Urine Ketones Urine Blood Urine Nitrate Urine Bilirubin Urine Urobilinogen Ur Leukocyte Esterase Urine WBC (Auto) Urine RBC (Auto) Urine Bacteria Urine Osmolality 628 Ur Random Sodium 21 Influenza Typ A,B (EIA) 05/27/17 05/27/17 05/27/17 05:40 05:44 07:15 WBC RBC Hgb Hct MCV MCH MCHC RDW Plt Count MPV Neut % (Auto) Lymph % (Auto) [place] % (Auto) Eos % (Auto) Baso % (Auto) Neut # Lymph # [place] # Eos # Baso # Neutrophils % (Manual) Lymphocytes % (Manual) Monocytes % (Manual) Platelet Estimate D-Dimer, Quantitative Puncture Site pCO2 pO2 14 L 32 HCO3 ABG pH ABG Total CO2 ABG O2 Saturation ABG Base Excess Arthur Test ABG Potassium VBG pH 7.34 7.34 VBG pCO2 50 42 VBG HCO3 23.1 21.5 VBG Total CO2 28.5 H 24.0 VBG O2 Sat (Calc) 19.8 L 63.8 VBG Base Excess 0.5 -3.0 L VBG Potassium 5.3 H 4.6 A-a O2 Difference Respiratory Index Glucose 209 H 162 H Lactate 4.8 H* 3.7 H FiO2 Crit Value Called To Md genia clarke Crit Value Called By R alert autism specialist Crit Value Read Back Y Blood Gas Notified Time 600 Sodium 128 L 132.0 138.0 Potassium 5.6 H Chloride 92 L 97.0 L 108.0 H Carbon Dioxide 26 Anion Gap 15 BUN 48 H Creatinine 1.3 Est GFR ( Amer) > 60 Est GFR (Non-Af Amer) 53 Random Glucose 193 H Serum Osmolality Calcium 7.0 L Total Bilirubin AST ALT Alkaline Phosphatase Troponin I NT-Pro-B Natriuret Pep Total Protein Albumin Globulin Albumin/Globulin Ratio Arterial Blood Potassium Venous Blood Potassium 5.3 H 4.6 Urine Color Urine Clarity Urine pH Ur Specific [place] Urine Protein Urine Glucose (UA) Urine Ketones Urine Blood Urine Nitrate Urine Bilirubin Urine Urobilinogen Ur Leukocyte Esterase Urine WBC (Auto) Urine RBC (Auto) Urine Bacteria Urine Osmolality Ur Random Sodium Influenza Typ A,B (EIA) Assessment & Plan (1) Hypertension Status: Acute (2) Hypotension Status: Acute (3) Hyponatremia Status: Acute (4) Hyperkalemia Status: Acute (5) COPD exacerbation Status: Acute (6) Metastatic cancer Status: Acute - Assessment and Plan (Free Text) Assessment: hyponatremia hyperkalemia sepsis alonso metastatic cancer sob DC iv 3% saline, stat bmp ordered. Recommend d5W infusion if Na rising further. check urine na and osmolarity. check tsh recommend broad spectrum antibiotics. panculture consider kayexelate if potassium rising further. overall poor prognosis.
[2017-05-27 12:46] LABS: BASO # 0.1 K/uL (0.0-0.2); BASO % 0.4 % (0.0-2.0); HEMOGLOBIN 11.6 g/dL (12.0-18.0); LYMPH # 0.3 K/uL (1.0-4.3); LYMPH % 1.6 % (20.0-40.0); MEAN CELL VOLUME 91.4 fL (80.0-94.0); MEAN CORPUSCULAR HEMOGLOBIN 29.8 pg (27.0-31.0); MEAN CORPUSCULAR HGB CONC 32.6 g/dL (33.0-37.0); MEAN PLATELET VOLUME 9.6 fL (7.2-11.7); MONO # 1.1 K/uL (0.0-0.8); MONO % 6.1 % (0.0-10.0); NEUT # 15.9 K/uL (1.8-7.0); NEUT % 91.9 % (50.0-75.0); PLATELET COUNT 146 K/uL (130-400); RBC 3.89 Mil/uL (4.40-5.90); RED CELL DISTRIBUTION WIDTH 17.4 % (11.5-14.5); WHITE BLOOD COUNT 17.3 K/uL (4.8-10.8)
[2017-05-27 12:51] LABS: OSMOLALITY,URINE 515 mosm/kg (300-1000)
[2017-05-27 12:55] LABS: ALB/GLOB RATIO 0.8 (1.0-2.1); ALBUMIN 2.3 g/dL (3.5-5.0); ALT/SGPT 39 U/L (21-72); AST/SGOT 68 U/L (17-59); BLOOD UREA NITROGEN 48 mg/dL (9-20); CALCIUM 6.6 mg/dl (8.6-10.4); GFR AFRICAN-AMERICAN > 60; GFR NON-AFRICAN AMERICAN > 60
[2017-05-27 13:15] LABS: BANDS 4 % (0-2); NEUTROPHIL 88 % (50-75); TOTAL CELLS COUNTED 100
[2017-05-27 13:16] LABS: LYMPHOCYTE 1 % (20-40); MONOCYTE 7 % (0-10); PLATELET ESTIMATE NORMAL (NORMAL)
[2017-05-27 13:17] LABS: ANISOCYTOSIS SLIGHT; LARGE PLATELETS PRESENT
--- NOTE | 2017-05-27 13:37 | CP.PCM.HP ---
History of Present Illness - History of Present Illness History of Present Illness: COMPREHENSIVE HISTORY & PHYSICAL EXAM HPI TRANSFERRED FROM [facility] AFTER SOB NOT RESPONDING TO O2 IN ER , PT HAD NA 118 AND HYPOXIA, WITH CHF/PNEUMONIA AND HIGH 22K WBC PT GIVEN 3% NS PAST HIST. 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 EMBOLUS /COPD PERSONAL HIST: Smoking. N Alcohol. N Allergy N Travel_- . FAMILY HIST : ROS : Constitutional: RESLTESS Eyes: Negative for redness, swelling, itching, discharge, vision changes, blurry vision, double vision, glaucoma, cataracts, Ears: Negative for hearing loss, ringing, , tinnitus, vertigo Nose: Negative for rhinorrhea, stuffiness, sniffing, itching, postnasal drip, discoloration, nasal congestion and epistaxis. Throat: Negative for throat clearing, sore throat, hoarseness, difficulty swallowing and difficulty speaking. Respiratory: Negative for c hemoptysis, snoring at night, Cardiovascular: Negative for chest pain, palpitations, orthopnea, PND, Edema of legs, leg cramps, angina, claudication, , irregular heartbeat, Neurology: Negative for irritability, muscle weakness, numbness and tingling, seizures, tremors, migraines, slurred speech, syncope, memory loss, mood changes , recurrent headaches Gastrointestinal: Negative for diarrhea, constipation, black stools, rectal bleeding, nausea, flatulence, reflux, poor appetite, changes in bowel habits, abdominal pain Genitourinary: Negative for frequent urination, hematuria, discharge, incontinence, urinary retention, frequent UTI, Psychiatric: Negative for depression, anxiety/panic, suicidal tendencies, Musculoskeletal: BONE PAINS . Skin: Negative for rash, ulcers, itching, dry skin and pigmented lesions. P/E: Constitutional: Appears stated age and in no apparent distress. Head: Normocephalic. Ears: External ear canals patent without inflammation. Tympanic membranes intact with normal light reflex and landmark. Eyes: Pupils are central, bilaterally equal, symmetrical and reacts to light with normal movements and no icterus or pallor. Nose: External nares are patent. Mucosa is pink Mouth-Throat: Good general appearance and condition. No post-pharyngeal/oropharyngeal erythema and tonsillar hypertrophy. Good dental hygiene. Neck-Lymphatic: Neck is supple with normal ROM, no thyromegaly, lymph nodes or masses. JVD is normal with no carotid bruit. Lungs: RONCHI Cardiovascular: S1 and S2 are normal with no murmurs, gallops and rub. GI Exam: No hepatomegaly. Abdomen is soft and non-tender. No Organomegaly , masses or hernias are evident and bowel sounds are normal and active. Neurology: Higher function and all cranial nerves intact, with no gross motor or sensory deficit. Superficial and deep reflexes are normal with downwards planters. No cerebellar deficit with normal gait. Musculoskeletal: No tender spots with normal curvature of the spine with no swelling or restricted ROM of the small and large joints. Extremities: ABELINO EDEMA Skin: No rash, eruptions or abnormal skin pigmentation LAB/RADIOLOGY: ASSESMENT : SEVERE HYPONA , R/O SIADH METASTATIC CANCER OF PANCREAS H/O DVT/PULM. EMBOLI SEPSIS , APSIRATION PNEUMONIA PLAN: NA CORRECTED TO 124 IV AB /ID EVAL D/W DAUGHTER FOR DNI/DNR ANTICOAGULATION Present on Admission - Present on Admission Any Indicators Present on Admission: No Past Patient History - Infectious Disease Hx of Infectious Diseases: None - Past Medical History & Family History Past Medical History?: Yes - Past Social History Smoking Status: Unknown - CARDIAC Hx Congestive Heart Failure: Yes Hx Hypercholesterolemia: Yes - PULMONARY Hx Chronic Obstructive Pulmonary Disease (COPD): Yes - NEUROLOGICAL Hx Neurological Disorder: No - HEENT Hx HEENT Problems: Yes (WEARS GLASSES FOR READING) - RENAL Hx Chronic Kidney Disease: No - ENDOCRINE/METABOLIC Hx Endocrine Disorders: No - HEMATOLOGICAL/ONCOLOGICAL 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 , bone, and liver) - INTEGUMENTARY Hx Dermatological Problems: No - MUSCULOSKELETAL/RHEUMATOLOGICAL Hx Falls: Yes - GASTROINTESTINAL Hx Gastrointestinal Disorders: No - GENITOURINARY/GYNECOLOGICAL Hx Genitourinary Disorders: Yes Hx Prostate Problems: Yes (BPH) - PSYCHIATRIC Hx Substance Use: No - SURGICAL HISTORY Hx Surgeries: Yes (PROSTATE SURGERY) Other/Comment: recent liver biopy - ANESTHESIA Hx Anesthesia: Yes Hx Anesthesia Reactions: No Hx Malignant Hyperthermia: No Meds Allergies/Adverse Reactions: Allergies Allergy/AdvReac Type Severity Reaction Status Date / Time No Known Allergies Allergy Verified 05/26/17 17:29 Results - Vital Signs Recent Vital Signs: Last Vital Signs Temp 98 F 05/27/17 07:00 Pulse 79 05/27/17 13:03 Resp 22 05/27/17 08:09 BP 96/59 L 05/27/17 07:00 Pulse Ox 100 05/27/17 08:09 - Labs Result Diagrams: 05/27/17 12:39 05/27/17 12:39 Labs: Laboratory Results - last 24 hr 05/26/17 05/26/17 05/26/17 17:23 17:37 17:37 WBC RBC Hgb Hct MCV MCH MCHC RDW Plt Count MPV Neut % (Auto) Lymph % (Auto) [place] % (Auto) Eos % (Auto) Baso % (Auto) Neut # Lymph # [place] # Eos # Baso # Neutrophils % (Manual) Band Neutrophils % Lymphocytes % (Manual) Monocytes % (Manual) Platelet Estimate Large Platelets Anisocytosis (manual) D-Dimer, Quantitative 4888 H Puncture Site pCO2 pO2 HCO3 ABG pH ABG Total CO2 ABG O2 Saturation ABG Base Excess Arthur Test ABG Potassium VBG pH VBG pCO2 VBG HCO3 VBG Total CO2 VBG O2 Sat (Calc) VBG Base Excess VBG Potassium A-a O2 Difference Respiratory Index Glucose Lactate FiO2 Crit Value Called To Crit Value Called By Crit Value Read Back Blood Gas Notified Time Sodium 118 L* Potassium 6.4 H* D Chloride 90 L Carbon Dioxide 20 L Anion Gap 15 BUN 46 H Creatinine 1.0 Est GFR ( Amer) > 60 Est GFR (Non-Af Amer) > 60 Random Glucose 123 H Serum Osmolality Calcium 7.3 L Phosphorus Magnesium Total Bilirubin 2.1 H AST 138 H D ALT 9 L D Alkaline Phosphatase 555 H D Troponin I 0.0310 NT-Pro-B Natriuret Pep 2270 H Total Protein 6.1 L Albumin 2.8 L D Globulin 3.3 Albumin/Globulin Ratio 0.8 L Arterial Blood Potassium Venous Blood Potassium Urine Color Urine Clarity Urine pH Ur Specific [place] Urine Protein Urine Glucose (UA) Urine Ketones Urine Blood Urine Nitrate Urine Bilirubin Urine Urobilinogen Ur Leukocyte Esterase Urine WBC (Auto) Urine RBC (Auto) Urine Bacteria Urine Osmolality Ur Random Sodium Influenza Typ A,B (EIA) Negative for flu a/b 05/26/17 05/26/17 05/26/17 17:39 17:50 19:14 WBC 22.0 H D RBC 4.04 L Hgb 12.1 Hct 36.9 MCV 91.3 MCH 30.0 MCHC 32.9 L RDW 17.3 H Plt Count 216 MPV 10.0 Neut % (Auto) 82.9 H Lymph % (Auto) 3.0 L [place] % (Auto) 13.9 H Eos % (Auto) 0.1 Baso % (Auto) 0.1 Neut # 18.3 H Lymph # 0.7 L [place] # 3.1 H Eos # 0.0 Baso # 0.0 Neutrophils % (Manual) 88 H Band Neutrophils % Lymphocytes % (Manual) 2 L Monocytes % (Manual) 10 Platelet Estimate Normal Large Platelets Anisocytosis (manual) D-Dimer, Quantitative Puncture Site Lba pCO2 29 L pO2 106 H HCO3 24.8 ABG pH 7.49 H ABG Total CO2 23.0 ABG O2 Saturation 98.5 H ABG Base Excess -0.2 Arthur Test Yes ABG Potassium 5.0 VBG pH VBG pCO2 VBG HCO3 VBG Total CO2 VBG O2 Sat (Calc) VBG Base Excess VBG Potassium A-a O2 Difference 571.0 Respiratory Index 5.4 Glucose 129 H Lactate 3.6 H FiO2 100.0 Crit Value Called To Crit Value Called By Crit Value Read Back Blood Gas Notified Time Sodium 127.0 L Potassium Chloride 96.0 L Carbon Dioxide Anion Gap BUN Creatinine Est GFR ( Amer) Est GFR (Non-Af Amer) Random Glucose Serum Osmolality Calcium Phosphorus Magnesium Total Bilirubin AST ALT Alkaline Phosphatase Troponin I NT-Pro-B Natriuret Pep Total Protein Albumin Globulin Albumin/Globulin Ratio Arterial Blood Potassium 5.0 Venous Blood Potassium Urine Color Yellow Urine Clarity Clear Urine pH 5.0 Ur Specific [place] 1.019 Urine Protein Negative Urine Glucose (UA) 1+ H Urine Ketones Negative Urine Blood Negative Urine Nitrate Negative Urine Bilirubin Negative Urine Urobilinogen Normal Ur Leukocyte Esterase Neg Urine WBC (Auto) 1 Urine RBC (Auto) < 1 Urine Bacteria Occ H Urine Osmolality Ur Random Sodium Influenza Typ A,B (EIA) 05/26/17 05/26/17 05/26/17 21:58 23:54 23:54 WBC RBC Hgb Hct MCV MCH MCHC RDW Plt Count MPV Neut % (Auto) Lymph % (Auto) [place] % (Auto) Eos % (Auto) Baso % (Auto) Neut # Lymph # [place] # Eos # Baso # Neutrophils % (Manual) Band Neutrophils % Lymphocytes % (Manual) Monocytes % (Manual) Platelet Estimate Large Platelets Anisocytosis (manual) D-Dimer, Quantitative Puncture Site pCO2 pO2 22 L HCO3 ABG pH ABG Total CO2 ABG O2 Saturation ABG Base Excess Arthur Test ABG Potassium VBG pH 7.26 L VBG pCO2 44 VBG HCO3 17.4 VBG Total CO2 21.1 L VBG O2 Sat (Calc) 34.6 L VBG Base Excess -7.2 L VBG Potassium 4.9 A-a O2 Difference Respiratory Index Glucose 166 H Lactate 8.1 H* FiO2 Crit Value Called To Crit Value Called By sridevi García Crit Value Read Back Y Blood Gas Notified Time 2201 Sodium 133.0 122 L Potassium 5.2 Chloride 100.0 92 L Carbon Dioxide 20 L Anion Gap 16 BUN 45 H Creatinine 1.3 Est GFR ( Amer) > 60 Est GFR (Non-Af Amer) 53 Random Glucose 171 H Serum Osmolality 296 Calcium 7.1 L Phosphorus Magnesium Total Bilirubin AST ALT Alkaline Phosphatase Troponin I NT-Pro-B Natriuret Pep Total Protein Albumin Globulin Albumin/Globulin Ratio Arterial Blood Potassium Venous Blood Potassium 4.9 Urine Color Urine Clarity Urine pH Ur Specific [place] Urine Protein Urine Glucose (UA) Urine Ketones Urine Blood Urine Nitrate Urine Bilirubin Urine Urobilinogen Ur Leukocyte Esterase Urine WBC (Auto) Urine RBC (Auto) Urine Bacteria Urine Osmolality Ur Random Sodium Influenza Typ A,B (EIA) 05/27/17 05/27/17 05/27/17 00:12 01:16 02:51 WBC RBC Hgb Hct MCV MCH MCHC RDW Plt Count MPV Neut % (Auto) Lymph % (Auto) [place] % (Auto) Eos % (Auto) Baso % (Auto) Neut # Lymph # [place] # Eos # Baso # Neutrophils % (Manual) Band Neutrophils % Lymphocytes % (Manual) Monocytes % (Manual) Platelet Estimate Large Platelets Anisocytosis (manual) D-Dimer, Quantitative Puncture Site pCO2 pO2 32 HCO3 ABG pH ABG Total CO2 ABG O2 Saturation ABG Base Excess Arthur Test ABG Potassium VBG pH 7.32 VBG pCO2 42 VBG HCO3 20.4 VBG Total CO2 22.9 VBG O2 Sat (Calc) 62.8 VBG Base Excess -4.3 L VBG Potassium 5.3 H A-a O2 Difference Respiratory Index Glucose 187 H Lactate 6.9 H* FiO2 Crit Value Called To Crit Value Called By sridevi García Crit Value Read Back Y Blood Gas Notified Time 119 Sodium 131.0 L 124 L Potassium 6.1 H Chloride 98.0 95 L Carbon Dioxide 19 L Anion Gap 17 BUN 47 H Creatinine 1.2 Est GFR ( Amer) > 60 Est GFR (Non-Af Amer) 58 Random Glucose 181 H Serum Osmolality Calcium 7.0 L Phosphorus Magnesium Total Bilirubin AST ALT Alkaline Phosphatase Troponin I NT-Pro-B Natriuret Pep Total Protein Albumin Globulin Albumin/Globulin Ratio Arterial Blood Potassium Venous Blood Potassium 5.3 H Urine Color Urine Clarity Urine pH Ur Specific [place] Urine Protein Urine Glucose (UA) Urine Ketones Urine Blood Urine Nitrate Urine Bilirubin Urine Urobilinogen Ur Leukocyte Esterase Urine WBC (Auto) Urine RBC (Auto) Urine Bacteria Urine Osmolality 628 Ur Random Sodium 21 Influenza Typ A,B (EIA) 05/27/17 05/27/17 05/27/17 05:40 05:44 07:15 WBC RBC Hgb Hct MCV MCH MCHC RDW Plt Count MPV Neut % (Auto) Lymph % (Auto) [place] % (Auto) Eos % (Auto) Baso % (Auto) Neut # Lymph # [place] # Eos # Baso # Neutrophils % (Manual) Band Neutrophils % Lymphocytes % (Manual) Monocytes % (Manual) Platelet Estimate Large Platelets Anisocytosis (manual) D-Dimer, Quantitative Puncture Site pCO2 pO2 14 L 32 HCO3 ABG pH ABG Total CO2 ABG O2 Saturation ABG Base Excess Arthur Test ABG Potassium VBG pH 7.34 7.34 VBG pCO2 50 42 VBG HCO3 23.1 21.5 VBG Total CO2 28.5 H 24.0 VBG O2 Sat (Calc) 19.8 L 63.8 VBG Base Excess 0.5 -3.0 L VBG Potassium 5.3 H 4.6 A-a O2 Difference Respiratory Index Glucose 209 H 162 H Lactate 4.8 H* 3.7 H FiO2 Crit Value Called To Md genia clarke Crit Value Called By Nilda alert continuous still operator Crit Value Read Back Y Blood Gas Notified Time 600 Sodium 128 L 132.0 138.0 Potassium 5.6 H Chloride 92 L 97.0 L 108.0 H Carbon Dioxide 26 Anion Gap 15 BUN 48 H Creatinine 1.3 Est GFR ( Amer) > 60 Est GFR (Non-Af Amer) 53 Random Glucose 193 H Serum Osmolality Calcium 7.0 L Phosphorus Magnesium Total Bilirubin AST ALT Alkaline Phosphatase Troponin I NT-Pro-B Natriuret Pep Total Protein Albumin Globulin Albumin/Globulin Ratio Arterial Blood Potassium Venous Blood Potassium 5.3 H 4.6 Urine Color Urine Clarity Urine pH Ur Specific [place] Urine Protein Urine Glucose (UA) Urine Ketones Urine Blood Urine Nitrate Urine Bilirubin Urine Urobilinogen Ur Leukocyte Esterase Urine WBC (Auto) Urine RBC (Auto) Urine Bacteria Urine Osmolality Ur Random Sodium Influenza Typ A,B (EIA) 05/27/17 05/27/17 05/27/17 12:39 12:39 12:39 WBC 17.3 H RBC 3.89 L Hgb 11.6 L Hct 35.6 MCV 91.4 MCH 29.8 MCHC 32.6 L RDW 17.4 H Plt Count 146 MPV 9.6 Neut % (Auto) 91.9 H Lymph % (Auto) 1.6 L [place] % (Auto) 6.1 Eos % (Auto) 0.0 Baso % (Auto) 0.4 Neut # 15.9 H Lymph # 0.3 L [place] # 1.1 H Eos # 0.0 Baso # 0.1 Neutrophils % (Manual) 88 H Band Neutrophils % 4 H Lymphocytes % (Manual) 1 L Monocytes % (Manual) 7 Platelet Estimate Normal Large Platelets Present Anisocytosis (manual) Slight D-Dimer, Quantitative Puncture Site pCO2 pO2 HCO3 ABG pH ABG Total CO2 ABG O2 Saturation ABG Base Excess Arthur Test ABG Potassium VBG pH VBG pCO2 VBG HCO3 VBG Total CO2 VBG O2 Sat (Calc) VBG Base Excess VBG Potassium A-a O2 Difference Respiratory Index Glucose Lactate FiO2 Crit Value Called To Crit Value Called By Crit Value Read Back Blood Gas Notified Time Sodium 127 L Potassium 5.2 Chloride 94 L Carbon Dioxide 29 Anion Gap 10 BUN 48 H Creatinine 1.1 Est GFR ( Amer) > 60 Est GFR (Non-Af Amer) > 60 Random Glucose 147 H Serum Osmolality Calcium 6.6 L Phosphorus 4.2 Magnesium 2.0 Total Bilirubin 0.9 AST 68 H D ALT 39 Alkaline Phosphatase 443 H D Troponin I NT-Pro-B Natriuret Pep Total Protein 5.1 L Albumin 2.3 L Globulin 2.8 Albumin/Globulin Ratio 0.8 L Arterial Blood Potassium Venous Blood Potassium Urine Color Urine Clarity Urine pH Ur Specific [place] Urine Protein Urine Glucose (UA) Urine Ketones Urine Blood Urine Nitrate Urine Bilirubin Urine Urobilinogen Ur Leukocyte Esterase Urine WBC (Auto) Urine RBC (Auto) Urine Bacteria Urine Osmolality 515 Ur Random Sodium 25 Influenza Typ A,B (EIA)
--- NOTE | 2017-05-27 17:06 | CP.PCM.CON ---
History of Present Illness - History of Present Illness History of Present Illness: Pt is 81 year old male with PMHx of metastatic cancer to lungs, COPD, PNA, PE admitted on 05/26/17 for PNA, COPD exacerbation. As per daughter, Pt was sent to ED from [place] [facility] for evaluation of shortness of breath on 05/26/17. Pt reportedly was admitted at [facility] from 04/24/2017-05/03/17 for pneumonia, COPD exacerbation, metastatic cancer, and again from 05/12/17-05/20/17 for bilateral pulmonary emboli. On present admission, pt was found to be hyponatremic at 118, was placed in ICU and started on 3% NaCl infusion. Most recent sodium- 127. Today, pt is satting 98% on bipap. Afebrile. As per daughter who is at bedside, pt has been sleeping all day. Pt is DNR/DNI. Unable to obtain further history. 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 Denies alcohol and drug use. Currently resides at [place] [facility]. Exam: decreased breath sound L base. A/P: Pneumonia Start Antibiotics 05/26/17 CXR: moderate right and small left pleural effusions and bilateral lower lobe airspace disease whcih may represent atelectasis or pneumonia. Follow - up advised. COPD Start Duonebs Start IV steroids Continue bipap 05/26/17 ABG: pCO2 29, pO2: 106, HCO3:24.8, pH 7.49 05/27/17 pO2: 32 05/27 VBG: pH 7.34, pCO2 42, HCO3 21.5, O2 sat 63.8 05/27/17 Lactate: 3.7 Karissa Ca Past Patient History - Infectious Disease Hx of Infectious Diseases: None - Past Medical History & Family History Past Medical History?: Yes - Past Social History Smoking Status: Unknown - CARDIAC Hx Congestive Heart Failure: Yes Hx Hypercholesterolemia: Yes - PULMONARY Hx Chronic Obstructive Pulmonary Disease (COPD): Yes - NEUROLOGICAL Hx Neurological Disorder: No - HEENT Hx HEENT Problems: Yes (WEARS GLASSES FOR READING) - RENAL Hx Chronic Kidney Disease: No - ENDOCRINE/METABOLIC Hx Endocrine Disorders: No - HEMATOLOGICAL/ONCOLOGICAL 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 , bone, and liver) - INTEGUMENTARY Hx Dermatological Problems: No - MUSCULOSKELETAL/RHEUMATOLOGICAL Hx Falls: Yes - GASTROINTESTINAL Hx Gastrointestinal Disorders: No - GENITOURINARY/GYNECOLOGICAL Hx Genitourinary Disorders: Yes Hx Prostate Problems: Yes (BPH) - PSYCHIATRIC Hx Substance Use: No - SURGICAL HISTORY Hx Surgeries: Yes (PROSTATE SURGERY) Other/Comment: recent liver biopy - ANESTHESIA Hx Anesthesia: Yes Hx Anesthesia Reactions: No Hx Malignant Hyperthermia: No Meds Allergies/Adverse Reactions: Allergies Allergy/AdvReac Type Severity Reaction Status Date / Time No Known Allergies Allergy Verified 05/26/17 17:29 - Medications Medications: Current Medications Hydrocortisone Sodium Succinate (Solu-Cortef) 100 mg IV Q8H SANJUANA Last Admin: 05/27/17 11:13 Dose: 100 mg Lorazepam (Ativan) 1 mg IVP Q4H PRN PRN Reason: Anxiety Last Admin: 05/27/17 05:30 Dose: 1 mg Results - Vital Signs Recent Vital Signs: Last Vital Signs Temp 98 F 05/27/17 07:00 Pulse 87 05/27/17 15:45 Resp 22 05/27/17 08:09 BP 96/59 L 05/27/17 07:00 Pulse Ox 100 05/27/17 08:09 - Labs Result Diagrams: 05/27/17 12:39 05/27/17 12:39 Labs: Laboratory Results - last 24 hr 05/26/17 05/26/17 05/26/17 17:23 17:37 17:37 WBC RBC Hgb Hct MCV MCH MCHC RDW Plt Count MPV Neut % (Auto) Lymph % (Auto) [place] % (Auto) Eos % (Auto) Baso % (Auto) Neut # Lymph # [place] # Eos # Baso # Neutrophils % (Manual) Band Neutrophils % Lymphocytes % (Manual) Monocytes % (Manual) Platelet Estimate Large Platelets Anisocytosis (manual) D-Dimer, Quantitative 4888 H Puncture Site pCO2 pO2 HCO3 ABG pH ABG Total CO2 ABG O2 Saturation ABG Base Excess Arthur Test ABG Potassium VBG pH VBG pCO2 VBG HCO3 VBG Total CO2 VBG O2 Sat (Calc) VBG Base Excess VBG Potassium A-a O2 Difference Respiratory Index Glucose Lactate FiO2 Crit Value Called To Crit Value Called By Crit Value Read Back Blood Gas Notified Time Sodium 118 L* Potassium 6.4 H* D Chloride 90 L Carbon Dioxide 20 L Anion Gap 15 BUN 46 H Creatinine 1.0 Est GFR ( Amer) > 60 Est GFR (Non-Af Amer) > 60 Random Glucose 123 H Serum Osmolality Calcium 7.3 L Phosphorus Magnesium Total Bilirubin 2.1 H AST 138 H D ALT 9 L D Alkaline Phosphatase 555 H D Troponin I 0.0310 NT-Pro-B Natriuret Pep 2270 H Total Protein 6.1 L Albumin 2.8 L D Globulin 3.3 Albumin/Globulin Ratio 0.8 L Arterial Blood Potassium Venous Blood Potassium Urine Color Urine Clarity Urine pH Ur Specific [place] Urine Protein Urine Glucose (UA) Urine Ketones Urine Blood Urine Nitrate Urine Bilirubin Urine Urobilinogen Ur Leukocyte Esterase Urine WBC (Auto) Urine RBC (Auto) Urine Bacteria Urine Osmolality Ur Random Sodium Influenza Typ A,B (EIA) Negative for flu a/b 05/26/17 05/26/17 05/26/17 17:39 17:50 19:14 WBC 22.0 H D RBC 4.04 L Hgb 12.1 Hct 36.9 MCV 91.3 MCH 30.0 MCHC 32.9 L RDW 17.3 H Plt Count 216 MPV 10.0 Neut % (Auto) 82.9 H Lymph % (Auto) 3.0 L [place] % (Auto) 13.9 H Eos % (Auto) 0.1 Baso % (Auto) 0.1 Neut # 18.3 H Lymph # 0.7 L [place] # 3.1 H Eos # 0.0 Baso # 0.0 Neutrophils % (Manual) 88 H Band Neutrophils % Lymphocytes % (Manual) 2 L Monocytes % (Manual) 10 Platelet Estimate Normal Large Platelets Anisocytosis (manual) D-Dimer, Quantitative Puncture Site Lba pCO2 29 L pO2 106 H HCO3 24.8 ABG pH 7.49 H ABG Total CO2 23.0 ABG O2 Saturation 98.5 H ABG Base Excess -0.2 Arthur Test Yes ABG Potassium 5.0 VBG pH VBG pCO2 VBG HCO3 VBG Total CO2 VBG O2 Sat (Calc) VBG Base Excess VBG Potassium A-a O2 Difference 571.0 Respiratory Index 5.4 Glucose 129 H Lactate 3.6 H FiO2 100.0 Crit Value Called To Crit Value Called By Crit Value Read Back Blood Gas Notified Time Sodium 127.0 L Potassium Chloride 96.0 L Carbon Dioxide Anion Gap BUN Creatinine Est GFR ( Amer) Est GFR (Non-Af Amer) Random Glucose Serum Osmolality Calcium Phosphorus Magnesium Total Bilirubin AST ALT Alkaline Phosphatase Troponin I NT-Pro-B Natriuret Pep Total Protein Albumin Globulin Albumin/Globulin Ratio Arterial Blood Potassium 5.0 Venous Blood Potassium Urine Color Yellow Urine Clarity Clear Urine pH 5.0 Ur Specific [place] 1.019 Urine Protein Negative Urine Glucose (UA) 1+ H Urine Ketones Negative Urine Blood Negative Urine Nitrate Negative Urine Bilirubin Negative Urine Urobilinogen Normal Ur Leukocyte Esterase Neg Urine WBC (Auto) 1 Urine RBC (Auto) < 1 Urine Bacteria Occ H Urine Osmolality Ur Random Sodium Influenza Typ A,B (EIA) 05/26/17 05/26/17 05/26/17 21:58 23:54 23:54 WBC RBC Hgb Hct MCV MCH MCHC RDW Plt Count MPV Neut % (Auto) Lymph % (Auto) [place] % (Auto) Eos % (Auto) Baso % (Auto) Neut # Lymph # [place] # Eos # Baso # Neutrophils % (Manual) Band Neutrophils % Lymphocytes % (Manual) Monocytes % (Manual) Platelet Estimate Large Platelets Anisocytosis (manual) D-Dimer, Quantitative Puncture Site pCO2 pO2 22 L HCO3 ABG pH ABG Total CO2 ABG O2 Saturation ABG Base Excess Arthur Test ABG Potassium VBG pH 7.26 L VBG pCO2 44 VBG HCO3 17.4 VBG Total CO2 21.1 L VBG O2 Sat (Calc) 34.6 L VBG Base Excess -7.2 L VBG Potassium 4.9 A-a O2 Difference Respiratory Index Glucose 166 H Lactate 8.1 H* FiO2 Crit Value Called To Crit Value Called By sridevi García Crit Value Read Back Y Blood Gas Notified Time 2201 Sodium 133.0 122 L Potassium 5.2 Chloride 100.0 92 L Carbon Dioxide 20 L Anion Gap 16 BUN 45 H Creatinine 1.3 Est GFR ( Amer) > 60 Est GFR (Non-Af Amer) 53 Random Glucose 171 H Serum Osmolality 296 Calcium 7.1 L Phosphorus Magnesium Total Bilirubin AST ALT Alkaline Phosphatase Troponin I NT-Pro-B Natriuret Pep Total Protein Albumin Globulin Albumin/Globulin Ratio Arterial Blood Potassium Venous Blood Potassium 4.9 Urine Color Urine Clarity Urine pH Ur Specific [place] Urine Protein Urine Glucose (UA) Urine Ketones Urine Blood Urine Nitrate Urine Bilirubin Urine Urobilinogen Ur Leukocyte Esterase Urine WBC (Auto) Urine RBC (Auto) Urine Bacteria Urine Osmolality Ur Random Sodium Influenza Typ A,B (EIA) 05/27/17 05/27/17 05/27/17 00:12 01:16 02:51 WBC RBC Hgb Hct MCV MCH MCHC RDW Plt Count MPV Neut % (Auto) Lymph % (Auto) [place] % (Auto) Eos % (Auto) Baso % (Auto) Neut # Lymph # [place] # Eos # Baso # Neutrophils % (Manual) Band Neutrophils % Lymphocytes % (Manual) Monocytes % (Manual) Platelet Estimate Large Platelets Anisocytosis (manual) D-Dimer, Quantitative Puncture Site pCO2 pO2 32 HCO3 ABG pH ABG Total CO2 ABG O2 Saturation ABG Base Excess Arthur Test ABG Potassium VBG pH 7.32 VBG pCO2 42 VBG HCO3 20.4 VBG Total CO2 22.9 VBG O2 Sat (Calc) 62.8 VBG Base Excess -4.3 L VBG Potassium 5.3 H A-a O2 Difference Respiratory Index Glucose 187 H Lactate 6.9 H* FiO2 Crit Value Called To Crit Value Called By sridevi García Crit Value Read Back Y Blood Gas Notified Time 119 Sodium 131.0 L 124 L Potassium 6.1 H Chloride 98.0 95 L Carbon Dioxide 19 L Anion Gap 17 BUN 47 H Creatinine 1.2 Est GFR ( Amer) > 60 Est GFR (Non-Af Amer) 58 Random Glucose 181 H Serum Osmolality Calcium 7.0 L Phosphorus Magnesium Total Bilirubin AST ALT Alkaline Phosphatase Troponin I NT-Pro-B Natriuret Pep Total Protein Albumin Globulin Albumin/Globulin Ratio Arterial Blood Potassium Venous Blood Potassium 5.3 H Urine Color Urine Clarity Urine pH Ur Specific [place] Urine Protein Urine Glucose (UA) Urine Ketones Urine Blood Urine Nitrate Urine Bilirubin Urine Urobilinogen Ur Leukocyte Esterase Urine WBC (Auto) Urine RBC (Auto) Urine Bacteria Urine Osmolality 628 Ur Random Sodium 21 Influenza Typ A,B (EIA) 05/27/17 05/27/17 05/27/17 05:40 05:44 07:15 WBC RBC Hgb Hct MCV MCH MCHC RDW Plt Count MPV Neut % (Auto) Lymph % (Auto) [place] % (Auto) Eos % (Auto) Baso % (Auto) Neut # Lymph # [place] # Eos # Baso # Neutrophils % (Manual) Band Neutrophils % Lymphocytes % (Manual) Monocytes % (Manual) Platelet Estimate Large Platelets Anisocytosis (manual) D-Dimer, Quantitative Puncture Site pCO2 pO2 14 L 32 HCO3 ABG pH ABG Total CO2 ABG O2 Saturation ABG Base Excess Arthur Test ABG Potassium VBG pH 7.34 7.34 VBG pCO2 50 42 VBG HCO3 23.1 21.5 VBG Total CO2 28.5 H 24.0 VBG O2 Sat (Calc) 19.8 L 63.8 VBG Base Excess 0.5 -3.0 L VBG Potassium 5.3 H 4.6 A-a O2 Difference Respiratory Index Glucose 209 H 162 H Lactate 4.8 H* 3.7 H FiO2 Crit Value Called To Md genia clarke Crit Value Called By R alert engineering professor Crit Value Read Back Y Blood Gas Notified Time 600 Sodium 128 L 132.0 138.0 Potassium 5.6 H Chloride 92 L 97.0 L 108.0 H Carbon Dioxide 26 Anion Gap 15 BUN 48 H Creatinine 1.3 Est GFR ( Amer) > 60 Est GFR (Non-Af Amer) 53 Random Glucose 193 H Serum Osmolality Calcium 7.0 L Phosphorus Magnesium Total Bilirubin AST ALT Alkaline Phosphatase Troponin I NT-Pro-B Natriuret Pep Total Protein Albumin Globulin Albumin/Globulin Ratio Arterial Blood Potassium Venous Blood Potassium 5.3 H 4.6 Urine Color Urine Clarity Urine pH Ur Specific [place] Urine Protein Urine Glucose (UA) Urine Ketones Urine Blood Urine Nitrate Urine Bilirubin Urine Urobilinogen Ur Leukocyte Esterase Urine WBC (Auto) Urine RBC (Auto) Urine Bacteria Urine Osmolality Ur Random Sodium Influenza Typ A,B (EIA) 05/27/17 05/27/17 05/27/17 12:39 12:39 12:39 WBC 17.3 H RBC 3.89 L Hgb 11.6 L Hct 35.6 MCV 91.4 MCH 29.8 MCHC 32.6 L RDW 17.4 H Plt Count 146 MPV 9.6 Neut % (Auto) 91.9 H Lymph % (Auto) 1.6 L [place] % (Auto) 6.1 Eos % (Auto) 0.0 Baso % (Auto) 0.4 Neut # 15.9 H Lymph # 0.3 L [place] # 1.1 H Eos # 0.0 Baso # 0.1 Neutrophils % (Manual) 88 H Band Neutrophils % 4 H Lymphocytes % (Manual) 1 L Monocytes % (Manual) 7 Platelet Estimate Normal Large Platelets Present Anisocytosis (manual) Slight D-Dimer, Quantitative Puncture Site pCO2 pO2 HCO3 ABG pH ABG Total CO2 ABG O2 Saturation ABG Base Excess Arthur Test ABG Potassium VBG pH VBG pCO2 VBG HCO3 VBG Total CO2 VBG O2 Sat (Calc) VBG Base Excess VBG Potassium A-a O2 Difference Respiratory Index Glucose Lactate FiO2 Crit Value Called To Crit Value Called By Crit Value Read Back Blood Gas Notified Time Sodium 127 L Potassium 5.2 Chloride 94 L Carbon Dioxide 29 Anion Gap 10 BUN 48 H Creatinine 1.1 Est GFR ( Amer) > 60 Est GFR (Non-Af Amer) > 60 Random Glucose 147 H Serum Osmolality Calcium 6.6 L Phosphorus 4.2 Magnesium 2.0 Total Bilirubin 0.9 AST 68 H D ALT 39 Alkaline Phosphatase 443 H D Troponin I NT-Pro-B Natriuret Pep Total Protein 5.1 L Albumin 2.3 L Globulin 2.8 Albumin/Globulin Ratio 0.8 L Arterial Blood Potassium Venous Blood Potassium Urine Color Urine Clarity Urine pH Ur Specific [place] Urine Protein Urine Glucose (UA) Urine Ketones Urine Blood Urine Nitrate Urine Bilirubin Urine Urobilinogen Ur Leukocyte Esterase Urine WBC (Auto) Urine RBC (Auto) Urine Bacteria Urine Osmolality 515 Ur Random Sodium 25 Influenza Typ A,B (EIA)
--- NOTE | 2017-05-27 20:14 | CP.PCM.CON ---
History of Present Illness - History of Present Illness History of Present Illness: INFECTIOUS DISEASE CONSULT; HPI; 81 y/o male with h/o metastatic Carcinoma , referred by senior living on for shortness of breath. He was diagnosed with pneumonia and PE and had an IVC filter inserted in May 2017. PATIENT WAS FOUND TO HAVE LEUKOCYTOSIS OF 22,000 ON ADMISSION AND ELEVATED PROBNP OF 22,70.He was also found to be hyponatremic with a sodium off 118 and started on 3% sodium chlroride for hyponatremia and required ICU admission for 3 % NaCl infusion Liver biopsy done 04/2017 showed adenocarcinoma with clear cell features favoring pancreaticobiliary origin. Patient has liver,lung and bone metastases. PATIENT CHEST X-RAY SHOWED BILATERAL LOWER LOBE AIRSPACE DISEASE AND PATIENT WAS GIVEN A DOSE OF VANCOMYCIN 1 G AND iv ZOSYN. PATIENT PRESENTLY ON BIPAP PER ASSISTED SALES REPRESENTATIVE. INFECTIOUS DISEASE CONSULTATION REQUESTED BY DR COOK FOR LEUKOCYTOSIS AND BIBASILAR INFILTRATES. 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 Denies alcohol and drug use. Currently resides [facility]. Review of Systems - Review of Systems Systems not reviewed;Unavailable: Altered Mental Status, Other (ON BIPAP, LETHARGIC.) All systems: reviewed and no additional remarkable complaints except (as per HPI.) Past Patient History - Infectious Disease Hx of Infectious Diseases: None - Past Medical History & Family History Past Medical History?: Yes - Past Social History Smoking Status: Unknown - CARDIAC Hx Congestive Heart Failure: Yes Hx Hypercholesterolemia: Yes - PULMONARY Hx Chronic Obstructive Pulmonary Disease (COPD): Yes - NEUROLOGICAL Hx Neurological Disorder: No - HEENT Hx HEENT Problems: Yes (WEARS GLASSES FOR READING) - RENAL Hx Chronic Kidney Disease: No - ENDOCRINE/METABOLIC Hx Endocrine Disorders: No - HEMATOLOGICAL/ONCOLOGICAL 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 , bone, and liver) - INTEGUMENTARY Hx Dermatological Problems: No - MUSCULOSKELETAL/RHEUMATOLOGICAL Hx Falls: Yes - GASTROINTESTINAL Hx Gastrointestinal Disorders: No - GENITOURINARY/GYNECOLOGICAL Hx Genitourinary Disorders: Yes Hx Prostate Problems: Yes (BPH) - PSYCHIATRIC Hx Substance Use: No - SURGICAL HISTORY Hx Surgeries: Yes (PROSTATE SURGERY) Other/Comment: recent liver biopy - ANESTHESIA Hx Anesthesia: Yes Hx Anesthesia Reactions: No Hx Malignant Hyperthermia: No Meds Allergies/Adverse Reactions: Allergies Allergy/AdvReac Type Severity Reaction Status Date / Time No Known Allergies Allergy Verified 05/26/17 17:29 - Medications Medications: Current Medications Albuterol/Ipratropium (Duoneb 3 Mg/0.5 Mg (3 Ml) Ud) 3 ml INH RQ6 SANJUANA Hydrocortisone Sodium Succinate (Solu-Cortef) 100 mg IV Q8H SANJUANA Last Admin: 05/27/17 18:11 Dose: 100 mg Lorazepam (Ativan) 1 mg IVP Q4H PRN PRN Reason: Anxiety Last Admin: 05/27/17 05:30 Dose: 1 mg Physical Exam - Constitutional Appears: No Acute Distress, Older Than Stated Age, Cachectic, Chronically Ill - Head Exam Head Exam: NORMAL INSPECTION - Eye Exam Eye Exam: PERRL - ENT Exam ENT Exam: Mucous Membranes Dry - Neck Exam Neck exam: Positive for: Normal Inspection - Respiratory Exam Respiratory Exam: Decreased Breath Sounds (left base.), Prolonged Expiratory Phase - Cardiovascular Exam Cardiovascular Exam: REGULAR RHYTHM, +S1, +S2 - GI/Abdominal Exam GI & Abdominal Exam: Normal Bowel Sounds, Soft. absent: Tenderness - Extremities Exam Extremities exam: Positive for: pedal edema, pedal pulses present (bilateral Venodyne in place.). Negative for: calf tenderness - Neurological Exam Neurological exam: Altered, CN II-XII Intact - Psychiatric Exam Psychiatric exam: Flat Affect - Skin Skin Exam: Normal Color, Warm Results - Vital Signs Recent Vital Signs: Last Vital Signs Temp 97.5 F L 05/27/17 16:09 Pulse 92 H 05/27/17 19:32 Resp 25 H 05/27/17 19:32 BP 98/77 L 05/27/17 19:32 Pulse Ox 100 05/27/17 18:32 - Labs Result Diagrams: 05/27/17 12:39 05/27/17 12:39 Labs: Laboratory Results - last 24 hr 05/26/17 05/26/17 05/26/17 21:58 23:54 23:54 WBC RBC Hgb Hct MCV MCH MCHC RDW Plt Count MPV Neut % (Auto) Lymph % (Auto) [place] % (Auto) Eos % (Auto) Baso % (Auto) Neut # Lymph # [place] # Eos # Baso # Neutrophils % (Manual) Band Neutrophils % Lymphocytes % (Manual) Monocytes % (Manual) Platelet Estimate Large Platelets Anisocytosis (manual) pO2 22 L VBG pH 7.26 L VBG pCO2 44 VBG HCO3 17.4 VBG Total CO2 21.1 L VBG O2 Sat (Calc) 34.6 L VBG Base Excess -7.2 L VBG Potassium 4.9 Sodium 133.0 122 L Chloride 100.0 92 L Glucose 166 H Lactate 8.1 H* Crit Value Called To Crit Value Called By sridevi García Crit Value Read Back Y Blood Gas Notified Time 2202 Potassium 5.2 Carbon Dioxide 20 L Anion Gap 16 BUN 45 H Creatinine 1.3 Est GFR ( Amer) > 60 Est GFR (Non-Af Amer) 53 Random Glucose 171 H Serum Osmolality 296 Calcium 7.1 L Phosphorus Magnesium Total Bilirubin AST ALT Alkaline Phosphatase Total Protein Albumin Globulin Albumin/Globulin Ratio Venous Blood Potassium 4.9 Urine Osmolality Ur Random Sodium 05/27/17 05/27/17 05/27/17 00:12 01:16 02:51 WBC RBC Hgb Hct MCV MCH MCHC RDW Plt Count MPV Neut % (Auto) Lymph % (Auto) [place] % (Auto) Eos % (Auto) Baso % (Auto) Neut # Lymph # [place] # Eos # Baso # Neutrophils % (Manual) Band Neutrophils % Lymphocytes % (Manual) Monocytes % (Manual) Platelet Estimate Large Platelets Anisocytosis (manual) pO2 32 VBG pH 7.32 VBG pCO2 42 VBG HCO3 20.4 VBG Total CO2 22.9 VBG O2 Sat (Calc) 62.8 VBG Base Excess -4.3 L VBG Potassium 5.3 H Sodium 131.0 L 124 L Chloride 98.0 95 L Glucose 187 H Lactate 6.9 H* Crit Value Called To Crit Value Called By sridevi García Crit Value Read Back Y Blood Gas Notified Time 119 Potassium 6.1 H Carbon Dioxide 19 L Anion Gap 17 BUN 47 H Creatinine 1.2 Est GFR ( Amer) > 60 Est GFR (Non-Af Amer) 58 Random Glucose 181 H Serum Osmolality Calcium 7.0 L Phosphorus Magnesium Total Bilirubin AST ALT Alkaline Phosphatase Total Protein Albumin Globulin Albumin/Globulin Ratio Venous Blood Potassium 5.3 H Urine Osmolality 628 Ur Random Sodium 21 05/27/17 05/27/17 05/27/17 05:40 05:44 07:15 WBC RBC Hgb Hct MCV MCH MCHC RDW Plt Count MPV Neut % (Auto) Lymph % (Auto) [place] % (Auto) Eos % (Auto) Baso % (Auto) Neut # Lymph # [place] # Eos # Baso # Neutrophils % (Manual) Band Neutrophils % Lymphocytes % (Manual) Monocytes % (Manual) Platelet Estimate Large Platelets Anisocytosis (manual) pO2 14 L 32 VBG pH 7.34 7.34 VBG pCO2 50 42 VBG HCO3 23.1 21.5 VBG Total CO2 28.5 H 24.0 VBG O2 Sat (Calc) 19.8 L 63.8 VBG Base Excess 0.5 -3.0 L VBG Potassium 5.3 H 4.6 Sodium 128 L 132.0 138.0 Chloride 92 L 97.0 L 108.0 H Glucose 209 H 162 H Lactate 4.8 H* 3.7 H Crit Value Called To Md genia clarke Crit Value Called By Nilda ye tunnel man Crit Value Read Back Y Blood Gas Notified Time 600 Potassium 5.6 H Carbon Dioxide 26 Anion Gap 15 BUN 48 H Creatinine 1.3 Est GFR ( Amer) > 60 Est GFR (Non-Af Amer) 53 Random Glucose 193 H Serum Osmolality Calcium 7.0 L Phosphorus Magnesium Total Bilirubin AST ALT Alkaline Phosphatase Total Protein Albumin Globulin Albumin/Globulin Ratio Venous Blood Potassium 5.3 H 4.6 Urine Osmolality Ur Random Sodium 05/27/17 05/27/17 05/27/17 12:39 12:39 12:39 WBC 17.3 H RBC 3.89 L Hgb 11.6 L Hct 35.6 MCV 91.4 MCH 29.8 MCHC 32.6 L RDW 17.4 H Plt Count 146 MPV 9.6 Neut % (Auto) 91.9 H Lymph % (Auto) 1.6 L [place] % (Auto) 6.1 Eos % (Auto) 0.0 Baso % (Auto) 0.4 Neut # 15.9 H Lymph # 0.3 L [place] # 1.1 H Eos # 0.0 Baso # 0.1 Neutrophils % (Manual) 88 H Band Neutrophils % 4 H Lymphocytes % (Manual) 1 L Monocytes % (Manual) 7 Platelet Estimate Normal Large Platelets Present Anisocytosis (manual) Slight pO2 VBG pH VBG pCO2 VBG HCO3 VBG Total CO2 VBG O2 Sat (Calc) VBG Base Excess VBG Potassium Sodium 127 L Chloride 94 L Glucose Lactate Crit Value Called To Crit Value Called By Crit Value Read Back Blood Gas Notified Time Potassium 5.2 Carbon Dioxide 29 Anion Gap 10 BUN 48 H Creatinine 1.1 Est GFR ( Amer) > 60 Est GFR (Non-Af Amer) > 60 Random Glucose 147 H Serum Osmolality Calcium 6.6 L Phosphorus 4.2 Magnesium 2.0 Total Bilirubin 0.9 AST 68 H D ALT 39 Alkaline Phosphatase 443 H D Total Protein 5.1 L Albumin 2.3 L Globulin 2.8 Albumin/Globulin Ratio 0.8 L Venous Blood Potassium Urine Osmolality 515 Ur Random Sodium 25 - Imaging and Cardiology Chest x-ray Status: Report reviewed by me (chest x-ray bilateral lower lobe airspace disease /plus minus effusion.) Assessment & Plan (1) Respiratory failure Status: Acute (2) Leukocytosis Status: Acute (3) Pneumonia Status: Acute (4) COPD exacerbation Status: Acute (5) Hyponatremia Status: Acute (6) Metastatic cancer Status: Acute - Assessment and Plan (Free Text) Plan: PANCULTURES. ESR. CRP. MRSA SCREENING. START iv MERREM 500 MG iv PIGGYBACK EVERY 8 HOURLY.05/27/17. ADD VANCOMYCIN 1 G EVERY 24 HOURLY FOR NOW.05/26/17. vANCO TROUGH PRIOR TO THE THIRD DOSE AND KEEP BETWEEN 10 AND 20. SPUTUM GRAM STAIN AND CULTURE. SPUTUM FOR FUNGUS FOLLOW-UP RENAL FUNCTIONS CLOSELY . IV FLUIDS/ 3% NORMAL SALINE PER NEPHROLOGY. PATIENT ON iv [id number] PER NATIONAL SALES CONSULTANT FOLLOW-UP CULTURES TO ADJUST ANTIBIOTICS. PULMONARY TOILET. CASE DISCUSSED WITH ASSISTED SALES REPRESENTATIVE/SUPERVISOR BLOOD [employer]OR RECRUITERS. WILL FOLLOW ALONG WITH YOU.
[2017-05-27] MEDS: Meropenem 500 MG in Sodium Chloride 0.9% 100 ML IVPB SCH (22:35)
[2017-05-27] MEDS: Vancomycin 1 gm/NS 200 ml 1 GM/200 ML BAG IVPB SCH (22:36)
--- NOTE | 2017-05-27 23:08 | CARD ---
APPROVED REPORT EKG Measurement Heart [id number] [place] [id number] <Conclusion> Sinus tachycardia Pulmonary disease pattern Incomplete right bundle branch block Left anterior fascicular block Abnormal ECG
[2017-05-28] MEDS ORDERED: Albuterol-Ipratrop 3 mg / 0.5 (3 ml) UD INH SCH
[2017-05-28] MEDS: Albuterol-Ipratrop 3 mg / 0.5 (3 ml) UD INH SCH ×4 (02:36→19:11)
[2017-05-28] MEDS: Meropenem 500 MG in Sodium Chloride 0.9% 100 ML IVPB SCH ×3 (06:52→21:56)
--- NOTE | 2017-05-28 13:11 | CP.PCM.PN ---
Subjective - Date & Time of Evaluation Date of Evaluation: 05/28/17 Time of Evaluation: 13:09 - Subjective Subjective: Given 3% saline for hyponatremia. Now Na level improved- 127, K corrected Would avoid overcorrection- keep Na about where it is now DNR status noted Objective - Vital Signs/Intake and Output Vital Signs (last 24 hours): Temp Pulse Resp BP Pulse Ox 97.6 F 93 H 37 H 121/82 96 05/28/17 08:00 05/28/17 11:56 05/28/17 10:32 05/28/17 10:32 05/28/17 10:32 Intake and Output: 05/28/17 05/28/17 06:59 18:59 Intake Total 300 Output Total 125 Balance 175 - Medications Medications: Current Medications Albuterol/Ipratropium (Duoneb 3 Mg/0.5 Mg (3 Ml) Ud) 3 ml INH RQ6 [facility] Last Admin: 05/28/17 07:38 Dose: 3 ml Hydrocortisone Sodium Succinate (Solu-Cortef) 100 mg IV Q8H [facility] Last Admin: 05/28/17 10:24 Dose: 100 mg Meropenem 500 mg/ Sodium (Chloride) 100 mls @ 100 mls/hr IVPB Q8 [facility] Last Admin: 05/28/17 06:52 Dose: 100 mls/hr Vancomycin/Sodium Chloride (Vancomycin 1 Gm/Ns 200 Ml) 1 gm in 200 mls @ 133 mls/hr IVPB Q24H [facility] Stop: 06/01/17 20:01 Last Admin: 05/27/17 22:36 Dose: 133 mls/hr Lorazepam (Ativan) 1 mg IVP Q4H PRN PRN Reason: Anxiety Last Admin: 05/27/17 05:30 Dose: 1 mg - Labs Labs: 05/27/17 12:39 05/27/17 12:39 - Constitutional Appears: Cachectic, Chronically Ill - Head Exam Head Exam: ATRAUMATIC, NORMAL INSPECTION - Respiratory Exam Respiratory Exam: Rhonchi, Respiratory Distress - Cardiovascular Exam Cardiovascular Exam: REGULAR RHYTHM, +S1 - GI/Abdominal Exam GI & Abdominal Exam: Soft. absent: Tenderness - Extremities Exam Extremities Exam: Normal Inspection. absent: Tenderness - Neurological Exam Neurological Exam: Altered - Skin Skin Exam: Dry, Warm Assessment and Plan (1) Hyponatremia Status: Acute (2) Metastatic cancer Status: Acute (3) Respiratory failure Status: Acute - Assessment and Plan (Free Text) Plan: Avoid overcorrection hyponatremia supportive care given DNR/DNI status Will follow mora if drawn
--- NOTE | 2017-05-28 13:47 | CP.PCM.PN ---
Subjective - Date & Time of Evaluation Date of Evaluation: 05/28/17 Time of Evaluation: 13:46 - Subjective Subjective: ON BIPAP AROUSABLE VS STABLE ON IV AB NA BETTER DNR/DNI ON CHART SUPPORTIVE ICU MANAGEMENT Objective - Vital Signs/Intake and Output Vital Signs (last 24 hours): Temp Pulse Resp BP Pulse Ox 97.6 F 93 H 37 H 121/82 96 05/28/17 08:00 05/28/17 11:56 05/28/17 10:32 05/28/17 10:32 05/28/17 10:32 Intake and Output: 05/28/17 05/28/17 11:59 23:59 Intake Total 300 Output Total 125 Balance 175 - Medications Medications: Current Medications Albuterol/Ipratropium (Duoneb 3 Mg/0.5 Mg (3 Ml) Ud) 3 ml INH RQ6 [facility] Last Admin: 05/28/17 07:38 Dose: 3 ml Hydrocortisone Sodium Succinate (Solu-Cortef) 100 mg IV Q8H [facility] Last Admin: 05/28/17 10:24 Dose: 100 mg Meropenem 500 mg/ Sodium (Chloride) 100 mls @ 100 mls/hr IVPB Q8 [facility] Last Admin: 05/28/17 06:52 Dose: 100 mls/hr Vancomycin/Sodium Chloride (Vancomycin 1 Gm/Ns 200 Ml) 1 gm in 200 mls @ 133 mls/hr IVPB Q24H [facility] Stop: 06/01/17 20:01 Last Admin: 05/27/17 22:36 Dose: 133 mls/hr Lorazepam (Ativan) 1 mg IVP Q4H PRN PRN Reason: Anxiety Last Admin: 05/27/17 05:30 Dose: 1 mg - Labs Labs: 05/27/17 12:39 05/27/17 12:39
[2017-05-28] MEDS: Dextrose 5%/0.45% NS 1,000 ML IV SCH (16:07)
--- NOTE | 2017-05-28 16:15 | CP.PCM.PN ---
Subjective - Date & Time of Evaluation Date of Evaluation: 05/28/17 Time of Evaluation: 10:00 - Subjective Subjective: patient seen and examined Remains lethargic and on BiPAP Afebrile Objective - Vital Signs/Intake and Output Vital Signs (last 24 hours): Temp Pulse Resp BP Pulse Ox 97.3 F L 92 H 24 121/82 97 05/28/17 12:00 05/28/17 16:00 05/28/17 16:00 05/28/17 16:00 05/28/17 16:00 Intake and Output: 05/28/17 05/28/17 06:59 18:59 Intake Total 300 Output Total 125 Balance 175 - Medications Medications: Current Medications Albuterol/Ipratropium (Duoneb 3 Mg/0.5 Mg (3 Ml) Ud) 3 ml INH RQ6 [facility] Last Admin: 05/28/17 14:32 Dose: 3 ml Hydrocortisone Sodium Succinate (Solu-Cortef) 100 mg IV Q8H [facility] Last Admin: 05/28/17 10:24 Dose: 100 mg Meropenem 500 mg/ Sodium (Chloride) 100 mls @ 100 mls/hr IVPB Q8 [facility] Last Admin: 05/28/17 14:41 Dose: 100 mls/hr Vancomycin/Sodium Chloride (Vancomycin 1 Gm/Ns 200 Ml) 1 gm in 200 mls @ 133 mls/hr IVPB Q24H [facility] Stop: 06/01/17 20:01 Last Admin: 05/27/17 22:36 Dose: 133 mls/hr Dextrose/Sodium Chloride (Dextrose 5%/0.45% Ns 1000 Ml) 1,000 mls @ 60 mls/hr IV .[id number] [facility] Last Admin: 05/28/17 16:07 Dose: 60 mls/hr Lorazepam (Ativan) 1 mg IVP Q4H PRN PRN Reason: Anxiety Last Admin: 05/27/17 05:30 Dose: 1 mg - Labs Labs: 05/27/17 12:39 05/27/17 12:39 - Head Exam Head Exam: ATRAUMATIC, NORMOCEPHALIC - Eye Exam Eye Exam: Normal appearance - ENT Exam ENT Exam: Mucous Membranes Moist - Neck Exam Neck Exam: Normal Inspection - Respiratory Exam Respiratory Exam: Decreased Breath Sounds - Cardiovascular Exam Cardiovascular Exam: REGULAR RHYTHM - GI/Abdominal Exam GI & Abdominal Exam: Soft, Normal Bowel Sounds - Neurological Exam Neurological Exam: Altered Assessment and Plan (1) Respiratory failure Assessment & Plan: continue BiPAP IV antibiotics IV steroids Nebulizer treatment Patient DNR/DNI Awaiting transfer to floor Status: Acute (2) COPD exacerbation Status: Acute (3) Hypotension Status: Acute (4) Metastatic cancer Status: Acute (5) Pneumonia Status: Acute
[2017-05-28] MEDS: Vancomycin 1 gm/NS 200 ml 1 GM/200 ML BAG IVPB SCH (20:03)
--- NOTE | 2017-05-28 21:44 | CP.PCM.PN ---
Subjective - Date & Time of Evaluation Date of Evaluation: 05/28/17 Time of Evaluation: 21:44 - Subjective Subjective: AFEBRILE, VITAL SIGNS NOTED. REMAINS ON BIPAP. AROUSABLE. ON iv ANTIBIOTICS. DNR/DNI NOTED. CONTINUE PRESENT MANAGEMENT Objective - Vital Signs/Intake and Output Vital Signs (last 24 hours): Temp Pulse Resp BP Pulse Ox 97.1 F L 98 H 32 H 112/52 L 89 L 05/28/17 20:00 05/28/17 21:21 05/28/17 20:00 05/28/17 20:00 05/28/17 20:00 Intake and Output: 05/28/17 05/29/17 18:59 06:59 Intake Total 220 Output Total 300 Balance -80 - Medications Medications: Current Medications Albuterol/Ipratropium (Duoneb 3 Mg/0.5 Mg (3 Ml) Ud) 3 ml INH RQ6 [facility] Last Admin: 05/28/17 19:11 Dose: 3 ml Hydrocortisone Sodium Succinate (Solu-Cortef) 100 mg IV Q8H [facility] Last Admin: 05/28/17 17:58 Dose: 100 mg Meropenem 500 mg/ Sodium (Chloride) 100 mls @ 100 mls/hr IVPB Q8 [facility] Last Admin: 05/28/17 14:41 Dose: 100 mls/hr Vancomycin/Sodium Chloride (Vancomycin 1 Gm/Ns 200 Ml) 1 gm in 200 mls @ 133 mls/hr IVPB Q24H [facility] Stop: 06/01/17 20:01 Last Admin: 05/28/17 20:03 Dose: 133 mls/hr Dextrose/Sodium Chloride (Dextrose 5%/0.45% Ns 1000 Ml) 1,000 mls @ 60 mls/hr IV .[id number] [facility] Last Admin: 05/28/17 16:07 Dose: 60 mls/hr Lorazepam (Ativan) 1 mg IVP Q4H PRN PRN Reason: Anxiety Last Admin: 05/27/17 05:30 Dose: 1 mg - Labs Labs: 05/27/17 12:39 05/27/17 12:39 - Constitutional Appears: No Acute Distress, Cachectic, Chronically Ill - Head Exam Head Exam: NORMAL INSPECTION - Eye Exam Eye Exam: EOMI, PERRL - ENT Exam ENT Exam: Mucous Membranes Dry, Normal Exam - Neck Exam Neck Exam: Normal Inspection - Respiratory Exam Respiratory Exam: Rhonchi (bilaterally.) - Cardiovascular Exam Cardiovascular Exam: REGULAR RHYTHM, +S1, +S2 - GI/Abdominal Exam GI & Abdominal Exam: Soft, Normal Bowel Sounds. absent: Organomegaly - Extremities Exam Extremities Exam: absent: Calf Tenderness, Pedal Edema (bilateral Venodyne.) - Neurological Exam Neurological Exam: Awake, CN II-XII Intact - Skin Skin Exam: Normal Color, Warm Assessment and Plan (1) Respiratory failure Status: Acute (2) Leukocytosis Status: Acute (3) Pneumonia Status: Acute (4) COPD exacerbation Status: Acute (5) Hyponatremia Status: Acute (6) Metastatic cancer Status: Acute - Assessment and Plan (Free Text) Plan: ON iv MERREM 500 MG iv PIGGYBACK EVERY 8 HOURLY.05/27/17. ON VANCOMYCIN 1 G EVERY 24 HOURLY FOR NOW.05/26/17. vANCO TROUGH PRIOR TO THE THIRD DOSE AND KEEP BETWEEN 10 AND 20. SPUTUM GRAM STAIN AND CULTURE P. SPUTUM FOR FUNGUS FOLLOW-UP RENAL FUNCTIONS CLOSELY . IV FLUIDS PER NEPHROLOGY. PATIENT ON iv sOLU-mEDROL PER INTEGRITY SPECIALIST FOLLOW-UP CULTURES TO ADJUST ANTIBIOTICS. PULMONARY TOILET. CASE DISCUSSED WITH REINFORCING STEEL WORKER/SCENE PAINTER. PATIENT DNR/DNI.
[2017-05-29] MEDS: Albuterol-Ipratrop 3 mg / 0.5 (3 ml) UD INH SCH ×4 (02:06→19:45)
[2017-05-29] MEDS: Meropenem 500 MG in Sodium Chloride 0.9% 100 ML IVPB SCH ×3 (05:21→22:00)
--- NOTE | 2017-05-29 09:38 | CP.PCM.PN ---
Subjective - Date & Time of Evaluation Date of Evaluation: 05/29/17 Time of Evaluation: 09:35 - Subjective Subjective: on biPAP, very lethargic DNR/DNI status noted no new chemistries Objective - Vital Signs/Intake and Output Vital Signs (last 24 hours): Temp Pulse Resp BP Pulse Ox 96.1 F L 99 H 29 H 111/64 100 05/29/17 00:00 05/29/17 07:44 05/29/17 07:44 05/29/17 07:44 05/29/17 07:44 Intake and Output: 05/29/17 05/29/17 06:59 18:59 Intake Total 500 400 Output Total 150 Balance 500 250 - Medications Medications: Current Medications Albuterol/Ipratropium (Duoneb 3 Mg/0.5 Mg (3 Ml) Ud) 3 ml INH RQ6 [facility] Last Admin: 05/29/17 07:32 Dose: 3 ml Hydrocortisone Sodium Succinate (Solu-Cortef) 100 mg IV Q8H [facility] Last Admin: 05/29/17 02:07 Dose: 100 mg Meropenem 500 mg/ Sodium (Chloride) 100 mls @ 100 mls/hr IVPB Q8 [facility] Last Admin: 05/29/17 05:21 Dose: 100 mls/hr Vancomycin/Sodium Chloride (Vancomycin 1 Gm/Ns 200 Ml) 1 gm in 200 mls @ 133 mls/hr IVPB Q24H [facility] Stop: 06/01/17 20:01 Last Admin: 05/28/17 20:03 Dose: 133 mls/hr Dextrose/Sodium Chloride (Dextrose 5%/0.45% Ns 1000 Ml) 1,000 mls @ 60 mls/hr IV .[id number] [facility] Last Admin: 05/28/17 16:07 Dose: 60 mls/hr Lorazepam (Ativan) 1 mg IVP Q4H PRN PRN Reason: Anxiety Last Admin: 05/29/17 03:48 Dose: 1 mg - Labs Labs: 05/27/17 12:39 05/27/17 12:39 - Constitutional Appears: In Acute Distress, Cachectic, Chronically Ill - Head Exam Head Exam: ATRAUMATIC, NORMAL INSPECTION - Eye Exam Eye Exam: EOMI, Normal appearance - Neck Exam Neck Exam: Normal Inspection. absent: Tenderness - Cardiovascular Exam Cardiovascular Exam: REGULAR RHYTHM, +S1 - GI/Abdominal Exam GI & Abdominal Exam: Soft. absent: Tenderness - Extremities Exam Extremities Exam: Normal Inspection. absent: Tenderness - Neurological Exam Neurological Exam: Altered - Skin Skin Exam: Dry, Warm Assessment and Plan (1) Hyponatremia Status: Acute (2) Metastatic cancer Status: Acute (3) Respiratory failure Status: Acute - Assessment and Plan (Free Text) Plan: Will follow up as needed supportive care as per medical team
--- NOTE | 2017-05-29 12:40 | CP.PCM.PN ---
Subjective - Date & Time of Evaluation Date of Evaluation: 05/29/17 Time of Evaluation: 09:00 - Subjective Subjective: the patient seen and examined. Remains lethargic and on BiPAP Does not follow any commands Afebrile Objective - Vital Signs/Intake and Output Vital Signs (last 24 hours): Temp Pulse Resp BP Pulse Ox 96.1 F L 99 H 29 H 111/64 100 05/29/17 00:00 05/29/17 10:16 05/29/17 07:44 05/29/17 07:44 05/29/17 07:44 Intake and Output: 05/29/17 05/29/17 06:59 18:59 Intake Total 500 400 Output Total 150 Balance 500 250 - Medications Medications: Current Medications Albuterol/Ipratropium (Duoneb 3 Mg/0.5 Mg (3 Ml) Ud) 3 ml INH RQ6 [facility] Last Admin: 05/29/17 07:32 Dose: 3 ml Hydrocortisone Sodium Succinate (Solu-Cortef) 100 mg IV Q8H [facility] Last Admin: 05/29/17 09:42 Dose: 100 mg Meropenem 500 mg/ Sodium (Chloride) 100 mls @ 100 mls/hr IVPB Q8 [facility] Last Admin: 05/29/17 05:21 Dose: 100 mls/hr Vancomycin/Sodium Chloride (Vancomycin 1 Gm/Ns 200 Ml) 1 gm in 200 mls @ 133 mls/hr IVPB Q24H [facility] Stop: 06/01/17 20:01 Last Admin: 05/28/17 20:03 Dose: 133 mls/hr Dextrose/Sodium Chloride (Dextrose 5%/0.45% Ns 1000 Ml) 1,000 mls @ 60 mls/hr IV .[id number] [facility] Last Admin: 05/28/17 16:07 Dose: 60 mls/hr Lorazepam (Ativan) 1 mg IVP Q4H PRN PRN Reason: Anxiety Last Admin: 05/29/17 03:48 Dose: 1 mg - Labs Labs: 05/27/17 12:39 05/27/17 12:39 - Head Exam Head Exam: ATRAUMATIC, NORMOCEPHALIC - ENT Exam ENT Exam: Mucous Membranes Moist - Neck Exam Neck Exam: Normal Inspection - Respiratory Exam Respiratory Exam: Decreased Breath Sounds - Cardiovascular Exam Cardiovascular Exam: Irregular Rhythm - GI/Abdominal Exam GI & Abdominal Exam: Soft, Normal Bowel Sounds Assessment and Plan (1) Respiratory failure Assessment & Plan: Continue antibiotics Continue nebulizer treatment and steroids BiPAP Patient DNR/DNI Prognosis poor Status: Acute (2) COPD exacerbation Status: Acute (3) Hypotension Status: Acute (4) Metastatic cancer Status: Acute (5) Pneumonia Status: Acute
[2017-05-29] MEDS: Dextrose 5%/0.45% NS 1,000 ML IV SCH (13:27)
--- NOTE | 2017-05-29 14:05 | CP.PCM.PN ---
Subjective - Date & Time of Evaluation Date of Evaluation: 05/29/17 Time of Evaluation: 14:04 - Subjective Subjective: IN BIPAP LETHARGIC P/E SAME COMFORT CARE Objective - Vital Signs/Intake and Output Vital Signs (last 24 hours): Temp Pulse Resp BP Pulse Ox 96.1 F L 76 29 H 111/64 100 05/29/17 00:00 05/29/17 13:12 05/29/17 07:44 05/29/17 07:44 05/29/17 07:44 Intake and Output: 05/29/17 05/29/17 11:59 23:59 Intake Total 900 Output Total 150 Balance 750 - Medications Medications: Current Medications Albuterol/Ipratropium (Duoneb 3 Mg/0.5 Mg (3 Ml) Ud) 3 ml INH RQ6 [facility] Last Admin: 05/29/17 13:12 Dose: 3 ml Hydrocortisone Sodium Succinate (Solu-Cortef) 100 mg IV Q8H [facility] Last Admin: 05/29/17 09:42 Dose: 100 mg Meropenem 500 mg/ Sodium (Chloride) 100 mls @ 100 mls/hr IVPB Q8 [facility] Last Admin: 05/29/17 05:21 Dose: 100 mls/hr Vancomycin/Sodium Chloride (Vancomycin 1 Gm/Ns 200 Ml) 1 gm in 200 mls @ 133 mls/hr IVPB Q24H [facility] Stop: 06/01/17 20:01 Last Admin: 05/28/17 20:03 Dose: 133 mls/hr Dextrose/Sodium Chloride (Dextrose 5%/0.45% Ns 1000 Ml) 1,000 mls @ 60 mls/hr IV .[id number] [facility] Last Admin: 05/29/17 13:27 Dose: 60 mls/hr Lorazepam (Ativan) 1 mg IVP Q4H PRN PRN Reason: Anxiety Last Admin: 05/29/17 03:48 Dose: 1 mg - Labs Labs: 05/27/17 12:39 05/27/17 12:39
[2017-05-29] MEDS: Vancomycin 1 gm/NS 200 ml 1 GM/200 ML BAG IVPB SCH (20:05)
--- NOTE | 2017-05-29 22:11 | CP.PCM.PN ---
Subjective - Date & Time of Evaluation Date of Evaluation: 05/29/17 Time of Evaluation: 22:11 - Subjective Subjective: AFEBRILE, ON BIPAP LETHARGIC BUT AROUSABLE DOES NOT FOLLOW COMMANDS. clinically unchanged On IV antibiotics. labs reviewed; mrsa screen negative. All cultures negative to date. Objective - Vital Signs/Intake and Output Vital Signs (last 24 hours): Temp Pulse Resp BP Pulse Ox 96.7 F L 75 19 106/69 99 05/29/17 20:00 05/29/17 20:00 05/29/17 20:00 05/29/17 20:00 05/29/17 20:00 Intake and Output: 05/29/17 05/30/17 18:59 06:59 Intake Total 1320 Output Total 400 Balance 920 - Medications Medications: Current Medications Albuterol/Ipratropium (Duoneb 3 Mg/0.5 Mg (3 Ml) Ud) 3 ml INH RQ6 [facility] Last Admin: 05/29/17 19:45 Dose: 3 ml Hydrocortisone Sodium Succinate (Solu-Cortef) 100 mg IV Q8H [facility] Last Admin: 05/29/17 17:50 Dose: 100 mg Meropenem 500 mg/ Sodium (Chloride) 100 mls @ 100 mls/hr IVPB Q8 [facility] Last Admin: 05/29/17 15:00 Dose: 100 mls/hr Vancomycin/Sodium Chloride (Vancomycin 1 Gm/Ns 200 Ml) 1 gm in 200 mls @ 133 mls/hr IVPB Q24H [facility] Stop: 06/01/17 20:01 Last Admin: 05/29/17 20:05 Dose: 133 mls/hr Dextrose/Sodium Chloride (Dextrose 5%/0.45% Ns 1000 Ml) 1,000 mls @ 60 mls/hr IV .[id number] [facility] Last Admin: 05/29/17 13:27 Dose: 60 mls/hr Lorazepam (Ativan) 1 mg IVP Q4H PRN PRN Reason: Anxiety Last Admin: 05/29/17 03:48 Dose: 1 mg - Labs Labs: 05/27/17 12:39 05/27/17 12:39 - Head Exam Head Exam: NORMAL INSPECTION (on BiPAP.) - Eye Exam Eye Exam: PERRL - ENT Exam ENT Exam: Normal Exam - Neck Exam Neck Exam: Normal Inspection - Respiratory Exam Respiratory Exam: Decreased Breath Sounds - Cardiovascular Exam Cardiovascular Exam: REGULAR RHYTHM, +S1, +S2 - GI/Abdominal Exam GI & Abdominal Exam: Soft, Normal Bowel Sounds - Extremities Exam Extremities Exam: Pedal Edema. absent: Calf Tenderness (bilateral Venodyne.) - Neurological Exam Neurological Exam: Altered - Psychiatric Exam Psychiatric exam: Flat Affect - Skin Skin Exam: Normal Color, Warm Assessment and Plan (1) Respiratory failure Status: Acute (2) Leukocytosis Status: Acute (3) Pneumonia Status: Acute (4) COPD exacerbation Status: Acute (5) Hyponatremia Status: Acute (6) Metastatic cancer Status: Acute - Assessment and Plan (Free Text) Plan: ON iv MERREM 500 MG iv PIGGYBACK EVERY 8 HOURLY.05/27/17. ON VANCOMYCIN 1 G EVERY 24 HOURLY FOR NOW.05/26/17. vANCO TROUGH PRIOR TO THE THIRD DOSE AND KEEP BETWEEN 10 AND 20. SPUTUM GRAM STAIN AND CULTURE P. SPUTUM FOR FUNGUS FOLLOW-UP RENAL FUNCTIONS CLOSELY . IV FLUIDS PER NEPHROLOGY. PATIENT ON iv SOLU-mEDROL PER FERMENTING CELLARS RECEIVER . PULMONARY TOILET.
[2017-05-30] MEDS: Albuterol-Ipratrop 3 mg / 0.5 (3 ml) UD INH SCH ×4 (01:48→19:25)
[2017-05-30] MEDS: Dextrose 5%/0.45% NS 1,000 ML IV SCH ×2 (02:25→17:42)
[2017-05-30] MEDS: Meropenem 500 MG in Sodium Chloride 0.9% 100 ML IVPB SCH ×3 (05:35→21:57)
[2017-05-30 05:51] VITALS: RESP 18
[2017-05-30 06:53] LABS: BLOOD UREA NITROGEN 65 mg/dL (9-20); CALCIUM 7.3 mg/dl (8.6-10.4); GFR AFRICAN-AMERICAN > 60; GFR NON-AFRICAN AMERICAN > 60
[2017-05-30 08:38] LABS: BASO # 0.1 K/uL (0.0-0.2); BASO % 0.4 % (0.0-2.0); HEMOGLOBIN 10.8 g/dL (12.0-18.0)
[2017-05-30 08:49] LABS: LYMPH # 0.8 K/uL (1.0-4.3); LYMPH % 3.1 % (20.0-40.0); MEAN CELL VOLUME 90.8 fL (80.0-94.0); MEAN CORPUSCULAR HEMOGLOBIN 31.2 pg (27.0-31.0); MEAN CORPUSCULAR HGB CONC 34.3 g/dL (33.0-37.0); MEAN PLATELET VOLUME 9.7 fL (7.2-11.7); MONO % 7.3 % (0.0-10.0); NEUT # 24.2 K/uL (1.8-7.0); NEUT % 89.2 % (50.0-75.0); NRBC % 0.2 % (0.0-2.0); RBC 3.48 Mil/uL (4.40-5.90); RED CELL DISTRIBUTION WIDTH 18.1 % (11.5-14.5)
[2017-05-30 08:59] LABS: WHITE BLOOD COUNT 27.1 K/uL (4.8-10.8)
[2017-05-30 09:00] LABS: PLATELET COUNT 30 K/uL (130-400)
[2017-05-30 10:28] LABS: BANDS 3 % (0-2); LYMPHOCYTE 3 % (20-40); MONOCYTE 5 % (0-10); NEUTROPHIL 89 % (50-75); PLATELET ESTIMATE MARKEDLY DECREASED (NORMAL); TOTAL CELLS COUNTED 100
[2017-05-30 10:29] LABS: ANISOCYTOSIS MODERATE; HYPOCHROMIC SLIGHT; POLYCHROMIC SLIGHT; TOXIC GRANULATION PRESENT
[2017-05-30 10:30] LABS: LARGE PLATELETS PRESENT
--- NOTE | 2017-05-30 13:52 | CP.PCM.PN ---
Subjective - Date & Time of Evaluation Date of Evaluation: 05/30/17 Time of Evaluation: 13:51 - Subjective Subjective: LETHARGIC , SLUGGISH TO RESPOND IN BIPAP WBC UP/PLT DOWN D/W ID SUPPORTIVE COMFORT CARE Objective - Vital Signs/Intake and Output Vital Signs (last 24 hours): Temp Pulse Resp BP Pulse Ox 97.6 F 102 H 18 116/77 95 05/30/17 12:00 05/30/17 13:25 05/30/17 04:00 05/30/17 00:00 05/30/17 12:00 Intake and Output: 05/30/17 05/30/17 11:59 23:59 Intake Total 720 Balance 720 - Medications Medications: Current Medications Albuterol/Ipratropium (Duoneb 3 Mg/0.5 Mg (3 Ml) Ud) 3 ml INH RQ6 [facility] Last Admin: 05/30/17 13:23 Dose: 3 ml Hydrocortisone Sodium Succinate (Solu-Cortef) 100 mg IV Q8H [facility] Last Admin: 05/30/17 10:28 Dose: 100 mg Meropenem 500 mg/ Sodium (Chloride) 100 mls @ 100 mls/hr IVPB Q8 [facility] Last Admin: 05/30/17 05:35 Dose: 100 mls/hr Vancomycin/Sodium Chloride (Vancomycin 1 Gm/Ns 200 Ml) 1 gm in 200 mls @ 133 mls/hr IVPB Q24H [facility] Stop: 06/01/17 20:01 Last Admin: 05/29/17 20:05 Dose: 133 mls/hr Dextrose/Sodium Chloride (Dextrose 5%/0.45% Ns 1000 Ml) 1,000 mls @ 60 mls/hr IV .[id number] [facility] Last Admin: 05/30/17 02:25 Dose: Not Given Lorazepam (Ativan) 1 mg IVP Q4H PRN PRN Reason: Anxiety Last Admin: 05/29/17 03:48 Dose: 1 mg - Labs Labs: 05/30/17 08:28 05/30/17 06:24
--- NOTE | 2017-05-30 14:06 | CP.PCM.PN ---
Subjective - Date & Time of Evaluation Date of Evaluation: 05/30/17 Time of Evaluation: 14:06 - Subjective Subjective: No change in patient condition and mental status On BiPAP does not follow commands Worsening chest x-ray Elevated white count with thrombocytopenia. case discussed with LABORATORY CLERK MS HUMPHRIES SEPTIC W/U ADD IV MYCAFUNGIN 100MG IV OD DAILY. 05/30/17. CONTINUE IV ABX. PROGNOSIS POOR. Objective - Vital Signs/Intake and Output Vital Signs (last 24 hours): Temp Pulse Resp BP Pulse Ox 97.6 F 102 H 18 116/77 95 05/30/17 12:00 05/30/17 13:25 05/30/17 04:00 05/30/17 00:00 05/30/17 12:00 Intake and Output: 05/30/17 05/30/17 06:59 18:59 Intake Total 720 400 Balance 720 400 - Medications Medications: Current Medications Albuterol/Ipratropium (Duoneb 3 Mg/0.5 Mg (3 Ml) Ud) 3 ml INH RQ6 [facility] Last Admin: 05/30/17 13:23 Dose: 3 ml Hydrocortisone Sodium Succinate (Solu-Cortef) 100 mg IV Q8H [facility] Last Admin: 05/30/17 10:28 Dose: 100 mg Meropenem 500 mg/ Sodium (Chloride) 100 mls @ 100 mls/hr IVPB Q8 [facility] Last Admin: 05/30/17 05:35 Dose: 100 mls/hr Vancomycin/Sodium Chloride (Vancomycin 1 Gm/Ns 200 Ml) 1 gm in 200 mls @ 133 mls/hr IVPB Q24H [facility] Stop: 06/01/17 20:01 Last Admin: 05/29/17 20:05 Dose: 133 mls/hr Dextrose/Sodium Chloride (Dextrose 5%/0.45% Ns 1000 Ml) 1,000 mls @ 60 mls/hr IV .[id number] [facility] Last Admin: 05/30/17 02:25 Dose: Not Given Micafungin Sodium 100 mg/ (Sodium Chloride) 100 mls @ 100 mls/hr IV Q24H [facility] Lorazepam (Ativan) 1 mg IVP Q4H PRN PRN Reason: Anxiety Last Admin: 05/29/17 03:48 Dose: 1 mg - Labs Labs: 05/30/17 08:28 05/30/17 06:24 - Constitutional Appears: No Acute Distress, Cachectic, Chronically Ill - Head Exam Head Exam: NORMAL INSPECTION - Eye Exam Eye Exam: PERRL - ENT Exam ENT Exam: Mucous Membranes Dry - Neck Exam Neck Exam: Normal Inspection - Respiratory Exam Respiratory Exam: Rhonchi (B/L) - Cardiovascular Exam Cardiovascular Exam: REGULAR RHYTHM, +S1, +S2 - GI/Abdominal Exam GI & Abdominal Exam: Soft, Normal Bowel Sounds - Extremities Exam Extremities Exam: Pedal Edema. absent: Calf Tenderness - Neurological Exam Neurological Exam: Altered - Skin Skin Exam: Warm Assessment and Plan (1) Respiratory failure Status: Acute (2) Leukocytosis Status: Acute (3) Pneumonia Status: Acute (4) COPD exacerbation Status: Acute (5) Hyponatremia Status: Acute (6) Metastatic cancer Status: Acute - Assessment and Plan (Free Text) Plan: ON iv MERREM 500 MG iv PIGGYBACK EVERY 8 HOURLY.05/27/17. ON VANCOMYCIN 1 G EVERY 24 HOURLY FOR NOW.05/26/17. vANCO TROUGH PRIOR TO THE THIRD DOSE AND KEEP BETWEEN 10 AND 20. ADD IV MYCAMINE 100MG IV Q 24HRLY POST BLOOD CULTURES 05/30/17 SPUTUM GRAM STAIN AND CULTURE P. SPUTUM FOR FUNGUS FOLLOW-UP RENAL FUNCTIONS CLOSELY . IV FLUIDS PER NEPHROLOGY. PATIENT ON iv SOLU-mEDROL PER CORD MAKER . PULMONARY TOILET.
--- NOTE | 2017-05-30 14:10 | CP.PCM.PN ---
Subjective - Date & Time of Evaluation Date of Evaluation: 05/30/17 Time of Evaluation: 14:06 - Subjective Subjective: NOTIFIED Abena.Nilda COOK OF INCREASE IN WBC TO 27 (SEE LAB RESULTS) AND SUDDEN DROP IN PLT COUNT (SPECIMEN REDRAWN AND CHECKED TWICE). PLT COUNT DUE TO VANCO? LEUKOCYTOSIS DUE TO ? HYDROCORTISONE IV Q8? DISCUSSED FINDINGS WITH DR. GONZALEZ WELL. AT THIS TIME SHE IS RECOMMENDING THE FOLLOW STAT: -U/A, URINE C&S -CXR PORTABLE -BLOOD CX X2 SETS -SPUTUM CX INDUCED -VANCO RANDOM LEVEL -SHE WILL ORDER MYCAFUNGIN AND THIS IS TO BE GIVEN AFTER BLOOD CX BOTH SETS DONE. DURING HER ROUNDS, DR. GONZALEZ WILL SPEAK WITH ICU RESIDENT AND AUTO DAMAGE ESTIMATOR. CBC AND CMP ORDERED FOR TOMORROW MORNING. NO FURTHER ORDERS AT THIS TIME. Objective - Vital Signs/Intake and Output Vital Signs (last 24 hours): Temp Pulse Resp BP Pulse Ox 97.6 F 102 H 18 116/77 95 05/30/17 12:00 05/30/17 13:25 05/30/17 04:00 05/30/17 00:00 05/30/17 12:00 Intake and Output: 05/30/17 05/30/17 06:59 18:59 Intake Total 720 400 Balance 720 400 - Medications Medications: Current Medications Albuterol/Ipratropium (Duoneb 3 Mg/0.5 Mg (3 Ml) Ud) 3 ml INH RQ6 [facility] Last Admin: 05/30/17 13:23 Dose: 3 ml Hydrocortisone Sodium Succinate (Solu-Cortef) 100 mg IV Q8H [facility] Last Admin: 05/30/17 10:28 Dose: 100 mg Meropenem 500 mg/ Sodium (Chloride) 100 mls @ 100 mls/hr IVPB Q8 [facility] Last Admin: 05/30/17 05:35 Dose: 100 mls/hr Vancomycin/Sodium Chloride (Vancomycin 1 Gm/Ns 200 Ml) 1 gm in 200 mls @ 133 mls/hr IVPB Q24H [facility] Stop: 06/01/17 20:01 Last Admin: 05/29/17 20:05 Dose: 133 mls/hr Dextrose/Sodium Chloride (Dextrose 5%/0.45% Ns 1000 Ml) 1,000 mls @ 60 mls/hr IV .[id number] [facility] Last Admin: 05/30/17 02:25 Dose: Not Given Micafungin Sodium 100 mg/ (Sodium Chloride) 100 mls @ 100 mls/hr IV Q24H [facility] Lorazepam (Ativan) 1 mg IVP Q4H PRN PRN Reason: Anxiety Last Admin: 05/29/17 03:48 Dose: 1 mg - Labs Labs: 05/30/17 08:28 05/30/17 06:24
--- NOTE | 2017-05-30 14:23 | CP.PCM.PN ---
Subjective - Date & Time of Evaluation Date of Evaluation: 05/30/17 Time of Evaluation: 09:50 - Subjective Subjective: the patient seen and examined No change in patient condition and mental status On BiPAP does not follow commands Worsening chest x-ray Elevated white count with thrombocytopenia Objective - Vital Signs/Intake and Output Vital Signs (last 24 hours): Temp Pulse Resp BP Pulse Ox 97.6 F 102 H 18 116/77 95 05/30/17 12:00 05/30/17 13:25 05/30/17 04:00 05/30/17 00:00 05/30/17 12:00 Intake and Output: 05/30/17 05/30/17 06:59 18:59 Intake Total 720 400 Balance 720 400 - Medications Medications: Current Medications Albuterol/Ipratropium (Duoneb 3 Mg/0.5 Mg (3 Ml) Ud) 3 ml INH RQ6 [facility] Last Admin: 05/30/17 13:23 Dose: 3 ml Hydrocortisone Sodium Succinate (Solu-Cortef) 100 mg IV Q8H [facility] Last Admin: 05/30/17 10:28 Dose: 100 mg Meropenem 500 mg/ Sodium (Chloride) 100 mls @ 100 mls/hr IVPB Q8 [facility] Last Admin: 05/30/17 05:35 Dose: 100 mls/hr Vancomycin/Sodium Chloride (Vancomycin 1 Gm/Ns 200 Ml) 1 gm in 200 mls @ 133 mls/hr IVPB Q24H [facility] Stop: 06/01/17 20:01 Last Admin: 05/29/17 20:05 Dose: 133 mls/hr Dextrose/Sodium Chloride (Dextrose 5%/0.45% Ns 1000 Ml) 1,000 mls @ 60 mls/hr IV .[id number] [facility] Last Admin: 05/30/17 02:25 Dose: Not Given Micafungin Sodium 100 mg/ (Sodium Chloride) 100 mls @ 100 mls/hr IV Q24H [facility] Lorazepam (Ativan) 1 mg IVP Q4H PRN PRN Reason: Anxiety Last Admin: 05/29/17 03:48 Dose: 1 mg - Labs Labs: 05/30/17 08:28 05/30/17 06:24 - Head Exam Head Exam: ATRAUMATIC, NORMOCEPHALIC - ENT Exam ENT Exam: Mucous Membranes Dry - Neck Exam Neck Exam: Normal Inspection - Respiratory Exam Respiratory Exam: Decreased Breath Sounds - Cardiovascular Exam Cardiovascular Exam: REGULAR RHYTHM - GI/Abdominal Exam GI & Abdominal Exam: Soft Assessment and Plan (1) Respiratory failure Assessment & Plan: ccontinue BiPAP Worsening bilateral infiltrate and effusion On IV antibiotics Antifungal added Repeat platelet count Prognosis poor Patient DNR DNI Cultures so far negative Status: Acute (2) COPD exacerbation Status: Acute (3) Hypotension Status: Acute (4) Metastatic cancer Status: Acute (5) Pneumonia Status: Acute
--- NOTE | 2017-05-30 15:12 | RAD ---
HISTORY: LEUKOCYTOSIS, R/O infiltrate COMPARISON: Chest x-ray performed 05/26/17 TECHNIQUE: Chest, one view. FINDINGS: Gastric tube extends expected location of the stomach. LUNGS: Increasing moderate to severe interstitial prominence may reflect infection or edema. Layering right greater than left pleural effusions associated consolidations. No definite pneumothorax. CARDIOVASCULAR: Heart size appears borderline enlarged. OSSEOUS STRUCTURES: Degenerative changes. Osseous demineralization. VISUALIZED UPPER ABDOMEN: Unremarkable. OTHER FINDINGS: IVC filter, partially imaged. IMPRESSION: Borderline cardiomegaly. Atherosclerotic calcifications of the aorta. Increasing moderate to severe interstitial prominence may reflect infection or edema. Layering right greater than left pleural effusions and associated consolidations. Partially imaged IVC filter.
[2017-05-30] MEDS: Micafungin 100 MG in Sodium Chloride 0.9% 100 ML IV SCH (17:00)
[2017-05-30 19:29] VITALS: PULSE 94
[2017-05-30] MEDS: Vancomycin 1 gm/NS 200 ml 1 GM/200 ML BAG IVPB SCH (19:35)
[2017-05-30 22:04] VITALS: O2SAT 100
[2017-05-30 22:35] LABS: SQUAMOUS EPITHIAL 1 /hpf (0-5); URINE BACTERIA FEW (<OCC); URINE BILIRUBIN NEGATIVE (NEGATIVE); URINE BLOOD 3+ (NEGATIVE); URINE CLARITY Hazy (Clear); URINE COLOR Amber (YELLOW); URINE GLUCOSE (UA) 2+ mg/dL (Normal); URINE HYALINE CAST >20 /lpf (0-2); URINE LEUKOCYTE ESTERASE TRACE Leu/uL (Negative); URINE NITRATE NEGATIVE (NEGATIVE); URINE PROTEIN 1+ mg/dL (NEGATIVE)
[2017-05-31] MEDS: Albuterol-Ipratrop 3 mg / 0.5 (3 ml) UD INH SCH ×3 (01:53→14:51)
[2017-05-31] MEDS: Meropenem 500 MG in Sodium Chloride 0.9% 100 ML IVPB SCH ×2 (05:26→14:50)
[2017-05-31] MEDS: Dextrose 5%/0.45% NS 1,000 ML IV SCH ×2 (10:55→14:54)
[2017-05-31 11:48] LABS: BASO # 0.2 K/uL (0.0-0.2); BASO % 0.5 % (0.0-2.0); HEMOGLOBIN 10.2 g/dL (12.0-18.0); LYMPH # 0.4 K/uL (1.0-4.3); LYMPH % 1.4 % (20.0-40.0); MEAN CORPUSCULAR HEMOGLOBIN 30.8 pg (27.0-31.0); MEAN CORPUSCULAR HGB CONC 33.2 g/dL (33.0-37.0); MEAN PLATELET VOLUME 8.2 fL (7.2-11.7); MONO # 1.6 K/uL (0.0-0.8); MONO % 5.1 % (0.0-10.0); NEUT # 30.3 K/uL (1.8-7.0); NRBC % 0.2 % (0.0-2.0); RBC 3.32 Mil/uL (4.40-5.90); RED CELL DISTRIBUTION WIDTH 18.8 % (11.5-14.5)
[2017-05-31 12:01] LABS: MEAN CELL VOLUME 92.8 fL (80.0-94.0); WHITE BLOOD COUNT 32.6 K/uL (4.8-10.8)
[2017-05-31 12:02] LABS: PLATELET COUNT 8 K/uL (130-400)
[2017-05-31 12:24] LABS: LYMPHOCYTE 6 % (20-40); MONOCYTE 6 % (0-10); NEUTROPHIL 84 % (50-75); REACTIVE LYMPHOCYTES 4 % (0-0); TOTAL CELLS COUNTED 100
[2017-05-31 12:25] LABS: PLATELET ESTIMATE MARKEDLY DECREASED (NORMAL)
[2017-05-31 12:27] LABS: ANISOCYTOSIS MODERATE; BURR CELLS SLIGHT; POIKILOCYTOSIS MODERATE
[2017-05-31 12:28] LABS: HYPOCHROMIC SLIGHT; POLYCHROMIC SLIGHT
--- NOTE | 2017-05-31 13:53 | CP.PCM.PN ---
Subjective - Date & Time of Evaluation Date of Evaluation: 05/31/17 Time of Evaluation: 13:52 - Subjective Subjective: FURTHER DROP IN PLT HEM EVAL ON IV AB AND BIPAP PROGNOSIS POOR Objective - Vital Signs/Intake and Output Vital Signs (last 24 hours): Temp Pulse Resp BP Pulse Ox 96.6 F L 94 H 18 122/67 100 05/30/17 20:00 05/31/17 08:15 05/30/17 04:00 05/30/17 20:00 05/30/17 20:00 Intake and Output: 05/31/17 05/31/17 11:59 23:59 Intake Total 940 Output Total 100 Balance 840 - Medications Medications: Current Medications Albuterol/Ipratropium (Duoneb 3 Mg/0.5 Mg (3 Ml) Ud) 3 ml INH RQ6 [facility] Last Admin: 05/31/17 08:14 Dose: 3 ml Hydrocortisone Sodium Succinate (Solu-Cortef) 100 mg IV Q8H [facility] Last Admin: 05/31/17 10:46 Dose: 100 mg Meropenem 500 mg/ Sodium (Chloride) 100 mls @ 100 mls/hr IVPB Q8 [facility] Last Admin: 05/31/17 05:26 Dose: 100 mls/hr Dextrose/Sodium Chloride (Dextrose 5%/0.45% Ns 1000 Ml) 1,000 mls @ 60 mls/hr IV .[id number] [facility] Last Admin: 05/31/17 10:55 Dose: Not Given Micafungin Sodium 100 mg/ (Sodium Chloride) 100 mls @ 100 mls/hr IV Q24H [facility] Last Admin: 05/30/17 17:00 Dose: 100 mls/hr Lorazepam (Ativan) 1 mg IVP Q4H PRN PRN Reason: Anxiety Last Admin: 05/29/17 03:48 Dose: 1 mg - Labs Labs: 05/31/17 11:42 05/30/17 06:24
--- NOTE | 2017-05-31 15:22 | CP.PCM.PN ---
Objective - Vital Signs/Intake and Output Vital Signs (last 24 hours): Temp Pulse Resp BP Pulse Ox 96.6 F L 94 H 18 122/67 100 05/30/17 20:00 05/31/17 08:15 05/30/17 04:00 05/30/17 20:00 05/30/17 20:00 Intake and Output: 05/31/17 05/31/17 06:59 18:59 Intake Total 940 Output Total 100 Balance 840 - Medications Medications: Current Medications Albuterol/Ipratropium (Duoneb 3 Mg/0.5 Mg (3 Ml) Ud) 3 ml INH RQ6 [facility] Last Admin: 05/31/17 14:51 Dose: 3 ml Hydrocortisone Sodium Succinate (Solu-Cortef) 100 mg IV Q8H [facility] Last Admin: 05/31/17 10:46 Dose: 100 mg Meropenem 500 mg/ Sodium (Chloride) 100 mls @ 100 mls/hr IVPB Q8 [facility] Last Admin: 05/31/17 14:50 Dose: 100 mls/hr Dextrose/Sodium Chloride (Dextrose 5%/0.45% Ns 1000 Ml) 1,000 mls @ 60 mls/hr IV .[id number] [facility] Last Admin: 05/31/17 14:54 Dose: 60 mls/hr Micafungin Sodium 100 mg/ (Sodium Chloride) 100 mls @ 100 mls/hr IV Q24H [facility] Last Admin: 05/30/17 17:00 Dose: 100 mls/hr Lorazepam (Ativan) 1 mg IVP Q4H PRN PRN Reason: Anxiety Last Admin: 05/29/17 03:48 Dose: 1 mg - Labs Labs: 05/31/17 11:42 05/30/17 06:24 Assessment and Plan (1) Respiratory failure Status: Acute (2) COPD exacerbation Status: Acute (3) Hypotension Status: Acute (4) Metastatic cancer Status: Acute (5) Pneumonia Status: Acute
[2017-05-31] MEDS: Micafungin 100 MG in Sodium Chloride 0.9% 100 ML IV SCH (15:50)
[2017-05-31 17:41] VITALS: BP 120/60; TEMP 97.5
--- NOTE | 2017-05-31 18:58 | CP.PCM.PRO ---
Pronouncement of Note - Clinical Findings Physical Exam: No Response Verbal/Painful Stimuli, Absent Peripheral Pulses{ Carotid & Femoral}, Absent Heart & Breath Sounds, No Pupillary Light Reflex, No Corneal Reflex, Pupils Fixed & Dilated, Absence of Vital Signs - Pronouncement Time Time of Pronouncement of : 18:52 - Notifications Pronouncement Notifications: Atending Notified Efficiency Analyst Notified: No - [place] [id number]
--- NOTE | 2017-05-31 19:43 | CP.PCM.DIS ---
Provider - Provider Date of Admission: 05/26/17 19:06 Attending physician: Sachin Olson MD Time Spent in preparation of Discharge (in minutes): 30 Hospital Course - Lab Results Lab Results: Micro Results 05/30/17 15:00 Blood-Venous Blood Culture - Preliminary NO GROWTH AFTER 24 HOURS 05/30/17 15:30 Blood-Venous Blood Culture - Preliminary NO GROWTH AFTER 24 HOURS 05/30/17 14:03 Sputum Induced Gram Stain - Final 05/26/17 17:52 Blood Blood Culture - Preliminary NO GROWTH AFTER 4 DAYS 05/26/17 17:30 Blood-Venous Blood Culture - Preliminary NO GROWTH AFTER 4 DAYS 05/27/17 08:08 Naris MRSA Culture (Admit) - Final MRSA NOT DETECTED 05/27/17 06:25 Urine,[place] Urine Culture - Final No Growth (<1,000 CFU/ML) Most Recent Lab Values WBC 32.6 K/uL (4.8-10.8) H 05/31/17 11:42 RBC 3.32 Mil/uL (4.40-5.90) L 05/31/17 11:42 Hgb 10.2 g/dL (12.0-18.0) L 05/31/17 11:42 Hct 30.8 % (35.0-51.0) L 05/31/17 11:42 MCV 92.8 fL (80.0-94.0) D 05/31/17 11:42 MCH 30.8 pg (27.0-31.0) 05/31/17 11:42 MCHC 33.2 g/dL (33.0-37.0) 05/31/17 11:42 RDW 18.8 % (11.5-14.5) H 05/31/17 11:42 Plt Count 8 K/uL (130-400) L* D 05/31/17 11:42 MPV 8.2 fL (7.2-11.7) 05/31/17 11:42 Neut % (Auto) 93.0 % (50.0-75.0) H 05/31/17 11:42 Lymph % (Auto) 1.4 % (20.0-40.0) L 05/31/17 11:42 [place] % (Auto) 5.1 % (0.0-10.0) 05/31/17 11:42 Eos % (Auto) 0.0 % (0.0-4.0) 05/31/17 11:42 Baso % (Auto) 0.5 % (0.0-2.0) 05/31/17 11:42 Neut # 30.3 K/uL (1.8-7.0) H 05/31/17 11:42 Lymph # 0.4 K/uL (1.0-4.3) L 05/31/17 11:42 [place] # 1.6 K/uL (0.0-0.8) H 05/31/17 11:42 Eos # 0.0 K/uL (0.0-0.7) 05/31/17 11:42 Baso # 0.2 K/uL (0.0-0.2) 05/31/17 11:42 Neutrophils % (Manual) 84 % (50-75) H 05/31/17 11:42 Band Neutrophils % 3 % (0-2) H 05/30/17 08:28 Lymphocytes % (Manual) 6 % (20-40) L 05/31/17 11:42 Reactive Lymphs % 4 % (0-0) H 05/31/17 11:42 Monocytes % (Manual) 6 % (0-10) 05/31/17 11:42 Toxic Granulation Present 05/30/17 08:28 Platelet Estimate Markedly decreased (NORMAL) L 05/31/17 11:42 Large Platelets Present 05/30/17 08:28 Polychromasia Slight 05/31/17 11:42 Hypochromasia (manual) Slight 05/31/17 11:42 Poikilocytosis (manual Moderate 05/31/17 11:42 Anisocytosis (manual) Moderate 05/31/17 11:42 Macrocytosis (manual) Slight 05/30/17 08:28 Scottie Cells Slight 05/31/17 11:42 D-Dimer, Quantitative 4888 ng/mlDDU (0-243) H 05/26/17 17:37 Puncture Site Lba 05/26/17 17:50 pCO2 29 mm/Hg (35-45) L 05/26/17 17:50 pO2 32 mm/Hg (30-55) 05/27/17 07:15 HCO3 24.8 mmol/L (21-28) 05/26/17 17:50 ABG pH 7.49 (7.35-7.45) H 05/26/17 17:50 ABG Total CO2 23.0 mmol/L (22-28) 05/26/17 17:50 ABG O2 Saturation 98.5 % (95-98) H 05/26/17 17:50 ABG Base Excess -0.2 mmol/L (-2.0-3.0) 05/26/17 17:50 Arthur Test Yes 05/26/17 17:50 ABG Potassium 5.0 mmol/L (3.6-5.2) 05/26/17 17:50 VBG pH 7.34 (7.32-7.43) 05/27/17 07:15 VBG pCO2 42 mmHg (40-60) 05/27/17 07:15 VBG HCO3 21.5 mmol/L 05/27/17 07:15 VBG Total CO2 24.0 mmol/L (22-28) 05/27/17 07:15 VBG O2 Sat (Calc) 63.8 % (40-65) 05/27/17 07:15 VBG Base Excess -3.0 mmol/L (0.0-2.0) L 05/27/17 07:15 VBG Potassium 4.6 mmol/L (3.6-5.2) 05/27/17 07:15 A-a O2 Difference 571.0 mm/Hg 05/26/17 17:50 Respiratory Index 5.4 05/26/17 17:50 Sodium 138.0 mmol/l (132-148) 05/27/17 07:15 Chloride 108.0 mmol/L (98-107) H 05/27/17 07:15 Glucose 162 mg/dl (75-110) H 05/27/17 07:15 Lactate 3.7 mmol/L (0.7-2.1) H 05/27/17 07:15 FiO2 100.0 % 05/26/17 17:50 Crit Value Called To Md genia clarke 05/27/17 05:44 Crit Value Called By Nilda ye medical office worker 05/27/17 05:44 Crit Value Read Back Y 05/27/17 05:44 Blood Gas Notified Time 600 05/27/17 05:44 Sodium 132 mmol/L (132-148) 05/30/17 06:24 Potassium 4.8 mmol/L (3.6-5.2) 05/30/17 06:24 Chloride 103 mmol/L (98-107) 05/30/17 06:24 Carbon Dioxide 26 mmol/L (22-30) 05/30/17 06:24 Anion Gap 9 (10-20) L 05/30/17 06:24 BUN 65 mg/dL (9-20) H 05/30/17 06:24 Creatinine 1.0 mg/dL (0.8-1.5) 05/30/17 06:24 Est GFR ( Amer) > 60 05/30/17 06:24 Est GFR (Non-Af Amer) > 60 05/30/17 06:24 Random Glucose 162 mg/dL (75-110) H 05/30/17 06:24 Serum Osmolality 296 mosm/kg (272-300) 05/26/17 23:54 Calcium 7.3 mg/dl (8.6-10.4) L 05/30/17 06:24 Phosphorus 4.2 mg/dL (2.5-4.5) 05/27/17 12:39 Magnesium 2.0 mg/dL (1.6-2.3) 05/27/17 12:39 Total Bilirubin 0.9 mg/dL (0.2-1.3) 05/27/17 12:39 AST 68 U/L (17-59) H D 05/27/17 12:39 ALT 39 U/L (21-72) 05/27/17 12:39 Alkaline Phosphatase 443 U/L (38-126) H D 05/27/17 12:39 Troponin I 0.0310 ng/mL (0.00-0.120) 05/26/17 17:37 NT-Pro-B Natriuret Pep 2270 pg/mL (0-900) H 05/26/17 17:37 Total Protein 5.1 g/dL (6.3-8.3) L 05/27/17 12:39 Albumin 2.3 g/dL (3.5-5.0) L 05/27/17 12:39 Globulin 2.8 gm/dL (2.2-3.9) 05/27/17 12:39 Albumin/Globulin Ratio 0.8 (1.0-2.1) L 05/27/17 12:39 Arterial Blood Potassium 5.0 mmol/L (3.6-5.2) 05/26/17 17:50 Venous Blood Potassium 4.6 mmol/L (3.6-5.2) 05/27/17 07:15 Urine Color Rachel (YELLOW) 05/30/17 22:22 Urine Clarity Hazy (Clear) 05/30/17 22:22 Urine pH 5.0 (5.0-8.0) 05/30/17 22:22 Ur Specific [place] 1.024 (1.003-1.030) 05/30/17 22:22 Urine Protein 1+ mg/dL (NEGATIVE) H 05/30/17 22:22 Urine Glucose (UA) 2+ mg/dL (Normal) H 05/30/17 22:22 Urine Ketones Trace mg/dL (NEGATIVE) 05/30/17 22:22 Urine Blood 3+ (NEGATIVE) H 05/30/17 22:22 Urine Nitrate Negative (NEGATIVE) 05/30/17 22:22 Urine Bilirubin Negative (NEGATIVE) 05/30/17 22:22 Urine Urobilinogen 4.0 mg/dL (0.2-1.0) 05/30/17 22:22 Ur Leukocyte Esterase Trace Vivien/uL (Negative) 05/30/17 22:22 Urine WBC (Auto) 18 /hpf (0-5) H 05/30/17 22:22 Urine RBC (Auto) 345 /hpf (0-3) H 05/30/17 22:22 Ur Squamous Epith Cells 1 /hpf (0-5) 05/30/17 22:22 Urine Bacteria Few (<OCC) H 05/30/17 22:22 Hyaline Casts >20 /lpf (0-2) H 05/30/17 22:22 Urine Osmolality 515 mosm/kg (300-1000) 05/27/17 12:39 Ur Random Sodium 25 mmol/L 05/27/17 12:39 Random Vancomycin 40.63 ug/mL 05/30/17 21:51 Influenza Typ A,B (EIA) Negative for flu a/b (NEGATIVE) 05/26/17 17:23 - Hospital Course Hospital Course: TRANSFERRED FROM [facility] AFTER SOB NOT RESPONDING TO O2 IN ER , PT HAD NA 118 AND HYPOXIA, WITH CHF/PNEUMONIA AND HIGH 22K WBC PT GIVEN 3% NS PAST HIST. 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 EMBOLUS /COPD PT. WAS TREATED WITH COMFORT AND SUPPORTIVE TREATMENT D/W DAUGHTER, SIGNED DNR/DNI PT 05/31/17 Discharge Exam - Head Exam Head Exam: NORMAL INSPECTION Discharge Plan - Follow Up Plan Condition: FAIR Disposition: HOME/ ROUTINE
== END 2017-05-31 20:50 | DRG 871 ==
LOC: C.ER 17:17 → C.9E 19:06 → C.6T 20:20 → C.9E 20:23 → C.6T 21:39 → C.9I 05-27 06:06 → C.3T 05-30 21:36
PROVIDERS: ADMIT Internal Medicine Cardiovascular Disease; ATTEND Internal Medicine Cardiovascular Disease
PROC: 5A09557 Assistance with Respiratory Ventilation, Greater than 96 Consecutive Hours, Continuous Positive Airway Pressure (ICD-10-PCS; principal; 2017-05-26)
DX: A41.9 Sepsis, unspecified organism (principal); J18.9 Pneumonia, unspecified organism; I26.99 Other pulmonary embolism without acute cor pulmonale; J96.90 Respiratory failure, unspecified, unspecified whether with hypoxia or hypercapnia; E22.2 Syndrome of inappropriate secretion of antidiuretic hormone; C25.9 Malignant neoplasm of pancreas, unspecified; D69.6 Thrombocytopenia, unspecified; E87.5 Hyperkalemia; J44.1 Chronic obstructive pulmonary disease with (acute) exacerbation; C78.00 Secondary malignant neoplasm of unspecified lung; C78.7 Secondary malignant neoplasm of liver and intrahepatic bile duct; C79.51 Secondary malignant neoplasm of bone; J44.0 Chronic obstructive pulmonary disease with (acute) lower respiratory infection; C61 Malignant neoplasm of prostate; E78.00 Pure hypercholesterolemia, unspecified; I11.0 Hypertensive heart disease with heart failure; I50.9 Heart failure, unspecified; Z86.718 Personal history of other venous thrombosis and embolism; Z87.891 Personal history of nicotine dependence; Z79.01 Long term (current) use of anticoagulants; Z66 Do not resuscitate; Z51.5 Encounter for palliative care; M81.0 Age-related osteoporosis without current pathological fracture; K40.90 Unilateral inguinal hernia, without obstruction or gangrene, not specified as recurrent; N40.0 Benign prostatic hyperplasia without lower urinary tract symptoms; Z79.899 Other long term (current) drug therapy